=== PATIENT | female | born 1970 | race Caucasian/White ===

== ENCOUNTER 2023-08-28 08:37 | Outpatient (OUT) | payer BC, SELFPAY ==
[2023-08-28 09:11] LABS: Estimated Average Glucose 151 mg/dL; Glycohemoglobin A1C 6.9 % (4.5-6.2)
== END 2023-08-28 08:38 | disposition home or self-care (01) ==
LOC: LAB 08:41
PROVIDERS: PCP Family Medicine; Visit Provider Family Medicine
DX: E11.65 Type 2 diabetes mellitus with hyperglycemia (principal)
CPT/HCPCS: 36415; 83036

== ENCOUNTER 2023-11-01 21:01 | Outpatient (REF) | payer BC, SELFPAY ==
--- OUTSIDE RECORDS SUMMARY | 2023-11-01 21:04 | XMS_ITS | CCD ---
Author Name Unknown Address [address] [place] [address] Organization [facility] Care Team Providers Care Pediatric Audiologist Name Role Phone Rivka Romero Unavailable ROXANA, DR QUINTON Cortés Admitting Unavailable NADERER, DR QUINTON Cortés Attending Unavailable NADERER, DR QUINTON Cortés Primary Care Unavailable NADERER, DR QUINTON Cortés Consulting Unavailable NADERER, DR QUINTON Cortés Admitting Unavailable NADERER, DR QUINTON Cortés Attending Unavailable NADERER, DR QUINTON Cortés Primary Care Unavailable NADERER, DR QUINTON Cortés Consulting Unavailable NADERER, DR QUINTON Cortés Admitting Unavailable NADERER, DR QUINTON Cortés Attending Unavailable NADERER, DR QUINTON Cortés Primary Care Unavailable NADERER, DR QUINTON Cortés Consulting Unavailable NADERER, DR QUINTON Cortés Primary Care Unavailable PAY ., DR BOO Admitting Unavailable PAY ., DR BOO Attending Unavailable ZIEBER, DR AUDREY Rodriguez Consulting Unavailable PAY ., DR BOO Consulting Unavailable TAMLYN ., SUNG Admitting Unavailable TAMKELLY ., SUNG Attending Unavailable ROXANA, DR QUINTON Cortés Primary Care Unavailable TAMLYN ., SUNG Consulting Unavailable URIAH HERRING Consulting Unavailable LG LOYA Consulting Unavailable CHAO ., DR JONES Admitting Unavailable CHAO ., DR JONES Attending Unavailable ROXANA, DR QUINTON Cortés Primary Care Unavailable CHAO ., DR JONES Consulting Unavailable BE WINCHESTER Attending Unavailable BE WINCHESTER Referring Unavailable Medications Current Medications Medication Drug Class(es) Dates Sig (Normalized) Sig (Original) Ascorbic Acid (1 source) Vitamin C Vitamin C Active carvedilol 25 mg oral tablet (1 source) alpha-Adrenergic Porsha, beta-Adrenergic Porsha Carvedilol 25 MG Orally Active Citalopram (1 source) Serotonin Reuptake Inhibitor CeleXA Active lisinopril 10 mg oral tablet (1 source) Angiotensin Converting Enzyme Inhibitor take 1 tablet by mouth every twenty-four hours Lisinopril 10 MG 1 tablet Orally Once a day Active naproxen sodium 550 mg oral tablet (2 sources) Nonsteroidal Anti-inflammatory Drug Start: 02-18-2021 take 1 tablet by mouth every twelve hours at mealtime as needed Naproxen Sodium 550 MG 1 tablet with food or milk as needed Orally every 12 hrs for 7 days Jun, Active pioglitazone (1 source) Peroxisome Proliferator Receptor alpha Agonist, Peroxisome Proliferator Receptor gamma Agonist, Thiazolidinedione Actos Active SITagliptin (1 source) Dipeptidyl Peptidase 4 Inhibitor Januvia Active vitamin B12 (1 source) Vitamin B12 Vitamin B 12 Active Problems Active Problems Problem Classification Problem Date Documented Da te Episodic/Chronic Contraceptive and procreative management (1 source) Tubal ligation status; Translations: [TUBAL LIGATION STATUS] Onset: 12-16-2022 Episodic Diabetes mellitus with complications (4 sources) Type 2 diabetes mellitus with hyperglycemia; Translations: [TYPE 2 DM W/HYPERGLYCEMIA] Onset: 08-18-2022 Chronic Diabetes mellitus without complication (1 source) Type 2 diabetes mellitus without complications; Translations: [TYPE 2 DM WITHOUT COMPLICATIONS] Onset: 12-16-2022 Chronic Essential hypertension (1 source) Essential (primary) hypertension; Translations: [ESSENTIAL PRIMARY HYPERTENSION] Onset: 12-16-2022 Chronic Gastrointestinal hemorrhage (4 sources) Hemorrhage of anus and rectum; Translations: [HEMORRHAGE OF ANUS AND RECTUM] Onset: 12-11-2022 Episodic Joint disorders and dislocations; trauma-related (1 source) Unspecified internal derangement of right knee; Translations: [UNS INTERNAL DERANGEMENT RIGHT KNEE] Onset: 06-02-2022 Chronic Other aftercare (1 source) Other salvage determiner (current) drug therapy; Translations: [OTH WATER POLLUTION CONTROL TECHNICIAN CURRENT DRUG THERAPY] Onset: 12-16-2022 Episodic Residual codes; unclassified (1 source) Acquired absence of both cervix and uterus; Translations: [ACQUIRED ABSENCE BOTH CERVIX AND UTERUS] Onset: 12-16-2022 Episodic Substance-related disorders (1 source) Nicotine dependence, cigarettes, uncomplicated; Translations: [NICOTINE DEPEND CIGARETTES UNCOMP] Onset: 12-16-2022 Chronic Past or Other Problems Problem Classification Problem Date Documented Date Episodic/Chronic Immunizations and screening for infectious disease (1 source) Encounter for screening for human papillomavirus (HPV); Translations: [ENC SCREENING HUMAN PAPILLOMAVIRUS] Onset: 10-31-2022 Episodic Other injuries and conditions due to external causes (1 source) Unspecified injury of right wrist, hand and finger(s), initial encounter; Translations: [Injury of right hand, initial encounter S69.91XA] Onset: 07-07-2021 Resolved: 07-07-2021 Episodic Other non-traumatic joint disorders (4 sources) Pain in right knee; Translations: [PAIN IN RIGHT KNEE] Onset: 06-01-2022 Episodic Other screening for suspected conditions (not mental disorders or infectious disease) (4 sources) Encounter for screening for malignant neoplasm of cervix; Translations: [ENC SCREENING MALIG NEOPLASM CERV] Onset: 10-26-2022 Episodic Results Test Name Value Interpretation Reference Range Facility ECHOCARDIO M/2D COMPLETEon 0 02-19-2023 ECHOCARDIO M/2D COMPLETE Patient: GALE DARDEN Exam Date: 02/19/2023 : 1970 Gender:F Ordering : DR QUINTON SCHMIDT . Admission #: [id number] Family : Order #: [id number] CLICK HERE TO VIEW EXAM ECHOCARDIOGRAM REPORT PROCEDURE: CARDIO PULMONARY ECHOCARDIO M/2D COMP INDICATIONS: Shortness of breath with exertion COMPARISON: None. DESCRIPTION: COMPLETE ECHOCARDIOGRAM Real-time transthoracic echocardiography with 2D, M-mode, spectral and color flow Doppler performed. QUALITY: Technical quality was good. LEFT VENTRICLE: Mild to moderate dilatation. Normal left ventricular wall thickness. Global left ventricular systolic function is normal. LV EF: Estimated left ventricular ejection fraction is 55-60% DIASTOLIC: Grade II diastolic dysfunction. ATRIAL SEPTUM: LEFT ATRIUM: Moderate dilatation. RIGHT ATRIUM: Mild dilatation. RIGHT VENTRICLE: Normal chamber size. Normal right ventricular systolic function. TRICUSPID VALVE: Normal mobility and thickness. No stenosis with mild regurgitation. Moderate pulmonary hypertension. RVSP 49 mmHg MITRAL VALVE: Normal mobility and thickness. No evidence of mitral valve stenosis. There is no mitral annular calcification. Mild mitral regurgitation. AORTIC VALVE: Normal trileaflet appearance. No visible sclerosis. Normal leaflet mobility. No evidence of aortic valve stenosis. No aortic regurgitation. AORTIC ROOT: Normal diameter and appearance. PULMONIC VALVE: Normal thickness and mobility. No stenosis. Trivial regurgitation. PERICARDIUM: No evidence of pericardial effusion. IVC: Collapses with inspirations. Normal size. PLEURA: CONCLUSION: 1. Ventricle is mildly to moderately dilated with normal systolic function. LVEF is 55 to 60%. 2. Normal right ventricular size and systolic function. 3. Grade 2 diastolic dysfunction. 4. Mild to moderate biatrial dilatation. 5. Mild mitral and tricuspid regurgitation. 6. Moderately elevated right-sided pressures. RVSP 49 mmHg. Adult Echocardiography Procedure Report Left Ventricle LVEDD (3.7 - 5.6 cm): 6.14 cm LVESD (2.2 - 4.0 cm): 4.21 cm LVIVS thickness (0.6 - 1.2 cm): 1.07 cm LVPW thickness (0.5 - 1.0 cm): 1.08 cm LVOT Max Gradient: 7 mm[Hg] Peak Velocity (LVOT): 128.00 cm/s Mean Velocity (LVOT): 81.70 cm/s LVOT Diameter 2.10 cm Left Ventricular Ejection Fraction: 55-60 % Left Atrium LA Volume Index (2D A2C): 65026 mm3 Left Atrium Systolic Dimension: 4.50 cm Mitral Valve MV E to A Ratio: 1.20 Mitral Valve A-Wave Peak Velocity: 85.40 cm/s Mitral Valve E-Wave Peak Velocity: 103.00 cm/s Right Ventricle Aorta AO Root Diam: 2.80 cm Aortic Valve AoV Area (Peak Julián): 2.27 cm2 AoV Area (VTI): 2.26 cm2 Peak Velocity(Antegrade Flow): 195.00 cm/s Peak Gradient(Antegrade Flow): 15 mm[Hg] Mean Velocity(Antegrade Flow): 130.00 cm/s Mean Gradient(Antegrade Flow): 8 mm[Hg] Velocity Time Integral: 47.30 cm Tricuspid Valve Peak Velocity (Regurgitant Flow): 338.00 cm/s Peak Velocity: 96.70 cm/s Pulmonic Valve Peak Velocity: 141.00 cm/s, 139.00 cm/s Peak Gradient: 8 mm[Hg] Right Atrium Dictated by: Orlando Fatima M.D. on 02/19/2023 at 18:52 Approved by: Orlando Fatima M.D. on 02/19/2023 at 18:[address] [facility] CBC AUTO DIFFon 02-17-2023 BASO # 0.0 103/ul Normal 0.0-0.1 [place] Comment on above: Performed By: #### C BC ####[facility] [address] [place] [address]Dr. Joseph Obando Basophils/100 WBC (Bld) 0.4 % Normal 0.2-2.0 [facility] Comment on above: Performed By: #### C BC ####[facility] [address] [place], [place] [address]Dr. Joseph Obando EO # 0.3 103/ul Normal 0.0-0.7 [facility] Comment on above: Performed By: #### C BC ####[facility] [address] [place], [place] [address]Dr. Joseph Obando Eosinophils/100 WBC (Bld) 2.9 % Normal 0.9-7.0 [facility] Comment on above: Performed By: #### C BC ####[facility] [address] [place], [place] [address]Dr. Joseph Obando Erythrocyte distribution width (RBC) [Ratio] 15.4 % Critically high 11.0-15.0 [place] Comment on above: Performed By: #### C BC ####[facility] [address] [place], [place] [address]Dr. Joseph Obando Hematocrit (Bld) [Volume fraction] 41.8 % Normal 36.0-48.0 [facility] Comment on above: Performed By: #### C BC ####[facility] [address] [place], [place] [address]Dr. Joseph Obando Hemoglobin (Bld) [Mass/Vol] 12.9 g/dL Normal 12.0-16.0 [facility] Comment on above: Performed By: #### C BC ####[facility] [address] [place], [place] [address]Dr. Lindakyree Obando IG # 0.04 10e3/ul Critically high 0.00-0.[address] [facility] Comment on above: Performed By: #### C BC ####[facility] [address] [place], [place] [address]Dr. Joseph Obando IG % 0.4 % Normal 0.0-0.5 [place] Comment on above: Performed By: #### C BC ####[facility] [address] [address]DrFloresita Obando LYMPH # 1.5 103/ul Normal 1.2-3.8 [facility] Comment on above: Performed By: #### C BC ####[facility] [address] [place], [place] [address]DrFloresita Obando Lymphocytes/100 WBC (Bld) 15.9 % Critically low 20.5-60.0 [facility] Comment on above: Performed By: #### C BC ####[facility] [address] [place], [place] [address]DrFloresita Obando MANUAL DIFF REQ NO Normal [facility] Comment on above: Performed By: #### C BC ####[facility] [address] [place], [place] [address]Dr. Joseph Obando MCH (RBC) [Entitic mass] 29.3 pg Normal 26.7-34.0 [facility] Comment on above: Performed By: #### C BC ####[facility] [address] [place], [place] [address]DrFloresita Obando MCHC (RBC) [Mass/Vol] 30.9 g/dL Normal 29.9-35.2 [facility] Comment on above: Performed By: #### C BC ####[facility] [address] [place], [place] [address]DrFloresita Obando MCV (RBC) [Entitic vol] 94.8 fL Normal 81.0-99.0 [facility] Comment on above: Performed By: #### C BC ####[facility] [address] [place], [place] [address]DrFloresita Obando MONO # 0.6 103/ul Normal 0.3-0.8 [facility] Comment on above: Performed By: #### C BC ####[facility] [address] [place], [place] [address]DrFloresita Obando Monocytes/100 WBC (Bld) 6.5 % Normal 1.7-12.0 [facility] Comment on above: Performed By: #### C BC ####[facility] [address] [place] [id number]. Joseph Obando NEUT # 6.8 103/ul Critically high 1.4-6.5 [facility] Comment on above: Performed By: #### C BC ####[facility] [address] [place] [address]Dr. Joseph Obando Neutrophils/100 WBC (Bld) 73.9 % Normal 43.0-75.0 [facility] Comment on above: Performed By: #### C BC ####[facility] [address] [place] [address]Dr. Joseph Obando Platelet mean volume (Bld) [Entitic vol] 10.4 fL Normal 9.5-13.5 [place] Comment on above: Performed By: #### C BC ####[facility] [address] [place] [address]Dr. Joseph Obando PLT 168 103/ul Normal 150-450 [facility] Comment on above: Performed By: #### C BC ####[facility] [address] [place] [address]Dr. Joseph Obando RBC 4.41 106/ul Normal 4.20-5.40 [facility] Comment on above: Performed By: #### C BC ####[facility] [address] [place] [id number]. Joseph Obando WBC 9.3 103/ul Normal 4.0-11.0 [facility] Comment on above: Performed By: #### C BC ####[facility] [address] [place] [id number]. Joseph Obando GLYCOHEMOGLOBIN A1Con 2022 ADA RECOMMENDATION SEE BELOW Normal [facility] Comment on above: Result Comment: ADA RECOMMENDED LIMIT 4.0 - 6.0 ADA THERAPEUTIC TARGET < 7.0 ACTION SUGGESTED > 7.0 Performed By: #### A 1C #### [facility] [address] [address] [address] Joseph Obando Glucose [Mass/Vol] 146 mg/dL Normal [facility] Comment on above: Performed By: #### A 1C #### [facility] [address] [place] [address] Dr. Joseph Obando HbA1c (Bld) [Mass fraction] 6.7 % Critically high 4.5-6.2 [place] Comment on above: Performed By: #### A 1C #### [facility] [address] [place] [address] Dr. Joseph Obando LIPID PROFILEon 02-17-2023 CHOL-HDL RATIO NORM SEE BELOW Normal [facility] Comment on above: Result Comment: 3.3 - 4.4 LOW RISK 4.4 - 7.1 AVERAGE RISK 7.1 - 11.0 MODERATE RISK >11.0 HIGH RISK Performed By: #### T SH, LIVER, LIPID, BMP #### [facility] [address] [place] [address] Dr. Joseph Obando Cholesterol [Mass/Vol] 250 mg/dL Critically high <=200 [place] Comment on above: Performed By: #### T SH, LIVER, LIPID, BMP #### [facility] [address] [place] [address] Dr. Joseph Obando Cholesterol in HDL [Mass/Vol] 42 mg/dL Normal 40-60 [place] Comment on above: Performed By: #### T SH, LIVER, LIPID, BMP #### [facility] [address] [address] [address] Joseph Obando Cholesterol in LDL [Mass/Vol] 176.4 mg/dL Normal [place] Comment on above: Performed By: #### T SH, LIVER, LIPID, BMP #### [facility] [address] [place] [address] Dr. Joseph Obando Cholesterol.total/Ch olesterol in HDL [Mass ratio] 6.0 {ratio} Normal [place] Comment on above: Performed By: #### T SH, LIVER, LIPID, BMP #### [facility] [address] [place] [address] Dr. Joseph Obando HDL NORMAL > or = 60 mg/dl - LOW CARDIOVASCULAR RISK <40 mg/dl - HIGH CARDIOVASCULAR RISK Normal [place] Comment on above: Performed By: #### T SH, LIVER, LIPID, BMP #### [facility] [address] [address] [address] Joseph Obando LDL CALC NORMAL SEE BELOW Normal [facility] Comment on above: Result Comment: <100 mg/dl OPTIMAL 100 - 129 mg/dl NEAR OR ABOVE OPTIMAL 130 - 159 mg/dl BORDERLINE HIGH 160 - 189 mg/dl HIGH >190 mg/dl VERY HIGH Performed By: #### T SH, LIVER, LIPID, BMP #### [facility] [address] [address] [address] Joseph Obando Triglyceride [Mass/Vol] 158 mg/dL Critically high <=150 [place] Comment on above: Performed By: #### T SH, LIVER, LIPID, BMP #### [facility] [address] [address] [address] Joseph Obando VLDL CALC 31.6 mg/dL Normal [place] Comment on above: Performed By: #### T SH, LIVER, LIPID, BMP #### [facility] [address] [address] [address] Joseph Obando LIVER PROFILEon 02-17-2023 Albumin [Mass/Vol] 3.0 g/dL Critically low 3.4-5.0 [facility] Comment on above: Performed By: #### T SH, LIVER, LIPID, BMP #### [facility] [address] [address] [address] Joseph Obando Albumin/Globulin [Mass ratio] 0.7 {ratio} Normal [place] Comment on above: Performed By: #### T SH, LIVER, LIPID, BMP #### [facility] [address] [place] [address] Dr. Joseph Obando ALP [Catalytic activity/Vol] 83 U/L Normal 46-116 [place] Comment on above: Performed By: #### T SH, LIVER, LIPID, BMP #### [facility] [address] [place] [address] Dr. Joseph Obando ALT [Catalytic activity/Vol] 24 U/L Normal 14-59 [facility] Comment on above: Performed By: #### T SH, LIVER, LIPID, BMP #### [facility] [address] [address] [address] Joseph Obando AST [Catalytic activity/Vol] 14 U/L Critically low 15-37 [place] Comment on above: Performed By: #### T SH, LIVER, LIPID, BMP #### [facility] [address] [place] [address] Dr. Joseph Obando BILI, CONJUGATED 0.1 mg/dL Normal 0.0-0.2 [facility] Comment on above: Performed By: #### T SH, LIVER, LIPID, BMP #### [facility] [address] [place] [address] Dr. Joseph Obando Bilirubin [Mass/Vol] 0.2 mg/dL Normal 0.2-1.0 [place] Comment on above: Performed By: #### T SH, LIVER, LIPID, BMP #### [facility] [address] [place] [address] Dr. Jospeh Obando Globulin (S) [Mass/Vol] 4.2 g/dL Normal [place] Comment on above: Performed By: #### T SH, LIVER, LIPID, BMP #### [facility] [address] [place] [address] Dr. Joseph Obando Protein [Mass/Vol] 7.2 g/dL Normal 6.4-8.2 [facility] Comment on above: Performed By: #### T SH, LIVER, LIPID, BMP #### [facility] [address] [place] [address] Dr. Joseph Obando PROF CHEM 8 (BAS METB)on Anion gap [Moles/Vol] 10.3 mmol/L Normal [place] Comment on above: Performed By: #### T SH, LIVER, LIPID, BMP #### [facility] [address] [place] [address] Dr. Joseph Obando Calcium [Mass/Vol] 9.1 mg/dL Normal 8.5-10.1 [facility] Comment on above: Performed By: #### T SH, LIVER, LIPID, BMP #### [facility] [address] [address] [address] Joseph Obando Chloride [Moles/Vol] 104 mmol/L Normal 98-107 [place] Comment on above: Performed By: #### T SH, LIVER, LIPID, BMP #### [facility] [address] [place] [address] Dr. Joseph Obando CO2 [Moles/Vol] 30.2 mmol/L Normal 21.0-32.0 [facility] Comment on above: Performed By: #### T SH, LIVER, LIPID, BMP #### [facility] [address] [place] [address] Dr. Joseph Obando Creatinine [Mass/Vol] 0.69 mg/dL Normal 0.55-1.02 [place] Comment on above: Performed By: #### T SH, LIVER, LIPID, BMP #### [facility] [address] [place] [address] Dr. Joseph Obando EGFR-AF WALLISIAN >60 Normal >=60 [facility] Comment on above: Performed By: #### T SH, LIVER, LIPID, BMP #### [facility] [address] [place] [address] Dr. Joseph Obando EGFR-NON AF WALLISIAN >60 Normal >=60 [place] Comment on above: Performed By: #### T SH, LIVER, LIPID, BMP #### [facility] [address] [address] [address] Joseph Obando Glucose [Mass/Vol] 158 mg/dL Critically high 74-106 [place] Comment on above: Performed By: #### T SH, LIVER, LIPID, BMP #### [facility] [address] [place] [address] Dr. Joseph Obando Potassium [Moles/Vol] 4.5 mmol/L Normal 3.5-5.1 [place] Comment on above: Performed By: #### T SH, LIVER, LIPID, BMP #### [facility] [address] [place] [address] Dr. Joseph Obando Sodium [Moles/Vol] 140 mmol/L Normal 136-145 [facility] Comment on above: Performed By: #### T SH, LIVER, LIPID, BMP #### [facility] [address] [address] [address] Joseph Obando Urea nitrogen [Mass/Vol] 13.0 mg/dL Normal 7.0-18.0 [place] Comment on above: Performed By: #### T SH, LIVER, LIPID, BMP #### [facility] [address] [address] [address] Joseph Obando Urea nitrogen/Creatinine [Mass ratio] 18.8 mg/mg [facility] Comment on above: Performed By: #### T SH, LIVER, LIPID, BMP #### [facility] [address] [address] [address] Joseph Obando TSHon 02-17-2023 TSH 3.405 uIU/mL Normal 0.358-3.740 [facility] Comment on above: Performed By: #### T SH, LIVER, LIPID, BMP #### [facility] [address] [address] [address] Joseph Obando POINT OF CARE GLUCOSEon 03-0 Glucose [Mass/Vol] 148 mg/dL Critically high 74-106 [place] Comment on above: Performed By: #### P OCGLUC #### [facility] [address] [address] [address] Joseph Obando PAP ACOG PANEL 2: 30 to 65on 10-30-2022 . . [facility] Comment on above: Result Comment: Perf ormed at: WB Performed By: #### [id number] #### [facility] [address] [address] [address] Joseph Obando Age Gdln ACOG Testing -[address] [facility] Comment on above: Performed By: #### [id number] #### [facility] [address] [address] [address] Joseph Obando DIAGNOSIS: Comment [facility] Comment on above: Result Comment: NEGA TIVE FOR INTRAEPITHELIAL LESION OR MALIGNANCY. Performed at: WB Performed By: #### [id number] #### [facility] [address] [place] [address] Dr. Joseph Obando HPV Aptima Negative Normal Negative [place] Comment on above: Result Comment: This nucleic acid amplification test detects fourteen high-risk HPV types (16,18,31,33,35,39,45,51,52,56,58,59,66,68) without differentiation. Performed at: =G Performed By: #### [id number] #### [facility] [address] [address] [address] Joseph Obando HPV Genotype Reflex Comment Normal [facility] Comment on above: Result Comment: Crit eria not met, HPV Genotype not performed. Performed at: WB Performed By: #### [id number] #### [facility] [address] [place] [address] Dr. Joseph Obando Methodology: Comment Normal [place] Comment on above: Result Comment: This liquid based ThinPrep(R) pap test was screened with the use of an image guided system. Performed at: WB Performed By: #### [id number] #### [facility] [address] [place] [address] Dr. Joseph Obando Note: Comment Normal [place] Comment on above: Result Comment: The Pap smear is a screening test designed to aid in the detection of premalignant and malignant conditions of the uterine cervix. It is not a diagnostic procedure and should not be used as the sole means of detecting cervical cancer. Both false-positive and false-negative reports do occur. . Performed at: WB Performed By: #### [id number] #### [facility] [address] [place] [address] Dr. Joseph Obando Performed by: Comment Normal [facility] Comment on above: Result Comment: Makayla Lewis, Sales And Marketing Manager (ASCP) Performed at: WB Performed By: #### [id number] #### [facility] [address] [place] [address] Dr. Joseph Obando Specimen adequacy: Comment Normal [facility] Comment on above: Result Comment: Sati sfactory for evaluation. No endocervical component is identified. Performed at: WB Performed By: #### [id number] #### [facility] [address] [address] [address] Joseph Obando GLYCOHEMOGLOBIN A1Con 2021 ADA RECOMMENDATION SEE BELOW Normal [facility] Comment on above: Result Comment: ADA RECOMMENDED LIMIT 4.0 - 6.0 ADA THERAPEUTIC TARGET < 7.0 ACTION SUGGESTED > 7.0 Performed By: #### A 1C #### [facility] [address] [address] [address] Joseph Obando Glucose [Mass/Vol] 131 mg/dL Normal [facility] Comment on above: Performed By: #### A 1C #### [facility] [address] [place] [address] Dr. Joseph Obando HbA1c (Bld) [Mass fraction] 6.2 % Normal 4.5-6.2 [place] Comment on above: Performed By: #### A 1C #### [facility] [address] [place] [address] Dr. Joseph Obando MRI Knee w/o Righton 022 MRI Knee w/o Right HISTORY: Diffuse right-sided knee pain. TECHNIQUE: Routine non-contrast MRI of the right knee. Unable to use dedicated knee coil due to patient body habitus. Some associated limitations. COMPARISON: Radiographs 06/03/2022. RESULT: MENISCI: Medial Meniscus: Horizontal tearing involving the posterior horn and body, contacting the inferior articular surface. Lateral Meniscus: Intact LIGAMENTS: ACL, PCL, MCL, LCL Complex: Intact CARTILAGE: Small area of full-thickness fissuring involving the trochlea. Small area of high-grade partial-thickness to full-thickness chondral loss involving the superior patella near apex. Otherwise cartilage grossly preserved within limits of the study. TENDONS: Distal quadriceps intact. Patellar tendon intact. Popliteus tendon intact. BONES AND MARROW: No evidence of fracture or bone marrow replacing process. MUSCLES: Muscle bulk and signal intensity are normal. JOINT FLUID AND SYNOVIUM: Moderate joint effusion. No synovitis. Small Angeles's cyst. OTHER: Diffuse subcutaneous edema, especially anteriorly. IMPRESSION: Medial meniscal tear. Mild patellofemoral osteoarthritis. Report reported and signed by Uriah Kelly on 06/12/2022 1410 Normal [facility] Title Vehicle Service Attendant XR Orbits for MRIon 06-12-20 22 XR Orbits for MRI HISTORY: Pre-MRI clearance, history of metal exposure FINDINGS: No metallic foreign body is identified. Visualized osseous structures are unremarkable. IMPRESSION: No metallic foreign body Report reported and signed by Arben Gonzalez on 06/12/2022 0938 Normal [facility] Specialist XR hand RT min 3V*on 021 XR hand RT min 3V* [place] [id number] XRay Report Signed Patient: Gale Darden MR#: [id number] : 1970 Acct:[id number] Age/Sex: 50 / F ADM Date: 07/07/21 Loc: XDUCLY [facility] Dr: Rivka AMADOR Ordering Provider: RIVKA ROMERO Date of Service: 07/07/21 XR/XR hand RT min 3V*: Injury of right hand, initial encounter Copies to: RIVKA ROMERO 3 viewsRIGHT hand plain film COMPARISON:None HISTORY:RIGHT hand injury one month ago. Continued pain No fracture, dislocation or focal soft tissue abnormality seen. XR/XR hand RT min 3V* IMPRESSION:No acute findings Impression dictated by: Max Kasper M.D.07/07/2021 3:36 PM Dictation Location: [place] [address] Transcribed By: [facility] 07/07/21 1536 Dictated By: Max Kasper DO 07/07/21 1534 Signed By: 07/07/21 1536 [facility] XR hand RT min 3V* [facility] [employer] Other XR hand RT min 3V* [facility] [employer] Other XR hand RT min 3V* [address] [place] [address] [employer] Other XR hand RT min 3V* [place] [id number] [employer] Other XR hand RT min 3V* XRay Report [employer] Other XR hand RT min 3V* Signed [employer] Other XR hand RT min 3V* Patient: Gale Darden MR#: [id number] [employer] Other XR hand RT min 3V* 9838 [employer] Other XR hand RT min 3V* : 1970 Acct:[id number] [employer] Other XR hand RT min 3V* Age/Sex: 50 / F ADM Date: 07/07/21 [employer] Other XR hand RT min 3V* Loc: XDUCLY [facility] [employer] Other XR hand RT min 3V* Attending Dr: Rivka Romero [facility] [employer] Other XR hand RT min 3V* Ordering Provider: RIVKA ROMERO [facility] [employer] Other XR hand RT min 3V* Date of Service: 07/07/21 [employer] Other XR hand RT min 3V* XR/XR hand RT min 3V*: Injury of right hand, initial encounter [employer] Other XR hand RT min 3V* Copies to: RIVKA ROMERO [facility] [employer] Other XR hand RT min 3V* 3 viewsRIGHT hand plain film [employer] Other XR hand RT min 3V* COMPARISON:None [employer] Other XR hand RT min 3V* HISTORY:RIGHT hand injury one month ago. Continued pain [employer] Other XR hand RT min 3V* No fracture, dislocation or focal soft tissue abnormality seen. [employer] Other XR hand RT min 3V* XR/XR hand RT min 3V* [employer] Other XR hand RT min 3V* IMPRESSION:No acute findings [employer] Other XR hand RT min 3V* Impression dictated by: Max Kasper M.D.07/07/2021 3:36 PM [employer] Other XR hand RT min 3V* Dictation Location: [place] [address] [employer] Other XR hand RT min 3V* Transcribed By: [facility] 07/07/21 [facility]6 [employer] Other XR hand RT min 3V* Dictated By: Max Kasper DO 07/07/21 [facility] [employer] Other XR hand RT min 3V* Signed By: [employer] Other XR hand RT min 3V* 07/07/[address] [place] [address] [employer] Other XR shoulder RT min 2V*on XR shoulder RT min 2V* [facility] [employer] [place] [address] [place] [address] XRay Report Signed Patient: Gale Darden MR#: [id number] : 1970 Acct:[id number] Age/Sex: 50 / F ADM Date: 02/18/21 Loc: XDUCLY [facility] Attending Dr: Rivka AMADOR Ordering Provider: RIVKA ROMERO Date of Service: 02/18/21 XR/XR humerus RT*: Injury of right shoulder, initial encounter ([id number]) XR/XR shoulder RT min 2V*: Injury of right shoulder, initial encounter Copies to: HEATHER,RIVKA HEAD WAITER/WAITRESS-C 2 viewsRIGHT humerus plain film COMPARISON:None HISTORY:Fell injuring RIGHT shoulder No fracture, dislocation or focal soft tissue abnormality seen. XR/XR humerus RT* IMPRESSION:No acute findings 3 views RIGHT shoulder Nondisplaced fracture of the greater tuberosity identified. No dislocation. No soft tissue abnormality. IMPRESSION: Nondisplaced greater trochanter fracture. Impression dictated by: Max Kasper M.D.02/18/2021 4:38 PM Dictation Location: [place] [address] Transcribed By: [facility] 02/18/21 1638 Dictated By: Max Kasper DO 02/18/21 1634 Signed By: 02/18/21 1638 [facility] Workers' Comp Officeon 10-08 Workers' Comp Office [id number] #1.00CD:127 Normal [facility] Progress Note-Physicianon Progress Note-Physician Patient: GALE DARDEN Age: 50 years Sex: Female : 1970 Associated Diagnoses: None Author: Natalie Peguero Visit Information The patient was seen for evaluation of her mid back following a work related injury on 08/07/2020. [facility] claim status pending. Chief Complaint 09/24/2020 15:41 EST Patient is here today to F/U on left shoulder and back. Has been doing home exercises. Feels fine, much better. Does not feel she needs to continue PT. Has been working full duty since 09-16-20, no problems. No pain. No concerns. History of Present Illness Patient presents to occupational health for follow up evaluation. The patient has one more physical therapy appointment scheduled for 10/07/2020. She feels PT has be very helpful. At rest, she denies any pain. She reports full range of motion. She returned to full duty on 09/16/2020. She reports that she was sore for the first few days, but that it has improved. She continues to do her daily home stretches and exercises. Using otc ibuprofen as needed. Review of Systems ROS as per HPI, otherwise negative. Health Status Allergies: Allergic Reactions (Selected) No Known Medication Allergies, Allergies (1) Active Reaction No Known Medication Allergies None Documented Current medications: (Selected) Documented Medications Documented Actos 15 mg Tab: 15 mg = 1 tab(s), Oral, Daily, Refills(s) 0 CeleXA 10 mg Tab: 10 mg = 1 tab(s), Oral, Daily, # 30 tab(s), Refills(s) 0 CeleXA 20 mg Tab: 20 mg = 1 tab(s), Oral, Daily, # 30 tab(s), Refills(s) 0 Celebrate Multivitamin: Refill(s) 0 Januvia 100 mg Tab: 100 mg = 1 tab(s), Oral, Daily, # 30 tab(s), Refills(s) 0 carvedilol 25 mg Tab: See Instructions, 2 TABS IN AM AND 1 TAB IN PM, Refills(s) 0 cyclobenzaprine 10 mg Tab: 10 mg = 1 tab(s), Oral, TID, PRN for spasm, # 30 tab(s), Refills(s) 0 ibuprofen 200 mg Tab: Refills(s) 0 lisinopril 10 mg Tab: 10 mg = 1 tab(s), Oral, Daily, Refills(s) 0, Home Medications (9) Active Actos 15 mg Tab 15 mg = 1 tab(s), Oral, Daily carvedilol 25 mg Tab See Instructions Celebrate Multivitamin CeleXA 10 mg Tab 10 mg = 1 tab(s), Oral, Daily CeleXA 20 mg Tab 20 mg = 1 tab(s), Oral, Daily cyclobenzaprine 10 mg Tab 10 mg = 1 tab(s), PRN, Oral, TID ibuprofen 200 mg Tab Januvia 100 mg Tab 100 mg = 1 tab(s), Oral, Daily lisinopril 10 mg Tab 10 mg = 1 tab(s), Oral, Daily Physical Examination Vital Signs (last 24 hrs) Last Charted Heart Rate Peripheral 76 bpm (SEP 24 15:41) SBP 128 mmHg (SEP 24 15:41) DBP 88 mmHg (SEP 24:) Additional physical exam information: No tenderness over trapezius and rhomboid muscles on the left,. No tenderness over spinous processes. Full ROM is noted in the cervical spine and bilateral upper extremities. Normal sensory motor exam. . Impression and Plan Diagnosis Left shoulder strain ([id number] S46.912A, Working, Medical). Strain of thoracic back region (LIM79-NR S29.012A, Working, Medical). Course: Improving. Orders May return to full duty. Recommend continuation of the home stretches and exercises due to natures of her work. She may follow up as needed. Call for any questions or concerns. . Counseled: Patient, Regarding diagnosis, Regarding treatment. Patient Instructions: Patient verbalizes understanding of plan of care. All questions answered satisfactorily.. Normal [facility] Comment on above: Result Comment: Elec tronically Signed By: Natalie Peguero\.br\Date and Time Signed: 09/24/20 16:03 EST Workers' Comp Officeon 09-24 Workers' Comp Office [id number] #1.00CD:127 Normal [facility] Progress Note-Physicianon Progress Note-Physician Patient: GALE DARDEN Age: 49 years Sex: Female : 1970 Associated Diagnoses: None Author: Natalie Peguero Visit Information The patient was seen for evaluation of her mid back following a work related injury on 08/07/2020. [facility] claim status pending. Chief Complaint 09/06/2020 9:34 EST Patient is here today to F/U on her left shoulder/back/blade. Seen PT on Wednesday. Doing much better. No pain. Working with restrictions. No concerns at this time. History of Present Illness Patient presents to occupational health for follow up evaluation. Patient continues with physical therapy, her next appointment is schedule for Wednesday09/09/2020. She feels PT has be very helpful. She continues to do daily home exercises and stretches. At rest, she denies any pain. Patient remains on light duty restrictions and states she has not even tried to lift or move heavy objects. She is concerned that returning to full duty will aggravate the pain. She has been using otc ibuprofen as needed. Review of Systems ROS as per HPI, otherwise negative. Health Status Allergies: Allergic Reactions (Selected) No Known Medication Allergies Current medications: Home Medications (9) Active Actos 15 mg Tab 15 mg = 1 tab(s), Oral, Daily carvedilol 25 mg Tab See Instructions Celebrate Multivitamin CeleXA 10 mg Tab 10 mg = 1 tab(s), Oral, Daily CeleXA 20 mg Tab 20 mg = 1 tab(s), Oral, Daily cyclobenzaprine 10 mg Tab 10 mg = 1 tab(s), PRN, Oral, TID ibuprofen 200 mg Tab Januvia 100 mg Tab 100 mg = 1 tab(s), Oral, Daily lisinopril 10 mg Tab 10 mg = 1 tab(s), Oral, Daily Problem list: Active Problems (3) Depression Hypertension Type 2 diabetes, HbA1c goal < 7% Physical Examination Vital Signs (last 24 hrs) Last Charted Heart Rate Peripheral 72 bpm (SEP 06:) SBP 118 mmHg (SEP 06:) DBP 80 mmHg (SEP 06:) Additional physical exam information: Mild tenderness and tightness noted over trapezius and rhomboid muscles on the left, although improved from previous exam. No tenderness over spinous processes. Full ROM is noted in the cervical spine and left upper extremity. . Impression and Plan Diagnosis Strain of thoracic back region (TII55-BI S29.012A, Working, Medical). Left shoulder strain (JHB40-HC S46.912A, Working, Medical). Course: Improving. Orders 1) Recommend the patient continue with PT plan. She will continue with HEP. OTC Ibuprofen as needed. 2) Continue with light duty restrictions for one more week. Slowly begin to increase weight and use of upper extremities. She may return to full duty on 09/16/2020. 3) I would like to follow up with the patient for re-evaluation one week after return to full duty. She knows to call sooner for any questions or concerns. . Counseled: Patient, Regarding diagnosis, Regarding treatment. Patient Instructions: Patient verbalizes understanding of plan of care. All questions answered satisfactorily.. Normal [facility] Comment on above: Result Comment: Elec tronically Signed By: Natalie Peguero.juan\Date and Time Signed: 09/06/20 12:53 EST Workers' Comp Officeon 09-06 Workers' Comp Office [id number] #1.00CD:127 Normal [facility] Progress Note-Physicianon Progress Note-Physician Patient: GALE DARDEN Age: 49 years Sex: Female : 1970 Associated Diagnoses: None Author: Natalie Peguero Visit Information The patient was seen for evaluation of her mid back following a work related injury on 08/07/2020. [facility] claim status pending. Chief Complaint 08/27/2020 9:53 EST Pt here for injury f/u. Pt c/o tenderness in lt shoudler blade, states pain has improveved. Pt denied pain/tenderness in neck or rib area. Pt is not taking Flexril, but is taking OTC ibuprofen PRN. Pt rates pain 3/10. Pt on light duty. History of Present Illness Patient returns to occupational health for follow up evaluation. Patient has started physical therapy. Overall, the patient feels she is improving. She states the pain in the neck and rib region have resolved. The main area of pain is located around the left shoulder blade. She reports good range of motion, however she does feel some pulling at times. She has noticed popping and cracking in her shoulder joint, however it is not associated with pain. She has transitioned to over the counter ibuprofen 200mg ii tabs as needed. She is no longer taking Flexeril as it was not helpful. She feels the ibuprofen helps adequately. She continues with light duty at this time. Review of Systems ROS as per HPI, otherwise negative. Health Status Allergies: Allergic Reactions (Selected) No Known Medication Allergies Current medications: (Selected) Documented Medications Documented Actos 15 mg Tab: 15 mg = 1 tab(s), Oral, Daily, Refills(s) 0 CeleXA 10 mg Tab: 10 mg = 1 tab(s), Oral, Daily, # 30 tab(s), Refills(s) 0 CeleXA 20 mg Tab: 20 mg = 1 tab(s), Oral, Daily, # 30 tab(s), Refills(s) 0 Celebrate Multivitamin: Refill(s) 0 Januvia 100 mg Tab: 100 mg = 1 tab(s), Oral, Daily, # 30 tab(s), Refills(s) 0 carvedilol 25 mg Tab: See Instructions, 2 TABS IN AM AND 1 TAB IN PM, Refills(s) 0 cyclobenzaprine 10 mg Tab: 10 mg = 1 tab(s), Oral, TID, PRN for spasm, # 30 tab(s), Refills(s) 0 ibuprofen 200 mg Tab: Refills(s) 0 lisinopril 10 mg Tab: 10 mg = 1 tab(s), Oral, Daily, Refills(s) 0, Home Medications (9) Active Actos 15 mg Tab 15 mg = 1 tab(s), Oral, Daily carvedilol 25 mg Tab See Instructions Celebrate Multivitamin CeleXA 10 mg Tab 10 mg = 1 tab(s), Oral, Daily CeleXA 20 mg Tab 20 mg = 1 tab(s), Oral, Daily cyclobenzaprine 10 mg Tab 10 mg = 1 tab(s), PRN, Oral, TID ibuprofen 200 mg Tab Januvia 100 mg Tab 100 mg = 1 tab(s), Oral, Daily lisinopril 10 mg Tab 10 mg = 1 tab(s), Oral, Daily Problem list: Active Problems (3) Depression Hypertension Type 2 diabetes, HbA1c goal < 7% Physical Examination Vital Signs (last 24 hrs) Last Charted Heart Rate Peripheral 65 bpm (AUG 27 09:53) SBP 113 mmHg (AUG 27:53) DBP 68 mmHg (AUG 27:53) Additional physical exam information: Examination reveals no obvious swelling over the trapezius or parathoracic musculature. There remains some tightness noted throughout trapezius and rhomboid muscles on the left. No tenderness over spinous processes. Full ROM is noted in the cervical spine. Full ROM noted in left upper extremity. Normal sensory motor exam of upper and lower extremities. Impression and Plan Diagnosis Strain of thoracic back region ([id number]-TX S29.012A, Working, Medical). Left shoulder strain (ARW24-HQ S46.912A, Working, Medical). Course: Improving. Orders Patient will continue with course of physical therapy as recommended. We will make some small adjustments in her restrictions, however still keeping her on light duty. No lifting/pushing/pull ing over 10lbs. No outstretched reach, with only occasional overhead reach. She will continue to use otc Ibuprofen as needed. I've asked her to return for re-evaluation in 2 weeks or sooner if needed. I anticipate release to full duty at that time. She knows to call sooner for any changes or concerns. . Counseled: Patient, Regarding diagnosis, Regarding treatment, Regarding medications. Patient Instructions: Patient verbalizes understanding of plan of care. All questions answered satisfactorily.. [facility] Comment on above: Result Comment: Elec tronically Signed By: Natalie Peguero.br\Date and Time Signed: 08/27/20 11:17 EST Workers' Comp Officeon 08-27 Workers' Comp Office [id number] 9#1.00CD:127 [facility] Workers' Comp Officeon 08-26 Workers' Comp Office [id number] #1.00CD:127 [facility] Workers' Comp Officeon 08-21 Workers' Comp Office [id number] 9#1.00CD:127 [facility] Workers' Comp Officeon 08-16 Workers' Comp Office Patient has an appt on 08-22-20 @ 4:00 [facility] Workers' Comp Officeon 08-14 Workers' Comp Office [id number] 6#1.00CD:127 [facility] Workers' Comp Office [id number] 5#1.00CD:127 [facility] Workers' Comp Office [id number] 2#1.00CD:127 [facility] Workers' Comp Office [id number] 6#1.00CD:127 Normal [facility] Workers' Comp Office [id number] 6#1.00CD:127 Normal [facility] Workers' Comp Office [id number] 7#1.00CD:127 Normal [facility] Workers' Comp Office [id number] 9#1.00CD:127 Normal [facility] [place] 08-13-2020 Consent [id number] 3#1.00CD:127 Normal [facility] Progress Note-Physicianon Progress Note-Physician Patient: GALE DARDEN Age: 49 years Sex: Female : 1970 Associated Diagnoses: None Author: Natalie Peguero Visit Information The patient was seen for evaluation of her mid back following a work related injury on 08/07/2020. [facility] claim status pending. Chief Complaint 08/13/2020 13:44 EST Here for ER f/u after injury at work 08/07/2020. Left shoulder blade pain with radiating pain into her neck and pain radiating into her ribs. Rates the pain at this time a 7. Pain changes with movement. Has been working light duty since injury. History of Present Illness Patient presents to occupational health for follow up to work related injury which occurred on 08/07/2020. The patient was originally seen by [facility] on 08/09/2020, but was told by her employer to follow up with our office. 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 During this time, she felt a pop in her left shoulder blade. Over the next two days the pain intensified. She was using heat and ibuprofen without any significant improvement. Following her evaluation at [facility] she was prescribed Flexeril 10mg three times daily, and told to continue NSAID therapy ATC with food. She was instructed on some shoulder, neck and arm exercises and placed on light duty. Since then she has been following her instructions with heat, ibuprofen and light duty. She continues to report intense pain around the left shoulder blade that radiates up to the neck and down to the lower back. She does feel the heat is helpful, but states the improvement does not last. Review of Systems ROS as per HPI, otherwise negative. Health Status Allergies: Allergic Reactions (Selected) No Known Medication Allergies Current medications: (Selected) Documented Medications Documented Actos 15 mg Tab: 15 mg = 1 tab(s), Oral, Daily, Refills(s) 0 CeleXA 10 mg Tab: 10 mg = 1 tab(s), Oral, Daily, # 30 tab(s), Refills(s) 0 CeleXA 20 mg Tab: 20 mg = 1 tab(s), Oral, Daily, # 30 tab(s), Refills(s) 0 Celebrate Multivitamin: Refill(s) 0 Januvia 100 mg Tab: 100 mg = 1 tab(s), Oral, Daily, # 30 tab(s), Refills(s) 0 carvedilol 25 mg Tab: See Instructions, 2 TABS IN AM AND 1 TAB IN PM, Refills(s) 0 cyclobenzaprine 10 mg Tab: 10 mg = 1 tab(s), Oral, TID, PRN for spasm, # 30 tab(s), Refills(s) 0 ibuprofen 200 mg Tab: Refills(s) 0 lisinopril 10 mg Tab: 10 mg = 1 tab(s), Oral, Daily, Refills(s) 0, Home Medications (9) Active Actos 15 mg Tab 15 mg = 1 tab(s), Oral, Daily carvedilol 25 mg Tab See Instructions Celebrate Multivitamin CeleXA 10 mg Tab 10 mg = 1 tab(s), Oral, Daily CeleXA 20 mg Tab 20 mg = 1 tab(s), Oral, Daily cyclobenzaprine 10 mg Tab 10 mg = 1 tab(s), PRN, Oral, TID ibuprofen 200 mg Tab Januvia 100 mg Tab 100 mg = 1 tab(s), Oral, Daily lisinopril 10 mg Tab 10 mg = 1 tab(s), Oral, Daily Problem list: Active Problems (3) Depression Hypertension Type 2 diabetes, HbA1c goal < 7% Physical Examination Vital Signs (last 24 hrs) Last Charted Heart Rate Peripheral 74 bpm (AUG 13 13:44) SBP 132 mmHg (AUG 13 13:44) DBP 84 mmHg (AUG 13 13:44) Additional physical exam information: On examination, the patient appears to be uncomfortable with facial grimacing. Examination reveals some mild swelling in the left para-thoracic musclulature with intense pain with palpation. The area of tenderness travels up to para-cervical musculature. Tightness is noted throughout trapezius and rhomboid muscles on the left. No tenderness over spinous processes. Full ROM is noted in the cervical spine, as well with forward and lateral flexion however it obviously causes increased discomfort. Normal sensory motor exam of upper and lower extremities. . Impression and Plan Diagnosis Strain of thoracic back region ([id number]-AF S29.012A, Working, Medical). Orders 1) I recommend the patient start with a course of PT caitlin. Our office will submit a C-9. The sooner she can get started with modalities to reduce inflammation of the muscles, the sooner the pain with decrease and she can return to full function. 2) She will continue with previously recommended measures include otc anti-inflammatories, heat aplication, and otc topical applications such as salonpas. 3) Will continue light duty work restrictions with no lifting, pushing, pulling >5lbs. No outstretched reaching and no overhead reaching. Recommend sit down breaks at least every 2 hours. 4) I've asked the patient to return to the clinic in 2 weeks for re-evaluation or sooner if needed. She knows to call for any questions or concerns. . Counseled: Patient, Regarding diagnosis, Regarding treatment, Regarding medications. Patient Instructions: Patient verbalizes understanding of plan of care. All questions answered satisfactorily.. Normal [facility] Comment on above: Result Comment: Elec tronically Signed By: Natalie Peguero.juan\Date and Time Signed: 08/13/20 16:40 EST Workers' Comp Officeon 08-13 Workers' Comp Office Mailed a physician of record change form to patient. I informed her that it needs to be filled out CAITLIN and returned back to our department. Normal [facility] [employer] Signs Date Time Vital Sign Value Performing Clinician Facility 07-07-2021 15:40-0400 Body height 161.29 cm Rivka Romero Other [facility] Other 07-07-2021 15:40-0400 Body mass index (BMI) [Ratio] 44.11 kg/m2 Rivka Romero Other [facility] Other 07-07-2021 15:40-0400 Body temperature 98.2 [degF] Rivka Romero Other [facility] Other 07-07-2021 15:40-0400 Body weight 114.76 kg Rivka Romero Other [facility] Other 07-07-2021 15:40-0400 Diastolic blood pressure 57 mm[Hg] Rivka Romero Other [facility] Other 07-07-2021 15:40-0400 Respiratory rate 18 /min Rivka Romero Other [facility] Other 07-07-2021 15:40-0400 SaO2% (BldA) [Mass fraction] 96 % Rivka Romero Other [facility] Other 07-07-2021 15:40-0400 Systolic blood pressure 114 mm[Hg] Rivka Romero Other [facility] Other Encounters Encounter Date Encounter Type Care Provider Facility Start: 10-05-2023 End: 10-06-2023 ambulatory [facility] Not Available Start: 02-20-2023 Encounter for genera l adult medical examination without abnormal findings DR QUINTON SCHMIDT [facility] Start: 02-19-2023 End: 02-20-[address] QUINTON SCHMIDT Facility:[facility] Start: 02-17-2023 End: 02-18-[address] QUINTON SCHMIDT Facility:[facility] Start: 02-17-2023 End: 02-18-2023 Encounter for general adult medical examination without abnormal findings DR QUINTON SCHMIDT Facility:[facility] Start: 12-11-2022 End: 12-11-2022 ambulatory [facility] . Facility:[facility] Start: 10-26-2022 End: 10-26-[address] ROBERT GUIDRY . Facility:[facility] Start: 08-18-2022 End: 08-19-[address] QUINTON SCHMIDT Facility:[facility] Start: 06-01-2022 End: 06-01-[address] QUINTON SCHMIDT Facility:[facility] Start: 07-07-2021 Office outpatient vi sit 15 minutes Rivka Romero [facility] [place] Payers Date Payer Category Payer Unknown [id number] 2.16.84 [id number] 1970 Unknown [id number] 2.16.84 [id number] 1970 Unknown [id number] 2.16.84 [id number] 1970 Unknown [id number] 2.16.84 [id number] 1970 Unknown [id number] 2.16.84 [id number] 1970 Unknown [id number] 2.16.84 [id number] 1970 Unknown [id number] [id number] 1970 Unknown [id number] 1959 [facility] [id number] Social History Date Type Detail Facility Unknown if ever smoked [facility] Other Sex Assigned At Sex Assigned At Bir th [facility] Other Clinical Note 06-01-2022 Note Date & Type Note Facility 06-01-2022 Note PROCEDURE: XR KNEE R T 4V or > HISTORY: Pain ; right knee pain and weakness for 5 days; no known injury COMPARISON: XR knee right 01/25/2022 FINDINGS: BONES:No fracture, dislocation, bone lesion. Tiny degenerative osteophytes along margins of the patella. No significant joint space narrowing. SOFT TISSUES:No visible soft tissue swelling. EFFUSION:None visible. OTHER: Negative. IMPRESSION: 1. No appreciable acute abnormality. 2. Minimal degenerative changes. Electronically authenticated by: AUDREY GUTHRIE Date: 2022-06-01 09:07 [place] Evaluation note 07-07-2021 Note Date & Type Note Facility 07-07-2021 Evaluation note Encounter Date Diagnosis Assessment Notes Jun, Injury of right hand, initial encounter (ICD-10 - S69.91XA) Use RICE therapy as discussed: Rest, Ice Compression, Elevate. Apply ice to affected area 3-4 times daily (Do not place ice source directly on skin, must cover with towel-like material). Take medication as directed. Rest and elevate sore extremity as much as possible. Do not take OTC medication pain relievers if prescription of medication given in office today. Contact office if no improvement of symptoms and we will help you get into a specialist. [facility] Other History general Narrative - Reported Note Date & Type Note Facility History general Narrative - Reported Type Medical History Hypertension Medical History diabetes mallitus Medical History chronic depression Medical History anxiety Surgical History tubal ligation Surgical History C section Surgical History bladder surgery Surgical History HYSTERECTOMY Hospitalization History see above Hospitalization History cyst [facility] Other Summary Purpose Family History No Family History Records FoundNo Family History Records FoundNo Family History Records FoundNo Family History Records FoundNo Family History Records Found Advance Directives No Advanced Directives Records FoundNo Advanced Directives Records FoundNo Advanced Directives Records FoundNo Advanced Directives Records FoundNo Advanced Directives Records Found Additional Source Comments INFORMATION SOURCE (unrecogn ized section and content) DATE CREATED AUTHOR 10/09/2020 [facility] DATE CREATED AUTHOR AUTHOR'S ORGANIZ ATION 10/28/2021 [facility] DATE CREATED AUTHOR AUTHOR'S ORGANIZ ATION 06/13/2022 [facility] DATE CREATED AUTHOR AUTHOR'S ORGANIZ ATION 02/21/2023 [facility] DATE CREATED AUTHOR AUTHOR'S ORGANIZ ATION 10/10/2023 [facility] EPIC REASON FOR VISIT (unrecogniz ed section and content) RIGHT HAND INJURY, HURT TAKI NG DOG FOR WALK FOR RECORDS PERTAINING TO PATIENTS WHO ARE OR HAVE BEEN ENROLLED IN A CHEMICAL DEPENDENCY/SUBSTANCEABUSE PROGRAM, SOME INFORMATION MAY BE OMITTED. This clinical summary was aggregated from multiple sources. Caution should be exercised in using it in the provision of clinical care. This summary normalizes information from multiple sources, and as a consequence, information in this document may materially change the coding, format and clinical context of patient data. In addition, data may be omitted in some cases. CLINICAL DECISIONS SHOULD BE BASED ON THE PRIMARY CLINICAL RECORDS. [facility] [employer] provides no warranty or guarantee of the accuracy or completeness of information in this document.
[2023-11-04 13:10] LABS: Age Gdln ACOG Testing Note (.); HPV Aptima Negative (Negative); IGP, Aptima HPV, rfx 16/18,45 Note (.)
== END 2023-11-01 21:02 | disposition home or self-care (01) ==
LOC: LAB 21:01
PROVIDERS: PCP Family Medicine; Visit Provider Obstetrics & Gynecology
DX: Z01.419 Encounter for gynecological examination (general) (routine) without abnormal findings (principal)
CPT/HCPCS: 87624; G0145

== ENCOUNTER 2023-12-31 07:26 | Outpatient (OUT) | payer BC, SELFPAY ==
--- OUTSIDE RECORDS SUMMARY | 2023-12-31 07:28 | XMS_ITS | CCD ---
Author Organization [facility] Care Team Providers Care Residential Sales Rep Name Role Phone Rivka Romero Unavailable ROXANA, DR MYNOR Cortés Admitting Unavailable NADERER, DR MYNOR Cortés Attending Unavailable NADERER, DR MYNOR Cortés Primary Care Unavailable NADERER, DR MYNOR Cortés Consulting Unavailable NADERER, DR MYNOR Cortés Admitting Unavailable NADERER, DR MYNOR Cortés Attending Unavailable NADEREJennifer, DR MYNOR Cortés Primary Care Unavailable NADEREJennifer, DR MYNOR Cortés Consulting Unavailable NADEREJennifer, DR MYNOR Cortés Admitting Unavailable NADERER, DR MYNOR Cortés Attending Unavailable NADERER, DR MYNOR Cortés Primary Care Unavailable NADERER, DR MYNOR Cortés Consulting Unavailable NADERER, DR MYNOR Cortés Primary Care Unavailable PAY ., DR BOO Admitting Unavailable PAY ., DR BOO Attending Unavailable ZIEBER, DR AUDREY Rodriguez Consulting Unavailable PAY ., DR BOO Consulting Unavailable TAMLYN ., SUNG Admitting Unavailable TAMLYN ., SUNG Attending Unavailable ROXANA, DR MYNOR Cortés Primary Care Unavailable TAMLYN ., SUNG Consulting Unavailable URIAH HERRING Consulting Unavailable LG LOYA Consulting Unavailable CHAO ., DR JONES Admitting Unavailable CHAO ., DR JONES Attending Unavailable ROXANA, DR MYNOR Cortés Primary Care Unavailable CHAO ., DR JONES Consulting Unavailable ROBERT GUIDRY Attending Unavailable BE LAM Attending Unavailable BE LAM Referring Unavailable Mynor Schmidt MD Primary Care Provider YESENIA SMALL Attending Unavailable MYNOR SCHMIDT Referring Unavailable MYNOR SCHMIDT Primary Care Unavailable Medications Current Medications Medication Drug Class(es) Dates Sig (Normalized) Sig (Original) ascorbic acid 250 mg chewable tablet (2 sources) Vitamin C ascorbic acid, v itamin C, 250 mg tablet,chewable Chew 1 tablet and swallow daily. 0 Active Vitamin C Active atorvastatin 40 mg oral tablet (1 source) HMG-CoA Reductase Inhibitor Start: 09-17-2023 take 1 tablet by mouth in the morning atorvastatin (LIPITOR) 40 mg tablet Take 1 tablet (40 mg total) by mouth in the morning. 0 09/17/2023 Active carvedilol 25 mg oral tablet (3 sources) alpha-Adrenergic Porsha, beta-Adrenergic Porsha Start: 03-14-2021 take 2 tablets by mouth once daily before breakfast carvediloL (COREG) 25 mg tablet Take 2 tablets (50 mg total) by mouth every morning before breakfast. 0 03/14/2021 Active take 1 tablet by david th once daily at dinner carvediloL (COREG) 25 mg tablet Take 1 tablet (25 mg total) by mouth Daily before evening meal. 0 Active citalopram 10 mg oral tablet (2 sources) Serotonin Reuptake Inhibitor Start: 02-19-2021 take 3 tablets by mouth in the morning citalopram (CeleXA) 10 mg tablet Take 3 tablets (30 mg total) by mouth in the morning. 0 02/19/2021 Active CeleXA Active docusate sodium 100 mg oral capsule (1 source) take 1 capsule by mouth at bedtime docusate sodium (COLACE) 100 mg capsule Take 1 capsule (100 mg total) by mouth in the morning and at bedtime. 0 Active furosemide 40 mg oral tablet (1 source) Loop Diuretic Start: take 1 tablet by mouth once daily furosemide (LASIX) 40 mg tablet Take 1 tablet (40 mg total) by mouth daily. 0 09/17/2023 Active lisinopril 10 mg oral tablet (2 sources) Angiotensin Converting Enzyme Inhibitor Start: take 1 tablet by mouth in the morning lisinopriL (PRINIVIL,ZESTRIL) 10 mg tablet Take 1 tablet (10 mg total) by mouth in the morning. 0 03/13/2021 Active MULTIVITAMIN ORAL (1 source) take 1 tablet by mouth in the morning MULTIVITAMIN ORAL Take 1 tablet by mouth in the morning. 0 Active naproxen sodium 550 mg oral tablet (2 sources) Nonsteroidal Anti-inflammatory Drug Start: take 1 tablet by mouth every twelve hours at mealtime as needed Naproxen Sodium 550 MG 1 tablet with food or milk as needed Orally every 12 hrs for 7 days Jun, Active omega 1-nwd-mhf-fish oil 300-1,000 mg capsule (1 source) take 300-1000 mg by mouth once daily omega 5-tfe-mvg-fish oil 300-1,000 mg capsule Take 1 capsule by mouth daily. 0 Active pioglitazone 30 mg oral tablet (2 sources) Peroxisome Proliferator Receptor alpha Agonist, Peroxisome Proliferator Receptor gamma Agonist, Thiazolidinedione Start: pioglitazone (ACTOS) 30 mg tablet Take by mouth daily. 0 01/25/2021 Active Actos Active SITagliptin 25 mg oral tablet (2 sources) Dipeptidyl Peptidase 4 Inhibitor Start: 01-25-2021 take 1 tablet by mouth in the morning SITagliptin phosphate (JANUVIA) 25 mg tablet Take 1 tablet (25 mg total) by mouth in the morning. 0 01/25/2021 Active Januvia Active vitamin b12 1 mg oral tablet (2 sources) Vitamin B12 take 1 tablet by mouth in the morning cyanocobalamin 1000 MCG tablet Take 1 tablet (1,000 mcg total) by mouth in the morning. 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 Admission #: [id number] Family : Order #: [id number] CLICK HERE TO VIEW EXAM ECHOCARDIOGRAM REPORT [...] Left Atrium LA Volume Index (2D A2C): 67354 mm3 Left Atrium Systolic Dimension: 4.50 cm [...] Orlando Fatima M.D. on 02/19/2023 at 18:56 Normal [facility] CBC AUTO DIFFon 02-17-2023 BASO # 0.0 103/ul Normal 0.0-0.1 [facility] Comment on above: Performed By: #### C BC ####[facility] [address] [address]DrFloresita Obando Basophils/100 WBC (Bld) 0.4 % Normal 0.2-2.0 [facility] Comment on above: Performed By: #### C BC ####[facility] [address] [place], [place] [address]DrFloresita Obando EO # 0.3 103/ul Normal 0.0-0.7 [facility] Comment on above: Performed By: #### C BC ####[facility] [address] [place], [place] [address]DrFloresita Obando Eosinophils/100 WBC (Bld) 2.9 % Normal 0.9-7.0 [facility] Comment on above: Performed By: #### C BC ####[facility] Z[address] [place], [place] [address]DrFloresita Obando Erythrocyte distribution width (RBC) [Ratio] 15.4 % Critically high 11.0-15.0 [facility] Comment on above: Performed By: #### C BC ####[facility] [address] [place], [place] [address]DrFloresita Obando Hematocrit (Bld) [Volume fraction] 41.8 % Normal 36.0-48.0 [facility] Comment on above: Performed By: #### C BC ####[facility] [address] [place], [place] [address]DrFloresita Obando Hemoglobin (Bld) [Mass/Vol] 12.9 g/dL Normal 12.0-16.0 [facility] Comment on above: Performed By: #### C BC ####[facility] [address] [address]Dr. Joseph Obando IG # 0.04 10e3/ul Critically high 0.00-0.03 [facility] Comment on above: Performed By: #### C BC ####[facility] [address] [address]Dr. Joseph Obando IG % 0.4 % Normal 0.0-0.5 [facility] Comment on above: Performed By: #### C BC ####[facility] Z[address] [place], [place] [address]Dr. Joseph Obando LYMPH # 1.5 103/ul Normal 1.2-3.8 [facility] Comment on above: Performed By: #### C BC ####[facility] [address] [place], [place] [address]Dr. Joseph Obando Lymphocytes/100 WBC (Bld) 15.9 % Critically low 20.5-60.0 [facility] Comment on above: Performed By: #### C BC ####[facility] U[address] [place], [place] [address]Dr. Joseph Obando MANUAL DIFF REQ NO Normal [facility] Comment on above: Performed By: #### C BC ####[facility] B[address] [place], [place] [address]Dr. Joseph Obando MCH (RBC) [Entitic mass] 29.3 pg Normal 26.7-34.0 [facility] Comment on above: Performed By: #### C BC ####[facility] W[address] [place], [place] [address]Dr. Joseph Obando MCHC (RBC) [Mass/Vol] 30.9 g/dL Normal 29.9-35.2 [facility] Comment on above: Performed By: #### C BC ####[facility] [address] [place], [place] [address]Dr. Joseph Obando MCV (RBC) [Entitic vol] 94.8 fL Normal 81.0-99.0 [facility] Comment on above: Performed By: #### C BC ####[facility] [address] [address]DrFloresita Joseph Obando MONO # 0.6 103/ul Normal 0.3-0.8 [facility] Comment on above: Performed By: #### C BC ####[facility] [address] [place], [place] [address]DrFloresita Joseph Obando Monocytes/100 WBC (Bld) 6.5 % Normal 1.7-12.0 [facility] Comment on above: Performed By: #### C BC ####[facility] Bug[address] [place], [place] [address]Dr. Joseph Obando NEUT # 6.8 103/ul Critically high 1.4-6.5 [facility] Comment on above: Performed By: #### C BC ####[facility] [address] [place], [place] [address]Dr. Joseph Obando Neutrophils/100 WBC (Bld) 73.9 % Normal 43.0-75.0 [facility] Comment on above: Performed By: #### C BC ####[facility] [address] [place], [place] [address]DrFloresita Joseph Obando Platelet mean volume (Bld) [Entitic vol] 10.4 fL Normal 9.5-13.5 [facility] Comment on above: Performed By: #### C BC ####[facility] L[address] [place], [place] [address]Dr. Joseph Topher PLT 168 103/ul Normal 150-450 [facility] Comment on above: Performed By: #### C BC ####[facility] [address] [place], [place] [address]DrFloresita Joseph Topher RBC 4.41 106/ul Normal 4.20-5.40 [facility] Comment on above: Performed By: #### C BC ####[facility] [address] [place], [place] [address]DrFloresita Mckeonkyree Topher WBC 9.3 103/ul Normal 4.0-11.0 [facility] Comment on above: Performed By: #### C BC ####[facility] [address] [place], [place] [address]JjDr. Joseph Obando GLYCOHEMOGLOBIN A1Con 2022 ADA RECOMMENDATION SEE BELOW Normal [facility] Comment on above: Result Comment: ADA RECOMMENDED LIMIT 4.0 - 6.0 ADA THERAPEUTIC TARGET < 7.0 ACTION SUGGESTED > 7.0 Performed By: #### A 1C #### [facility] [address] [address] [address] Joseph Obando Glucose [Mass/Vol] 146 mg/dL Normal [facility] Comment on above: Performed By: #### A 1C #### [facility] [address] [address] [address] Joseph Obando HbA1c (Bld) [Mass fraction] 6.7 % Critically high 4.5-6.2 [facility] Comment on above: Performed By: #### A 1C #### [facility] [address] [address] [address] Joseph Obando LIPID PROFILEon 02-17-2023 CHOL-HDL RATIO NORM SEE BELOW Normal [facility] Comment on above: Result Comment: 3.3 - 4.4 LOW RISK 4.4 - 7.1 AVERAGE RISK 7.1 - 11.0 MODERATE RISK >11.0 HIGH RISK Performed By: #### T SH, LIVER, LIPID, BMP #### [facility] [address] [address] [address] Joseph Obando Cholesterol [Mass/Vol] 250 mg/dL Critically high <=200 [facility] Comment on above: Performed By: #### T SH, LIVER, LIPID, BMP #### [facility] [address] [address] [address] Joseph Obando Cholesterol in HDL [Mass/Vol] 42 mg/dL Normal 40-60 [facility] Comment on above: Performed By: #### T SH, LIVER, LIPID, BMP #### [facility] [address] [address] [address] Joseph Obando Cholesterol in LDL [Mass/Vol] 176.4 mg/dL Normal [facility] Comment on above: Performed By: #### T SH, LIVER, LIPID, BMP #### [facility] [address] [address] [address] Joseph Obando Cholesterol.total/Ch olesterol in HDL [Mass ratio] 6.0 {ratio} Normal [facility] Comment on above: Performed By: #### T SH, LIVER, LIPID, BMP #### [facility] [address] [address] [address] Joseph Obando HDL NORMAL > or = 60 mg/dl - LOW CARDIOVASCULAR RISK <40 mg/dl - HIGH CARDIOVASCULAR RISK Normal [facility] Comment on above: Performed By: #### T SH, LIVER, LIPID, BMP #### [facility] [address] [place] [address] Dr. Joseph Obando LDL CALC NORMAL SEE BELOW Normal [facility] Comment on above: Result Comment: <100 mg/dl OPTIMAL 100 - 129 mg/dl NEAR OR ABOVE OPTIMAL 130 - 159 mg/dl BORDERLINE HIGH 160 - 189 mg/dl HIGH >190 mg/dl VERY HIGH Performed By: #### T SH, LIVER, LIPID, BMP #### [facility] [address] [place] [address] Dr. Joseph Obando Triglyceride [Mass/Vol] 158 mg/dL Critically high <=150 [facility] Comment on above: Performed By: #### T SH, LIVER, LIPID, BMP #### [facility] [address] [place] [address] Dr. Joseph Obando VLDL CALC 31.6 mg/dL Normal [facility] Comment on above: Performed By: #### T SH, LIVER, LIPID, BMP #### [facility] [address] [place] [address] Dr. Joseph Obando LIVER PROFILEon 02-17-2023 Albumin [Mass/Vol] 3.0 g/dL Critically low 3.4-5.0 [facility] Comment on above: Performed By: #### T SH, LIVER, LIPID, BMP #### [facility] [address] [place] [address] Dr. Joseph Obando Albumin/Globulin [Mass ratio] 0.7 {ratio} Normal [facility] Comment on above: Performed By: #### T SH, LIVER, LIPID, BMP #### [facility] [address] [place] [address] Dr. Joseph Obando ALP [Catalytic activity/Vol] 83 U/L Normal 46-116 [facility] Comment on above: Performed By: #### T SH, LIVER, LIPID, BMP #### [facility] [address] [place] [address] Dr. Joseph Obando ALT [Catalytic activity/Vol] 24 U/L Normal 14-59 [facility] Comment on above: Performed By: #### T SH, LIVER, LIPID, BMP #### [facility] [address] [place] [address] Dr. Joseph Obando AST [Catalytic activity/Vol] 14 U/L Critically low 15-37 [facility] Comment on above: Performed By: #### T SH, LIVER, LIPID, BMP #### [facility] [address] [place] [address] Dr. Joseph Obando BILI, CONJUGATED 0.1 mg/dL Normal 0.0-0.2 [facility] Comment on above: Performed By: #### T SH, LIVER, LIPID, BMP #### [facility] [address] [place] [address] Dr. Joseph Obando Bilirubin [Mass/Vol] 0.2 mg/dL Normal 0.2-1.0 [facility] Comment on above: Performed By: #### T SH, LIVER, LIPID, BMP #### [facility] [address] [place] [address] Dr. Joseph Obando Globulin (S) [Mass/Vol] 4.2 g/dL Normal [facility] Comment on above: Performed By: #### T SH, LIVER, LIPID, BMP #### [facility] [address] [place] [address] Dr. Joseph Obando Protein [Mass/Vol] 7.2 g/dL Normal 6.4-8.2 [facility] Comment on above: Performed By: #### T SH, LIVER, LIPID, BMP #### [facility] [address] [place] [address] Dr. Joseph Obando PROF CHEM 8 (BAS METB)on Anion gap [Moles/Vol] 10.3 mmol/L Normal [facility] Comment on above: Performed By: #### T SH, LIVER, LIPID, BMP #### [facility] [address] [place] [address] Dr. Joseph Obando Calcium [Mass/Vol] 9.1 mg/dL Normal 8.5-10.1 [facility] Comment on above: Performed By: #### T SH, LIVER, LIPID, BMP #### [facility] [address] [place] [address] Dr. Joseph Obadno Chloride [Moles/Vol] 104 mmol/L Normal 98-107 [facility] Comment on above: Performed By: #### T SH, LIVER, LIPID, BMP #### [facility] [address] [place] [address] Dr. Joseph Obando CO2 [Moles/Vol] 30.2 mmol/L Normal 21.0-32.0 [facility] Comment on above: Performed By: #### T SH, LIVER, LIPID, BMP #### [facility] [address] [place] [address] Dr. Joseph Obando Creatinine [Mass/Vol] 0.69 mg/dL Normal 0.55-1.02 [facility] Comment on above: Performed By: #### T SH, LIVER, LIPID, BMP #### [facility] [address] [place] [address] Dr. Joseph Obando EGFR-AF BURMESE >60 Normal >=60 [facility] Comment on above: Performed By: #### T SH, LIVER, LIPID, BMP #### [facility] [address] [place] [address] Dr. Joseph Obando EGFR-NON AF BURMESE >60 Normal >=60 [facility] Comment on above: Performed By: #### T SH, LIVER, LIPID, BMP #### [facility] [address] [place] [address] Dr. Joseph Obando Glucose [Mass/Vol] 158 mg/dL Critically high 74-106 [facility] Comment on above: Performed By: #### T SH, LIVER, LIPID, BMP #### [facility] [address] [address] [address] Joseph Obando Potassium [Moles/Vol] 4.5 mmol/L Normal 3.5-5.1 [facility] Comment on above: Performed By: #### T SH, LIVER, LIPID, BMP #### [facility] [address] [address] [address] Joseph Obando Sodium [Moles/Vol] 140 mmol/L Normal 136-145 [facility] Comment on above: Performed By: #### T SH, LIVER, LIPID, BMP #### [facility] [address] [address] [address] Joseph Obando Urea nitrogen [Mass/Vol] 13.0 mg/dL Normal 7.0-18.0 [facility] Comment on above: Performed By: #### T SH, LIVER, LIPID, BMP #### [facility] [address] [place] [address] Dr. Joseph Obando Urea nitrogen/Creatinine [Mass ratio] 18.8 mg/mg Normal [facility] Comment on above: Performed By: #### T SH, LIVER, LIPID, BMP #### [facility] [address] [place] [address] Dr. Joseph Obando TSHon 02-17-2023 TSH 3.405 uIU/mL Normal 0.358-3.740 [facility] Comment on above: Performed By: #### T SH, LIVER, LIPID, BMP #### [facility] [address] [place] [address] Dr. Joseph Obando POINT OF CARE GLUCOSEon 03-0 Glucose [Mass/Vol] 148 mg/dL Critically high 74-106 [facility] Comment on above: Performed By: #### P OCGLUC #### [facility] [address] [place] [address] Dr. Joseph Obando PAP ACOG PANEL 2: 30 to 65on 10-30-2022 . . Normal [facility] Comment on above: Result Comment: Perf ormed at: WB Performed By: #### [id number] #### [facility] [address] [address] [address] Joseph Obando Age Gdln ACOG Testing 30-65 Normal [facility] Comment on above: Performed By: #### [id number] #### [facility] [address] [address] [address] Joseph Obando DIAGNOSIS: Comment Normal [facility] Comment on above: Result Comment: NEGA TIVE FOR INTRAEPITHELIAL LESION OR MALIGNANCY. Performed at: WB Performed By: #### [id number] #### [facility] [address] [address] [address] Joseph Obando HPV Aptima Negative Normal Negative [facility] Comment on above: Result Comment: This nucleic acid amplification test detects fourteen high-risk HPV types (16,18,31,33,35,39,45,51,52,56,58,59,66,68) without differentiation. Performed at: =G Performed By: #### [id number] #### [facility] [address] [address] [address] Joseph Obando HPV Genotype Reflex Comment Normal [facility] Comment on above: Result Comment: Crit eria not met, HPV Genotype not performed. Performed at: WB Performed By: #### [id number] #### [facility] [address] [place] [address] Dr. Joseph Obando Methodology: Comment Normal [facility] Comment on above: Result Comment: This liquid based ThinPrep(R) pap test was screened with the use of an image guided system. Performed at: WB Performed By: #### [id number] #### [facility] [address] [address] [address] Joseph Obando Note: Comment Normal [facility] Comment on above: Result Comment: The Pap smear is a screening test designed to aid in the detection of premalignant and malignant conditions of the uterine cervix. It is not a diagnostic procedure and should not be used as the sole means of detecting cervical cancer. Both false-positive and false-negative reports do occur. . Performed at: WB Performed By: #### [id number] #### [facility] [address] [place] [address] Dr. Joseph Obando Performed by: Comment Normal [facility] Comment on above: Result Comment: aMkayla Lewis, Qm Nurse (ASCP) Performed at: WB Performed By: #### [id number] #### [facility] [address] [place] [address] Dr. Joseph Obando Specimen adequacy: Comment Normal [facility] Comment on above: Result Comment: Sati sfactory for evaluation. No endocervical component is identified. Performed at: WB Performed By: #### [id number] #### [facility] [address] [place] [address] Dr. Joseph Obando GLYCOHEMOGLOBIN A1Con 2021 ADA RECOMMENDATION SEE BELOW Normal [facility] Comment on above: Result Comment: ADA RECOMMENDED LIMIT 4.0 - 6.0 ADA THERAPEUTIC TARGET < 7.0 ACTION SUGGESTED > 7.0 Performed By: #### A 1C #### [facility] [address] [place] [address] Dr. Joseph Obando Glucose [Mass/Vol] 131 mg/dL Normal [facility] Comment on above: Performed By: #### A 1C #### [facility] [address] [place] [address] Dr. Joseph Obando HbA1c (Bld) [Mass fraction] 6.2 % Normal 4.5-6.2 [facility] Comment on above: Performed By: #### A 1C #### [facility] [address] [place] [address] Dr. Joseph Obando MRI Knee w/o Righton [...] by Uriah Kelly on 06/12/2022 1410 Normal [facility] XR Orbits for MRIon 06-12-20 22 XR Orbits for MRI HISTORY: Pre-MRI clearance, history of metal exposure FINDINGS: No metallic foreign body is identified. Visualized osseous structures are unremarkable. IMPRESSION: No metallic foreign body Report reported and signed by Arben Gonzalez on 06/12/2022 0938 Normal [facility] XR hand RT min 3V*on 021 XR hand RT min 3V* [facility] Main [place] [address] [place] [address] XRay Report Signed Patient: Gale Darden MR#: [id number] : 1970 Acct:[id number] Age/Sex: 50 / F ADM Date: 07/07/21 Loc: XDUCLY Room: Type: [facility] Attending Dr: Rivka AMADOR Ordering Provider: [...] Max Kasper M.D.07/07/2021 3:36 PM Dictation Location: [place] [address] Transcribed By: [facility] 07/07/21 [id number] Dictated By: Max Kasper DO 07/07/21 1534 Signed By: 07/07/21 1536 Normal [facility] XR hand RT min 3V* [facility] [employer] Other XR hand RT min 3V* [facility] Main [place] [employer] Other XR hand RT min 3V* [address] [place] [address] [employer] Other XR hand RT min 3V* [place] [address] [employer] Other XR hand RT min 3V* XRay Report [employer] Other XR hand RT min 3V* Signed [employer] Other XR hand RT min 3V* Patient: Gale Darden MR#: [id number] [employer] Other XR hand RT min 3V* 9838 [employer] Other XR hand RT min 3V* : 1970 Acct:[id number] [employer] Other XR hand RT min 3V* Age/Sex: 50 / F ADM Date: 07/07/21 [employer] Other XR hand RT min 3V* [facility]: Type: [facility] [employer] Other XR hand RT min 3V* Attending Dr: Rivka Romero SEXOLOGIST-C [employer] Other XR hand RT min 3V* Ordering Provider: RIVKA ROMERO SEXOLOGISTKieran [employer] Other XR hand RT min 3V* Date of Service: 07/07/21 [employer] Other XR hand RT min 3V* XR/XR hand RT min 3V*: Injury of right hand, initial encounter [employer] Other XR hand RT min 3V* Copies to: RIVKA ROMERO SEXOLOGIST-C [employer] Other XR hand RT min 3V* 3 viewsRIGHT hand plain film [employer] Other XR hand RT min 3V* COMPARISON:None N [employer] Other XR hand RT min 3V* HISTORY:RIGHT hand injury one month ago. Continued pain [employer] Other XR hand RT min 3V* No fracture, dislocation or focal soft tissue abnormality seen. [employer] Other XR hand RT min 3V* XR/XR hand RT min 3V* [employer] Other XR hand RT min 3V* IMPRESSION:No acute findings [employer] Other XR hand RT min 3V* Impression dictated by: Max Kasper M.D.07/07/2021 3:36 PM [employer] Other XR hand RT min 3V* Dictation Location: [place] [address] [employer] Other XR hand RT min 3V* Transcribed By: [facility] 07/07/21 [facility] [employer] Other XR hand RT min 3V* Dictated By: Max Kasper DO 07/07/21 [facility] [employer] Other XR hand RT min 3V* Signed By: [employer] Other XR hand RT min 3V* 07/07/[address] [place] [address] [employer] Other XR shoulder RT min 2V*on XR shoulder RT min 2V* [facility] Main [place] [address] [place] [address] XRay Report Signed Patient: Gale Darden MR#: [id number] : 1970 Acct:[id number] Age/Sex: 50 / F ADM Date: 02/18/21 Loc: XDUCLY Room: Type: [facility] Attending Dr: Rivka AMADOR Ordering Provider: RIVKA ROMERO Date of Service: 02/18/21 XR/XR humerus RT*: Injury of right shoulder, initial encounter ([id number]) XR/XR shoulder RT min 2V*: Injury of right shoulder, initial encounter Copies to: RIVKA ROMERO 2 viewsRIGHT humerus plain film COMPARISON:None HISTORY:Fell injuring RIGHT shoulder No fracture, dislocation or focal soft tissue abnormality seen. XR/XR humerus RT* IMPRESSION:No acute findings 3 views RIGHT shoulder Nondisplaced fracture of the greater tuberosity identified. No dislocation. No soft tissue abnormality. IMPRESSION: Nondisplaced greater trochanter fracture. Impression dictated by: Max Kasper M.D.02/18/2021 4:38 PM Dictation Location: [place] [address] Transcribed By: [facility] 02/18/21 1638 Dictated By: Max Kasper DO 02/18/21 1634 Signed By: 02/18/21 1638 [facility] Workers' Comp Officeon 10-08 Workers' Comp Office [id number] #1.00CD:127 [facility] Progress Note-Physicianon Progress Note-Physician Patient: GALE DARDEN Age: 50 years Sex: Female : 1970 Associated Diagnoses: None Author: Natalie Peguero Visit Information The patient was seen for evaluation of her mid back following a work related injury on 08/07/2020. [facility] claim status pending. Chief Complaint 09/24/2020 15:41 [...] Charted Heart Rate Peripheral 76 bpm (SEP 24:) SBP 128 mmHg (SEP 24:) DBP 88 mmHg (SEP 24:) Additional physical exam information: No tenderness over trapezius and rhomboid muscles on the left,. No tenderness over spinous processes. Full ROM is noted in the cervical spine and bilateral upper extremities. Normal sensory motor exam. . 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 Strain of thoracic back region (QKB78-OX S29.012A, Working, Medical). Course: Improving. Orders May return to full duty. Recommend continuation of the home stretches and exercises due to natures of her work. She may follow up as needed. Call for any questions or concerns. . Counseled: Patient, Regarding diagnosis, Regarding treatment. Patient Instructions: Patient verbalizes understanding of plan of care. All questions answered satisfactorily.. Normal [facility] Comment on above: Result Comment: Elec tronically Signed By: Natalie Peguero\.br\Date and Time Signed: 09/24/20 16:03 EST Workers' Comp Officeon 09-24 Workers' Comp Office [id number] #1.00CD:127 Normal [facility] Progress Note-Physicianon Progress Note-Physician Patient: GALE DARDEN Age: 49 years Sex: Female : 1970 Associated Diagnoses: None Author: Natalie Peguero Visit Information The patient was seen for evaluation of her mid back following a work related injury on 08/07/2020. [facility] claim status pending. Chief Complaint 09/06/2020 9:34 [...] Charted Heart Rate Peripheral 72 bpm (SEP 06 09:34) SBP 118 mmHg (SEP 06:34) DBP 80 mmHg (SEP 06:34) Additional physical exam information: Mild tenderness and tightness noted over trapezius and rhomboid muscles on the left, although improved from previous exam. No tenderness over spinous processes. Full ROM is noted in the cervical spine and left upper extremity. . Impression and Plan Diagnosis Strain of thoracic back region (DKX49-YV S29.012A, Working, Medical). Left shoulder strain (YVF91-BC S46.912A, Working, Medical). Course: Improving. Orders 1) [...] of care. All questions answered satisfactorily.. Normal [facility] Comment on above: Result Comment: Elec tronically Signed By: Natalie Peguero\.br\Date and Time Signed: 09/06/20 12:53 EST Workers' Comp Officeon 09-06 Workers' Comp Office [id number] #1.00CD:127 Normal [facility] Progress Note-Physicianon Progress Note-Physician Patient: GALE DARDEN Age: 49 years Sex: Female : 1970 Associated Diagnoses: None Author: Natalie Peguero Visit Information The patient was seen for evaluation of her mid back following a work related injury on 08/07/2020. [facility] claim status pending. Chief Complaint 08/27/2020 9:53 [...] Charted Heart Rate Peripheral 65 bpm (AUG 27:53) SBP 113 mmHg (AUG 27:53) DBP 68 [...] Plan Diagnosis Strain of thoracic back region (GEK20-IV S29.012A, Working, Medical). Left shoulder strain (VEQ52-DJ S46.912A, Working, Medical). Course: Improving. Orders Patient [...] plan of care. All questions answered satisfactorily.. [facility] Comment on above: Result Comment: Elec tronically Signed By: Natalie Peguero.br\Date and Time Signed: 08/27/20 11:17 EST Workers' Comp Officeon 08-27 Workers' Comp Office [id number] 9#1.00CD:127 [facility] Workers' Comp Officeon 08-26 Workers' Comp Office [id number] #1.00CD:127 [facility] Workers' Comp Officeon 08-21 Workers' Comp Office [id number] 9#1.00CD:127 [facility] Workers' Comp Officeon 08-16 Workers' Comp Office Patient has an appt on 08-22-20 @ 4:00 [facility] Workers' Comp Officeon 08-14 Workers' Comp Office [id number] 6#1.00CD:127 Normal [facility] Workers' Comp Office [id number] 5#1.00CD:127 Normal [facility] Workers' Comp Office [id number] 2#1.00CD:127 Normal [facility] Workers' Comp Office [id number] 6#1.00CD:127 Normal [facility] Workers' Comp Office [id number] 6#1.00CD:127 Normal [facility] Workers' Comp Office [id number] 7#1.00CD:127 Normal [facility] Workers' Comp Office [id number] 9#1.00CD:127 Normal [facility] [place] 08-13-2020 Consent [id number] 3#1.00CD:127 [facility] Progress Note-Physicianon Progress Note-Physician Patient: GALE DARDEN Age: 49 years Sex: Female : 1970 Associated Diagnoses: None Author: Natalie Peguero Visit Information The patient was seen for evaluation of her mid back following a work related injury on 08/07/2020. [facility] claim status pending. Chief Complaint 08/13/2020 13:44 [...] 08/07/2020. The patient was originally seen by [facility] on 08/09/2020, but was told by her employer to follow up with our office. 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 During this time, she felt a pop in her left shoulder blade. Over the next two days the pain intensified. She was using heat and ibuprofen without any significant improvement. Following her evaluation at [facility] she was prescribed Flexeril 10mg three times [...] Charted Heart Rate Peripheral 74 bpm (AUG 13:44) SBP 132 mmHg (AUG 13:44) DBP 84 mmHg (AUG 13:44) Additional physical exam information: On examination, [...] Plan Diagnosis Strain of thoracic back region (TOH02-NG S29.012A, Working, Medical). Orders 1) I recommend [...] of care. All questions answered satisfactorily.. Normal [facility] Comment on above: Result Comment: Elec tronically Signed By: Natalie Peguero\Date and Time Signed: 08/13/20 16:40 EST Workers' Comp Officeon 08-13 Workers' Comp Office Mailed a physician of record change form to patient. I informed her that it needs to be filled out CAITLIN and returned back to our department. Normal [facility] Vital Signs Date Time Vital Sign Value Performing Clinician Facility 11-15-2023 14:56-0500 Body height 160 cm Yesenia Pradonatanael CAMACHO [facility] 11-15-2023 14:56-0500 Body mass index (BMI) [Ratio] 45.14 kg/m2 Yesenia Deondre CAMACHO [facility] 11-15-2023 14:56-0500 Body weight 115.58 kg Yesenia Deondre CAMACHO [facility] 11-15-2023 14:56-0500 Diastolic blood pressure 63 mm[Hg] Yesenia Pradonatanael MEEKJovanyTERESA [facility] 11-15-2023 14:56-0500 Heart rate 78 /min Yesenia Pradonatanael MEEKJovanyTERESA Work [facility] 11-15-2023 14:56-0500 Systolic blood pressure 123 mm[Hg] Yesenia Deondre CAMACHO Work Phone: [employer] 07-07-2021 15:40-0400 Body height 161.29 cm Rivka Romero Other [employer] Other 07-07-2021 15:40-0400 Body mass index (BMI) [Ratio] 44.11 kg/m2 Rivka Romero Other [employer] Other 07-07-2021 15:40-0400 Body temperature 98.2 [degF] Rivka Romero Other [employer] Other 07-07-2021 15:40-0400 Body weight 114.76 kg Rivka Romero Other [employer] Other 07-07-2021 15:40-0400 Diastolic blood pressure 57 mm[Hg] Rivka Romero Other [employer] Other 07-07-2021 15:40-0400 Respiratory rate 18 /min Rivka Romero Other [employer] Other 07-07-2021 15:40-0400 SaO2% (BldA) [Mass fraction] 96 % Rivka Romero Other [employer] Other 07-07-2021 15:40-0400 Systolic blood pressure 114 mm[Hg] Rivka Romero Other [employer] Other Encounters Encounter Date Encounter Type Care Provider Facility Start: 11-15-2023 End: 11-15-2023 ambulatory [facility] Milana SMALL [facility] Start: 11-15-2023 End: 11-15-2023 Office outpatient visit 15 minutes [facility] Milana Crescent [employer] Work Phone: [facility] Comment on above: Rectal pain (Primary Dx) Start: 11-01-2023 End: 11-01-2023 ambulatory ROBERT GUIDRY Not Available Start: 10-05-2023 End: 10-06-2023 ambulatory BE LAM Not Available Start: 02-20-2023 Encounter for genera l adult medical examination without abnormal findings DR MYNOR SCHMIDT [facility] Start: 02-19-2023 End: 02-20-[address] MYNOR SCHMIDT Facility:[facility] Start: 02-17-2023 End: 02-18-[address] MYNOR SCHMIDT Facility:[facility] Start: 02-17-2023 End: 02-18-2023 Encounter for general adult medical examination without abnormal findings DR MYNOR SCHMIDT Facility:[facility] Start: 12-11-2022 End: 12-11-2022 ambulatory SUNG CLARKAlen . Facility:[facility] Start: 10-26-2022 End: 10-26-[address] ROBERT GUIDRY . Facility:[facility] Start: 08-18-2022 End: 08-19-[address] MYNOR SCHMIDT Facility:[facility] Start: 06-01-2022 End: 06-01-[address] MYNOR SCHMIDT Facility:[facility] Start: 07-07-2021 Office outpatient vi sit 15 minutes Rivka Romero [facility] Procedures Date Procedure Procedure Detail Performing Clinician Start: 04-03-2021 Colonoscopy Yesenia parsons [employer] Work Phone: Plan of Treatment Date Care Activity Detail Author Start: 04-03-2031 Screening for malignant neoplasm of colon Colonoscopy [facility] Start: 11-15-2024 Adult BMI Screening Adult BMI Screening [facility] Start: 11-15-2024 Tobacco Screening Tobacco Screening [facility] Start: 12-31-2023 End: 12-31-2023 Patient encounter procedure 12/31/2023 9:00 AM EDT Office Visit [facility] [address] [place] [id number] Yesenia Small APRN-[employer]AR [employer] [address] [place] [address] [facility] Start: 06-11-2023 COVID-19 Vaccine ( season) COVID-19 Vaccine ( season) [facility] Start: 06-11-2023 Influenza vaccination Influenza Vaccine [facility] Start: 2020 Administration of varicella zoster vaccine Zoster (Shingles) Vaccine (1 of 2) [facility] Start: 1989 DTaP,Tdap and Td Vaccines (1 - Tdap) DTaP,Tdap and Td Vaccines (1 - Tdap) [facility] Start: 1988 Adult BMI Follow Up Plan Adult BMI Follow Up Plan [facility] Start: 1982 Depression Screening Depression Screening [facility] Start: 1970 Tobacco Counseling Tobacco Counseling [facility] Immunizations Immunization Date Immunization Notes Care Provider Fa byron 09-20-2015 influenza virus vaccine, unspecified formulation Yesenia Small [employer] Work Phone: [facility] Payers Date Payer Category Payer Unknown [place]/TRUST [id number] 2018-Present [phone] [address] [place] [address] [id number] 1970 Unknown [id number] .593 1970 Unknown [id number] [id number] .593 1970 Unknown [id number] 2.16.840.1.027607.3.579.2 .593 1970 Unknown [id number] [id number] .593 1970 Unknown [id number] 2.16.840.1.439563.3.579.2 .593 1970 Unknown [id number] 2.16.840.1.205931.3.579.2 .593 1970 Unknown [id number] [id number] .1259 1970 Unknown [id number] 2.16.840.1.860462.3.579.2 .1259 1970 Unknown [id number] 2.16.840.1.817406.3.579.2 .1259 1970 Unknown [id number] [id number] .1286 1959 [facility] [id number] Social History Date Type Detail Facility Unknown if ever smoked [facility] [employer] Other Start: 03-22-2019 End: 11-15-2023 Sex Assigned At [employer] [facility] [employer] Other Start: 11-15-2023 Tobacco smoking status ILIS Smokes tobacco daily [facility] History of tobacco use Cigarette Smoker P [facility] Start: 03-22-2019 End: 11-15-2023 Cigarettes smoked current (pack per day) - Reported 1 [facility] Start: 11-15-2023 Tobacco use and exposure Smokeless tobacco non-user [facility] Start: 11-15-2023 Alcohol intake Current drinker of alcohol (finding) [facility] Childcare Unknown [facility] Start: 03-26-2021 Alcohol Comment occasional [facility] Start: 1970 Sex Assigned At Female [facility] Start: 05-15-2023 Gender identity Identifies as female gender (finding) [facility] Start: 05-15-2023 Sexual orientation Heterosexual (finding) [facility] History of Present illness Narrative 11-15-2023 Yesenia Small, [employer] - 11/15/2023 3:00 PM EST Note Date & Type Note Facility 11-15-2023 History of Presen t illness Narrative Images from the original note were not included. Chief Complaint: Rectal pain History of Present Illness Gale Darden is a 53 y.o. female who presents to the office for rectal pain. Symptoms started months ago. She states she feels like she is being ripped open every time she has a bowel movement. Associated symptoms include bright red blood on the toilet paper most times when she wipes. She denies any constipation or diarrhea. She has been taking fiber gummies and a stool softener twice daily. She has also been using preparation H with no relief. She drinks 1 bottle of water daily. She has been trying to eat more fiber. Her last colonoscopy was in [address] Merlos. She had 1 hyperplastic polyp removed at the time. She was having these symptoms at that time as well. Review of Systems Constitutional: Negative for fever and unexpected weight change. HENT: Negative for trouble swallowing. Respiratory: Negative for shortness of breath. Cardiovascular: Negative for chest pain. Gastrointestinal: Positive for blood in stool and rectal pain. Negative for nausea, vomiting, abdominal pain, diarrhea, constipation and black tarry stool. Genitourinary: Negative for dysuria and difficulty urinating. Musculoskeletal: Negative for gait problem. Skin: Negative for rash and wound. Neurological: Negative for dizziness, weakness and light-headedness. Hematological: Does not bruise/bleed easily. Psychiatric/Behavioral: Negative for confusion. Past Medical History: Diagnosis Date Diabetes mellitus ([facility]) Hypertension Rectal bleeding 2018 when she also had hysterectomy Visual impairment Past Surgical History: Procedure Laterality Date ARTHROSCOPY PARTIAL MEDIAL MENISCECTOMY KNEE Right 07/22/2022 Performed by Be Lam DO at [facility] BLADDER SURGERY SECTION Xs 2 COLONOSCOPY 3-4 yrs ago, [facility] COLONOSCOPY N/A 04/03/2021 Performed by Atif Merlos DO at [facility] CYST REMOVAL Back of neck, Dr Montes De Oca HYSTERECTOMY TONSILLECTOMY No Known Allergies Current Outpatient Medications: ascorbic acid, vitamin C, 250 mg tablet,chewable, Chew 1 tablet and swallow daily., Disp: , Rfl: atorvastatin (LIPITOR) 40 mg tablet, Take 1 tablet (40 mg total) by mouth in the morning., Disp: , Rfl: carvediloL (COREG) 25 mg tablet, Take 2 tablets (50 mg total) by mouth every morning before breakfast., Disp: , Rfl: carvediloL (COREG) 25 mg tablet, Take 1 tablet (25 mg total) by mouth Daily before evening meal., Disp: , Rfl: citalopram (CeleXA) 10 mg tablet, Take 3 tablets (30 mg total) by mouth in the morning., Disp: , Rfl: cyanocobalamin 1000 MCG tablet, Take 1 tablet (1,000 mcg total) by mouth in the morning., Disp: , Rfl: docusate sodium (COLACE) 100 mg capsule, Take 1 capsule (100 mg total) by mouth in the morning and at bedtime., Disp: , Rfl: furosemide (LASIX) 40 mg tablet, Take 1 tablet (40 mg total) by mouth daily., Disp: , Rfl: lisinopriL (PRINIVIL,ZESTRIL) 10 mg tablet, Take 1 tablet (10 mg total) by mouth in the morning., Disp: , Rfl: MULTIVITAMIN ORAL, Take 1 tablet by mouth in the morning., Disp: , Rfl: omega 2-tym-xjb-fish oil 300-1,000 mg capsule, Take 1 capsule by mouth daily., Disp: , Rfl: pioglitazone (ACTOS) 30 mg tablet, Take by mouth daily. , Disp: , Rfl: SITagliptin phosphate (JANUVIA) 25 mg tablet, Take 1 tablet (25 mg total) by mouth in the morning., Disp: , Rfl: Social History Socioeconomic History Marital status: Spouse name: Not on file Number of children: Not on file Years of education: Not on file Highest education level: Not on file Occupational History Not on file Tobacco Use Smoking status: Every Day Packs/day: 1 Types: Cigarettes Smokeless tobacco: Never Vaping Use Vaping Use: Never used Substance and Sexual Activity Alcohol use: Yes Comment: occasional Drug use: Never Sexual activity: Yes Partners: Male control/protection: Surgical Other Topics Concern Not on file Social History Narrative Not on file Social Determinants of Health Financial Resource Strain: Not on file Food Insecurity: Unknown (11/15/2023) Hunger Screening Food Insecurity - Worry: Never True Food Insecurity - Inability: Not on file Transportation Needs: Not on file Physical Activity: Not on file Stress: Not on file Social Connections: Not on file Interpersonal Safety: Not on file Housing Instability: Not on file Family History Adopted: Yes Objective Physical Exam Constitutional: General: She is not in acute distress. Appearance: Normal appearance. She is obese. She is not ill-appearing. HENT: Head: Normocephalic and atraumatic. Mouth/Throat: Mouth: Mucous membranes are moist. Eyes: Pupils: Pupils are equal, round, and reactive to light. Cardiovascular: Rate and Rhythm: Normal rate. Pulmonary: Effort: Pulmonary effort is normal. No respiratory distress. Abdominal: General: There is no distension. Palpations: Abdomen is soft. Genitourinary: Rectum: Tenderness present. No mass. Normal anal tone. Comments: Likely anal fissure, though hard to tell due to obesity and the patient being very tense. Area is very tender. There is excoriation of the skin around the anus. No gross blood. Musculoskeletal: General: Normal range of motion. Skin: General: Skin is warm and dry. Neurological: Mental Status: She is alert and oriented to person, place, and time. Mental status is at baseline. Vital Signs: Blood pressure 123/63, pulse 78, height 160 cm (5' 3 ), weight 115.6 kg (254 lb 12.8 oz). Respiratory Source: No data recorded Admission Weight: Weight: 115.6 kg (254 lb 12.8 oz) Labs No results found for: WBC , HGB , HCT , MCV , PLT Lab Results Component Value Date GLU 99 07/07/2022 CALCIUM 9.6 07/07/2022 K 4.3 07/07/2022 CO2 31 07/07/2022 CL 103 07/07/2022 BUN 15 07/07/2022 CREATININE 0.61 07/07/2022 No results found for: AMYLASE No results found for: LIPASE No results found for: ALT , AST , GGT , ALKPHOS , LABBILI No results found for: INR , PROTIME Imaging Colonoscopy from 04/03/2021: Findings: The perianal and digital rectal examinations were normal. A 5 mm polyp was found in the mid rectum. The polyp was sessile. The polyp was removed with a hot snare. Resection and retrieval were complete. The exam was otherwise without abnormality on direct and retroflexion views. Estimated Blood Loss: Estimated blood loss: none. Impression: - One 5 mm polyp in the mid rectum, removed with a hot snare. Resected and retrieved. - The examination was otherwise normal on direct and retroflexion views. Final Pathologic Diagnosis Rectal polyp, biopsy: Hyperplastic polyp. No dysplasia identified. Assessment Gale Darden is a 53 y.o.female with rectal pain likely related to anal fissure. Plan Increase water intake to 64 oz daily, high-fiber diet, continue fiber supplement and stool softeners, avoid straining, Sitz baths 2-3 times daily. Keep the area clean and dry, I advised her to stop using preparation H as this may be what is irritating her skin. Dr. Schmidt prescribed her nitroglycerin ointment, she has not used much of this, she may apply this twice daily. Follow-up in 6-8 weeks. Evaluation included: Preparing to see the patient (e.g., review of tests) Obtaining and/or reviewing separately obtained history Performing a medically appropriate examination and/or evaluation Counseling and educating the patient/family/caregiver Referring and communicating with other health manager intensive care unit Rectal pain [K62.89] DOUG VIERA [facility] General Surgery [place] This note was created with the assistance of a speech recognition program. While intending to generate a timely document that accurately reflects the content of the visit, no guarantee can be provided that every grammatical or spelling mistake has been or will be identified or corrected. Thank you for your understanding. DOUG Viera 11/15/23 1532 documented in this encounter [facility] Clinical Note 06-01-2022 Note Date & Type [...] authenticated by: AUDREY GUTHRIE Date: 2022-06-01 09:07 [facility] Evaluation note 07-07-2021 Note Date & Type [...] will help you get into a specialist. [facility] Other Evaluation note Note Date & Type Note Facility Evaluation note Diagnosis Rectal pain- Primary Anal or rectal pain documented in this encounter [facility] History general Narrative - Reported Note Date & Type Note Facility History general Narrative - Reported Type Medical History Hypertension Medical History diabetes mallitus Medical History chronic depression Medical History anxiety Surgical History tubal ligation Surgical History C section Surgical History bladder surgery Surgical History HYSTERECTOMY Hospitalization History see above Hospitalization History cyst [facility] Other Instructions Attachments Note Date & Type Note Facility Instructions The following attachments cannot be sent through Care Everywhere.Anal fissure (Kinyarwanda)documented in this encounter [facility] Summary Purpose Family History No Family History [...] section and content) DATE CREATED AUTHOR 10/09/2020 [facility] DATE CREATED AUTHOR AUTHOR'S ORGANIZ ATION 10/28/2021 [facility] DATE CREATED AUTHOR AUTHOR'S ORGANIZ ATION 06/13/2022 [facility] dical Specialist DATE CREATED AUTHOR AUTHOR'S ORGANIZ ATION 02/21/2023 [facility] DATE CREATED AUTHOR AUTHOR'S ORGANIZ ATION 11/02/2023 [facility] dical Specialists [facility] DATE CREATED AUTHOR AUTHOR'S ORGANIZ ATION 11[facility] REASON FOR VISIT (unrecogniz ed section and content) Reason Comments Painful Bowel Movement Painful bowel mov ements, blood in stool, last colon 04/03/21 Care Teams (unrecognized sec tion and content) Residential Sales Rep Relationship Specialty Start Date End Date Mynor Schmidt MD [address] [place] [address] PCP - General Family Medicine 07/20/22 FOR RECORDS PERTAINING TO PATIENTS WHO ARE [...] BE BASED ON THE PRIMARY CLINICAL RECORDS. [facility] [email or web address] [facility]. provides no warranty or guarantee of the accuracy or completeness of information in this document.
--- NOTE | 2023-12-31 07:31 | MM_ITS ---
Patient Name: KARO DARDEN MR#: [id number] : 1970 Exam Date: 12/31/2023 Ordering Doctor: DR Damon Bettencourt . RADIOLOGY REPORT PROCEDURE: MM TOMOSYNTHESIS SCREENING BI COMPARISON: MG MAMM SCREEN 3D YANA CAD, 07/15/2021. MG MAMM SCREEN YANA W CAD, 06/07/2020. MG MAMM SCREEN YANA W CAD, 06/02/2019. MAMMO YANA SCREEN, 01/14/2009. INDICATIONS: Screening Calculator Name NCI Breast Cancer Risk Assessment Tool 5 Year Breast Cancer Risk 1.20% Lifetime Breast Cancer Risk 9.40% Personal Breast Cancer No Personal Ovarian Cancer No Treatments None Family Cancers None LOCATION: [facility] BREAST COMPOSITION: Scattered areas fibroglandular density. FINDINGS: DIAGNOSTIC CATEGORY 1--NEGATIVE. RIGHT BREAST: No significant suspicious finding. No significant change has occurred. LEFT BREAST: No significant suspicious finding. No significant change has occurred. RECOMMENDATIONS: ROUTINE MAMMOGRAM AND CLINICAL EVALUATION IN 12 MONTHS. PLEASE NOTE: A NORMAL MAMMOGRAM DOES NOT EXCLUDE THE POSSIBILITY OF BREAST CANCER. A CLINICALLY SUSPICIOUS PALPABLE LUMP SHOULD BE BIOPSIED. Dictated by: Titi Noble M.D. on 12/31/2023 at 14:19 Approved by: Titi Noble M.D. on 12/31/2023 at 14:21
--- NOTE | 2023-12-31 07:58 | XR_ITS ---
[address] [address] Patient Name: KARO DARDEN MRN: [facility]:[id number] date: 1970 Sex: F Assigned Patient Location: [facility] Current Patient Location: [facility] Accession/Order Number: [id number] Exam Date: 12/31/2023 07:45 Report Date: 12/31/2023 08:11 At the request of: ROBERT GUDIRY Procedure: XR DEXA axial skeleton EXAMINATION: XR DEXA axial skeleton HISTORY: Post Menopausal Z78.0 COMPARISON: No relevant comparison available. TECHNIQUE: Dual-energy X-ray absorptiometry (DXA) was performed. FINDINGS: SPINE ANALYSIS: Average bone mineral density is 1.054 g/cm2. T-score (standard deviation relative to young adult mean): -1.0 . HIP ANALYSIS: Lowest bone mineral density is within the right femoral trochanter, 0.698 g/cm2. T-score (standard deviation relative to young adult mean): -1.3 . XR/XR DEXA axial skeleton IMPRESSION: [employer] Classification: Osteopenia - Moderate Fracture Risk Electronically authenticated by: AUDREY GUTHRIE Date: 12/31/2023 08:11
== END 2023-12-31 07:27 | disposition home or self-care (01) ==
LOC: MAMMO 07:27
PROVIDERS: PCP Family Medicine; Visit Provider Obstetrics & Gynecology
DX: Z12.31 Encounter for screening mammogram for malignant neoplasm of breast (principal); Z78.0 Asymptomatic menopausal state; M85.80 Other specified disorders of bone density and structure, unspecified site
CPT/HCPCS: 77063; 77067; 77080

== ENCOUNTER 2024-03-14 09:04 | Outpatient (OUT) | payer BC, SELFPAY ==
[2024-03-14 09:30] LABS: Basophils Absolute Auto 0.1 10^3/uL (0.0-0.1); Basophils Percent Auto 0.4 % (0.2-2.0); Eosinophils Absolute Auto 0.3 10^3/uL (0.0-0.7); Eosinophils Percent Auto 2.7 % (0.9-7.0); Hematocrit 41.4 % (36.0-48.0); Hemoglobin 13.2 g/dL (12.0-16.0); Immature Granulocytes Abs Auto 0.03 10^3/uL (0.00-0.03); Immature Granulocytes Pct Auto 0.3 % (0.0-0.5); Lymphocytes Absolute Auto 2.3 10^3/uL (1.2-3.8); Lymphocytes Percent Auto 20.6 % (20.5-60.0); Mean Corpuscular HGB Conc 31.9 g/dL (29.9-35.2); Mean Corpuscular Hemoglobin 29.2 pg (26.7-34.0); Mean Corpuscular Volume 91.6 fL (81.0-99.0); Mean Platelet Volume 10.9 fL (9.5-13.5); Monocytes Absolute Auto 0.6 10^3/uL (0.3-0.8); Monocytes Percent Auto 5.2 % (1.7-12.0); Neutrophils Percent Auto 70.8 % (43.0-75.0); Platelet Count 148 10^3/uL (150-450); Red Blood Count 4.52 10^6/uL (4.20-5.40); Red Cell Distribution Width 14.9 % (11.0-15.0); White Blood Count 11.3 10^3/uL (4.0-11.0)
[2024-03-14 09:38] LABS: Microalbumin Urine Random <1.3 mg/dL (<=30.0)
[2024-03-14 09:57] LABS: Estimated Average Glucose 166 mg/dL; Glycohemoglobin A1C 7.4 % (4.5-6.2)
[2024-03-14 10:15] LABS: Alanine Aminotransferase 24 U/L (14-59); Albumin Globulin Ratio 0.9; Albumin Level 3.5 g/dL (3.4-5.0); Alkaline Phosphatase 89 U/L (46-116); Aspartate Amino Transferase 14 U/L (15-37); BUN Creatinine Ratio 18.9; Bilirubin Direct 0.1 mg/dL (0.0-0.2); Bilirubin Total 0.5 mg/dL (0.2-1.0); Calcium 9.6 mg/dL (8.5-10.1); Carbon Dioxide 28.9 mmol/L (21.0-32.0); Chloride 101 mmol/L (98-107); Chol HDL Ratio 3.7; Cholesterol 168 mg/dL (<=200); Estimated GFR (African America >60 (>=60); Estimated GFR (Non-African Ame >60 (>=60); Globulin 3.8 g/dL; Glucose 155 mg/dL (74-106); HDL Cholesterol 46 mg/dL (40-60); Potassium 3.9 mmol/L (3.5-5.1); Sodium 139 mmol/L (136-145); Thyroid Stimulating Hormone 2.893 uIU/mL (0.358-3.740); Total Protein 7.3 g/dL (6.4-8.2); Triglycerides 140 mg/dL (<=150)
== END 2024-03-14 09:05 | disposition home or self-care (01) ==
LOC: LAB 09:06
PROVIDERS: PCP Family Medicine; Visit Provider Family Medicine
DX: Z00.00 Encounter for general adult medical examination without abnormal findings (principal); E11.65 Type 2 diabetes mellitus with hyperglycemia
CPT/HCPCS: 36415; 80048; 80061; 80076; 82043; 83036; 84443; 85025

== ENCOUNTER 2024-09-01 10:31 | Outpatient (OUT) | payer BC, SELFPAY ==
--- OUTSIDE RECORDS SUMMARY | 2024-09-01 10:53 | XMS_ITS | CCD ---
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 Name Role Phone Rivka Romero Unavailable ROXANA, [...] Admitting Unavailable TAMLYN ., SUNG Attending Unavailable NADJORGE, DR MYNOR Cortés Primary Care Unavailable TAMLYN ., SUNG Consulting Unavailable URIAH HERRING Consulting Unavailable LG LOYA Consulting Unavailable CHAO ., DR JONES Admitting Unavailable CHAO ., DR JONES Attending Unavailable NADERER, DR MYNOR Cortés Primary Care Unavailable CHAO ., DR JONES Consulting Unavailable Mynor Schmidt MD Primary Care Provider DELANO MCKINNEY Admitting Unavailable DELANO MCKINNEY Attending Unavailable MYNOR SCHMIDT Primary Care Unavailable DELANO MCKINNEY Attending Unavailable DELANO MCKINNEY Referring Unavailable MYNOR SCHMIDT Primary Care Unavailable QUIN DONIS Attending Unavailable MYNOR SCHMIDT Primary Care Unavailable DELANO MCKINNEY Referring Unavailable MYNOR SCHMIDT Primary Care Unavailable TAMRA SAUL Attending Unavailable DELANO MCKINNEY Referring Unavailable MYNOR SCHMIDT Primary Care Unavailable DELANO MCKINNEY Referring Unavailable ROXANA, MYNOR Primary Care Unavailable DELNAO MCKINNEY Admitting Unavailable DELANO MCKINNEY Attending Unavailable NADERER, MYNOR Primary Care Unavailable TAMRA SAUL Attending Unavailable NADERER, MYNOR Primary Care Unavailable ROBERT GUIDRY Attending Unavailable MYNOR SCHMIDT Attending Unavailable ANNABELLA, BE Cortés Attending Unavailable BE LAM Referring Unavailable YESENIA SMALL Attending Unavailable MARY JOR, MYNOR Referring Unavailable NADERER, MYNOR Primary Care Unavailable DELANO MCKINNEY Attending Unavailable CHARLENEERER, MYNOR Referring Unavailable NADERER, MYNOR Primary Care Unavailable YESENIA SMALL Attending Unavailable ROXANA, MYNOR Referring Unavailable NADZACHR, MYNOR Primary Care Unavailable YESENIA SMALL Attending Unavailable MYNOR SCHMIDT Referring Unavailable NADERER, MYNOR Primary Care Unavailable YESENIA SMALL Attending Unavailable ROXANA, MYNOR Referring Unavailable NADERER, MYNOR Primary Care Unavailable Medications Current Medications Medication Drug Class(es) Dates Sig (Normalized) Sig (Original) ascorbic acid 250 mg chewable tablet (3 sources) Vitamin C ascorbic acid, v itamin C, 250 mg tablet,chewable Chew 1 tablet and swallow daily. 0 Active Vitamin C Active atorvastatin 40 mg oral tablet (2 sources) HMG-CoA Reductase Inhibitor Start: 09-17-2023 take 1 tablet by mouth in the morning atorvastatin (LIPITOR) 40 mg tablet Take 1 tablet (40 mg total) by mouth in the morning. 0 09/17/2023 Active carvedilol 25 mg oral tablet (5 sources) alpha-Adrenergic Porsha, beta-Adrenergic Porsha Start: 03-14-2021 [...] 0 Active citalopram 10 mg oral tablet (3 sources) Serotonin Reuptake Inhibitor Start: 02-19-2021 take 3 tablets by mouth in the morning citalopram (CeleXA) 10 mg tablet Take 3 tablets (30 mg total) by mouth in the morning. 0 02/19/2021 Active CeleXA Active docusate sodium 100 mg oral capsule (2 sources) take 1 capsule by mouth at bedtime docusate sodium (COLACE) 100 mg capsule Take 1 capsule (100 mg total) by mouth in the morning and at bedtime. 0 Active furosemide 40 mg oral tablet (2 sources) Loop Diuretic Start: 023 take 1 tablet by mouth once daily furosemide (LASIX) 40 mg tablet Take 1 tablet (40 mg total) by mouth daily. 0 09/17/2023 Active lisinopril 10 mg oral tablet (3 sources) Angiotensin Converting Enzyme Inhibitor Start: take 1 tablet by mouth in the morning lisinopriL (PRINIVIL,ZESTRIL) 10 mg tablet Take 1 tablet (10 mg total) by mouth in the morning. 0 03/13/2021 Active MULTIVITAMIN ORAL (2 sources) take 1 tablet by mouth in the [...] hrs for 7 days Jun, Active omega 3-dnw-nty-fish oil 300-1,000 mg capsule (2 sources) take 300-1000 mg by mouth once daily omega 6-cno-bjk-fish oil 300-1,000 mg capsule Take 1 capsule by mouth daily. 0 Active pioglitazone 30 mg oral tablet (3 sources) Peroxisome Proliferator Receptor alpha Agonist, Peroxisome Proliferator Receptor gamma Agonist, Thiazolidinedione Start: pioglitazone (ACTOS) 30 mg tablet Take by mouth daily. 0 01/25/2021 Active Actos Active SITagliptin 25 mg oral tablet (3 sources) Dipeptidyl Peptidase 4 Inhibitor Start: 01-25-2021 take 1 tablet by mouth in the morning SITagliptin phosphate (JANUVIA) 25 mg tablet Take 1 tablet (25 mg total) by mouth in the morning. 0 01/25/2021 Active Januvia Active sod sulf-pot chloride-mag sulf 1.479-0.188- 0.225 gram tablet (1 source) Start: 12-31-2023 sod sulf-pot chloride-mag sulf 1.479-0.188- 0.225 gram tablet Indications: Rectal pain , Rectal bleeding Please see instructional sheet given by physicians office. 24 tablet 0 12/31/2023 Active vitamin b12 1 mg oral tablet (3 sources) Vitamin B12 take 1 tablet by mouth in the morning cyanocobalamin 1000 MCG tablet Take 1 tablet (1,000 mcg total) by mouth in the morning. 0 Active Vitamin B 12 Act gabe white petrolatum (bulk)-dilTIAZem HCL (bulk) (1 source) Start: 12-31-2023 take 30 g rectal route twice daily white petrolatum (bulk)-dilTIAZem HCL (bulk) Indications: Rectal pain Diltiazem 2% Apply rectally 2 times daily 30 g 1 12/31/2023 Active Problems Active Problems Problem Classification Problem Date Documented Da te Episodic/Chronic Anal and rectal conditions (5 sources) Rectal pain; Translations: [Other specified diseases of anus and rectum] Onset: 4 11-15-2023 Episodic Contraceptive and procreative management (1 source) Tubal ligation status; Translations: [TUBAL LIGATION STATUS] Onset: 3 Episodic Diabetes mellitus with complications (4 sources) Type 2 diabetes mellitus with hyperglycemia; Translations: [TYPE 2 DM W/HYPERGLYCEMIA] Onset: 2 Chronic Diabetes mellitus without complication (2 sources) Type 2 diabetes mellitus without complications; Translations: [TYPE 2 DM WITHOUT COMPLICATIONS] Onset: 3 Chronic Essential hypertension (2 sources) Essential (primary) hypertension; Translations: [ESSENTIAL PRIMARY HYPERTENSION] Onset: 3 Chronic Gastrointestinal hemorrhage (6 sources) Hemorrhage of anus and rectum; Translations: [Rectal hemorrhage] Onset: 3 Episodic Gastrointestinal hemorrhage (1 source) Gastrointestinal hemorrhage Onset: 4 Joint disorders and dislocations; trauma-related (1 source) Unspecified internal derangement of right knee; Translations: [UNS INTERNAL DERANGEMENT RIGHT KNEE] Onset: 2 Chronic Other aftercare (1 source) 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; Translations: [OTH SKILLED NURSING CURRENT DRUG THERAPY] Onset: 3 Episodic Other and unspecified benign neoplasm (2 sources) Polyp of colon; Translations: [Polyp of colon] Onset: 4 Episodic Other nutritional; endocrine; and metabolic disorders (1 source) Body mass index 40+ - severely obese; Translations: [Morbid (severe) obesity due to excess calories] 12-31-2023 Chronic Residual codes; unclassified (1 source) Acquired absence of both cervix and uterus; Translations: [ACQUIRED ABSENCE BOTH CERVIX AND UTERUS] Onset: 3 Episodic Substance-related disorders (1 source) Nicotine dependence, cigarettes, uncomplicated; Translations: [NICOTINE DEPEND CIGARETTES UNCOMP] Onset: 3 Chronic Unclassified (1 source) POST-OP VISIT Onset: 4 Unclassified (1 source) Painful Bowel Movement Onset: 4 Past or Other Problems Problem Classification Problem [...] Test Name Value Interpretation Reference Range Facility COMPLETE BLOOD COUNTon 01-20 Erythrocyte distribution width (RBC) [Ratio] 14.9 % Normal 11.5-15.0 [facility] Comment on above: Performed By: #### C BC, CMP #### [facility] ([id number]) [address], [address] [place] [address] Hematocrit (Bld) [Volume fraction] 40.8 % Normal 35-47 [facility] Comment on above: Performed By: #### C BC, CMP #### [facility] ([id number]) [address], [address] [place] [address] Hemoglobin (Bld) [Mass/Vol] 13.8 g/dL Normal 11.7-15.5 [facility] Comment on above: Performed By: #### C BC, CMP #### [facility] ([id number]) [address], [address] [place] [address] MCH (RBC) [Entitic mass] 30.5 pg Normal 27-34 [facility] Comment on above: Performed By: #### C ZONIA, CMP #### [facility] ([id number]) [address], [address] [place] [address] MCHC (RBC) [Mass/Vol] 33.8 g/dL Normal 32-36 [facility] Comment on above: Performed By: #### Kieran BRAR, CMP #### [facility] ([id number]) [address], [address] [place] [address] MCV (RBC) [Entitic vol] 90 fL Normal 80-100 [facility] Comment on above: Performed By: #### Kieran BRAR, CMP #### [facility] ([id number]) [address], [address] [place] [address] Platelet mean volume (Bld) [Entitic vol] 9.4 fL Normal 7-12 [facility] Comment on above: Performed By: #### C ZONIA, CMP #### [facility] ([id number]) [address], [address] [place] [address] Platelets (Bld) [#/Vol] 158 10*3/uL Normal 150-450 [facility] Comment on above: Performed By: #### C ZONIA, CMP #### [facility] ([id number]) [address], [address] [place] [address] RBC COUNT 4.52 X10E12/L Normal 3.80-5.20 [facility] Comment on above: Performed By: #### C ZONIA, CMP #### [facility] ([id number]) [address], [address] [place] [address] WBC (Bld) [#/Vol] 8.1 10*3/uL Normal 4.0-11.0 [facility] Comment on above: Performed By: #### C ZONIA, CMP #### [facility] ([id number]) [address], [address] [place] [address] COMPREHENSIVE METABOLIC PANE Vinicius 01-21-2024 Albumin [Mass/Vol] 4.0 g/dL Normal 3.2-5.3 [facility] Comment on above: Performed By: #### C ZONIA, CMP #### [facility] ([id number]) [address], [address] [place] [address] ALP [Catalytic activity/Vol] 80 U/L Normal 39-130 [facility] Comment on above: Performed By: #### C ZONIA, CMP #### [facility] ([id number]) [address], [address] [place] [address] ALT [Catalytic activity/Vol] 15 U/L Normal 0-31 [facility] Comment on above: Performed By: #### Kieran BRAR, CMP #### [facility] ([id number]) [address], [address] [place] [address] Anion gap [Moles/Vol] 11 mmol/L Normal 5-15 [facility] Comment on above: Performed By: #### C ZONIA, CMP #### [facility] ([id number]) [address], [address] [place] [address] AST [Catalytic activity/Vol] 14 U/L Normal 0-41 [facility] Comment on above: Performed By: #### C BC, CMP #### [facility] ([id number]) [address], [address] [place] [address] Bilirubin [Mass/Vol] 0.5 mg/dL Normal 0.3-1.2 [facility] Comment on above: Performed By: #### Kieran BRAR, CMP #### [facility] ([id number]) [address], [address] [place] [address] Calcium [Mass/Vol] 9.5 mg/dL Normal 8.5-10.5 [facility] Comment on above: Performed By: #### Kieran BRAR, CMP #### [facility] ([id number]) [address], [address] [place] [address] Chloride [Moles/Vol] 99 mmol/L Normal 98-109 [facility] Comment on above: Performed By: #### Kieran BRAR, CMP #### [facility] ([id number]) [address], [address] [place] [address] CO2 [Moles/Vol] 29 mmol/L Normal 22-32 [facility] Comment on above: Performed By: #### Kieran BRAR, CMP #### [facility] ([id number]) [address], [address] [place] [address] Creatinine [Mass/Vol] 0.80 mg/dL Normal 0.40-1.00 [facility] Comment on above: Result Comment: METH OD TRACEABLE TO IDMS STANDARD Performed By: #### Kieran BRAR, CMP #### [facility] ([id number]) [address], [address] [place] [address] GFR/1.73 sq M.predicted among non-blacks MDRD (S/P/Bld) [Vol rate/Area] 88 mL/min/{1.73_m2} Normal >59 [facility] Comment on above: Result Comment: Reported eGFR is based on the CKD-EPI 2020 equation that does not use a race coefficient. Performed By: #### Kieran BRAR, CMP #### [facility] ([id number]) [address], [address] [place] [address] Glucose [Mass/Vol] 173 mg/dL High 65-99 [facility] Comment on above: Performed By: #### C BC, CMP #### [facility] ([id number]) [address], [address] [place] [address] Potassium [Moles/Vol] 3.7 mmol/L Normal 3.5-5.0 [facility] Comment on above: Performed By: #### C BC, CMP #### [facility] ([id number]) [address], [address] [place] [address] Protein [Mass/Vol] 7.0 g/dL Normal 6.0-8.0 [facility] Comment on above: Performed By: #### C BC, CMP #### [facility] ([id number]) [address], [address] [place] [address] Sodium [Moles/Vol] 139 mmol/L Normal 134-146 [facility] Comment on above: Performed By: #### C BC, CMP #### [facility] ([id number]) [address], [address] [place] [address] Urea nitrogen [Mass/Vol] 17 mg/dL Normal 5-23 [facility] Comment on above: Performed By: #### C BC, CMP #### [facility] ([id number]) [address], [address] [place] [address] ECHOCARDIO M/2D COMPLETEon 0 02-19-2023 ECHOCARDIO M/2D COMPLETE Patient: GALE DARDEN Exam Date: 02/19/2023 : 1970 Gender:F Ordering : DR MYNOR SCHMIDT . Admission #: [id number] Family : Order #: [id number] CLICK HERE TO VIEW EXAM ECHOCARDIOGRAM REPORT [...] Left Atrium LA Volume Index (2D A2C): 24149 mm3 Left Atrium Systolic Dimension: 4.50 cm [...] M.D. on 02/19/2023 at 18:56 Normal [facility] CBC AUTO DIFFon 02-17-2023 BASO # 0.0 103/ul Normal 0.0-0.1 [facility] Comment on above: Performed By: #### C BC ####[facility] [address] [place], [place] [address]DrFloresita Obando Basophils/100 WBC (Bld) 0.4 % Normal 0.2-2.0 [facility] Comment on above: Performed By: #### C BC ####[facility] [address] [place], [place] [address]DrFloresita Obando EO # 0.3 103/ul Normal 0.0-0.7 [facility] Comment on above: Performed By: #### C BC ####[facility] [address] [place], [place] [address]DrFloresita Obando Eosinophils/100 WBC (Bld) 2.9 % Normal 0.9-7.0 [facility] Comment on above: Performed By: #### C BC ####[facility] [address] [place], [place] [address]DrFloresita Obando Erythrocyte distribution width (RBC) [Ratio] 15.4 % Critically high 11.0-15.0 [facility] Comment on above: Performed By: #### C BC ####[facility] [address] [place], [place] [address]DrFloresita Obando Hematocrit (Bld) [Volume fraction] 41.8 % Normal 36.0-48.0 [facility] Comment on above: Performed By: #### C BC ####[facility] [address] [address]DrFloresita Joseph Obando Hemoglobin (Bld) [Mass/Vol] 12.9 g/dL Normal 12.0-16.0 [facility] Comment on above: Performed By: #### C BC ####[facility] [address] [address]DrFloresita Obando IG # 0.04 10e3/ul Critically high 0.00-0.03 [facility] Comment on above: Performed By: #### C BC ####[facility] [address] [place], [place] [address]DrFloresita Obando IG % 0.4 % Normal 0.0-0.5 [facility] Comment on above: Performed By: #### C BC ####[facility] [address] [place], [place] [address]DrFloresita Obando LYMPH # 1.5 103/ul Normal 1.2-3.8 [facility] Comment on above: Performed By: #### C BC ####[facility] [address] [place], [place] [address]DrFloresita Lindakyree Obando Lymphocytes/100 WBC (Bld) 15.9 % Critically low 20.5-60.0 [facility] Comment on above: Performed By: #### C BC ####[facility] [address] [place], [place] [address]DrFloresita Obando MANUAL DIFF REQ NO Normal [facility] Comment on above: Performed By: #### C BC ####[facility] [address] [place], [place] [address]DrFloresita Obando MCH (RBC) [Entitic mass] 29.3 pg Normal 26.7-34.0 [facility] Comment on above: Performed By: #### C BC ####[facility] [address] [place], [place] [address]DrFloresita Obando MCHC (RBC) [Mass/Vol] 30.9 g/dL Normal 29.9-35.2 [facility] Comment on above: Performed By: #### C BC ####[facility] [address] [place] [address]DrFloresita Obando MCV (RBC) [Entitic vol] 94.8 fL Normal 81.0-99.0 [facility] Comment on above: Performed By: #### C BC ####[facility] [address] [place], [place] [address]DrFloresita Obando MONO # 0.6 103/ul Normal 0.3-0.8 [facility] Comment on above: Performed By: #### C BC ####[facility] [address] [place], [place] [address]DrFloresita Obando Monocytes/100 WBC (Bld) 6.5 % Normal 1.7-12.0 [facility] Comment on above: Performed By: #### C BC ####[facility] [address] [place], [place] [address]DrFloresita Obando NEUT # 6.8 103/ul Critically high 1.4-6.5 [facility] Comment on above: Performed By: #### C BC ####[facility] [address] [place], [place] [address]DrFloresita Obando Neutrophils/100 WBC (Bld) 73.9 % Normal 43.0-75.0 [facility] Comment on above: Performed By: #### C BC ####[facility] [address] [place], [place] [address]DrFloresita Obando Platelet mean volume (Bld) [Entitic vol] 10.4 fL Normal 9.5-13.5 [facility] Comment on above: Performed By: #### C BC ####[facility] [address] [place], [place] [address]DrFloresita Obando PLT 168 103/ul Normal 150-450 [facility] Comment on above: Performed By: #### C BC ####[facility] [address] [place], [place] [address]DrFloresita Obando RBC 4.41 106/ul Normal 4.20-5.40 [facility] Comment on above: Performed By: #### C BC ####[facility] [address] [id number]. Joseph Obando WBC 9.3 103/ul Normal 4.0-11.0 [facility] Comment on above: Performed By: #### C BC ####[facility] [address] [id number]. Joseph Obnado GLYCOHEMOGLOBIN A1Con 2022 ADA RECOMMENDATION SEE BELOW Normal [facility] Comment on above: Result Comment: ADA RECOMMENDED LIMIT 4.0 - 6.0 ADA THERAPEUTIC TARGET < 7.0 ACTION SUGGESTED > 7.0 Performed By: #### A 1C #### [facility] [address] [address] [address] Joseph Obando Glucose [Mass/Vol] 146 mg/dL Normal [facility] Comment on above: Performed By: #### A 1C #### [facility] [address] [address] [address] Joseph Obando HbA1c (Bld) [Mass fraction] 6.7 % Critically high 4.5-6.2 [facility] Comment on above: Performed By: #### A 1C #### [facility] [address] [address] [address] Joseph Obando LIPID PROFILEon 02-17-2023 CHOL-HDL RATIO NORM SEE BELOW Normal [facility] Comment on above: Result Comment: 3.3 - 4.4 LOW RISK 4.4 - 7.1 AVERAGE RISK 7.1 - 11.0 MODERATE RISK >11.0 HIGH RISK Performed By: #### T SH, LIVER, LIPID, BMP #### [facility] [address] [address] [address] Joseph Obando Cholesterol [Mass/Vol] 250 mg/dL Critically high <=200 [facility] Comment on above: Performed By: #### T SH, LIVER, LIPID, BMP #### [facility] [address] [address] [address] Joseph Obando Cholesterol in HDL [Mass/Vol] 42 mg/dL Normal 40-60 [facility] Comment on above: Performed By: #### T SH, LIVER, LIPID, BMP #### [facility] [address] [address] [address] Joseph Obando Cholesterol in LDL [Mass/Vol] 176.4 mg/dL Normal [facility] Comment on above: Performed By: #### T SH, LIVER, LIPID, BMP #### [facility] [address] [address] [address] Joseph Obando Cholesterol.total/Ch olesterol in HDL [Mass ratio] 6.0 {ratio} Normal [facility] Comment on above: Performed By: #### T SH, LIVER, LIPID, BMP #### [facility] [address] [address] [address] Joseph Obando HDL NORMAL > or = 60 mg/dl - LOW CARDIOVASCULAR RISK <40 mg/dl - HIGH CARDIOVASCULAR RISK Normal [facility] Comment on above: Performed By: #### T SH, LIVER, LIPID, BMP #### [facility] [address] [place] [address] Dr. Joseph Obando LDL CALC NORMAL SEE BELOW Normal [facility] Comment on above: Result Comment: <100 mg/dl OPTIMAL 100 - 129 mg/dl NEAR OR ABOVE OPTIMAL 130 - 159 mg/dl BORDERLINE HIGH 160 - 189 mg/dl HIGH >190 mg/dl VERY HIGH Performed By: #### T SH, LIVER, LIPID, BMP #### [facility] [address] [address] [address] Joseph Obando Triglyceride [Mass/Vol] 158 mg/dL Critically high <=150 [facility] Comment on above: Performed By: #### T SH, LIVER, LIPID, BMP #### [facility] [address] [address] [address] Joseph Obando VLDL CALC 31.6 mg/dL Normal [facility] Comment on above: Performed By: #### T SH, LIVER, LIPID, BMP #### [facility] [address] [address] [address] Joseph Obando LIVER PROFILEon 02-17-2023 Albumin [Mass/Vol] 3.0 g/dL Critically low 3.4-5.0 [facility] e [facility] Comment on above: Performed By: #### T SH, LIVER, LIPID, BMP #### [facility] [address] [place] [address] Dr. Joseph Obando Albumin/Globulin [Mass ratio] 0.7 {ratio} Normal [facility] Comment on above: Performed By: #### T SH, LIVER, LIPID, BMP #### [facility] [address] [place] [address] Dr. Joseph Obando ALP [Catalytic activity/Vol] 83 U/L Normal 46-116 [facility] Comment on above: Performed By: #### T SH, LIVER, LIPID, BMP #### [facility] [address] [place] [address] Dr. Joseph Obando ALT [Catalytic activity/Vol] 24 U/L Normal 14-59 [facility] Comment on above: Performed By: #### T SH, LIVER, LIPID, BMP #### [facility] [address] [place] [address] Dr. Joseph Obando AST [Catalytic activity/Vol] 14 U/L Critically low 15-37 [facility] Comment on above: Performed By: #### T SH, LIVER, LIPID, BMP #### [facility] Laboratory [address] [place] [address] Dr. Joseph Obando BILI, CONJUGATED 0.1 mg/dL Normal 0.0-0.2 [facility] Comment on above: Performed By: #### T SH, LIVER, LIPID, BMP #### [facility] Laboratory [address] [place] [address] Dr. Joseph Obando Bilirubin [Mass/Vol] 0.2 mg/dL Normal 0.2-1.0 [facility] Comment on above: Performed By: #### T SH, LIVER, LIPID, BMP #### [facility] Laboratory [address] [place] [address] Dr. Joseph Obando Globulin (S) [Mass/Vol] 4.2 g/dL Normal [facility] Comment on above: Performed By: #### T SH, LIVER, LIPID, BMP #### [facility] Laboratory [address] [place] [address] Dr. Joseph Obando Protein [Mass/Vol] 7.2 g/dL Normal 6.4-8.2 [facility] Comment on above: Performed By: #### T SH, LIVER, LIPID, BMP #### [facility] Laboratory [address] [address] [address] Joseph Obando PROF CHEM 8 (BAS METB)on Anion gap [Moles/Vol] 10.3 mmol/L Normal [facility] Comment on above: Performed By: #### T SH, LIVER, LIPID, BMP #### [facility] Laboratory [address] [address] [address] Joseph Obando Calcium [Mass/Vol] 9.1 mg/dL Normal 8.5-10.1 [facility] Comment on above: Performed By: #### T SH, LIVER, LIPID, BMP #### [facility] Laboratory [address] [place] [address] Dr. Joseph Obando Chloride [Moles/Vol] 104 mmol/L Normal 98-107 [facility] Comment on above: Performed By: #### T SH, LIVER, LIPID, BMP #### [facility] Laboratory [address] [place] [address] Dr. Joseph Obando CO2 [Moles/Vol] 30.2 mmol/L Normal 21.0-32.0 The [facility] Comment on above: Performed By: #### T SH, LIVER, LIPID, BMP #### [facility] Laboratory [address] [place] [address] Dr. Joseph Obando Creatinine [Mass/Vol] 0.69 mg/dL Normal 0.55-1.02 [facility] Comment on above: Performed By: #### T SH, LIVER, LIPID, BMP #### [facility] Laboratory [address] [place] [address] Dr. Joseph Obando EGFR-AF DJIBOUTIAN >60 Normal >=60 [facility] Comment on above: Performed By: #### T SH, LIVER, LIPID, BMP #### [facility] Laboratory [address] [place] [address] Dr. Joseph Obando EGFR-NON AF DJIBOUTIAN >60 Normal >=60 [facility] Comment on above: Performed By: #### T MISSAEL, LIVER, LIPID, BMP #### [facility] Laboratory [address] [address] [address] Joseph Obando Glucose [Mass/Vol] 158 mg/dL Critically high 74-106 [facility] Comment on above: Performed By: #### T MISSAEL, LIVER, LIPID, BMP #### [facility] Laboratory [address] [address] [address] Joseph Obando Potassium [Moles/Vol] 4.5 mmol/L Normal 3.5-5.1 [facility] Comment on above: Performed By: #### T MISSAEL, LIVER, LIPID, BMP #### [facility] Laboratory [address] [place] [address] Dr. Joseph Obando Sodium [Moles/Vol] 140 mmol/L Normal 136-145 [facility] Comment on above: Performed By: #### T MISSAEL, LIVER, LIPID, BMP #### [facility] Laboratory [address] [place] [address] Dr. Joseph Obando Urea nitrogen [Mass/Vol] 13.0 mg/dL Normal 7.0-18.0 [facility] Comment on above: Performed By: #### T MISSAEL, LIVER, LIPID, BMP #### [facility] Laboratory [address] [place] [address] Dr. Joseph Obando Urea nitrogen/Creatinine [Mass ratio] 18.8 mg/mg Normal [facility] Comment on above: Performed By: #### T MISSAEL, LIVER, LIPID, BMP #### [facility] Laboratory [address] [place] [address] Dr. Joseph Obando TSHon 02-17-2023 TSH 3.405 uIU/mL Normal 0.358-3.740 [facility] Comment on above: Performed By: #### T SH, LIVER, LIPID, BMP #### [facility] Laboratory [address] [place] [address] Dr. Joseph Obando POINT OF CARE GLUCOSEon 03-0 Glucose [Mass/Vol] 148 mg/dL Critically high 74-106 [facility] Comment on above: Performed By: #### P OCGLUC #### [facility] Laboratory [address] [address] [address] Joseph Obando PAP ACOG PANEL 2: 30 to 65on 10-30-2022 . . Normal [facility] Comment on above: Result Comment: Perf ormed at: WB Performed By: #### [id number] #### [facility] Laboratory [address] [address] [address] Joseph Obando Age Gdln ACOG Testing 30-65 Normal [facility] Comment on above: Performed By: #### [id number] #### [facility] Laboratory [address] [address] [address] Joseph Obando DIAGNOSIS: Comment [facility] Comment on above: Result Comment: NEGA TIVE FOR INTRAEPITHELIAL LESION OR MALIGNANCY. Performed at: WB Performed By: #### [id number] #### [facility] Laboratory [address] [place] [address] Dr. Joseph Obando HPV Aptima Negative Normal [facility] Comment on above: Result Comment: This nucleic acid amplification test detects fourteen high-risk HPV types (16,18,31,33,35,39,45,51,52,56,58,59,66,68) without differentiation. Performed at: =G Performed By: #### [id number] #### [facility] Laboratory [address] [place] [address] Dr. Joseph Obando HPV Genotype Reflex Comment Normal [facility] Comment on above: Result Comment: Crit eria not met, HPV Genotype not performed. Performed at: WB Performed By: #### [id number] #### [facility] Laboratory [address] [place] [address] Dr. Joseph Obando Methodology: Comment [facility] Comment on above: Result Comment: This liquid based ThinPrep(R) pap test was screened with the use of an image guided system. Performed at: WB Performed By: #### [id number] #### [facility] Laboratory [address] [place] [address] Dr. Joseph Obando Note: Comment Normal [facility] Comment on above: Result Comment: The Pap smear is a screening test designed to aid in the detection of premalignant and malignant conditions of the uterine cervix. It is not a diagnostic procedure and should not be used as the sole means of detecting cervical cancer. Both false-positive and false-negative reports do occur. . Performed at: WB Performed By: #### [id number] #### [facility] Laboratory [address] [place] [address] Dr. Joseph Obando Performed by: Comment Normal [facility] Comment on above: Result Comment: Makayla Lewis, Bureau Director (ASCP) Performed at: WB Performed By: #### [id number] #### [facility] Laboratory [address] [place] [address] Dr. Joseph Obando Specimen adequacy: Comment Normal [facility] Comment on above: Result Comment: Sati sfactory for evaluation. No endocervical component is identified. Performed at: WB Performed By: #### [id number] #### [facility] Laboratory [address] [place] [address] Dr. Joseph Obando GLYCOHEMOGLOBIN A1Con 2021 ADA RECOMMENDATION SEE BELOW Normal [facility] Comment on above: Result Comment: ADA RECOMMENDED LIMIT 4.0 - 6.0 ADA THERAPEUTIC TARGET < 7.0 ACTION SUGGESTED > 7.0 Performed By: #### A 1C #### [facility] Laboratory [address] [place] [address] Dr. Joseph Obando Glucose [Mass/Vol] 131 mg/dL Normal [facility] Comment on above: Performed By: #### A 1C #### [facility] Laboratory [address] [place] [address] Dr. Joseph Obando HbA1c (Bld) [Mass fraction] 6.2 % Normal 4.5-6.2 [facility] Comment on above: Performed By: #### A 1C #### [facility] Laboratory [address] [place] [address] Dr. Joseph Obando MRI Knee w/o Righton [...] by Uriah Kelly on 06/12/2022 1410 Normal [facility] XR Orbits for MRIon 06-12-20 22 XR Orbits for MRI HISTORY: Pre-MRI clearance, history of metal exposure FINDINGS: No metallic foreign body is identified. Visualized osseous structures are unremarkable. IMPRESSION: No metallic foreign body Report reported and signed by Arben Gonzalez on 06/12/2022 0938 Normal [facility] XR hand RT min 3V*on 021 XR hand RT min 3V* [facility] Main [place] [address] [place] [address] XRay Report Signed Patient: Gale Darden MR#: [id number] : 1970 Acct:[id number] Age/Sex: 50 / F ADM Date: 07/07/21 Loc: XDUCLY Room: Type: [facility] Attending Dr: Rivka AMADOR Ordering Provider: RIVKA [...] Max Kasper M.D.07/07/2021 3:36 PM Dictation Location: [address] [address] Transcribed By: [facility] 07/07/21 1536 Dictated By: Max Kasper DO 07/07/21 1534 Signed By: 07/07/21 153 Normal [facility] XR hand RT min 3V* [facility] [employer] Other XR hand RT min 3V* [facility] [employer] Other XR hand RT min 3V* [address] [place] [address] [employer] Other XR hand RT min 3V* [place] [address] [employer] Other XR hand RT min 3V* XRay Report [employer] Other XR hand RT min 3V* Signed [employer] Other XR hand RT min 3V* Patient: Gale Darden MR#: [id number] [employer] Other XR hand RT min 3V* 9838 [employer] Other XR hand RT min 3V* : 1970 Acct:[id number] [employer] Other XR hand RT min 3V* Age/Sex: 50 / F ADM Date: 07/07/21 [employer] Other XR hand RT min 3V* Loc: XDUCLY Room: Type: [facility] [employer] Other XR hand RT min 3V* Attending Dr: Rivka Romero [facility] [employer] Other XR hand RT min 3V* Ordering Provider: [facility]ERO [facility] [employer] Other XR hand RT min 3V* Date of Service: 07/07/21 [employer] Other XR hand RT min 3V* XR/XR hand RT min 3V*: Injury of right hand, initial encounter [employer] Other XR hand RT min 3V* Copies to: RIVKA ROMERO CONTINUOUS 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 Continued pain [employer] Other XR hand RT min 3V* No fracture, dislocation or focal soft tissue abnormality seen. [employer] Other XR hand RT min 3V* XR/XR hand RT min 3V* [employer] Other XR hand RT min 3V* IMPRESSION:No acute findings [employer] Other XR hand RT min 3V* Impression dictated by: Max Kaspre M.D.07/07/2021 3:36 PM [employer] Other XR hand RT min 3V* Dictation Location: [place] [address] [employer] Other XR hand RT min 3V* Transcribed By: JEREMY 07/07/21 [facility] [employer] Other XR hand RT min 3V* Dictated By: Max Kasper DO 07/07/21 [facility] [employer] Other XR hand RT min 3V* Signed By: [employer] Other XR hand RT min 3V* 07/07/[address] [place] [address] [employer] Other XR shoulder RT min 2V*on XR shoulder RT min 2V* [facility] Main [place] [address] [place] [address] XRay Report Signed Patient: Gale Darden MR#: [id number] : 1970 Acct:[id number] Age/Sex: 50 / F ADM Date: 02/18/21 Loc: XDUCLY Room: Type: [facility] Attending Dr: Rivka AMADOR Ordering Provider: RIVKA ROMERO Date of Service: 02/18/21 XR/XR humerus RT*: Injury of right shoulder, initial encounter ([id number]) XR/XR shoulder RT min 2V*: Injury of [...] Max Kasper M.D.02/18/2021 4:38 PM Dictation Location: [place] [address] Transcribed By: [facility] 02/18/21 1638 Dictated By: Max Kasper DO 02/18/21 1634 Signed By: 02/18/21 1638 Normal [facility] Workers' Comp Officeon 10-08 Workers' Comp Office [id number] #1.00CD:127 Normal [facility] Progress Note-Physicianon Progress Note-Physician Patient: GALE DARDEN Age: 50 years Sex: Female : 1970 Associated Diagnoses: None Author: Natalie Peguero Visit Information The patient was seen for evaluation of her mid back following a work related injury on 08/07/2020. [facility] claim status pending. Chief Complaint [...] mmHg (SEP 24:) DBP 88 mmHg (SEP 24) Additional physical exam information: No tenderness over trapezius and rhomboid muscles on the left,. No tenderness over spinous processes. Full ROM is noted in the cervical spine and bilateral upper extremities. Normal sensory motor exam. . 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 Strain of thoracic back region (BVD72-LH S29.012A, Working, Medical). Course: Improving. Orders May return to full duty. Recommend continuation of the home stretches and exercises due to natures of her work. She may follow up as needed. Call for any questions or concerns. . Counseled: Patient, Regarding diagnosis, Regarding treatment. Patient Instructions: Patient verbalizes understanding of plan of care. All questions answered satisfactorily.. Normal [facility] Comment on above: Result Comment: Elec tronically Signed By: Natalie Peguero\.br\Date and Time Signed: 09/24/20 16:03 EST Workers' Comp Officeon 09-24 Workers' Comp Office [id number] #1.00CD:127 Normal [facility] Progress Note-Physicianon Progress Note-Physician Patient: GALE DARDEN Age: 49 years Sex: Female : 1970 Associated Diagnoses: None Author: Natalie Peguero Visit Information The patient was seen for evaluation of her mid back following a work related injury on 08/07/2020. [facility] claim status pending. Chief Complaint [...] (SEP 06 09:34) SBP 118 mmHg (SEP 06:) DBP 80 mmHg (SEP 06:) Additional physical exam information: Mild tenderness and tightness noted over trapezius and rhomboid muscles on the left, although improved from previous exam. No tenderness over spinous processes. Full ROM is noted in the cervical spine and left upper extremity. . Impression and Plan Diagnosis Strain of thoracic back region (KKU39-GQ S29.012A, Working, Medical). Left shoulder strain (OEV51-PY S46.912A, Working, Medical). Course: Improving. Orders 1) [...] of care. All questions answered satisfactorily.. Normal [facility] Comment on above: Result Comment: Elec tronically Signed By: Natalie Peguero\.br\Date and Time Signed: 09/06/20 12:53 EST Workers' Comp Officeon 09-06 Workers' Comp Office [id number] #1.00CD:127 Normal [facility] Progress Note-Physicianon Progress Note-Physician Patient: GALE DARDEN Age: 49 years Sex: Female : 1970 Associated Diagnoses: None Author: Natalie Pegueor Visit Information The patient was seen for evaluation of her mid back following a work related injury on 08/07/2020. [facility] claim status pending. Chief Complaint [...] (AUG 27 09:53) SBP 113 mmHg (AUG 27 09:53) DBP 68 mmHg (AUG 27 09:53) Additional physical exam information: Examination reveals no [...] Plan Diagnosis Strain of thoracic back region (ZFK49-NW S29.012A, Working, Medical). Left shoulder strain (QIJ12-MP S46.912A, Working, Medical). Course: Improving. Orders Patient [...] of care. All questions answered satisfactorily.. Normal [facility] Comment on above: Result Comment: Elec tronically Signed By: Natalie Peguero.juan\Date and Time Signed: 08/27/20 11:17 EST Workers' Comp Officeon 08-27 Workers' Comp Office [id number] 9#1.00CD:127 Normal [facility] Workers' Comp Officeon 08-26 Workers' Comp Office [id number] #1.00CD:127 Normal [facility] Workers' Comp Officeon 08-21 Workers' Comp Office [id number] 9#1.00CD:127 Normal [facility] Workers' Comp Officeon 08-16 Workers' Comp Office Patient has an appt on 08-22-20 @ 4:00 Normal [facility] Workers' Comp Officeon 08-14 Workers' Comp Office [id number] 6#1.00CD:127 Normal [facility] Workers' Comp Office [id number] 5#1.00CD:127 Normal [facility] Workers' Comp Office [id number] 2#1.00CD:127 Normal [facility] Workers' Comp Office [id number] 6#1.00CD:127 Normal [facility] Workers' Comp Office [id number] 6#1.00CD:127 Normal [facility] Workers' Comp Office [id number] 7#1.00CD:127 Normal [facility] Workers' Comp Office [id number] 9#1.00CD:127 [facility] 08-13-2020 Consent [id number] 3#1.00CD:127 [facility] Progress Note-Physicianon Progress Note-Physician Patient: GALE DARDEN Age: 49 years Sex: Female : 1970 Associated Diagnoses: None Author: Natalie Peguero Visit Information The patient was seen for evaluation of her mid back following a work related injury on 08/07/2020. [facility] claim status pending. Chief Complaint [...] 08/07/2020. The patient was originally seen by [facility] on 08/09/2020, but was told by her employer to follow up with our office. 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 During this time, she felt a pop in her left shoulder blade. Over the next two days the pain intensified. She was using heat and ibuprofen without any significant improvement. Following her evaluation at [place] she was prescribed Flexeril 10mg three times [...] (AUG 13 13:44) DBP 84 mmHg (AUG 13:44) Additional [...] Plan Diagnosis Strain of thoracic back region (DQT89-RW S29.012A, Working, Medical). Orders 1) I recommend [...] of care. All questions answered satisfactorily.. Normal [facility] Comment on above: Result Comment: Elec tronically Signed By: Natalie Peguero.juan\Date and Time Signed: 08/13/20 16:40 EST Workers' Comp Officeon 08-13 Workers' Comp Office Mailed a physician of record change form to patient. I informed her that it needs to be filled out CAITLIN and returned back to our department. Normal [facility] Vital Signs Date Time Vital Sign Value Performing Clinician Facility 12-31-2023 09:03-0400 Body height 160 cm Yesenia CAMACHO Work Phone: [facility] [employer] [facility] 12-31-2023 09:03-0400 Body mass index (BMI) [Ratio] 44.75 kg/m2 Yesenia CAMACHO [facility] 12-31-2023 09:03-0400 Body weight 114.58 kg Yesenia CAMACHO [facility] 12-31-2023 09:03-0400 Diastolic blood pressure 65 mm[Hg] Yesenia CAMACHO Work Phone: [facility] [employer] [facility] 12-31-2023 09:03-0400 Heart rate 71 /min Yesenia CAMACHO [facility] 12-31-2023 09:03-0400 Systolic blood pressure 106 mm[Hg] Yesenia CAMACHO [facility] 11-15-2023 14:56-0500 Body height 160 cm Yesenia CAMACHO [facility] 11-15-2023 14:56-0500 Body mass index (BMI) [Ratio] 45.14 kg/m2 Yesenia Small DOOR CLOSER MECHANIC-PATTERN TECHNICIAN Work Phone: [employer] 11-15-2023 14:56-0500 Body weight 115.58 kg Yesenia Small DOOR CLOSER MECHANIC-PATTERN TECHNICIAN Work Phone: [employer] 11-15-2023 14:56-0500 Diastolic blood pressure 63 mm[Hg] Yesenia Small DOOR CLOSER MECHANIC-PATTERN TECHNICIAN Work Phone: [employer] 11-15-2023 14:56-0500 Heart rate 78 /min Yesenia Small DOOR CLOSER MECHANIC-PATTERN TECHNICIAN Work Phone: [employer] 11-15-2023 14:56-0500 Systolic blood pressure 123 mm[Hg] Yesenia Small DOOR CLOSER MECHANIC-PATTERN TECHNICIAN Work Phone: [employer] 07-07-2021 15:40-0400 Body height 161.29 cm Rivka Romero Other [employer] Other 07-07-2021 15:40-0400 Body mass index (BMI) [Ratio] 44.11 kg/m2 Rivka Romero Other [employer] Other 07-07-2021 15:40-0400 Body temperature 98.2 [degF] Rivka Romero Other [employer] Other 07-07-2021 15:40-0400 Body weight 114.76 kg Rivka Romero Other [employer] Other 07-07-2021 15:40-0400 Diastolic blood pressure 57 mm[Hg] Rivka Romero Other [employer] Other 07-07-2021 15:40-0400 Respiratory rate 18 /min Rivka Romero Other [employer] Other 07-07-2021 15:40-0400 SaO2% (BldA) [Mass fraction] 96 % Rivka Romero Other [employer] Other 07-07-2021 15:40-0400 Systolic blood pressure 114 mm[Hg] Rivka Romero Other [employer] Other Encounters Encounter Date Encounter Type Care Provider Facility Start: 03-13-2024 End: 03-13-2024 ambulatory [facility] Start: 03-03-2024 End: 03-03-2024 ambulatory MYNOR SCHMIDT Not Available Start: 02-14-2024 End: 02-14-2024 ambulatory [facility] Start: 02-01-2024 End: 02-01-2024 Evaluation and management of inpatient [place] DOR[facility] Start: 02-01-2024 End: 02-01-2024 Evaluation and management of inpatient [facility] Start: 01-21-2024 End: 01-22-2024 ambulatory [facility] Start: 01-21-2024 Encounter for other preprocedural examination [facility] Start: 01-19-2024 End: 01-19-2024 ambulatory [facility] Start: 01-18-2024 End: 01-18-2024 Evaluation and management of inpatient QUIN DONIS [facility] Start: 01-17-2024 End: 01-18-2024 Evaluation and management of inpatient [facility] Start: 12-31-2023 End: 12-31-2023 Office outpatient visit 15 minutes Yesenia Milana Small DOOR CLOSER MECHANIC-PATTERN TECHNICIAN Work Phone: [facility] Comment on above: Rectal pain (Primary Dx); Rectal bleeding; Morbid obesity with BMI of 40.0-44.9, adult ([facility] Start: 12-31-2023 End: 12-31-2023 ambulatory [facility] Start: 11-15-2023 End: 11-15-2023 Office outpatient visit 15 minutes Yesenia Milana Deondre DOOR CLOSER MECHANIC-PATTERN TECHNICIAN Work Phone: [facility] Comment on above: Rectal pain (Primary Dx) Start: 11-15-2023 End: 11-15-2023 ambulatory [facility] Start: 11-01-2023 End: 11-01-2023 ambulatory ROBERT GUIDRY Not Available Start: 10-05-2023 End: 10-06-2023 ambulatory BE LAM Not Available Start: 02-20-2023 Encounter for genera l adult medical examination without abnormal findings DR MYNOR SCHMIDT [facility] Start: 02-19-2023 End: 02-20-[address] MYNOR SCHMIDT Facility:H1 Start: 02-17-2023 End: 02-18-[address] MYNOR SCHMIDT Facility:H1 Start: 02-17-2023 End: 02-18-2023 Encounter for general adult medical examination without abnormal findings DR MYNOR SCHMIDT Facility:H1 Start: 12-11-2022 End: 12-11-2022 ambulatory SUNG FLETCHER . Facility:H1 Start: 10-26-2022 End: 10-26-[address] ROBERT GUIDRY . Facility:H1 Start: 08-18-2022 End: 08-19-[address] MYNOR SCHMIDT Facility:[facility]1 Start: 06-01-2022 End: 06-01-[address] MYNOR SCHMIDT Facility:[facility]1 Start: 07-07-2021 Office outpatient vi sit 15 minutes [facility] Procedures Date Procedure Procedure Detail Performing Clinician Start: 12-31-2023 Follow-up visit Follow-up YESENIA SMALL Start: 04-03-2021 Colonoscopy Yesenia parsons DOOR CLOSER MECHANIC-PATTERN TECHNICIAN Work Phone: Plan of Treatment Date Care Activity Detail Author Start: 04-03-2031 Screening for malign ant neoplasm of colon Colonoscopy [facility] Start: 12-30-2024 Adult BMI Screening Adult BMI Screen ing [facility] Start: 12-30-2024 Tobacco Screening Tobacco Screening [facility] Start: 11-15-2024 Adult BMI Screening Adult BMI Screen ing [facility] Start: 11-15-2024 Tobacco Screening Tobacco Screening [facility] Start: 01-17-2024 End: 01-17-2024 Admission to same day surgery center 01/17/2024 11:15 AM EDT - 01/17/2024 11:45 AM EDT Surgery [facility] [address] [place] [id number] Delano Mckinney, DO [address] [place] [address] [phone] COLONOSCOPY DIAGNOSTIC / SCREENING [13065 (CPT )] [facility] Comment on above: COLONOSCOPY DIAGNOST IC / SCREENING [40784 (CPT )] Start: 01-17-2024 End: 01-17-2024 Colonoscopy flx dx w/collj spec when pfrmd COLONOSCOPY DIAGNOSTIC / SCREENING rectal pain, rectal bleeding 01/17/2024 11:15 AM EDT [facility] Start: 01-17-2024 Subsequent hospital visit by physician 01/17/2024 11:15 AM EDT Hospital Encounter [facility] [address] [place] [id number] Delano Mckinney, DO [address] [place] [address] [phone] [facility] Start: 01-11-2024 End: 01-11-2024 ambulatory 01/11/2024 2:50 PM EDT Support Visit [facility] Admit [address] [place] [address] [facility] Pre Admit Start: 12-31-2023 End: 12-31-2023 Patient encounter procedure 12/31/2023 9:00 AM EDT Office Visit [facility] [address] [place] [id number] Yesenia Small APRN-PATTERN TECHNICIAN [address], [place] [id number] [facility] Start: 06-11-2023 COVID-19 Vaccine ( season) COVID-19 Vaccine ( season) [facility] Start: 06-11-2023 Influenza vaccination Influenza Vacc ine [facility] Start: 2020 Administration of varicella zoster vaccine Zoster (Shingles) Vaccine (1 of 2) [facility] Start: 1989 DTaP,Tdap and Td Vac cines (1 - Tdap) DTaP,Tdap and Td Vaccines (1 - Tdap) [facility] Start: 1988 Adult BMI Follow Up Plan Adult BMI Follow Up Plan [facility] Start: 1982 [facility]: 1970 Tobacco Counseling Tobacco Counselin g [facility] End: 12-30-2024 Colonoscopy Colonoscopy GI Routine Rectal pain Rectal bleeding 1 Occurrences starting 12/31/2023 until 12/30/2024 [facility] Work Phone: Comment on above: 1 Occurrences starti ng 12/31/2023 until 12/30/2024 Immunizations Immunization Date Immunization Notes Care Provider Rosa Maria matthews 09-20-2015 influenza virus vaccine, unspecified formulation Yesenia Small DOOR CLOSER MECHANIC-PATTERN TECHNICIAN Work Phone: [facility] Payers Date Payer Category Payer Unknown [employer] [facility] HMO/PPO/TRUST [id number] 2018-Present [phone] [address] [place] [address] [id number] 1970 Unknown [id number] 2.16.840.1.288172.3.579.2 .593 1970 Unknown [id number] 2.16.840.1.279388.3.579.2 .593 1970 Unknown [id number] 2.16.840.1.896837.3.579.2 .593 1970 Unknown [id number] 2.16.840.1.995590.3.579.2 .593 1970 Unknown [id number] 2.16.840.1.030737.3.579.2 .593 1970 Unknown [id number] 2.16.840.1.874594.3.579.2 .593 1970 Unknown [id number] 2.16.840.1.640766.3.579.2 .1286 1970 Unknown [id number] 2.16.840.1.196598.3.579.2 .1286 1970 Unknown [id number] 2.16.840.1.558235.3.579.2 .1286 1970 Unknown [id number] 2.16.840.1.600386.3.579.2 .1286 1970 Unknown [id number] 2.16.840.1.519121.3.579.2 .1286 1970 Unknown [id number] 2.16.840.1.659932.3.579.2 .1286 1970 Unknown [id number] 2.16.840.1.914930.3.579.2 .1286 1970 Unknown [id number] 2.16.840.1.386036.3.579.2 .1286 1970 Unknown [id number] 2.16.840.1.424308.3.579.2 .1286 1970 Unknown [id number] 2.16.840.1.379868.3.579.2 .1286 1970 Unknown [id number] 2.16.840.1.154968.3.579.2 .1259 1970 Unknown [id number] 2.16.840.1.474514.3.579.2 .1259 1970 Unknown [id number] 2.16.840.1.762592.3.579.2 .1259 1970 Unknown [id number] 2.16.840.1.968753.3.579.2 .1259 1970 Unknown [id number] 2.16.840.1.974325.3.579.2 .1286 1970 Unknown [id number] 2.16.840.1.966207.3.579.2 .1286 1970 Unknown [id number] 2.16.840.1.317353.3.579.2 .1286 1970 Unknown [id number] 2.16.840.1.250943.3.579.2 .1286 1970 Unknown [id number] 2.16.840.1.585528.3.579.2 .1286 1959 [facility] [id number] 2.16.840.1.586956.19 Social History Date Type Detail Facility Unknown if ever smoked [employer] Other Start: 11-15-2023 End: 12-31-2023 Sex Assigned At [employer] Other Start: 11-15-2023 Tobacco smoking status KYIS Smokes tobacco daily [facility] History of tobacco use Cigarette Smoker P [facility] Start: 11-15-2023 End: 12-31-2023 Cigarettes smoked current (pack per day) - Reported [address] [facility] Start: 11-15-2023 Tobacco use and exposure Smokeless tobacco non-user [facility] Start: 11-15-2023 End: 12-31-2023 Alcohol intake Current drinker of alcohol (finding) [facility] Childcare Unknown [facility] Start: 03-26-[address] [facility] Start: 1970 Sex Assigned At Female [facility] Start: 05-15-2023 Gender identity Identifies as female gender (finding) [facility] Start: 05-15-2023 Sexual orientation Heterosexual (finding) [facility] Start: 12-31-2023 Alcohol Comment rarely [facility] History of Present illness Narrative 12-31-2023 Yesenia Small, DOOR CLOSER MECHANIC-PATTERN TECHNICIAN - 12/31/2023 9:00 AM EDT Note Date & Type Note Facility 12-31-2023 History of Presen t illness Narrative Images from the original note were not included. Chief Complaint: Rectal pain History of Present Illness Gale Darden is a 53 y.o. female who presents to the office for rectal pain follow-up. She states she has been taking Sitz baths once daily and applying nitroglycerin ointment but she is still having pain with every bowel movement. She is still having some bright red blood per rectum, but it has improved the past few days. She denies any diarrhea or constipation, but reports bowel urgency. She is taking 3 fiber gummies daily. Her last colonoscopy was in [address] Mckinney. She had 1 hyperplastic polyp removed at the time. Review of Systems Constitutional: Negative for fever [...] Past Medical History: Diagnosis Date Diabetes mellitus ([facility]) Hypertension Rectal bleeding 2018 when she also had hysterectomy Visual impairment Past Surgical History: Procedure Laterality Date ARTHROSCOPY PARTIAL MEDIAL MENISCECTOMY KNEE Right 07/22/2022 Performed by Be Lam DO at [facility] BLADDER SURGERY SECTION Xs 2 COLONOSCOPY 3-4 yrs ago, [facility] COLONOSCOPY N/A 04/03/2021 Performed by Delano Mckinney DO at [facility] CYST REMOVAL Back of neck, Dr Montes [...] in the morning., Disp: , Rfl: omega 2-phg-vgj-fish oil 300-1,000 mg capsule, Take 1 capsule by mouth daily., Disp: , Rfl: pioglitazone (ACTOS) 30 mg tablet, Take by mouth daily. , Disp: , Rfl: SITagliptin phosphate (JANUVIA) 25 mg tablet, Take 1 tablet (25 mg total) by mouth in the morning., Disp: , Rfl: sod sulf-pot chloride-mag sulf 1.479-0.188- 0.225 gram tablet, Please see instructional sheet given by physicians office., Disp: 24 tablet, Rfl: 0 white petrolatum (bulk)-dilTIAZem HCL (bulk), Diltiazem 2% Apply rectally 2 times daily, Disp: 30 g, Rfl: 1 Social History Socioeconomic History Marital status: Spouse name: Not on file Number of children: Not on file Years of education: Not on file Highest education level: Not on file Occupational History Not on file Tobacco Use Smoking status: Every Day Packs/day: 1 Types: Cigarettes Smokeless tobacco: Never Vaping Use Vaping Use: Never used Substance and Sexual Activity Alcohol use: Yes Comment: rarely Drug use: Never Sexual activity: Yes Partners: Male control/protection: Surgical Other Topics Concern Not on file Social History Narrative Not on file Social Determinants of Health Financial Resource Strain: Not on file Food Insecurity: Unknown (12/31/2023) Hunger Screening Food Insecurity - Worry: Never True Food Insecurity - Inability: Not on file Transportation Needs: Not on file Physical Activity: Not on file Stress: Not on file Social Connections: Not on file Interpersonal Safety: Not on file Housing Instability: Not on file Family History Adopted: Yes Objective Physical Exam Exam conducted with a parts technician present. Constitutional: General: She is not in acute [...] Abdomen is soft. Genitourinary: Rectum: Tenderness present. Comments: Patient very tense and screaming upon touching the area. I was not able to introduce gloved finger. There is excoriation of the skin around the anus. No gross blood. Musculoskeletal: General: Normal range of motion. Skin: General: Skin is warm and dry. Neurological: Mental Status: She is alert and oriented to person, place, and time. Mental status is at baseline. Vital Signs: Blood pressure 106/65, pulse 71, height 160 cm (5' 3 ), weight 114.6 kg (252 lb 9.6 oz). Respiratory Source: No data recorded Admission Weight: Weight: 114.6 kg (252 lb 9.6 oz) Labs No results found for: WBC [...] Darden is a 53 y.o.female with rectal bleeding and rectal pain. Plan Schedule colonoscopy since I am unable to perform appropriate exam in the office due to severe pain. ? Anal fissure, recommend she continue fiber supplement, 64 oz of water daily, not sitting on the toilet for long periods of times, Sitz baths and will send in diltiazem cream. Evaluation included: Preparing to see the patient (e.g., review of tests) Obtaining and/or reviewing separately obtained history Performing a medically appropriate examination and/or evaluation Counseling and educating the patient/family/caregiver Referring and communicating with other health healthcare educator Rectal pain [K62.89] DOUG VIERA [facility] Physicians General Surgery [place] This note was created with the assistance of a speech recognition program. While intending to generate a timely document that accurately reflects the content of the visit, no guarantee can be provided that every grammatical or spelling mistake has been or will be identified or corrected. Thank you for your understanding. DOUG Viera 12/31/23 1239 documented in this encounter [facility] Instructions 12-31-2023 Patient Instructions Note Date & Type Note Facility 12-31-2023 Instructions Kelleypollo Griffith, ALIDA - 12/31/2023 9:00 AM EDT Are You Ready To Kick The Habit? Free Tobacco Cessation Resources [facility] Services [facility] Centers provide all employees with free tobacco cessation services that include: Counseling to understand nicotine addiction Education about medications that can help you successfully quit Assistance with developing a plan to quit Call to set up an individual appointment or find out when group classes will be held: [facility]: [phone] [facility]: [phone] [facility]: [phone] [facility]: [phone] Quit Smoking Action Plan and Resources [facility] offers an eight-week, online smoking cessation plan to all [facility] employees, regardless of whether [place] is your medical insurance provider. Go to www.Shodoggca.org/employeewellness and click the Health Risk Assessment and Resources link to get started. In the [employer] menu, click Action Plans instead of Health Risk Assessment to access the Quit Smoking Action Plan. Additional smoking cessation resources are also available to all [facility] employees on the Xii[employer]Pkv[employer] web page at www.Swapsee/quitkareyi ng. [place] Tobacco Cessation Program If [place] is your medical insurance provider, there are more free resources available to you, including: No copays or deductibles on local tobacco cessation counseling services to help you quit Prescription assistance for tobacco cessation medications to help you quit For details about the tobacco cessation program available to [place] members, go to www.OTOY.Forkforce (Search: Tobacco Cessation Program). [place] Tobacco Quit Line 8-665-KWYE-NOW ( ) is a toll-free, telephonic service that helps [place] residents quit smoking and using tobacco. It is staffed by experts who tailor a quit plan for you and provide you with advice. [place] Tobacco Quit Line 0-577-IGDV-NOW ( ) is a toll-free, telephonic service that helps [place] residents quit smoking and using tobacco. It is staffed by experts who tailor a quit plan for you and provide you with advice. Two weeks of nicotine replacement therapy may be provided at no charge, if needed. Additional Resources These national organizations also offer free information and resources to help you quit tobacco: [place] [employer]--www.cancer.org/healthy/staya wayfromtobacco [place] Heart [employer]--www.heart.org (Search: Quit Smoking) Centers for Disease Control and Prevention--www.cdc.gov/tobacco [place] Lung Association--www.lungusa.org documented in this encounter [facility] History of Present illness Narrative 11-15-2023 Yesenia Small APRN-PATTERN TECHNICIAN - 11/15/2023 3:00 PM EST Note Date [...] last colonoscopy was in [address] Mckinney. She had 1 hyperplastic polyp removed at [...] Past Medical History: Diagnosis Date Diabetes mellitus ([facility]) Hypertension Rectal bleeding 2018 Sine August when she also had hysterectomy Visual impairment Past Surgical History: Procedure Laterality Date ARTHROSCOPY PARTIAL MEDIAL MENISCECTOMY KNEE Right 07/22/2022 Performed by Be Lam DO at [facility] BLADDER SURGERY SECTION Xs 2 COLONOSCOPY 3-4 yrs ago, [facility] COLONOSCOPY N/A 04/03/2021 Performed by Delano Mckinney DO at [facility] CYST REMOVAL Back of neck, Dr Montes [...] in the morning., Disp: , Rfl: omega 2-oys-mkv-fish oil 300-1,000 mg capsule, Take 1 capsule [...] patient/family/caregiver Referring and communicating with other health healthcare educator Rectal pain [K62.89] YESENIA SMALL, DOOR CLOSER MECHANIC-PATTERN TECHNICIAN [facility] [place] This note was created with the assistance of a speech recognition program. While intending to generate a timely document that accurately reflects the content of the visit, no guarantee can be provided that every grammatical or spelling mistake has been or will be identified or corrected. Thank you for your understanding. DOUG Viera 11/15/23 1532 documented in this encounter [facility] Clinical Note 06-01-2022 Note Date & Type [...] authenticated by: AUDREY GUTHRIE Date: 2022-06-01 09:07 [facility] Evaluation note 07-07-2021 Note Date & Type [...] will help you get into a specialist. [employer] Other Evaluation note Note Date & Type Note Facility Evaluation note Diagnosis Rectal pain- Primary Anal or rectal pain documented in this encounter [facility] Evaluation note Note Date & Type Note Facility Evaluation note Diagnosis Rectal pain- Primary Anal or rectal pain Rectal bleeding Hemorrhage of rectum and anus Morbid obesity with BMI of 40.0-44.9, adult ([facility]) documented in this encounter [facility] History general Narrative - Reported Note Date & Type Note Facility History general Narrative - Reported Type Medical History Hypertension Medical History diabetes mallitus Medical History chronic depression Medical History anxiety Surgical History tubal ligation Surgical History C section Surgical History bladder surgery Surgical History HYSTERECTOMY Hospitalization History see above Hospitalization History cyst [employer] Other Instructions Attachments Note Date & Type Note Facility Instructions The following attachments cannot be sent through Care Everywhere.Anal fissure (Nauruan)documented in this encounter [facility] Summary Purpose Family History No Family [...] Directives Records FoundNo Advanced Directives Records Found Reason for Referral Specialty Diagnoses / Procedures Referred By Beryl browning Referred To Contact Diagnoses Rectal pain Rectal bleeding Yesenia Small, DOOR CLOSER MECHANIC-PATTERN TECHNICIAN [address] [place] [address] Referral ID Status Reason Start Date Expiration Date Visits Re quested Visits Authorized [id number] Closed 1 1 Additional Source Comments INFORMATION SOURCE (unrecogn ized section and content) DATE CREATED AUTHOR 10/09/2020 [facility] DATE CREATED AUTHOR AUTHOR'S ORGANIZ ATION 10/28/2021 [facility] DATE CREATED AUTHOR AUTHOR'S ORGANIZ ATION 06/13/[address] [facility] dical Specialist DATE CREATED AUTHOR AUTHOR'S ORGANIZ ATION 02/21/2023 [facility] DATE CREATED AUTHOR AUTHOR'S ORGANIZ ATION 02/02/2024 [facility] DATE CREATED AUTHOR AUTHOR'S ORGANIZ ATION 03/05/[address] 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 [facility]. provides no warranty or guarantee of the accuracy or completeness of information in this document.
[2024-09-01 11:21] LABS: Estimated Average Glucose 151 mg/dL; Glycohemoglobin A1C 6.9 % (4.5-6.2)
== END 2024-09-01 10:32 | disposition home or self-care (01) ==
LOC: LAB 10:32
PROVIDERS: PCP Family Medicine; Visit Provider Family Medicine
DX: E11.65 Type 2 diabetes mellitus with hyperglycemia (principal)
CPT/HCPCS: 36415; 83036

== ENCOUNTER 2024-11-06 06:09 | Inpatient (IN) | payer BC, SELFPAY ==
[2024-11-06] VITALS (28 sets, daily range): BP systolic 110–151; BP diastolic 52–70; PULSE 49–69; TEMP 36.6–36.8; O2SAT 71–99; BMI 44.3; BMI 45.3
--- OUTSIDE RECORDS SUMMARY | 2024-11-06 06:19 | XMS_ITS | CCD ---
Author Organization [facility] Care Team Providers Care Receptionist Secretary Name Role Phone Rivka Romero Unavailable ROXANA, [...] DR MYNOR Cortés Admitting Unavailable NADERER, DR MYONR Cortés Attending Unavailable NADERER, DR MYNOR Cortés [...] Primary Care Provider DELANO MCKINNEY Admitting Unavailable DLEANO MCKINNEY Attending Unavailable CHARLENEERER, MYNOR Primary Care Unavailable DELANO MCKINNEY Attending Unavailable DELANO MCKINNEY Referring Unavailable MYNOR SCHMIDT Primary Care Unavailable QUIN DONIS Attending Unavailable MYNOR SCHMIDT Primary Care Unavailable DELANO MCKINNEY Referring Unavailable CHARLENEEREMYNOR Rodriguez Primary Care Unavailable TAMRA SAUL Attending Unavailable DELANO MCKINNEY Referring Unavailable ROXANA, MYNOR Primary Care Unavailable DELANO MCKINNEY Referring Unavailable ROXANA, MYNOR Primary Care Unavailable DELANO MCKINNEY Admitting Unavailable DELANO MCKINNEY Attending Unavailable ROXANA, MYNOR Primary Care Unavailable TAMRA SAUL Attending Unavailable CHARLENEEREJennifer, MYNOR Primary Care Unavailable TONIE SMALL Attending Unavailable MYNOR SCHMIDT Referring Unavailable ROXANA, MYNOR Primary Care Unavailable DELANO MCKINNEY Attending Unavailable ROXANA, MYNOR Referring Unavailable NADEREJennifer, MYNOR Primary Care Unavailable TONIE SMALL Attending Unavailable NADJORGE, MYNOR Referring Unavailable NADERER, MYNOR Primary Care Unavailable TONIE SMALL Attending Unavailable ROXANA, MYNOR Referring Unavailable NADJORGE, MYNOR Primary Care Unavailable TONIE SMALL Attending Unavailable ROXANA, MYNOR Referring Unavailable NADEREJennifer, MYNOR Primary Care Unavailable Mynor Schmidt MD Primary Care Provider Mynor Schmidt MD Unavailable DAMON BETTENCOURT Attending Unavailable ROXANA, MYNOR Attending Unavailable BE LAM Attending Unavailable BE LAM Referring Unavailable ROXANA, MYNOR Attending Unavailable Medications Current Medications Medication Drug Class(es) Dates Sig (Normalized) Sig (Original) ascorbic acid 250 mg chewable tablet (9 sources) Vitamin C ascorbic acid (V itamin C) 250 MG chewable tablet Chew 1 tablet in the morning. Active Vitamin C Active atorvastatin 40 mg oral tablet (8 sources) HMG-CoA Reductase Inhibitor Start: 02-18-2024 End: 02-17-2025 take 1 tablet by mouth once daily atorvastatin (Lipitor) 40 MG tablet Indications: High cholesterol (CMS/HCC) Take 1 tablet (40 mg) by mouth Daily 90 tablet 3 02/18/2024 02/17/2025 Active Start: 09-17-2023 take 1 tablet by david th in the morning atorvastatin (LIPITOR) 40 mg tablet Take 1 tablet (40 mg total) by mouth in the morning. 09/17/2023 Active carvedilol 25 mg oral tablet (13 sources) alpha-Adrenergic Porsha, beta-Adrenergic Porsha Start: 08-18-2024 carvedilol (Core g) 25 MG tablet Indications: Essential hypertension (CMS/HCC) TAKE DIRECTED 2 TABLETS IN THE MORNING AND 1 TABLET IN THE AFTERNOON. 270 tablet 3 08/18/2024 Active Start: 03-14-2021 take 2 tablets by mo uth once daily before breakfast carvediloL (COREG) 25 mg tablet Take 2 tablets (50 mg total) by mouth every morning before breakfast. 03/14/2021 Active take 1 tablet by david once daily at dinner carvediloL (COREG) 25 mg tablet Take 1 tablet (25 mg total) by mouth Daily before evening meal. Active cefdinir 300 mg oral capsule (3 sources) Cephalosporin Antibacterial Start: 09-01-2024 End: 2024 take 1 capsule by mouth in the morning cefdinir (Omnicef) 300 MG capsule Indications: Acute nonsuppurative otitis media of left ear Take 1 capsule (300 mg) by mouth in the morning and 1 capsule (300 mg) before bedtime. Do all this for 10 days. 20 capsule 09/01/2024 2024 Active citalopram 10 mg oral tablet (13 sources) Serotonin Reuptake Inhibitor Start: 07-31-2024 citalopram (CeleXA) 20 MG tablet Indications: MDD (major depressive disorder), recurrent episode, mild (HCC) (CMS/HCC) TAKE 1 TABLET AT BEDTIME 90 tablet 3 07/31/2024 Active Start: 07-31-2024 citalopram (Ce Hubert) 10 MG tablet Indications: MDD (major depressive disorder), recurrent episode, mild (HCC) (CMS/HCC) TAKE 1 TABLET DAILY 90 tablet 3 07/31/2024 Active Start: 02-19-2021 take 3 tablets by mo uth in the morning citalopram (CeleXA) 10 mg tablet Take 3 tablets (30 mg total) by mouth in the morning. 02/19/2021 Active CeleXA Active docosahexaenoic acid 120 mg / eicosapentaenoic acid 180 mg oral capsule (4 sources) take 1 capsule by mouth in the morning omega-3 1000 MG capsule capsule Take 1 capsule by mouth in the morning. Active docusate sodium 100 mg oral capsule (8 sources) take 1 capsule by mouth in the morning Docusate Sodium (DSS) 100 MG capsule Take 100 mg by mouth in the morning and 100 mg in the evening. Active empagliflozin 25 mg oral tablet (5 sources) Sodium-Glucose Cotransporter 2 Inhibitor Start: End: 025 take 1 tablet by mouth once daily empagliflozin (Jardiance) 25 MG Indications: Chronic heart failure with preserved ejection fraction (HFpEF) ([facility]) Take 1 tablet (25 mg) by mouth Daily 90 tablet 3 06/30/2024 06/30/2025 Active take 1 tablet by mouth in the mo rning empagliflozin (JARDIANCE) 25 mg tablet tablet Take 1 tablet (25 mg total) by mouth in the morning. Active fluconazole 150 mg oral tablet (3 sources) Azole Antifungal Start: 09-01-2024 fluconazole ( Diflucan) 150 MG tablet Indications: Vaginal usama Take 1 time dose, may repeat in 72 hours PRN 2 tablet 09/01/2024 Active Start: 09-01-2024 fluconazole (D iflucan) 150 MG tablet Indications: Vaginal usama Take 1 time dose, may repeat in 72 hours PRN 2 tablet 09/01/2024 Active Start: 09-01-2024 fluconazole (D iflucan) 150 MG tablet Indications: Vaginal usaam Take 1 time dose, may repeat in 72 hours PRN 2 tablet 09/01/2024 Active furosemide 40 mg oral tablet (8 sources) Loop Diuretic Start: 08-16-2024 take 1 tablet by mouth once daily as needed furosemide (Lasix) 40 MG tablet Indications: Localized edema Take 1 tablet (40 mg) by mouth Daily as needed (take 1 tablet by [facility] dailyt as needed) 30 tablet 5 08/16/2024 Active Start: 09-17-2023 take 1 tablet by david th once daily furosemide (LASIX) 40 mg tablet Take 1 tablet (40 mg total) by mouth daily. 09/17/2023 Active isopropyl alcohol 0.7 ml/ml medicated pad (4 sources) Start: 06-30-2024 Alcohol Swabs (Alcohol Prep) 70 % pads Indications: Type 2 diabetes mellitus with hyperglycemia, without long-term current use of insulin ([facility]) APPLY 1 PAD DAILY 100 each 3 06/30/2024 Active lisinopril 10 mg oral tablet (9 sources) Angiotensin Converting Enzyme Inhibitor Start: 03-03-2024 lisinopril 10 MG tab let Indications: Essential hypertension ([facility]) TAKE 1 TABLET DAILY 90 tablet 3 03/03/2024 Active Start: 03-13-2021 take 1 tablet by david th in the morning lisinopriL (PRINIVIL,ZESTRIL) 10 mg tablet Take 1 tablet (10 mg total) by mouth in the morning. 03/13/2021 Active Multiple Vitamins-Minerals (MULTIVITAMIN ADULT, MINERALS, PO) (4 sources) Multiple Vitamin s-Minerals (MULTIVITAMIN ADULT, MINERALS, PO) Multivitamin Active MULTIVITAMIN ORAL (4 sources) take 1 tablet by mouth in the morning MULTIVITAMIN ORAL Take 1 tablet by mouth in the morning. Active take 1 tablet by mouth in the mo rning MULTIVITAMIN ORAL Take 1 tablet by mouth in the morning. 0 Active naproxen sodium 550 mg oral tablet (2 sources) Nonsteroidal Anti-inflammatory Drug Start: 02-18-2021 take 1 tablet by mouth every twelve hours at mealtime as needed Naproxen Sodium 550 MG 1 tablet with food or milk as needed Orally every 12 hrs for 7 days Jun, Active nitroglycerin 0.004 mg/mg rectal ointment (3 sources) Nitrate Vasodilator Start: 10-13-2023 End: 09-01-2024 nitroglycerin (Rectiv) 0.4 % (w/w) rectal ointment Indications: Rectal fissure Insert 1 inch (1 application ) into the rectum every 12 (twelve) hours 30 g 10/13/2023 09/01/2024 Discontinued omega 6-blu-xgs-fish oil 300-1,000 mg capsule (4 sources) take 300-1000 mg by mouth once daily omega 5-guj-lzt-fish oil 300-1,000 mg capsule Take 1 capsule by mouth daily. Active take 300-1000 mg by mouth once d aily omega 1-gfr-eph-fish oil 300-1,000 mg capsule Take 1 capsule by mouth daily. 0 Active pioglitazone 30 mg oral tablet (9 sources) Peroxisome Proliferator Receptor alpha Agonist, Peroxisome Proliferator Receptor gamma Agonist, Thiazolidinedione Start: 05-01-2024 pioglitazone (Actos) 30 MG tablet Indications: Type 2 diabetes mellitus with hyperglycemia, without long-term current use of insulin (CMS/HCC) TAKE 1 TABLET DAILY 90 tablet 3 05/01/2024 Active Start: 01-25-2021 take 1 tablet by david th in the morning pioglitazone (ACTOS) 30 mg tablet Take 1 tablet (30 mg total) by mouth in the morning. 01/25/2021 Active Actos Active sod sulf-pot chloride-mag sulf 1.479-0.188- 0.225 gram tablet (1 source) Start: 12-31-2023 sod sulf-pot chloride-mag sulf 1.479-0.188- 0.225 gram tablet Indications: Rectal pain , Rectal bleeding Please see instructional sheet given by physicians office. 24 tablet 0 12/31/2023 Active vitamin b12 1 mg oral tablet (9 sources) Vitamin B12 take 1 tablet by mouth in the morning cyanocobalamin (Vitamin B-12) 1000 MCG tablet Take 1,000 mcg by mouth in the morning. Active Vitamin B 12 Act gabe white petrolatum (bulk)-dilTIAZem HCL (bulk) (3 sources) Start: 12-31-2023 take 30 g rectal route twice daily white petrolatum (bulk)-dilTIAZem HCL (bulk) Indications: Rectal pain Diltiazem 2% Apply rectally 2 times daily 30 g 1 12/31/2023 Active Completed/Discontinued Medications Medication Drug Class(es) Dates Sig (Normalized) Sig (Original) SITagliptin 25 mg oral tablet (5 sources) Dipeptidyl Peptidase 4 Inhibitor Start: 01-25-2021 End: 01-21-2024 take 1 tablet by mouth in the morning SITagliptin phosphate (JANUVIA) 25 mg tablet Take 1 tablet (25 mg total) by mouth in the morning. 01/25/2021 01/21/2024 Discontinued Januvia Active Problems Active Problems Problem Classification Problem Date Documented Da te Episodic/Chronic Congestive heart failure; nonhypertensive (6 sources) Chronic heart failure co-occurrent with normal ejection fraction; Translations: [Chronic diastolic (congestive) heart failure] Onset: 4 03-03-2024 Chronic Contraceptive and procreative management (1 source) Tubal ligation status; Translations: [TUBAL LIGATION STATUS] Onset: 3 Episodic Diabetes mellitus with complications (10 sources) Type 2 diabetes mellitus with hyperglycemia; Translations: [Hyperglycemia due to type 2 diabetes mellitus] Onset: 2 Chronic Diabetes mellitus without complication (3 sources) Type 2 diabetes mellitus without complications; Translations: [Type 2 diabetes mellitus without complication] Onset: 3 01-19-2024 Chronic Disorders of lipid metabolism (8 sources) Dyslipidemia; Translations: [Hyperlipidemia, unspecified] Onset: 3 Resolved: 4 03-03-2024 Chronic Essential hypertension (9 sources) Essential (primary) hypertension; Translations: [Essential hypertension] Onset: 3 10-05-2023 Chronic Gastrointestinal hemorrhage (6 sources) Hemorrhage of anus and rectum; Translations: [Rectal hemorrhage] Onset: 3 Episodic Gastrointestinal hemorrhage (1 source) Gastrointestinal hemorrhage Onset: 4 Joint disorders and dislocations; trauma-related (5 sources) Unspecified internal derangement of right knee; Translations: [Derangement of right knee] Onset: 2 10-05-2023 Chronic Mood disorders (6 sources) Recurrent major depressive episodes, mild ; Translations: [Major depressive disorder, recurrent, mild] Onset: 4 03-03-2024 Chronic Mycoses (5 sources) Candidiasis of vagina; Translations: [Vaginal usama] Onset: 4 09-01-2024 Episodic Osteoarthritis (8 sources) Osteoarthritis of right knee joint; Translations: [Unilateral primary osteoarthritis, right knee] Onset: 3 Resolved: 4 03-03-2024 Chronic Other aftercare (1 source) Other medical terminologist (current) drug therapy; Translations: [OTH [facility] CURRENT DRUG THERAPY] Onset: 3 Episodic Other and unspecified benign neoplasm (2 sources) Polyp of colon; Translations: [Polyp of colon] Onset: 4 Episodic Other nutritional; endocrine; and metabolic disorders (1 source) Body mass index 40+ - severely obese; Translations: [Morbid (severe) obesity due to excess calories] 12-31-2023 Chronic Other nutritional; endocrine; and metabolic disorders (1 source) Morbid obesity; Translations: [Morbid (severe) obesity due to excess calories] Onset: 3 10-05-2023 Chronic Other nutritional; endocrine; and metabolic disorders (5 sources) Severe obesity; Translations: [Class 3 severe obesity due to excess calories with serious comorbidity and body mass index (BMI) of 45.0 to 49.9 in adult ([facility])] Onset: 3 09-01-2024 Chronic Otitis media and related conditions (5 sources) Acute non-suppurative otitis media of left ear; Translations: [Other acute nonsuppurative otitis media, left ear] Onset: 4 09-01-2024 Episodic Residual codes; unclassified (1 source) Acquired [...] Problem Classification Problem Date Documented Date Episodic/Chronic Anal and rectal conditions (10 sources) Rectal pain; Translations: [Other specified diseases of anus and rectum] Onset: 10-05-2023 Resolved: 03-03-2024 11-15-2023 Episodic Immunizations and screening for infectious disease (1 source) Encounter for screening for human papillomavirus (HPV); Translations: [ENC SCREENING HUMAN PAPILLOMAVIRUS] Onset: 10-31-2022 Episodic Menstrual disorders (4 sources) Intermenstrual bleeding - irregular; Translations: [Excessive and frequent menstruation with irregular cycle] Onset: 10-05-2023 Resolved: 03-03-2024 03-03-2024 Chronic Other and unspecified benign neoplasm (1 source) Polyp of colon; Translations: [Polyp of colon] 01-19-2024 Episodic Other injuries and conditions due to [...] Test Name Value Interpretation Reference Range Facility [facility] HEMOGLOBIN A1Con 11-22-2 024 Glucose [Mass/Vol] 151 mg/dL [facility] HbA1c (Bld) [Mass fraction] 6.9 % High 4.5 - 6.2 % [facility] Comment on above: ADA RECOMMENDED LIMI T 4.0 - 6.0 ADA THERAPEUTIC TARGET < 7.0 ACTION SUGGESTED > 7.0 Interpretation and review of laboratory results Abnormal [facility] without diffon Erythrocyte distribution width (RBC) [Ratio] 14.9 % 11.5 - 15.0 % [facility] Hematocrit (Bld) [Volume fraction] 40.8 % 35 - 47 % [facility] Hemoglobin (Bld) [Mass/Vol] 13.8 g/dL 11.7 - 15.5 g/dL [facility] MCH (RBC) [Entitic mass] 30.5 pg 27 - 34 pg [facility] MCHC (RBC) [Mass/Vol] 33.8 g/dL 32 - 36 g/dL [facility] MCV (RBC) [Entitic vol] 90 fL 80 - 100 fL [facility] Platelet mean volume (Bld) [Entitic vol] 9.4 fL 7 - 12 fL [facility] Platelets (Bld) [#/Vol] 158 10*3/uL [facility] RBC (Bld) [#/Vol] 4.52 10*6/uL [facility] WBC corrected for nucl RBC Auto (Bld) [#/Vol] 8.1 [facility] COMPLETE BLOOD COUNTon 01-20 Erythrocyte distribution width (RBC) [Ratio] 14.9 % Normal 11.5-15.0 [facility] Comment on above: Performed By: #### C BC, CMP #### [facility] ([id number]) [address] [place] [address] Hematocrit (Bld) [Volume fraction] 40.8 % Normal 35-47 [facility] Comment on above: Performed By: #### C BC, CMP #### [facility] ([id number]) [address], [address] [place] [address] Hemoglobin (Bld) [Mass/Vol] 13.8 g/dL Normal 11.7-15.5 [facility] Comment on above: Performed By: #### C BC, CMP #### [facility] ([id number]) [address] [facility] [address] [place] [address] MCH (RBC) [Entitic mass] 30.5 pg Normal 27-34 [facility] Comment on above: Performed By: #### C BC, CMP #### [facility] ([id number]) [address], [facility] [address] [place] [address] MCHC (RBC) [Mass/Vol] 33.8 g/dL Normal 32-36 [facility] Comment on above: Performed By: #### C BC, CMP #### [facility] ([id number]) [address], [facility] [address] [place] [address] MCV (RBC) [Entitic vol] 90 fL Normal 80-100 [facility] Comment on above: Performed By: #### C BC, CMP #### [facility] ([id number]) [address] [address] [place] [address] Platelet mean volume (Bld) [Entitic vol] 9.4 fL Normal 7-12 [facility] Comment on above: Performed By: #### C BC, CMP #### [facility] ([id number]) [address] [address] [place] [address] Platelets (Bld) [#/Vol] 158 10*3/uL Normal 150-450 [facility] Comment on above: Performed By: #### C BC, CMP #### [facility] ([id number]) [address] [address] [address] [place] [address] RBC COUNT 4.52 X10E12/L Normal 3.80-5.20 [facility] Comment on above: Performed By: #### C BC, CMP #### [facility] ([id number]) [address], [address] [place] [address] WBC (Bld) [#/Vol] 8.1 10*3/uL Normal 4.0-11.0 [facility] Comment on above: Performed By: #### C ZONIA, CMP #### [facility] ([id number]) [address], [address] [place] [address] COMPREHENSIVE METABOLIC PANE Vinicius 01-21-2024 Albumin [Mass/Vol] 4.0 g/dL Normal 3.2-5.3 [facility] Comment on above: Performed By: #### C ZONIA, CMP #### [facility] ([id number]) [address], [address] [place] [address] ALP [Catalytic activity/Vol] 80 U/L Normal 39-130 [facility] Comment on above: Performed By: #### C ZONIA, CMP #### [facility] ([id number]) [address], [address] [place] [address] ALT [Catalytic activity/Vol] 15 U/L Normal 0-31 [facility] Comment on above: Performed By: #### C ZONIA, CMP #### [facility] ([id number]) [address], [address] [place] [address] Anion gap [Moles/Vol] 11 mmol/L Normal 5-15 [facility] Comment on above: Performed By: #### C ZONIA, CMP #### [facility] ([id number]) [address], [address] [place] [address] AST [Catalytic activity/Vol] 14 U/L Normal 0-41 [facility] Comment on above: Performed By: #### C BC, CMP #### [facility] ([id number]) [address], [address] [place] [address] Bilirubin [Mass/Vol] 0.5 mg/dL Normal 0.3-1.2 [facility] Comment on above: Performed By: #### C ZONIA, CMP #### [facility] ([id number]) [address], [address] [place] [address] Calcium [Mass/Vol] 9.5 mg/dL Normal 8.5-10.5 [facility] Comment on above: Performed By: #### C BC, CMP #### [facility] ([id number]) [address], [address] [place] [address] Chloride [Moles/Vol] 99 mmol/L Normal 98-109 [facility] Comment on above: Performed By: #### C ZONIA, CMP #### [facility] ([id number]) [address], [address] [place] [address] CO2 [Moles/Vol] 29 mmol/L Normal 22-32 [facility] Comment on above: Performed By: #### C ZONIA, CMP #### [facility] ([id number]) [address] [address] [place] [address] Creatinine [Mass/Vol] 0.80 mg/dL Normal 0.40-1.00 [facility] Comment on above: Result Comment: METH OD TRACEABLE TO IDMS STANDARD Performed By: #### C ZONIA, CMP #### [facility] ([id number]) [address], [address] [place] [address] GFR/1.73 sq M.predicted among non-blacks MDRD (S/P/Bld) [Vol rate/Area] 88 mL/min/{1.73_m2} Normal >59 [facility] Comment on above: Result Comment: Reported eGFR is based on the CKD-EPI 2020 equation that does not use a race coefficient. Performed By: #### C BC, CMP #### [facility] ([id number]) [address], [address] [place] [address] Glucose [Mass/Vol] 173 mg/dL High 65-99 [facility] Comment on above: Performed By: #### C ZONIA, CMP #### [facility] ([id number]) [address], [address] [place] [address] Potassium [Moles/Vol] 3.7 mmol/L Normal 3.5-5.0 [facility] Comment on above: Performed By: #### Kieran BRAR, CMP #### [facility] ([id number]) [address], [address] [place] [address] Protein [Mass/Vol] 7.0 g/dL Normal 6.0-8.0 [facility] Comment on above: Performed By: #### Kieran BRAR, CMP #### [facility] ([id number]) [address], [address] [place] [address] Sodium [Moles/Vol] 139 mmol/L Normal 134-146 [facility] Comment on above: Performed By: #### Kieran BRAR, CMP #### [facility] ([id number]) [address], [address] [place] [address] Urea nitrogen [Mass/Vol] 17 mg/dL Normal 5-23 [facility] Comment on above: Performed By: #### Kieran BRAR, CMP #### [facility] ([id number]) [address], [address] [place] [address] Comprehensive metabolic pane vinicius 01-21-2024 Albumin [Mass/Vol] 4.0 g/dL 3.2 - 5.3 g/dL [facility] ALP [Catalytic activity/Vol] 80 U/L 39 - 130 U/L [facility] ALT No additional P-5'-P [Catalytic activity/Vol] 15 U/L 0 - 31 U/L [facility] Anion gap [Moles/Vol] 11 mmol/L 5 - 15 mmol/L [facility] AST [Catalytic activity/Vol] 14 U/L 0 - 41 U/L [facility] Bilirubin [Mass/Vol] 0.5 mg/dL 0.3 - 1.2 mg/dL [facility] Calcium [Mass/Vol] 9.5 mg/dL 8.5 - 10. 5 mg/dL [facility] Chloride [Moles/Vol] 99 mmol/L 98 - 109 mmol/L [facility] CO2 [Moles/Vol] 29 mmol/L 22 - 32 mmol/L [facility] Creatinine [Mass/Vol] 0.80 mg/dL 0.40 - 1.00 mg/dL [facility] Comment on above: METHOD TRACEABLE TO [facility] STANDARD eGFR (CKD-EPI)non-race dependent 88 - PINF [facility] Comment on above: Reported eGFR is based on the CKD-EPI 2020 equation that does not use a race coefficient. Glucose [Mass/Vol] 173 mg/dL High 65 - 99 mg/dL [facility] Interpretation and review of laboratory results Abnormal [facility] Potassium [Moles/Vol] 3.7 mmol/L 3.5 - 5.0 mmol/L [facility] Protein [Mass/Vol] 7.0 g/dL 6.0 - 8.0 g/dL [facility] Sodium [Moles/Vol] 139 mmol/L 134 - 146 mmol/L [facility] Urea nitrogen [Mass/Vol] 17 mg/dL 5 - 23 mg/dL [facility] ECG 12 leadon 01-21-2024 TRACEMASTERVUE [facility] ECHOCARDIO M/2D COMPLETEon 0 02-19-2023 ECHOCARDIO M/2D COMPLETE Patient: KARO DARDEN Exam Date: 02/19/2023 : 1970 Gender:F Ordering : DR MYNOR SCHMIDT . Admission #: [id number] Family : Order #: [id number] CLICK HERE TO VIEW EXAM ECHOCARDIOGRAM REPORT [...] Left Atrium LA Volume Index (2D A2C): 11611 mm3 Left Atrium Systolic Dimension: 4.50 cm [...] M.D. on 02/19/2023 at 18:56 Normal [facility] CBC AUTO DIFFon 02-17-2023 BASO # 0.0 103/ul Normal 0.0-0.1 [facility] Comment on above: Performed By: #### C BC ####[facility] [id number] [place], [place] [address]Dr. Joseph Obando Basophils/100 WBC (Bld) 0.4 % Normal 0.2-2.0 [facility] Comment on above: Performed By: #### C BC ####[facility] [id number] [place] [address]Dr. Joseph Obando EO # 0.3 103/ul Normal 0.0-0.7 [facility] Comment on above: Performed By: #### C BC ####[facility] [id number] [place] [address]Dr. Joseph Obando Eosinophils/100 WBC (Bld) 2.9 % Normal 0.9-7.0 [facility] Comment on above: Performed By: #### C BC ####[facility] [id number] [place], [place] [address]Dr. Joseph Obando Erythrocyte distribution width (RBC) [Ratio] 15.4 % Critically high 11.0-15.0 [facility] Comment on above: Performed By: #### C BC ####[facility] [id number] [place], [place] [address]Dr. Joseph Obando Hematocrit (Bld) [Volume fraction] 41.8 % Normal 36.0-48.0 The [facility] Comment on above: Performed By: #### C BC ####[facility] [address] [place] [id number]. Joseph Obando Hemoglobin (Bld) [Mass/Vol] 12.9 g/dL Normal 12.0-16.0 The [facility] Comment on above: Performed By: #### C BC ####[facility] [address] [place] [address]Dr. Joseph Obando IG # 0.04 10e3/ul Critically high 0.00-0.03 [facility] Comment on above: Performed By: #### C BC ####[facility] [address] [place] [address]Dr. Joseph Obando IG % 0.4 % Normal 0.0-0.5 [facility] Comment on above: Performed By: #### C BC ####[facility] [address] [place], [place] [address]Dr. Joseph Obando LYMPH # 1.5 103/ul Normal 1.2-3.8 The [facility] Comment on above: Performed By: #### C BC ####[facility] [address] [place] [address]Dr. Joseph Obando Lymphocytes/100 WBC (Bld) 15.9 % Critically low 20.5-60.0 [facility] Comment on above: Performed By: #### C BC ####[facility] [address] [place] [address]Dr. Joseph Obando MANUAL DIFF REQ NO Normal [facility] Comment on above: Performed By: #### C BC ####[facility] [address] [place], [place] [address]Dr. Joseph Obando MCH (RBC) [Entitic mass] 29.3 pg Normal 26.7-34.0 The [facility] Comment on above: Performed By: #### C BC ####[facility] [address] [place], [place] [address]Dr. Joseph Obando MCHC (RBC) [Mass/Vol] 30.9 g/dL Normal 29.9-35.2 The [facility] Comment on above: Performed By: #### C BC ####[facility] Q[address] [place] [id number]. Joseph Obando MCV (RBC) [Entitic vol] 94.8 fL Normal 81.0-99.0 The [facility] Comment on above: Performed By: #### C BC ####[facility] [address] [place] [address]Dr. Joseph Obando MONO # 0.6 103/ul Normal 0.3-0.8 The [facility] Comment on above: Performed By: #### C BC ####[facility] [address] [place], [place] [address]Dr. Joseph Obando Monocytes/100 WBC (Bld) 6.5 % Normal 1.7-12.0 The [facility] Comment on above: Performed By: #### C BC ####[facility] [address] [place], [place] [address]Dr. Joseph Obando NEUT # 6.8 103/ul Critically high 1.4-6.[address] [facility] Comment on above: Performed By: #### C BC ####[facility] [address] [place], [place] [address]Dr. Joseph Obando Neutrophils/100 WBC (Bld) 73.9 % Normal 43.0-75.0 The [facility] Comment on above: Performed By: #### C BC ####[facility] [address] [place], [place] [address]Dr. Joseph Obando Platelet mean volume (Bld) [Entitic vol] 10.4 fL Normal 9.5-13.5 The [facility] Comment on above: Performed By: #### C BC ####[facility] [address] [place], [place] [address]Dr. Joseph Obando PLT 168 103/ul Normal 150-450 The [facility] Comment on above: Performed By: #### C BC ####[facility] [address] [place], [place] [address]Dr. Lindakyree Topher RBC 4.41 106/ul Normal 4.20-5.40 The [facility] Comment on above: Performed By: #### C BC ####[facility] [address] [place], [place] [address]Dr. Joseph Obando WBC 9.3 103/ul Normal 4.0-11.0 [facility] Comment on above: Performed By: #### C BC ####[facility] [address] [place], [place] [address]Dr. Joseph Obando GLYCOHEMOGLOBIN A1Con 2022 ADA RECOMMENDATION SEE BELOW Normal [facility] Comment on above: Result Comment: ADA RECOMMENDED LIMIT 4.0 - 6.0 ADA THERAPEUTIC TARGET < 7.0 ACTION SUGGESTED > 7.0 Performed By: #### A 1C #### [facility] [address] [place] [address] [address] Joseph Obando Glucose [Mass/Vol] 146 mg/dL Normal [facility] Comment on above: Performed By: #### A 1C #### [facility] [address] [place] [address] [address] Joseph Obando HbA1c (Bld) [Mass fraction] 6.7 % Critically high 4.5-6.2 [facility] Comment on above: Performed By: #### A 1C #### [facility] [address] [place] [address] [address] Joseph Obando LIPID PROFILEon 02-17-2023 CHOL-HDL RATIO NORM SEE BELOW Normal [facility] Comment on above: Result Comment: 3.3 - 4.4 LOW RISK 4.4 - 7.1 AVERAGE RISK 7.1 - 11.0 MODERATE RISK >11.0 HIGH RISK Performed By: #### T SH, LIVER, LIPID, BMP #### [facility] [address] [place] [address] [address] Joseph Obando Cholesterol [Mass/Vol] 250 mg/dL Critically high <=200 [facility] Comment on above: Performed By: #### T SH, LIVER, LIPID, BMP #### [facility] [address] [place] [address] [address] Joseph Obando Cholesterol in HDL [Mass/Vol] 42 mg/dL Normal 40-60 [facility] Comment on above: Performed By: #### T SH, LIVER, LIPID, BMP #### [facility] [address] [place] [address] [address] Joseph Obando Cholesterol in LDL [Mass/Vol] 176.4 mg/dL Normal [facility] Comment on above: Performed By: #### T SH, LIVER, LIPID, BMP #### [facility] [address] [place] [address] [address] Joseph Obando Cholesterol.total/C holesterol in HDL [Mass ratio] 6.0 {ratio} Normal [facility] Comment on above: Performed By: #### T SH, LIVER, LIPID, BMP #### [facility] [address] [place] [address] [address] Joseph Obando HDL NORMAL > or = 60 mg/dl - LOW CARDIOVASCULAR RISK <40 mg/dl - HIGH CARDIOVASCULAR RISK Normal [facility] Comment on above: Performed By: #### T SH, LIVER, LIPID, BMP #### [facility] [address] [place] [address] Dr. Joseph Obando LDL CALC NORMAL SEE BELOW Normal [facility] Comment on above: Result Comment: <100 mg/dl OPTIMAL 100 - 129 mg/dl NEAR OR ABOVE OPTIMAL 130 - 159 mg/dl BORDERLINE HIGH 160 - 189 mg/dl HIGH >190 mg/dl VERY HIGH Performed By: #### T SH, LIVER, LIPID, BMP #### [facility] [address] [place] [address] Dr. Joseph Obando Triglyceride [Mass/Vol] 158 mg/dL Critically high <=150 [facility] Comment on above: Performed By: #### T SH, LIVER, LIPID, BMP #### [facility] [address] [place] [address] Dr. Joseph Obando VLDL CALC 31.6 mg/dL Normal [facility] Comment on above: Performed By: #### T SH, LIVER, LIPID, BMP #### [facility] [address] [place] [address] Dr. Joseph Obando LIVER PROFILEon 02-17-2023 Albumin [Mass/Vol] 3.0 g/dL Critically low 3.4-5.0 [facility] Comment on above: Performed By: #### T SH, LIVER, LIPID, BMP #### [facility] [address] [place] [address] [address] Joseph Obando Albumin/Globulin [Mass ratio] 0.7 {ratio} Normal [facility] Comment on above: Performed By: #### T SH, LIVER, LIPID, BMP #### [facility] [address] [place] [address] [address] Joseph Obando ALP [Catalytic activity/Vol] 83 U/L Normal 46-116 The [facility] Comment on above: Performed By: #### T SH, LIVER, LIPID, BMP #### [facility] [address] [place] [address] [address] Joseph Obando ALT [Catalytic activity/Vol] 24 U/L Normal 14-59 [facility] Comment on above: Performed By: #### T SH, LIVER, LIPID, BMP #### [facility] [address] [place] [address] Dr. Joseph Obando AST [Catalytic activity/Vol] 14 U/L Critically low 15-37 [facility] Comment on above: Performed By: #### T SH, LIVER, LIPID, BMP #### [facility] [address] [place] [address] Dr. Joseph Obando BILI, CONJUGATED 0.1 mg/dL Normal 0.0-0.2 [facility] Comment on above: Performed By: #### T SH, LIVER, LIPID, BMP #### [facility] [address] [place] [address] Dr. Joseph Obando Bilirubin [Mass/Vol] 0.2 mg/dL Normal 0.2-1.0 [facility] Comment on above: Performed By: #### T SH, LIVER, LIPID, BMP #### [facility] [address] [place] [address] Dr. Joseph Obando Globulin (S) [Mass/Vol] 4.2 g/dL Normal The [facility] Comment on above: Performed By: #### T SH, LIVER, LIPID, BMP #### [facility] [address] [place] [address] Dr. Joseph Obando Protein [Mass/Vol] 7.2 g/dL Normal 6.4-8.2 [facility] Comment on above: Performed By: #### T SH, LIVER, LIPID, BMP #### [facility] [address] [place] [address] Dr. Joseph Obando PROF CHEM 8 (BAS METB)on Anion gap [Moles/Vol] 10.3 mmol/L Normal [facility] Comment on above: Performed By: #### T SH, LIVER, LIPID, BMP #### [facility] [address] [place] [address] Dr. Joseph Obando Calcium [Mass/Vol] 9.1 mg/dL Normal 8.5-10.1 [facility] Comment on above: Performed By: #### T SH, LIVER, LIPID, BMP #### [facility] [address] [place] [address] Dr. Joseph Obando Chloride [Moles/Vol] 104 mmol/L Normal 98-107 The [facility] Comment on above: Performed By: #### T SH, LIVER, LIPID, BMP #### [facility] [address] [place] [address] Dr. Joseph Obando CO2 [Moles/Vol] 30.2 mmol/L Normal 21.0-32.0 [facility] Comment on above: Performed By: #### T SH, LIVER, LIPID, BMP #### [facility] [address] [place] [address] Dr. Joseph Obando Creatinine [Mass/Vol] 0.69 mg/dL Normal 0.55-1.02 The [facility] Comment on above: Performed By: #### T SH, LIVER, LIPID, BMP #### [facility] [address] [place] [address] Dr. Joseph Obando EGFR-AF ISRAELI >60 Normal >=60 [facility] Comment on above: Performed By: #### T SH, LIVER, LIPID, BMP #### [facility] [address] [place] [address] Dr. Joseph Obando EGFR-NON AF ISRAELI >60 Normal >=60 The [facility] Comment on above: Performed By: #### T SH, LIVER, LIPID, BMP #### [facility] [address] [place] [address] [address] Joseph Obando Glucose [Mass/Vol] 158 mg/dL Critically high 74-106 [facility] Comment on above: Performed By: #### T SH, LIVER, LIPID, BMP #### [facility] [address] [place] [address] [address] Joseph Obando Potassium [Moles/Vol] 4.5 mmol/L Normal 3.5-5.1 [facility] Comment on above: Performed By: #### T SH, LIVER, LIPID, BMP #### [facility] [address] [place] [address] Dr. Joseph Obando Sodium [Moles/Vol] 140 mmol/L Normal 136-145 [facility] Comment on above: Performed By: #### T SH, LIVER, LIPID, BMP #### [facility] [address] [place] [address] Dr. Joseph Obando Urea nitrogen [Mass/Vol] 13.0 mg/dL Normal 7.0-18.0 [facility] Comment on above: Performed By: #### T SH, LIVER, LIPID, BMP #### [facility] [address] [place] [address] [address] Joseph Obando Urea nitrogen/Creatinine [Mass ratio] 18.8 mg/mg Normal [facility] Comment on above: Performed By: #### T SH, LIVER, LIPID, BMP #### [facility] [address] [place] [address] Dr. Joseph Obando TSHon 02-17-2023 TSH 3.405 uIU/mL Normal 0.358-3.740 [facility] Comment on above: Performed By: #### T SH, LIVER, LIPID, BMP #### [facility] [address] [place] [address] Dr. Joseph Obando POINT OF CARE GLUCOSEon - Glucose [Mass/Vol] 148 mg/dL Critically high 74-106 [facility] Comment on above: Performed By: #### P OCGLUC #### [facility] [address] [place] [address] Dr. Joseph Obando PAP ACOG PANEL 2: 30 to 65on 10-30-2022 . . Normal [facility] Comment on above: Result Comment: Perf ormed at: WB Performed By: #### [id number] #### [facility] [address] [place] [address] Dr. Joseph Obando Age Gdln ACOG Testing 30-65 Normal [facility] Comment on above: Performed By: #### 4 [id number] #### [facility] [address] [place] [address] [address] Joseph Obando DIAGNOSIS: Comment Normal [facility] Comment on above: Result Comment: NEGA TIVE FOR INTRAEPITHELIAL LESION OR MALIGNANCY. Performed at: WB Performed By: #### [id number] #### [facility] [address] [place] [address] Dr. Joseph Obando HPV Aptima Negative Normal Negative [facility] Comment on above: Result Comment: This nucleic acid amplification test detects fourteen high-risk HPV types (16,18,31,33,35,39,45,51,52,56,58,59,66,68) without differentiation. Performed at: =G Performed By: #### 4 [id number] #### [facility] [address] [place] [address] Dr. Joseph Obando HPV Genotype Reflex Comment Normal [facility] Comment on above: Result Comment: Crit eria not met, HPV Genotype not performed. Performed at: WB Performed By: #### [id number] #### [facility] [address] [place] [address] Dr. Joseph Obando Methodology: Comment Normal [facility] Comment on above: Result Comment: This liquid based ThinPrep(R) pap test was screened with the use of an image guided system. Performed at: WB Performed By: #### 4 [id number] #### [facility] [address] [place] [address] Dr. Joseph Obando Note: Comment Normal [facility] Comment on above: Result Comment: The Pap smear is a screening test designed to aid in the detection of premalignant and malignant conditions of the uterine cervix. It is not a diagnostic procedure and should not be used as the sole means of detecting cervical cancer. Both false-positive and false-negative reports do occur. . Performed at: WB Performed By: #### 4 [id number] #### [facility] [address] [place] [address] Dr. Joseph Obando Performed by: Comment Normal [facility] Comment on above: Result Comment: Makayla Lewis, [employer] ([employer]) Performed at: WB Performed By: #### 4 [id number] #### [facility] [address] [place] [address] Dr. Joseph Obando Specimen adequacy: Comment Normal [facility] Comment on above: Result Comment: Sati sfactory for evaluation. No endocervical component is identified. Performed at: WB Performed By: #### 4 [id number] #### [facility] [address] [place] [address] Dr. Joseph Obando GLYCOHEMOGLOBIN A1Con 2021 ADA RECOMMENDATION SEE BELOW Normal [facility] Comment on above: Result Comment: ADA RECOMMENDED LIMIT 4.0 - 6.0 ADA THERAPEUTIC TARGET < 7.0 ACTION SUGGESTED > 7.0 Performed By: #### A 1C #### [facility] [address] [place] [address] Dr. Joseph Obando Glucose [Mass/Vol] 131 mg/dL Normal [facility] Comment on above: Performed By: #### A 1C #### [facility] [address] [place] [address] Dr. Joseph Obando HbA1c (Bld) [Mass fraction] 6.2 % Normal 4.5-6.2 [facility] Comment on above: Performed By: #### A 1C #### [facility] [address] [place] [address] Dr. Joseph Obando MRI Knee w/o Righton [...] by Uriah Kelly on 06/12/2022 1410 Normal [facility] XR Orbits for MRIon 06-12-20 22 XR Orbits for MRI HISTORY: Pre-MRI clearance, history of metal exposure FINDINGS: No metallic foreign body is identified. Visualized osseous structures are unremarkable. IMPRESSION: No metallic foreign body Report reported and signed by Arben Gonzalez on 06/12/2022 0938 Normal [facility] XR hand RT min 3V*on 021 XR hand RT min 3V* [facility] [place] [address] [place] [address] XRay Report Signed Patient: Karo Darden MR#: [id number] : 1970 Acct:[id number] Age/Sex: 50 / F ADM Date: 07/07/21 Loc: XDUCLY Room: Type: [facility] Attending Dr: Rivka AMADOR Ordering [...] Max Kasper M.D.07/07/2021 3:36 PM Dictation Location: [place] [address] Transcribed By: [facility] 07/07/21 1536 Dictated By: Max Kasper DO 07/07/21 1534 Signed By: 07/07/21 1536 Normal [facility] XR hand RT min 3V* [facility] [employer] Other XR hand RT min 3V* [facility] [employer] Other XR hand RT min 3V* [address] [place] [address] [employer] Other XR hand RT min 3V* [place] [address] [employer] Other XR hand RT min 3V* XRay Report [employer] Other XR hand RT min 3V* Signed [employer] Other XR hand RT min 3V* Patient: Karo Darden MR#: [id number] [employer] Other XR hand RT min 3V* 9838 [employer] Other XR hand RT min 3V* : 1970 Acct:[id number] [employer] Other XR hand RT min 3V* Age/Sex: 50 / F ADM Date: 07/07/21 [employer] Other XR hand RT min 3V* Loc: XDUCLY Room: Type: REG CLI [employer] Other XR hand RT min 3V* Attending Dr: Rivka Romero 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 Continued pain [employer] Other XR hand RT min 3V* No fracture, dislocation or focal soft tissue abnormality seen. [employer] Other XR hand RT min 3V* XR/XR hand RT min 3V* [employer] Other XR hand RT min 3V* IMPRESSION:No acute findings [employer] Other XR hand RT min 3V* Impression dictated by: Max Kasper M.D.07/07/2021 3:36 PM [employer] Other XR hand RT min 3V* Dictation Location: [place] [address] [employer] Other XR hand RT min 3V* Transcribed By: [facility] 07/07/21 [facility]1 [employer] Other XR hand RT min 3V* Dictated By: Max Kasper DO 07/07/21 [facility]7 [employer] Other XR hand RT min 3V* Signed By: [employer] Other XR hand RT min 3V* 07/07/[address] [place] [address] [employer] Other XR shoulder RT min 2V*on XR shoulder RT min 2V* [facility] [place] [address] [place] [address] XRay Report Signed Patient: Karo Darden MR#: [id number] : 1970 Acct:[id number] Age/Sex: 50 / F ADM Date: 02/18/21 Loc: XDUCLY Room: Type: [facility] Attending Dr: Rivka AMADOR Ordering Provider: RIVKA ROMERO Date of Service: 02/18/21 XR/XR humerus RT*: Injury of right shoulder, initial encounter ([id number]) XR/XR shoulder RT min 2V*: Injury of [...] Max Kasper M.D.02/18/2021 4:38 PM Dictation Location: [place] [address] Transcribed By: [facility] 02/18/21 1638 Dictated By: Max Kasper DO 02/18/21 1634 Signed By: 02/18/21 1638 [facility] Workers' Comp Officeon 10-08 Workers' Comp Office [id number] #1.00CD:127 [facility] Progress Note-Physicianon Progress Note-Physician Patient: KARO DARDEN Age: 50 years Sex: Female : 1970 Associated Diagnoses: None Author: Natalie Peguero Visit Information The patient was seen for evaluation of her mid back following a work related injury on 08/07/2020. [facility] claim status pending. Chief Complaint 09/24/2020 [...] Impression and Plan Diagnosis Left shoulder strain ([id number] S46.912A, Working, Medical). Strain of thoracic back region (PZN59-MJ S29.012A, Working, Medical). Course: Improving. Orders May return to full duty. Recommend continuation of the home stretches and exercises due to natures of her work. She may follow up as needed. Call for any questions or concerns. . Counseled: Patient, Regarding diagnosis, Regarding treatment. Patient Instructions: Patient verbalizes understanding of plan of care. All questions answered satisfactorily.. [facility] Comment on above: Result Comment: Elec tronically Signed By: Natalie Peguero\.br\Date and Time Signed: 09/24/20 16:03 EST Workers' Comp Officeon 09-24 Workers' Comp Office [id number] #1.00CD:127 Normal [facility] Progress Note-Physicianon Progress Note-Physician Patient: KARO DARDEN Age: 49 years Sex: Female : 1970 Associated Diagnoses: None Author: Natalie Peguero Visit Information The patient was seen for evaluation of her mid back following a work related injury on 08/07/2020. [facility] claim status pending. Chief Complaint 09/06/2020 [...] Charted Heart Rate Peripheral 72 bpm (SEP 06:34) SBP 118 mmHg (SEP 06:34) DBP 80 mmHg (SEP 06:) Additional physical exam information: Mild tenderness and tightness noted over trapezius and rhomboid muscles on the left, although improved from previous exam. No tenderness over spinous processes. Full ROM is noted in the cervical spine and left upper extremity. . Impression and Plan Diagnosis Strain of thoracic back region ([id number]-SI S29.012A, Working, Medical). Left shoulder strain (WRY90-NF S46.912A, Working, Medical). Course: Improving. Orders 1) [...] of care. All questions answered satisfactorily.. Normal [facility] Comment on above: Result Comment: Elec tronically Signed By: Natalie Peguero\.br\Date and Time Signed: 09/06/20 12:53 EST Workers' Comp Officeon 09-06 Workers' Comp Office [id number] #1.00CD:127 [facility] Progress Note-Physicianon Progress Note-Physician Patient: KARO DARDEN Age: 49 years Sex: Female : 1970 Associated Diagnoses: None Author: Natalie Peguero Visit Information The patient was seen for evaluation of her mid back following a work related injury on 08/07/2020. [facility] claim status pending. Chief Complaint 08/27/2020 [...] Plan Diagnosis Strain of thoracic back region ([id number]-UJ S29.012A, Working, Medical). Left shoulder strain (DAW31-PI S46.912A, Working, Medical). Course: Improving. Orders Patient [...] of care. All questions answered satisfactorily.. Normal [facility] Comment on above: Result Comment: Elec tronically Signed By: Natalie Peguero.br\Date and Time Signed: 08/27/20 11:17 EST Workers' Comp Officeon 08-27 Workers' Comp Office [id number] 9#1.00CD:127 Normal [facility] Workers' Comp Officeon 08-26 Workers' Comp Office [id number] #1.00CD:127 [facility] Workers' Comp Officeon 08-21 Workers' Comp Office [id number] 9#1.00CD:127 [facility] Workers' Comp Officeon 08-16 Workers' Comp Office Patient has an appt on 08-22-20 @ 4:00 [facility] Workers' Comp Officeon 08-14 Workers' Comp Office [id number] 6#1.00CD:127 Normal [facility] Workers' Comp Office [id number] 5#1.00CD:127 Normal [facility] Workers' Comp Office [id number] 2#1.00CD:127 Normal [facility] Workers' Comp Office [id number] 6#1.00CD:127 Normal [facility] Workers' Comp Office [id number] 6#1.00CD:127 [facility] Workers' Comp Office [id number] 7#1.00CD:127 [facility] Workers' Comp Office [id number] 9#1.00CD:127 [facility] Consenton 08-13-2020 Consent [id number] 3#1.00CD:127 [facility] Progress Note-Physicianon Progress Note-Physician Patient: KARO DARDEN Age: 49 years Sex: Female : 1970 Associated Diagnoses: None Author: Natalie Peguero Visit Information The patient was seen for evaluation of her mid back following a work related injury on 08/07/2020. [facility] claim status pending. Chief Complaint 08/13/2020 [...] 08/07/2020. The patient was originally seen by [facility] on 08/09/2020, but was told by her employer to follow up with our office. 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 During this time, she felt a pop in her left shoulder blade. Over the next two days the pain intensified. She was using heat and ibuprofen without any significant improvement. Following her evaluation at [place] she was prescribed Flexeril 10mg three times [...] Plan Diagnosis Strain of thoracic back region ([id number] S29.012A, Working, Medical). Orders 1) I recommend [...] of care. All questions answered satisfactorily.. Normal [facility] Comment on above: Result Comment: Elec tronically Signed By: Natalie Peguero\Date and Time Signed: 08/13/20 16:40 EST Workers' Comp Officeon 08-13 Workers' Comp Office Mailed a physician of record change form to patient. I informed her that it needs to be filled out [place] and returned back to our department. Normal [facility] Vital Signs Date Time Vital Sign Value Performing Clinician Facility 09-01-2024 09:26-0500 Body height 160 cm Mynor Schmidt MD Work Phone: [facility] 09-01-2024 09:26-0500 Body mass index (BMI) [Ratio] 45.53 kg/m2 Mynor Schmidt MD Work Phone: [facility] 09-01-2024 09:26-0500 Body temperature 97.11 [degF] Mynor Schmidt MD Work Phone: [facility] 09-01-2024 09:26-0500 Body weight 116.57 kg Mynor Schmidt MD Work Phone: [facility] 09-01-2024 09:26-0500 Diastolic blood pressure 62 mm[Hg] Mynor Schmidt MD Work Phone: [facility] 09-01-2024 09:26-0500 Heart rate 67 /min Mynor Schmidt MD Work Phone: [facility] 09-01-2024 09:26-0500 Respiratory rate 22 /min Mynor Schmidt MD Work Phone: [facility] 09-01-2024 09:26-0500 SaO2% (BldA) [Mass fraction] 91 % Mynor Schmidt MD Work Phone: [facility] 09-01-2024 09:26-0500 Systolic blood pressure 104 mm[Hg] Mynor Schmidt MD Work Phone: [facility] 01-19-2024 12:55-0400 Body height 160 cm Delano Mckinney DO Work Phone: [facility] 01-19-2024 12:55-0400 Body mass index (BMI) [Ratio] 44.29 kg/m2 Delano Mckinney DO Work Phone: [facility] 01-19-2024 12:55-0400 Body weight 113.4 kg Delano Mckinney DO Work Phone: [facility] 01-19-2024 12:55-0400 Diastolic blood pressure 77 mm[Hg] Delano Mckinney DO Work Phone: [facility] 01-19-2024 12:55-0400 Systolic blood pressure 139 mm[Hg] Delano Mckinney DO Work Phone: [facility] 12-31-2023 09:03-0400 Body height 160 cm Tonie Small WOUND CARE NURSE-LOG WASHER Work Phone: [facility] 12-31-2023 09:03-0400 Body mass index (BMI) [Ratio] 44.75 kg/m2 Tonie Small WOUND CARE NURSE-LOG WASHER Work Phone: [facility] 12-31-2023 09:03-0400 Body weight 114.58 kg Tonie Small WOUND CARE NURSE-LOG WASHER Work Phone: [facility] 12-31-2023 09:03-0400 Diastolic blood pressure 65 mm[Hg] Tonie Small WOUND CARE NURSE-LOG WASHER Work Phone: [facility] 12-31-2023 09:03-0400 Heart rate 71 /min Tonie Small WOUND CARE NURSE-LOG WASHER Work Phone: [facility] 12-31-2023 09:03-0400 Systolic blood pressure 106 mm[Hg] Tonie Small WOUND CARE NURSE-LOG WASHER Work Phone: [facility] 11-15-2023 14:56-0500 Body height 160 cm Tonie Small WOUND CARE NURSE-LOG WASHER Work Phone: [place] 11-15-2023 14:56-0500 Body mass index (BMI) [Ratio] 45.14 kg/m2 Tonie Small APRN-LOG WASHER Work Phone: [place] 11-15-2023 14:56-0500 Body weight 115.58 kg Toine Small WOUND CARE NURSE-LOG WASHER Work Phone: [place] 11-15-2023 14:56-0500 Diastolic blood pressure 63 mm[Hg] Tonie Small WOUND CARE NURSE-LOG WASHER Work Phone: [place] 11-15-2023 14:56-0500 Heart rate 78 /min Tonie Small APRN-LOG WASHER Work Phone: [place] 11-15-2023 14:56-0500 Systolic blood pressure 123 mm[Hg] Tonie Small WOUND CARE NURSE-LOG WASHER Work Phone: [place] 07-07-2021 15:40-0400 Body height 161.29 cm Rivka Deepak Other [facility] Other 07-07-2021 15:40-0400 Body mass index (BMI) [Ratio] 44.11 kg/m2 Rivka Deepak Other [facility] Other 07-07-2021 15:40-0400 Body temperature 98.2 [degF] Rivka Deepak Other [facility] Other 07-07-2021 15:40-0400 Body weight 114.76 kg Rivka Deepak Other [facility] Other 07-07-2021 15:40-0400 Diastolic blood pressure 57 mm[Hg] Rivka Romero Other [facility] Other 07-07-2021 15:40-0400 Respiratory rate 18 /min Rivka Romero Other [facility] Other 07-07-2021 15:40-0400 SaO2% (BldA) [Mass fraction] 96 % Rivka Romero Other [facility] Other 07-07-2021 15:40-0400 Systolic blood pressure 114 mm[Hg] Rivka Romero Other [facility] Other Encounters Encounter Date Encounter Type Care Provider Facility Start: 09-01-2024 End: 09-01-2024 Dylan Schmidt MD Work Phone: [facility] Start: 09-01-2024 End: 09-01-2024 [facility] MD Work Phone: [facility] Start: 09-01-2024 End: 09-01-2024 Clinisync Result Encounter Mynor Schmidt MD Work Phone: [facility] External Department Unsolicited Start: 09-01-2024 End: 09-01-2024 Office outpatient visit 25 minutes Mynor Schmidt MD Work Phone: [facility] Comment on above: Type 2 diabetes cruz itus with hyperglycemia, without long-term current use of insulin ([facility]) (Primary Dx); Essential hypertension ([facility]); Chronic heart failure with preserved ejection fraction (HFpEF) ([facility]); MDD (major depressive disorder), recurrent episode, mild (HCC) ([facility]); Class 3 severe obesity due to excess calories with serious comorbidity and body mass index (BMI) of 45.0 to 49.9 in adult ([facility]); Acute nonsuppurative otitis media of left ear; Vaginal usama Start: 09-01-2024 End: 09-01-2024 ambulatory MYNOR SCHMIDT Not Available Start: 03-13-2024 End: 03-13-2024 ambulatory [facility] Start: 03-03-2024 Patient encounter procedure Mynor Schmidt MD Work Phone: [facility] Start: 03-03-2024 End: 03-03-2024 ambulatory MYNOR SCHMIDT Not Available Start: 02-14-2024 End: 02-14-2024 ambulatory [facility] Start: 02-01-2024 End: 02-01-2024 Evaluation and management of inpatient TAMRA Sevilla DORYS [facility] Start: 02-01-2024 End: 02-01-2024 Evaluation and management of inpatient [facility] Start: 01-21-2024 End: 01-22-2024 ambulatory [facility] Start: 01-21-2024 Encounter for other preprocedural examination [facility] Start: 01-21-2024 End: 01-21-2024 Patient encounter procedure [facility] Pre-Admission Testing 1 [facility] - Pre Admit Comment on above: Preop examination (P rimary Dx); Hypertension, unspecified type; Type 2 diabetes mellitus without complication, without long-term current use of insulin ([facility]) Start: 01-21-2024 End: 01-21-2024 Preprocedural examination done [address] Start: 01-19-2024 End: 01-19-2024 Office outpatient visit 25 minutes Delano Marysol Garzasohail DO Work Phone: [facility] Comment on above: Chronic anal fissure (Primary Dx); Polyp of colon, unspecified part of colon, unspecified type Start: 01-19-2024 End: 01-19-2024 ambulatory [facility] Start: 01-18-2024 End: 01-18-2024 Evaluation and management of inpatient QUIN Sharath GAGANDEEP [facility] Start: 01-17-2024 End: 01-18-2024 Evaluation and management of inpatient [facility] Start: 12-31-2023 End: 12-31-2023 Office outpatient visit 15 minutes Tonie Milana [place] WOUND CARE NURSE-LOG WASHER Work Phone: [facility] Comment on above: Rectal pain (Primary Dx); Rectal bleeding; Morbid obesity with BMI of 40.0-44.9, adult ([facility]) Start: 12-31-2023 End: 12-31-2023 ambulatory [facility] Start: 11-15-2023 End: 11-15-2023 Office outpatient visit 15 minutes Tonie Milana PradoSmall WOUND CARE NURSE-LOG WASHER Work Phone: [facility] Comment on above: Rectal pain (Primary Dx) Start: 11-15-2023 End: 11-15-2023 ambulatory [facility] Start: 11-01-2023 End: 11-01-2023 ambulatory DAMON BETTENCOURT Not Available Start: 10-05-2023 End: 10-05-2023 ambulatory BE LAM Not Available Start: 02-20-2023 Encounter for genera l adult medical examination without abnormal findings DR MYNOR SCHMIDT [facility] Start: 02-19-2023 End: 02-20-[address] MYNOR SCHMIDT Facility:[facility] Start: 02-17-2023 End: 02-18-[address] MYNOR SCHMIDT Facility:[facility] Start: 02-17-2023 End: 02-18-2023 Encounter for general adult medical examination without abnormal findings DR MYNOR SCHMIDT Facility:[facility] Start: 12-11-2022 End: 12-11-2022 ambulatory SUNG FLETCHER . Facility:[facility] Start: 10-26-2022 End: 10-26-[address] DAMON BETTENCOURT . Facility:[facility] Start: 08-18-2022 End: 08-19-[address] MYNOR SCHMIDT Facility:[facility] Start: 06-01-2022 End: 06-01-[address] MYNOR SCHMIDT Facility:[facility] Start: 07-07-2021 Office outpatient vi sit 15 minutes Rivka Romero [facility] Procedures Date Procedure Procedure Detail Performing Clinician Start: 09-01-2024 MLR HEMOGLOBIN A1C Mynor Schmidt MD Work Phone: Start: 01-17-2024 Colonoscopy Delano sauceda DO Work Phone: Start: 12-31-2023 Follow-up visit Follow-up TONIE Milana SMALL Start: 12-31-2023 Mammography Mynor galvez MD Work Phone: Start: 04-03-2021 Colonoscopy Tonie Jama jaqueline WOUND CARE NURSE-LOG WASHER Work Phone: Plan of Treatment Date Care Activity Detail Author Start: 01-16-2034 Screening for malign ant neoplasm of colon [facility] Start: 04-03-2031 Screening for malign ant neoplasm of colon Colonoscopy [facility] Start: 10-13-2025 Glaucoma screening Diabetes: R etinopathy Screening [facility] Start: 03-14-2025 Urine screening for protein Diabetes: Urine Protein Screening [facility] Start: 02-16-2025 End: 02-16-2025 Patient encounter procedure 02/16/2025 9:15 AM EDT Office Visit [facility] [address] [place] [address] Mynor Schmidt MD [address] [place] [address] [facility] Start: 01-20-2025 Tobacco Screening Tobacco Screening [facility] Start: 01-18-2025 Adult BMI Screening Adult BMI Screen ing [facility] Start: 12-30-2024 Adult BMI Screening Adult BMI Screen ing [facility] Start: 12-30-2024 Screening for malign ant neoplasm of breast Mammogram [facility] Start: 12-30-2024 Tobacco Screening Tobacco Screening [facility] Start: 11-15-2024 Adult BMI Screening Adult BMI Screen ing [facility] Start: 11-15-2024 Tobacco Screening Tobacco Screening [facility] Start: 11-06-2024 End: 11-06-2024 Patient encounter procedure 11/06/2024 4:00 PM EST Office Visit [facility] [address] [place], [place] [address] [place] [id number] Damon Bettencourt DO [address] [place] [address] [place] [address] [facility] Start: 09-13-2024 Hemoglobin A1c measurement Diabetes: Hemoglobin A1C [facility] Start: 09-01-2024 End: 09-01-2025 Hemoglobin A1c/Hemoglobin.total in Blood Hemoglobin A1c Lab Routine Type 2 diabetes mellitus with hyperglycemia, without long-term current use of insulin ([facility]) Expected: 09/01/2024 (Approximate), Expires: 09/01/2025 [facility] Work Phone: Comment on above: Expected: 09/01/2024 (Approximate), Expires: 09/01/2025 Start: 09-01-2024 End: 09-01-2024 Patient encounter procedure 09/01/2024 9:15 AM EST [facility] [address] [place] [address] Mynor Schmidt MD [address] [place] [address] [facility] Comment on above: Arrived Start: 06-11-2024 Influenza vaccination N [facility] Start: 02-14-2024 End: 02-14-2024 Patient encounter procedure 02/14/2024 2:45 PM EDT Office Visit [facility] General Surgery [address] [place] [phone] Tonie Small, WOUND CARE NURSE-LOG WASHER [address] [place] [address] [facility] Start: 02-01-2024 End: 02-01-2024 Admission to same day surgery center 02/01/2024 7:30 AM EDT - 02/01/2024 8:30 AM EDT Surgery [facility] - Surgery [address] [place] [id number] Delano Mckinney, DO [address] [place], [place] [phone] INTERNAL LATERAL SPHINCTEROTOMY [60174 (CPT )] [facility] Comment on above: INTERNAL LATERAL SPH INCTEROTOMY [09062 (CPT )] Start: 02-01-2024 End: 02-01-2024 Fissurectomy incl sphincterotomy when performed INTERNAL LATERAL SPHINCTEROTOMY chronic anal fissure 02/01/2024 7:30 AM EDT [facility] Start: 02-01-2024 Subsequent hospital visit by physician 02/01/2024 7:30 AM EDT Hospital Encounter [facility] [address] [place] [phone] Delano Mckinney, DO [address] [place] [phone] [facility] Start: 01-17-2024 End: 01-17-2024 Admission to same day surgery center 01/17/2024 11:15 AM EDT - 01/17/2024 11:45 AM EDT Surgery [address] [place] [phone] Delano Mckinney, DO [facility] [place], [place] [id number] COLONOSCOPY DIAGNOSTIC / SCREENING [18075 (CPT )] [facility] Comment on above: COLONOSCOPY DIAGNOST IC / SCREENING [11170 (CPT )] Start: 01-17-2024 End: 01-17-2024 Colonoscopy flx dx w/collj spec when pfrmd COLONOSCOPY DIAGNOSTIC / SCREENING rectal pain, rectal bleeding 01/17/2024 11:15 AM EDT [facility] Start: 01-17-2024 Subsequent hospital visit by physician 01/17/2024 11:15 AM EDT Hospital Encounter [facility] [address] [place] [address] Delano Mckinney, DO [address] [place], [place] [phone] [facility] - Surgery Start: 01-11-2024 End: 01-11-2024 ambulatory 01/11/2024 2:50 PM EDT Support Visit [facility] - Pre Admit [address] [place] [address] [facility] - Pre Admit Start: 12-31-2023 End: 12-31-2023 Patient encounter procedure 12/31/2023 9:00 AM EDT Office Visit [facility] General Surgery [address] [place] [address] Tonie Small, WOUND CARE NURSE-LOG WASHER [address] [place], [place] [phone] [facility] Start: 06-11-2023 COVID-19 Vaccine ( season) COVID-19 Vaccine ( season) [facility] Start: 06-11-2023 Influenza vaccination Influenza Vacc ine [facility] Start: 2020 Administration of varicella zoster vaccine Zoster (Shingles) Vaccine (1 of 2) [facility] Start: 1989 DTaP,Tdap and Td Vaccines (1 - Tdap) DTaP,Tdap and Td Vaccines (1 - Tdap) [facility] Start: 1989 Urine screening for protein Diabetes: Urine Protein Screening [facility] Start: 1988 Adult BMI Follow Up Plan Adult BMI F ollow Up Plan [facility] Start: 1988 Diabetic foot examination Diabetic Foot Exam [facility] Start: 1982 Depression Screening Depression Scre ening [facility] Start: 1970 Glaucoma screening Diabetic Op hthalmology Exam [facility] Start: 1970 Hemoglobin A1c measurement Diabetes: Hemoglobin A1C [facility] Start: 1970 Screening for malign ant neoplasm of colon [facility] Start: 1970 Tobacco Counseling Tobacco Counselin g [facility] End: 12-30-2024 Colonoscopy Colonoscopy GI Routine Rectal pain Rectal bleeding 1 Occurrences starting 12/31/2023 until 12/30/2024 [facility] Work Phone: Comment on above: 1 Occurrences starti ng 12/31/2023 until 12/30/2024 End: 01-18-2030 Colonoscopy Colonoscopy GI Routine Polyp of colon, unspecified part of colon, unspecified type 1 Occurrences starting 01/19/2024 until 01/18/2030 [facility] Comment on above: 1 Occurrences starti ng 01/19/2024 until 01/18/2030 End: 01-18-2025 Unlisted Procedure / Surgery Unlisted Procedure / Surgery Procedures Routine Chronic anal fissure 1 Occurrences starting 01/19/2024 until 01/18/2025 [facility] Work Phone: Comment on above: 1 Occurrences starti ng 01/19/2024 until 01/18/2025 Immunizations Immunization Date Immunization Notes Care Provider [facility] 09-20-2015 influenza, seasonal, injectable, preservative free Mynor Schmidt MD Work Phone: [facility] 09-20-2015 influenza virus vaccine, unspecified formulation Tonie CAMACHO Work Phone: [facility] 08-22-2009 novel [id number], preservative-free, injectable Mynor Schmidt MD Work Phone: [facility] Payers Date Payer Category Payer [facility] [id number] 2018 Unknown [employer] [place]UST [id number] 2018-Present [phone] [place] [address] [id number] 1970 Unknown [id number] 2.16.840.1.522901.3.57 9.2.593 1970 Unknown [id number] 2.16.840.1.913559.3.57 9.2.593 1970 Unknown [id number] 2.16.840.1.405174.3.57 9.2.593 1970 Unknown [id number] 2.16.840.1.539477.3.57 9.2.593 1970 Unknown [id number] 2.16.840.1.199254.3.57 9.2.593 1970 Unknown [id number] 2.16.840.1.809799.3.57 9.2.593 1970 Unknown [id number] 2.16.840.1.276184.3.57 9.2.1286 1970 Unknown [id number] 2.16.840.1.161279.3.57 9.2.1286 1970 Unknown [id number] 2.16.840.1.925758.3.57 9.2.1286 1970 Unknown [id number] 2.16.840.1.837823.3.57 9.2.1286 1970 Unknown [id number] 2.16.840.1.561213.3.57 9.2.1286 1970 Unknown [id number] 2.16.840.1.843868.3.57 9.2.1286 1970 Unknown [id number] 2.16.840.1.671968.3.57 9.2.1286 1970 Unknown [id number] 2.16.840.1.303495.3.57 9.2.1286 1970 Unknown [id number] 2.16.840.1.710738.3.57 9.2.1286 1970 Unknown [id number] 2.16.840.1.411543.3.57 9.2.1286 1970 Unknown [id number] 2.16.840.1.411878.3.57 9.2.1286 1970 Unknown [id number] 2.16.840.1.696158.3.57 9.2.1286 1970 Unknown [id number] 2.16.840.1.582401.3.57 9.2.1286 1970 Unknown [id number] 2.16.840.1.501297.3.57 9.2.1286 1970 Unknown [id number] 2.16.840.1.431013.3.57 9.2.1286 1970 Unknown [id number] 2.16.840.1.449233.3.57 9.2.1259 1970 Unknown [id number] 2.16.840.1.381891.3.57 9.2.1259 1970 Unknown [id number] 2.16.840.1.124365.3.57 9.2.1259 1970 Unknown [id number] 2.16.840.1.703622.3.57 9.2.1259 1970 Unknown [id number] 2.16.840.1.138041.3.57 9.2.1259 1959 [facility] [id number] 2.16.840.1.036080.19 Social History Date Type Detail Facility Unknown if ever smoked [facility] Other Start: 11-15-2023 End: 12-31-2023 Sex Assigned At [facility] Other Start: 11-15-2023 End: 01-19-2024 Tobacco smoking status NHIS Smokes tobacco daily [facility] History of tobacco use Cigarette Smoker P [facility] Start: 11-15-2023 End: 12-31-2023 Cigarettes smoked current (pack per day) - Reported 1 [facility] Start: 11-15-2023 End: 01-19-2024 Tobacco use and exposure Smokeless tobacco non-user [facility] Start: 11-15-2023 End: 09-01-2024 Alcohol intake Current drinker of alcohol (finding) [facility] Childcare Unknown [facility] Start: 03-26-2021 Alcohol Comment occasional [facility] Start: 1970 Sex Assigned At Female [facility] Start: 05-15-2023 Gender identity Identifies as female gender (finding) [facility] Start: 05-15-2023 Sexual orientation Heterosexual (finding) [facility] Start: 10-05-2023 End: 12-31-2023 Alcohol Comment rarely [facility] CURRENT Sys tem Are you now , , , , never or living with a partner? [facility] How often to you hav e a drink containing alcohol? Monthly or less [facility] How many standard drinks containing alcohol do you have on a typical day? 1 or 2 [facility] How often do you hav e 6 or more drinks on 1 occasion? Never [facility] How hard is it for y ou to pay for the very basics like food, housing, medical care, and heating Somewhat hard [facility] Do you feel stress - tense, restless, nervous, or anxious, or unable to sleep at night because your mind is troubled all the time - these days [OSQ] To some extent [facility] (I/We) worried wheth er (my/our) food would run out before (I/we) got money to buy more. Never true [facility] In the past 12 month s, was there a time when you were not able to pay the mortgage or rent on time? No [facility] Start: 01-19-2024 End: 04-12-2024 Alcoholic beverage intake Ex-drinker (finding) [facility] Clinical Notes 07-07-2021 to 09-01-2024 Mynor Schmidt MD - 09/01/2024 10:05 AM Minor Schmidt MD - 09/01/2024 10:04 AM Minor Schmidt MD - 09/01/2024 10:04 AM Minor Schmidt MD - 09/01/2024 10:04 AM ESTPatient Instructions Note Date & Type Note Facility 09-01-2024 History of Presen t illness Narrative Associated Problem(s): Type 2 diabetes mellitus with hyperglycemia, without long-term current use of insulin ([facility]) BS controlled and due for A1C. Stick to ADA diet and limit carbs. Associated Problem(s): MDD (major depressive disorder), recurrent episode, mild (HCC) ([facility]) Symptoms stable with celexa and continue. Associated Problem(s): Essential hypertension ([facility]) BP controlled and monitor PRN. Associated Problem(s): Class 3 severe obesity due to excess calories with serious comorbidity and body mass index (BMI) of 45.0 to 49.9 in adult ([facility]) Discussed proper diet and regular aerobic exercise. Recommend Weight Watchers and need to limit calories and smaller portions. Need to increase activity and regular aerobic exercise several days a week for 30 minutes at a time. Associated Problem(s): Chronic heart failure with preserved ejection fraction (HFpEF) ([facility]) Edema stable and elevate legs PRN. Associated Problem(s): Acute nonsuppurative otitis media of left ear Take antibiotics BID for 10 days. Use flonase for inflammation. Use sudafed or other decongestants as needed. Use Robitussin or Robitussin-DM for cough. Can use afrin for congestion but no longer than 3 days. Can use Mucinex to bring up phlegm. Use Motrin or Tylenol as needed for fever, aches, or pains. Increase fluid intake and rest. Should improve over next 5-7 days and if no better or worse call for re-evaluation. Images from the original note were not included. Subjective Patient ID: Karo Darden is a 53 y.o. female who presents for Follow-up (6M) and Earache (LEFT EAR). Follow up DM, HTN, edema, and depression. Reports BS controlled with range of 112-182 and 30 day average of 140. Tries to eat well and stick to ADA diet. Denies signs of elevated BS such as polyuria, polyphagia or polydipsia. Checking BP PRN and typically controlled. BP normal today. Taking medication daily and tolerating without side effects. Edema controlled with medication. Mild swelling at end of day and if on feet a lot. Edema improved in am and with elevation. Depression controlled with celexa. Still stress but feels like handling well. Not down or sad and not crying. Able to interact well with others and feels like mood tolerable. C/o left ear plugged for several days. Mild pain. Hearing decreased and muffled. Mild congestion but no rhinorrhea. No postnasal drip. Balance off. Mild sinus pressure. Not tried OTC. No drainage from ears. Earache Pertinent negatives include no abdominal pain, coughing, diarrhea or vomiting. Review of Systems HENT: Positive for ear pain. Respiratory: Negative for cough, shortness of breath and wheezing. Cardiovascular: Negative for chest pain and palpitations. Gastrointestinal: Negative for abdominal pain, diarrhea, nausea and vomiting. Genitourinary: Negative for dysuria. Objective Physical Exam Constitutional: General: She is not in acute distress. Appearance: Normal appearance. HENT: Head: Normocephalic. Ears: Comments: Left TM moderate erythema and bulging with fluid, right TM clear but bulging with fluid Eyes: Extraocular Movements: Extraocular movements intact. Pupils: Pupils are equal, round, and reactive to light. Cardiovascular: Rate and Rhythm: Normal rate and regular rhythm. Heart sounds: No murmur heard. No friction rub. No gallop. Pulmonary: Effort: Pulmonary effort is normal. Breath sounds: Normal breath sounds. No wheezing, rhonchi or rales. Abdominal: General: Bowel sounds are normal. There is no distension. Palpations: Abdomen is soft. Tenderness: There is no abdominal tenderness. There is no guarding or rebound. Musculoskeletal: Cervical back: Neck supple. Right lower leg: No edema. Left lower leg: No edema. Neurological: Mental Status: She is alert. Assessment/Plan Problem List Items Addressed This Visit Essential hypertension ([facility]/HCC) BP controlled and monitor PRN. Class 3 severe obesity due to excess calories with serious comorbidity and body mass index (BMI) of 45.0 to 49.9 in adult (CMS/HCC) Discussed proper diet and regular aerobic exercise. Recommend Weight Watchers and need to limit calories and smaller portions. Need to increase activity and regular aerobic exercise several days a week for 30 minutes at a time. Type 2 diabetes mellitus with hyperglycemia, without long-term current use of insulin ([facility]) - Primary BS controlled and due for A1C. Stick to ADA diet and limit carbs. Relevant Orders Hemoglobin A1c Chronic heart failure with preserved ejection fraction (HFpEF) (CMS/HCC) Edema stable and elevate legs PRN. MDD (major depressive disorder), recurrent episode, mild (HCC) (CMS/HCC) Symptoms stable with celexa and continue. Acute nonsuppurative otitis media of left ear Take antibiotics BID for 10 days. Use flonase for inflammation. Use sudafed or other decongestants as needed. Use Robitussin or Robitussin-DM for cough. Can use afrin for congestion but no longer than 3 days. Can use Mucinex to bring up phlegm. Use Motrin or Tylenol as needed for fever, aches, or pains. Increase fluid intake and rest. Should improve over next 5-7 days and if no better or worse call for re-evaluation. Relevant Medications cefdinir (Omnicef) 300 MG capsule Vaginal usama Relevant Medications fluconazole (Diflucan) 150 MG tablet documented in this encounter [facility] 01-21-2024 Instructions Caroline Perez RN - 01/21/2024 12:45 PM EDT Preoperative Education Checklist- General Surgery date: 02/01/24 Surgery time: 730a Arrival time: 610a 1. Bring a photo ID and your insurance card with you the day of surgery. You will check in at the main lobby of the [facility]- registration desk is straight ahead as soon as you walk in. Tell them you are here for surgery. 2. If you have a Living Will/Durable Power of Clinical Research Director for Health Care that is not on file here, please bring a copy the day of surgery. 3. Please shower/bathe the night before surgery with the provided soap or wipes. Do not shower the morning of surgery- you will do use wipes when you arrive here at the hospital before getting into your surgical gown. Do not shave the area of your procedure for 2 days prior to your surgery. 4. NO powder, lotion, perfume/cologne, aftershave, make-up, deodorant, or hair products after you have bathed. 5. NO nail [place] citizen/acrylic on at least one finger. If you are having a hand, wrist or foot surgery then all nail [place] citizen and artificial/acrylic nails must be removed from that hand or foot. 6. Avoid ALL Aspirin and non-steroidal anti-inflammatory drugs and certain vitamins (Ibuprofen, Advil, Aleve, Excedrin, Meloxicam, Celebrex, fish/krill oil, etc.) for 7 days prior to surgery as instructed by your surgeon and/or your prescribing doctor. Tylenol IS ALLOWED. If you are on Ticlid, Xarelto, Eliquis, Pradaxa, Plavix or Coumadin, please check with your prescribing doctor for instructions for when to stop them. 7. If you use an inhaler, continue to use it routinely. 8. Nothing to eat or drink (not even water, gum, mints, or hard candy!) AFTER midnight prior to your surgery. 9. Take only medications that you are instructed to on the morning of surgery with a TINY SIP OF WATER. 10. Choose a responsible adult that will be able to drive you home when you are discharged from your hospital stay for your surgery and can stay with you in your home for 24 hours after your procedure. You must NOT drive any vehicle or operate any machinery for 24 hours after surgery. 11. When you dress for your appointment, please wear loose fitting clothing that is appropriate to accommodate your surgical area procedure. BRING WITH YOU ANY DEVICES YOU MAY NEED: JOSÉ hose, ice machine, sling/swath, brace or special shoe, oversized zip-up or button up shirt, CPAP machine if staying overnight. 12. Do NOT wear jewelry, watches, or any piercings or metal for surgery- leave these valuables and money at home. 13. Do NOT wear contact lenses for surgery- glasses are okay if needed. 14. The anesthesiologist will talk with you the day of surgery and will ask you to sign a Consent Form. 15. Refrain from smoking or any type of tobacco use for at least 8 hours and marijuana for 24 hours prior to arrival for your surgery. 16. If a GREEN BLOOD band is given to you, please bring it with you for the day of surgery. 17. Notify your surgeon if you develop any illness before your surgery. 18. If you are staying overnight, please DO NOT BRING your home medications with you. 19. If you have any questions prior to surgery, please call the Preadmission Testing office at [phone], Mon.-Fri. 7 a.m.-3 p.m. Leave a voicemail if needed. Pre-Surgery Instructions: Medication Instructions ascorbic acid, vitamin C, 250 mg tablet,chewable Stop taking 0 days prior to procedure atorvastatin (LIPITOR) 40 mg tablet Stop taking 0 days prior to procedure carvediloL (COREG) 25 mg tablet Take morning of procedure carvediloL (COREG) 25 mg tablet Stop taking 0 days prior to procedure citalopram (CeleXA) 10 mg tablet Stop taking 0 days prior to procedure cyanocobalamin 1000 MCG tablet Stop taking 0 days prior to procedure docusate sodium (COLACE) 100 mg capsule Stop taking 0 days prior to procedure furosemide (LASIX) 40 mg tablet Stop taking 0 days prior to procedure lisinopriL (PRINIVIL,ZESTRIL) 10 mg tablet Pt takes in the evening MULTIVITAMIN ORAL Stop taking 0 days prior to procedure omega 9-gft-mkr-fish oil 300-1,000 mg capsule Stop taking 1 week prior to procedure empagliflozin (JARDIANCE) 25 mg tablet tablet Stop taking 0 days prior to procedure pioglitazone (ACTOS) 30 mg tablet Stop taking 0 days prior to procedure white petrolatum (bulk)-dilTIAZem HCL (bulk) Stop taking 0 days prior to procedure How to Avoid an Infection after Your Surgery Your doctor will give you specific instructions, but remember: -ALWAYS wash hands before caring for your incision. -No picking, scratching, or rubbing your incision. -No creams, lotion, powder, rubbing alcohol or hydrogen peroxide on the incision (can harm the tissue and slow healing). -Your doctor will give you specific instructions for what type of dressing you will need and how often it will need changed for infection purposes. -No tight clothing on incision. -Do not allow anyone to touch your incision unless they are cleaning, checking, or redressing it (be sure they wash their hands first). -No contact of your incision with pets; avoid sleeping with pets. -Take full course of antibiotic if prescribed for you after surgery- do not stop unless directed to by your physician. You may also be given an antibiotic prior to your surgery to help prevent surgical site infections. -Eat a healthy and varied diet including proteins, fruits, and vegetables to help promote wound healing and keep blood sugars under control if you are diabetic. -Smoking slows the healing process by decreasing the amount of oxygen in your blood that is needed for tissue healing. Try to avoid or stop smoking if possible. LOOK at your incision each morning and each night to check the progress of healing. Some soreness, numbness, itching and/or mild bruising around the incision is normal. Call your doctor if you notice any of the following: -Increased redness or hardening around the incision area. -Increased pain at the incision site. -Incision feels hot to the touch. -Swelling or pulling apart of the incision edges. -Yellow or green drainage or foul odor coming from the incision. -Bleeding from the incision (apply pressure as needed). -Fever higher than 101 degrees Fahrenheit for more than 4 hours. SHOWERING: Your doctor will give you specific instructions, but remember: -Be careful getting into and out of the shower. -Showers should be quick (5 minutes or less). -Use a clean washcloth to gently wash your incision with soap and water and pat the area dry with a clean towel. -No re-using wash cloths or towels; get a fresh one to clean your incision. -Do not soak in the bathtub, go swimming or use a hot tub (Jacuzzi), or perform activities where your incision is submerged in water or exposed to any fluids or substances until instructed by your doctor. -If your have the sticky strips (steri-strips) over the incision, it is OK to shower with them. Do not remove them. Let them fall off on their own. If you have a question, call your doctor s office. Go to the follow-up appointment with your doctor. documented in this encounter [facility] CURRENT [facility] 01-19-2024 History of Presen t illness Narrative Images from the original note were not included. [facility] [id number] [id number] progress NOTE Karo Darden 53 y.o. CHIEF COMPLAINT Chief Complaint Patient presents with POST-OP VISIT POST OP COLONOSCOPY DONE 01/17/[address] FAEY Maynardodalis is a 53-year-old female who presents post colonoscopy from this past Wednesday who was found have a posterior anal fissure which is causing her much pain and discomfort for several months to a year.She was asked to follow up in the office to set up a lateral internal sphincterotomy to take care of her chronic problem. She has tried stool softeners and bulk laxatives and continues to have difficulty with knife-like bowel movements and chronic pain in the area. Colonoscopy only showed a small 5 mm polyp in the splenic flexure which was fulgurated and I recommend repeat colonoscopy in 5 years for surveillance. MEDICATION Current Outpatient Medications: ascorbic acid, vitamin C, [...] in the morning., Disp: , Rfl: omega 5-yog-nyt-fish oil 300-1,000 mg capsule, Take 1 capsule by mouth daily., Disp: , Rfl: pioglitazone (ACTOS) 30 mg tablet, Take by mouth daily. , Disp: , Rfl: SITagliptin phosphate (JANUVIA) 25 mg tablet, Take 1 tablet (25 mg total) by mouth in the morning., Disp: , Rfl: white petrolatum (bulk)-dilTIAZem HCL (bulk), Diltiazem 2% Apply rectally 2 times daily, Disp: 30 g, Rfl: 1 ALLERGY No Known Allergies MEDICAL HISTORY Past Medical History: Diagnosis Date Arthritis Diabetes mellitus ([facility]-HCC) Hypertension Obesity Rectal bleeding 2018 when she also had hysterectomy Visual impairment SURGICAL HISTORY Past Surgical History: Procedure Laterality Date ARTHROSCOPY PARTIAL MEDIAL MENISCECTOMY KNEE Right 07/22/2022 Performed by Be Lam DO at [facility] BLADDER SURGERY SECTION Xs 2 COLONOSCOPY 3-4 yrs ago, [facility] COLONOSCOPY N/A 04/03/2021 Performed by Delano Mckinney DO at [facility] COLONOSCOPY DIAGNOSTIC / SCREENING N/A 01/17/2024 Performed by Delano Mckinney DO at [facility] REM[facility] Back of neck, Dr Montes De Oca HYSTERECTOMY TONSILLECTOMY SOCIAL HISTORY Social History Socioeconomic History Marital status: Spouse name: Not on file Number of children: Not on file Years of education: Not on file Highest education level: Not on file Occupational History Not on file Tobacco Use Smoking status: Every Day Current packs/day: 1.00 Average packs/day: 1 pack/day for 35.0 years (35.0 ttl pk-yrs) Types: Cigarettes Smokeless tobacco: Never Vaping Use Vaping status: Never Used Substance and Sexual Activity Alcohol use: Not Currently Comment: rarely Drug use: Never Sexual activity: [...] on file Housing Instability: Not on file FAMILY HISTORY Family History Adopted: Yes Problem Relation Age of Onset Diabetes Mother Hypertension Mother Mental illness Mother REVIEW OF SYSTEMS: Constitutional: Denies fevers, denies recent illnesses. Rest review of 10 systems negative except as above. PHYSICAL EXAM Constitutional: She is oriented to person, place, and time. Vital signs are normal. She appears well-developed and well-nourished. HEENT: Head: Normocephalic and atraumatic. Eyes: Conjunctivae, EOM and lids are normal. Neck: Trachea normal. Neck supple. No thyroid mass present. Cardiovascular: Normal rate and regular rhythm. Pulmonary/Chest: Effort normal and breath sounds normal. Abdominal: Soft. Obese no hernia Rectal exam posterior anal fissure Neurological: She is alert and oriented to person, place, and time. Skin: Skin is warm, dry and intact. Psychiatric: She has a normal mood and affect. Her speech is normal and behavior is normal. Cognition and memory are normal. IMPRESSION 1. Chronic anal fissure posterior midline ASSESSMENT & PLAN Lateral internal sphincterotomy under general anesthesia in lithotomy position. Risks benefits alternatives to surgery may include infection, bleeding, recurrence, pain, temporary incontinence or risks of anesthesia. She understood all the above. She understands she will also need to take stool softener 3 times daily in addition to a bulk laxative daily for the next 6-8 weeks and increase the amount of fiber in her diet in the form of fruits and vegetables and Sitz baths with Epsom salts daily and p.r.n.. Evaluation included: Preparing to see the patient (e.g., review of tests) Obtaining and/or reviewing separately obtained history Performing a medically appropriate examination and/or evaluation Counseling and educating the patient/family/caregiver Referring and communicating with other health date night caregiver 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 While intending to generate a timely document that accurately reflects the content of the visit, no guarantee can be provided that every grammatical or spelling mistake has been or will be identified or corrected. Thank you for your understanding. documented in this encounter [facility] 12-31-2023 History of Presen t illness Narrative Images from the original note were not included. Chief Complaint: Rectal pain History of Present Illness Karo Darden is a 53 y.o. female who [...] Past Medical History: Diagnosis Date Diabetes mellitus ([facility]-HCC) Hypertension Rectal bleeding 2018 Sine August when she also had hysterectomy Visual impairment Past Surgical History: Procedure Laterality Date ARTHROSCOPY PARTIAL MEDIAL MENISCECTOMY KNEE Right 07/22/2022 Performed by Be Lam DO at [facility] BLADDER SURGERY SECTION Xs 2 COLONOSCOPY 3-4 yrs ago, [facility] COLONOSCOPY N/A 04/03/2021 Performed by Delano Mckinney DO at [facility] CYST REMOVAL Back of neck, Dr Montes [...] in the morning., Disp: , Rfl: omega 7-mer-auy-fish oil 300-1,000 mg capsule, Take 1 capsule [...] Objective Physical Exam Exam conducted with a customer engineer present. Constitutional: General: She is not in [...] biopsy: Hyperplastic polyp. No dysplasia identified. Assessment Karo Darden is a 53 y.o.female with rectal [...] patient/family/caregiver Referring and communicating with other health date night caregiver Rectal pain [K62.89] TONIE SMALL, WOUND CARE NURSE-LOG WASHER [facility] [place] This note was created with the assistance of a speech recognition program. While intending to generate a timely document that accurately reflects the content of the visit, no guarantee can be provided that every grammatical or spelling mistake has been or will be identified or corrected. Thank you for your understanding. Tonie Small, DOUG 12/31/23 1239 documented in this encounter [facility] 12-31-2023 Instructions Kelley Griffith, [facility] - 12/31/2023 9:00 AM EDT Are You Ready To Kick The Habit? Free Tobacco Cessation Resources [facility] Services [facility] Centers provide all employees with free tobacco cessation services that include: Counseling to understand nicotine addiction Education about medications that can help you successfully quit Assistance with developing a plan to quit Call to set up an individual appointment or find out when group classes will be held: [facility]: [phone] [facility]: [phone] [facility]: [phone] [facility]: [phone] Quit Smoking Action Plan and Resources [facility] offers an eight-week, online smoking cessation plan to all [facility] employees, regardless of whether [employer] is your medical insurance provider. Go to www.[employer].org/employeewell ness and click the Health Risk Assessment and Resources link to get started. In the Fjvdw9Brkklr menu, click Action Plans instead of Health Risk Assessment to access the Quit Smoking Action Plan. Additional smoking cessation resources are also available to all [facility] employees on the [employer] web page at www.[employer]/quit smoking. [employer] Tobacco Cessation Program If [employer] is your medical insurance provider, there are more free resources available to you, including: No copays or deductibles on local tobacco cessation counseling services to help you quit Prescription assistance for tobacco cessation medications to help you quit For details about the tobacco cessation program available to [employer] members, go to www.redIT (Search: Tobacco Cessation Program). [place] Tobacco Quit Line 3-456-UOSO-NOW ( ) is a toll-free, telephonic service that helps [place] residents quit smoking and using tobacco. It is staffed by experts who tailor a quit plan for you and provide you with advice. [place] Tobacco Quit Line 0-757-ZJGL-NOW ( ) is a toll-free, telephonic service that helps [place] residents quit smoking and using tobacco. It is staffed by experts who tailor a quit plan for you and provide you with advice. Two weeks of nicotine replacement therapy may be provided at no charge, if needed. Additional Resources These national organizations also offer free information and resources to help you quit tobacco: [place] [employer]--www.cancer.org/healthy/ stayawayfromtobacco [place] [employer]--www.heart.org (Search: Quit Smoking) Centers for Disease Control and Prevention--www.cdc.gov/tobacco [place] [employer]--www.lungusa.org documented in this encounter [place] 11-15-2023 History of Presen t illness Narrative Images from the original note were not included. Chief Complaint: Rectal pain History of Present Illness Karo Darden is a 53 y.o. female who [...] Past Medical History: Diagnosis Date Diabetes mellitus ([facility]) Hypertension Rectal bleeding 2018 when she also had hysterectomy Visual impairment Past Surgical History: Procedure Laterality Date ARTHROSCOPY PARTIAL MEDIAL MENISCECTOMY KNEE Right 07/22/2022 Performed by Be Lam DO at [facility] SURGERY SECTION Xs 2 COLONOSCOPY 3-4 yrs ago, [facility] COLONOSCOPY N/A 04/03/2021 Performed by Delano Mckinney DO at [facility] Back of neck, Dr Montes [...] in the morning., Disp: , Rfl: omega 3-bxz-noq-fish oil 300-1,000 mg capsule, Take 1 capsule [...] biopsy: Hyperplastic polyp. No dysplasia identified. Assessment Karo Darden is a 53 y.o.female with rectal [...] patient/family/caregiver Referring and communicating with other health date night caregiver Rectal pain [K62.89] TONIEDOUG DALEY [facility] [place] This note was created with the assistance of a speech recognition program. While intending to generate a timely document that accurately reflects the content of the visit, no guarantee can be provided that every grammatical or spelling mistake has been or will be identified or corrected. Thank you for your understanding. DOUG Shah 11/15/23 1532 documented in this encounter [facility] 06-01-2022 Note PROCEDURE: XR KNEE R T [...] authenticated by: AUDREY GUTHRIE Date: 2022-06-01 09:07 [facility] 07-07-2021 Evaluation note Encounter Date Diagnosis Assessment [...] will help you get into a specialist. [facility] Other Evaluation note* Diagnosis Rectal pain- Primary Anal or rectal pain [facility] Rectal pain- Primary Anal or rectal pain Rectal bleeding Hemorrhage of rectum and anus Morbid obesity with BMI of 40.0-44.9, adult ([facility]) [facility] Annual physical exam- Primary Routine general medical examination at a health care facility Type 2 diabetes mellitus with hyperglycemia, without long-term current use of insulin ([facility]) MDD (major depressive disorder), recurrent episode, mild (HCC) ([facility]) Morbid obesity ([facility]) Morbid obesity Chronic heart failure with preserved ejection fraction (HFpEF) ([facility]) Type 2 diabetes mellitus with hyperglycemia, without long-term current use of insulin ([facility])- Primary Essential hypertension ([facility]) Unspecified essential hypertension Chronic heart failure with preserved ejection fraction (HFpEF) ([facility]) MDD (major depressive disorder), recurrent episode, mild (HCC) ([facility]) Class 3 severe obesity due to excess calories with serious comorbidity and body mass index (BMI) of 45.0 to 49.9 in adult ([facility]) Acute nonsuppurative otitis media of left ear Vaginal usama Candidiasis of vulva and vagina documented in this encounter [facility]* Diagnosis Chronic anal fissure- Primary Anal fissure Polyp of colon, unspecified part of colon, unspecified type [facility] Preop examination- Primary Unspecified pre-operative examination Hypertension, unspecified type Type 2 diabetes mellitus without complication, without long-term current use of insulin ([facility]) Preop examination Unspecified pre-operative examination Hypertension, unspecified type Type 2 diabetes mellitus without complication, without long-term current use of insulin ([facility]) [facility] N[facility]ative - Reported* Type Description Date Medical History Hypertension Medical History diabetes mallitus Medical History chronic depression Medical History anxiety Surgical History tubal ligation Surgical History C section Surgical History bladder surgery Surgical History HYSTERECTOMY Hospitalization History see above Hospitalization History cyst [facility] Other Instructions* Attachments The following attachments cannot be sent through Care Everywhere. * Anal fissure (Beninese) [facility] encounter[facility] SystemInstructionsNot on file [facility] Purpose Family History No Family History [...] Referral Specialty Diagnoses / Procedures Referred By Contac t Referred To Contact Diagnoses Preop examination Hypertension, unspecified type Type 2 diabetes mellitus without complication, without long-term current use of insulin ([facility]) Procedures ECG 12 lead Tamra Saul MD [address] [place] [address] Referral ID Status Reason Start Date Expiration Date V isits Requested Visits Authorized [id number] Pending Review 01/19/2024 01/18/2025 1 1 Specialty Diagnoses / Procedures Referred By Contac t Referred To Contact Diagnoses Polyp of colon, unspecified part of colon, unspecified type Procedures Colonoscopy Delano Mckinney, DO [address] [place] [address] Referral ID Status Reason Start Date Expiration Date V isits Requested Visits Authorized [id number] Pending Review 01/19/2024 01/18/2025 1 1 Specialty Diagnoses / Procedures Referred By Contac t Referred To Contact Diagnoses Chronic anal fissure Procedures Unlisted Procedure / Surgery Delano Mckinney, DO [address] [place] [address] Referral ID Status Reason Start Date Expiration Date V isits Requested Visits Authorized [id number] Pending Review 01/19/2024 01/18/2025 1 1 Specialty Diagnoses / Procedures Referred By Contac t Referred To Contact Diagnoses Rectal pain Rectal bleeding Tonie Small, WOUND CARE NURSE-LOG WASHER [address] [place] [address] Referral ID Status Reason Start Date Expiration Date Visits Re quested Visits Authorized [id number] Closed 1 1 Additional Source Comments INFORMATION SOURCE (unrecogn ized section and content) DATE CREATED AUTHOR 10/09/2020 [facility] DATE CREATED AUTHOR AUTHOR'S ORGANIZ ATION 10/28/2021 [facility] DATE CREATED AUTHOR AUTHOR'S ORGANIZ ATION 06/13/2022 [facility] dical Specialist DATE CREATED AUTHOR AUTHOR'S ORGANIZ ATION 02/21/2023 [facility] DATE CREATED AUTHOR AUTHOR'S ORGANIZ ATION 02/02/2024 [facility] DATE CREATED AUTHOR AUTHOR'S ORGANIZ ATION 03/14/2024 [facility] DATE CREATED AUTHOR AUTHOR'S ORGANIZ ATION 09/04/2024 [facility] dical Specialists EPIC REASON FOR VISIT (unrecogniz ed section and content) Reason Comments Painful Bowel Movement Painful bowel mov ements, blood in stool, last colon 04/03/21 Reason Comments Follow-up 6 week follow up fro m 11/15/23, painful bowel movement, blood in stool, last colon 04/03/21 Reason Comments Follow-up 6M Earache LEFT EAR Reason Comments POST-OP VISIT POST OP COLONOSCOPY DONE 01/17/[address] MCKINNEY Care Teams (unrecognized sec tion and content) Receptionist Secretary Relationship Specialty Start Date End Date Mynor Schmidt MD [address] [place], [place] [id number] PCP - General Family Medicine 07/20/22 Receptionist Secretary Relationship Specialty Start Date End Date Mynor Schmidt MD [address] [place], [place] [phone] PCP - General Family Medicine 07/20/22 Receptionist Secretary Relationship Specialty Start Date End Date Mynor Schmidt MD [address] [place] [phone] PCP - General Family Medicine 03/03/24 Mynor Schmidt MD [address] [place] [phone] [facility] 04/10/24 Receptionist Secretary Relationship Specialty Start Date End Date Mynor Schmidt MD [address] [phone] PCP - [facility] 03/03/24 Mynor Schmidt MD [address] [place] [phone] [facility]ly [facility] 04/10/24 Receptionist Secretary Relationship Specialty Start Date End Date Mynor Schmidt MD [address] [place] [phone] [facility] 03/03/24 Mynor Schmidt MD [address] [place] [phone] Formerly [facility] 04/10/24 Receptionist Secretary Relationship Specialty Start Date End Date Mynor Schmidt MD [address] [facility] [facility] [facility] [place] [address] PCP [facility] 07/20/22 FOR RECORDS PERTAINING TO PATIENTS WHO [...] BE BASED ON THE PRIMARY CLINICAL RECORDS. [facility]. provides no warranty or guarantee of the accuracy or completeness of information in this document.
--- NOTE | 2024-11-06 06:31 | PC.NURSE ---
Patient spo2 89-90% on room air and she is feeling SOB. She is started on 2L O2 per NC
--- NOTE | 2024-11-06 06:45 | ECG_ITS ---
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
--- NOTE | 2024-11-06 06:45 | ED.GENADUL1 ---
HPI HPI - General Adult General Chief complaint: Shortness of Breath/Dyspnea Stated complaint: FLU LIKE SYMPTOMS Time Seen by Provider: 11/06/24 06:37 History of Present Illness HPI narrative: Patient presents with a weeklong history of cough and now shortness of breath. She denies fever or bodyaches. She is a cigarette smoker and does not use bronchodilators at home. She is type II diabetic. Related Data Home Medications ?Medication ?Instructions ?Recorded ?Confirmed atorvastatin 40 mg tablet 40 mg PO DAILY 11/06/24 11/06/24 carvedilol 25 mg tablet 50 mg PO .morning 11/06/24 11/06/24 citalopram 10 mg tablet 30 mg PO DAILY 11/06/24 11/06/24 empagliflozin 25 mg tablet 25 mg PO DAILY 11/06/24 11/06/24 (Jardiance) furosemide 40 mg tablet 40 mg PO DAILY PRN edema 11/06/24 11/07/24 lisinopril 10 mg tablet 10 mg PO DAILY 11/06/24 11/06/24 pioglitazone 30 mg tablet 30 mg PO DAILY 11/06/24 11/06/24 Allergies Allergy/AdvReac Type Severity Reaction Status Date / Time No Known Drug Allergies Allergy Verified 11/06/24 06:20 Opioid HPI Opioid Management Most Recent Opioid Data: Last Pain Assessment 11/07/24 22:00 Last ORT Total Score 1 11/06/24 10:03 11/06/24 Last ORT Risk Category Low Risk 11/06/24 10:03 11/06/24 Review of Systems ROS Narrative All other systems are reviewed and are negative other than what is mentioned in the HPI. PFS PFS Medical History (Updated 11/06/24 @ 11:53 by Tim Mcconnell MD) Congestive heart failure ?I50.9 - Heart failure, unspecified (ICD-10) Diabetes ?E11.9 - Type 2 diabetes mellitus without complications (ICD-10) Hypertension ?I10 - Essential (primary) hypertension (ICD-10) Surgical History (Updated 11/06/24 @ 10:57 by Shannon Amos RN) History of hysterectomy ?Z90.710 - Acquired absence of both cervix and uterus (ICD-10) History of section ?Z98.891 - History of uterine scar from previous surgery (ICD-10) Family History (Updated 11/06/24 @ 09:58 by Shannon Amos RN) Other Family history not known due to adoption Social History (Updated 11/06/24 @ 09:58 by Shannon Amos RN) Within the past year, how often did you have a drink containing alcohol: monthly or less Smoking status: Current every day smoker Highest level of school completed/degree received: some college, no degree Little interest or pleasure in doing things: not at all Feeling down, depressed, or hopeless: not at all Exam Narrative Exam Narrative: Patient is dyspneic upon arrival and oxygen saturation is in the high 80s on room air. When she was placed on 2 L of oxygen via nasal cannula her oxygen saturation went up to 99%. HEENT exam is normal to inspection. Neck is supple. Lung sounds are diminished with scattered rhonchi. Heart has a slow rate in the 50s with regular rhythm. Abdomen is protuberant, soft nontender. Lower extremities are warm and dry. She does not have unilateral leg swelling. Speech and mentation are clear and intact. There is no facial asymmetry and she moves all extremities actively. Constitutional Vital Signs, click to edit/add: Last Vital Signs Temp 97.8 F 11/07/24 23:23 Pulse 59 L 11/07/24 23:23 Resp 18 11/07/24 23:23 BP 133/68 11/07/24 23:23 Pulse Ox 92 L 11/07/24 23:23 O2 Del Method Nasal Cannula 11/07/24 23:23 O2 Flow Rate 2 11/07/24 23:23 Course Vital Signs Vital signs: Vital Signs Blood Pressure 112/56 11/06/24 06:17 Temperature 97.8 F 11/07/24 23:23 Pulse Rate 59 L 11/07/24 23:23 Respiratory Rate 18 11/07/24 23:23 Blood Pressure 133/68 11/07/24 23:23 Pulse Oximetry 92 L 11/07/24 23:23 Oxygen Delivery Method Nasal Cannula 11/07/24 23:23 Oxygen Delivery Flow Rate 2 11/07/24 23:23 Medical Decision Making [facility] Narrative Medical decision making narrative: Patient presents with a 1 week history of cough and is noted to be wheezing with hypoxemia. The plan is to give her a breathing treatment and do a cardiopulmonary workup to rule out infectious etiology as well as cardiac etiology. Studies ordered and care is transferred to oncoming physician at change of shift for further evaluation and eventual disposition. Lab Data Labs: Lab Results 11/06/24 11/06/24 Range/Units 06:23 06:54 WBC 8.9 (4.0-11.0) 10^3/uL RBC 4.06 L (4.20-5.40) 10^6/uL Hgb 12.0 (12.0-16.0) g/dL Hct 37.6 (36.0-48.0) % MCV 92.6 (81.0-99.0) fL MCH 29.6 (26.7-34.0) pg MCHC 31.9 (29.9-35.2) g/dL RDW 14.6 (11.0-15.0) % Plt Count 81 L (150-450) 10^3/uL MPV 12.0 (9.5-13.5) fL Seg Neuts % (Manual) 59.0 (43.0-75.0) Band Neutrophils % 2.0 (0-5) % Lymphocytes % (Manual) 30.0 (20.5-60.0) % Atypical Lymphs % (Man) 3.0 % Monocytes % (Manual) 6.0 (1.7-12.0) % Eosinophils % (Manual) 0.0 L (0.9-7.0) % Basophils % (Manual) 0.0 L (0.2-2.0) % Neutrophils # (Manual) 5.25 (1.4-6.5) 10^3/uL Band Neutrophils # 0.2 (0.0-0.3) 10^3/uL Lymphocytes # (Manual) 2.67 (1.20-3.80) 10^3/uL Abs Atypical Lymphs Man 0.26 Monocytes # (Manual) 0.53 (0.30-0.80) 10^3/uL Eosinophils # (Manual) 0.00 (0.00-0.70) 10^3/uL Basophils # (Manual) 0.00 (0.00-0.10) 10^3/uL D-Dimer 0.71 H* (<=0.59) mg/L FEU Sodium 136 (136-145) mmol/L Potassium 4.5 (3.5-5.1) mmol/L Chloride 102 (98-107) mmol/L Carbon Dioxide 30.3 (21.0-32.0) mmol/L Anion Gap 8.2 BUN 17.0 (7.0-18.0) mg/dL Creatinine 0.86 (0.55-1.02) mg/dL Est GFR ( Amer) >60 (>=60 mL/min/1.73m^2) Est GFR (Non-Af Amer) >60 (>=60 mL/min/1.73m^2) BUN/Creatinine Ratio 19.8 Glucose 161 H (74-106) mg/dL Calcium 8.7 (8.5-10.1) mg/dL Total Bilirubin 0.3 (0.2-1.0) mg/dL AST 13 L (15-37) U/L ALT 23 (14-59) U/L Alkaline Phosphatase 76 (46-116) U/L Troponin I High Sens 19.9 (4.0-51.3) pg/mL NT-Pro-B Natriuret Pep 293.0 (<=900.0) pg/mL Total Protein 6.8 (6.4-8.2) g/dL Albumin 2.8 L (3.4-5.0) g/dL Globulin 4.0 g/dL Albumin/Globulin Ratio 0.7 Influenza Type A Ag Negative Influenza Type B Ag Negative RSV Antigen Not detected (NOT DETECTE) SARS-CoV-2 Ag (CV2AG) Negative (NEGATIVE) Discharge Plan Discharge Chief Complaint: Shortness of Breath/Dyspnea Clinical Impression: Pulmonary edema, Hypoxemia Patient Disposition: Admitted As Inpatient Time of Disposition Decision: 08:32 Condition: Fair Discharge Date/Time: 11/06/24 09:50
[2024-11-06] MEDS: IPRATROPIUM/ALBUTEROL SULFATE 3 ML AMPUL.NEB IH ×3 (06:49→22:00)
[2024-11-06 07:04] LABS: Influenza Virus A Antigen Negative; Influenza Virus B Antigen Negative; Internal Control Within Normal Limits
[2024-11-06 07:05] LABS: Internal Control Within Normal Limits; SARS-CoV-2 Ag NEGATIVE (NEGATIVE)
[2024-11-06 07:09] LABS: Hematocrit 37.6 % (36.0-48.0); Mean Corpuscular HGB Conc 31.9 g/dL (29.9-35.2); Mean Corpuscular Hemoglobin 29.6 pg (26.7-34.0); Mean Corpuscular Volume 92.6 fL (81.0-99.0); Platelet Count 81 10^3/uL (150-450); Red Blood Count 4.06 10^6/uL (4.20-5.40); Red Cell Distribution Width 14.6 % (11.0-15.0); White Blood Count 8.9 10^3/uL (4.0-11.0)
--- NOTE | 2024-11-06 07:12 | XR_ITS ---
[address] [address] Patient Name: KARO DARDEN MRN: [facility]:[id number] date: 1970 Sex: F Assigned Patient Location: ER Current Patient Location: ER Accession/Order Number: [id number] Exam Date: 11/06/2024 07:06 Report Date: 11/06/2024 07:42 At the request of: GRETA GONZALEZ Procedure: XR chest 2V Exam: Radiographs: XR chest 2V Reason for exam: Shortness of breath Comparison: None XR/XR chest 2V IMPRESSION: Small amount of atelectasis in the left lower lung. Mild bilateral interstitial prominence may represent edema, correlate clinically. Pulmonary venous hypertension. Cardiomegaly. Remainder unremarkable. Electronically authenticated by: RUTHIE PITT Date: 11/06/2024 07:42
[2024-11-06 07:19] LABS: Alanine Aminotransferase 23 U/L (14-59); Albumin Globulin Ratio 0.7; Albumin Level 2.8 g/dL (3.4-5.0); Alkaline Phosphatase 76 U/L (46-116); Anion Gap 8.2; Aspartate Amino Transferase 13 U/L (15-37); BUN Creatinine Ratio 19.8; Bilirubin Total 0.3 mg/dL (0.2-1.0); Calcium 8.7 mg/dL (8.5-10.1); Carbon Dioxide 30.3 mmol/L (21.0-32.0); Chloride 102 mmol/L (98-107); Estimated GFR (African America >60 (>=60 mL/min/1.73m^2); Estimated GFR (Non-African Ame >60 (>=60 mL/min/1.73m^2); Glucose 161 mg/dL (74-106); Potassium 4.5 mmol/L (3.5-5.1); Sodium 136 mmol/L (136-145); Total Protein 6.8 g/dL (6.4-8.2)
[2024-11-06 07:25] LABS: Troponin I High Sensitivity 19.9 pg/mL (4.0-51.3)
--- NOTE | 2024-11-06 07:28 | CT_ITS ---
[address] [address] Patient Name: KARO DARDEN MRN: [id number] date: 1970 Sex: F Assigned Patient Location: ER Current Patient Location: ER Accession/Order Number: [id number] Exam Date: 11/06/2024 07:40 Report Date: 11/06/2024 08:07 At the request of: VINCENT VARGAS Procedure: CT angio chest EXAM: CT pulmonary angiogram of the chest using 100 mL of IV iodinated contrast. 3-D imaging was performed. Dose reduction technique used: Automated exposure control and/or adjustment of the mA and/or kV according to patient size and/or use of iterative reconstruction technique. REASON FOR EXAM: Dyspnea, elevated dimer COMPARISON: None FINDINGS: No pulmonary emboli. No aortic dissection. No pneumothorax. No acute fractures. No concerning pulmonary nodules. Tiny bilateral pleural effusions. Mild bilateral interlobular septal thickening. Hazy patchy groundglass opacities in both lungs. Cardiomegaly. Coronary atherosclerotic calcifications are present. Mild mediastinal lymphadenopathy. For example, a subcarinal lymph node measures 3.6 x 1.[address]/CT angio chest IMPRESSION: 1. No pulmonary embolism. 2. Probable pulmonary edema and tiny bilateral pleural effusions. 3. Cardiomegaly and coronary atherosclerosis. 4. Mediastinal lymphadenopathy is indeterminate. Consider follow-up chest CT in 3-6 months to document stability. Electronically authenticated by: RUTHIE PITT Date: 11/06/2024 08:07
[2024-11-06 07:31] LABS: D Dimer 0.71 mg/L FEU (<=0.59)
[2024-11-06 07:35] LABS: Band Neutrophils Absolute 0.2 10^3/uL (0.0-0.3); Lymphocytes Absolute Manual 2.67 10^3/uL (1.20-3.80); Segmented Neut Absolute Manual 5.25 10^3/uL (1.4-6.5)
[2024-11-06 07:36] LABS: Monocytes Absolute Manual 0.53 10^3/uL (0.30-0.80)
[2024-11-06 07:37] LABS: Atypical Lymphocytes Abs Man 0.26
--- NOTE | 2024-11-06 08:36 | ED.GENADUL1 ---
HPI HPI - General Adult General Chief complaint: Shortness of Breath/Dyspnea Stated complaint: FLU LIKE SYMPTOMS Time Seen by Provider: 11/06/24 06:37 History of Present Illness HPI narrative: 54-year-old female presented to the emergency department and was initially seen by Dr. Merlos and signed out to me after discussing the case with him thoroughly. Please see his full history and physical exam. Related Data Home Medications ?Medication ?Instructions ?Recorded ?Confirmed atorvastatin 40 mg tablet 40 mg PO DAILY 11/06/24 11/06/24 carvedilol 25 mg tablet 50 mg 11/06/24 citalopram 10 mg tablet 30 mg PO DAILY 11/06/24 11/06/24 empagliflozin 25 mg tablet 25 mg PO DAILY 11/06/24 11/06/24 (Jardiance) furosemide 40 mg tablet 40 mg PO DAILY 11/06/24 11/06/24 lisinopril 10 mg tablet 10 mg PO DAILY 11/06/24 11/06/24 pioglitazone 30 mg tablet 30 mg PO DAILY 11/06/24 11/06/24 Allergies Allergy/AdvReac Type Severity Reaction Status Date / Time No Known Drug Allergies Allergy Verified 11/06/24 06:20 Opioid HPI Opioid Management Most Recent Opioid Data: No Data to Display PFSH PFSH Social History Little interest or pleasure in doing things: not at all Feeling down, depressed, or hopeless: not at all Exam Constitutional Vital Signs, click to edit/add: Last Vital Signs Temp 97.8 F 11/06/24 06:18 Pulse 50 L 11/06/24 07:40 Resp 11/06/24 07:40 BP 112/56 11/06/24 06:18 Pulse Ox 87 L 11/06/24 08:28 O2 Del Method Room Air 11/06/24 08:28 O2 Flow Rate 2 11/06/24 08:28 Course Vital Signs Vital signs: Vital Signs Blood Pressure 112/56 11/06/24 06:17 Temperature 97.8 F 11/06/24 06:18 Pulse Rate 50 L 11/06/24 07:40 Respiratory Rate 19 11/06/24 07:40 Blood Pressure 112/56 11/06/24 06:18 Pulse Oximetry 87 L 11/06/24 08:28 Oxygen Delivery Method Room Air 11/06/24 08:28 Oxygen Delivery Flow Rate 2 11/06/24 08:28 Medical Decision Making MDM Narrative Medical decision making narrative: COVID and influenza swabs are negative. D-dimer was mildly elevated so a CAT scan was performed. There is no evidence of pulmonary embolism but radiologist is reading pulmonary edema. Troponin is normal and her BNP is not elevated. She was given IV Lasix and is being admitted. Treatment diagnosis and disposition were discussed with the patient. Differential Diagnosis Differential Diagnosis: COVID, influenza, pneumonia, CHF, PE Lab Data Lab results reviewed: Yes I reviewed the patient's lab results Labs: Lab Results 11/06/24 11/06/24 Range/Units 06:23 06:54 WBC 8.9 (4.0-11.0) 10^3/uL RBC 4.06 L (4.20-5.40) 10^6/uL Hgb 12.0 (12.0-16.0) g/dL Hct 37.6 (36.0-48.0) % MCV 92.6 (81.0-99.0) fL MCH 29.6 (26.7-34.0) pg MCHC 31.9 (29.9-35.2) g/dL RDW 14.6 (11.0-15.0) % Plt Count 81 L (150-450) 10^3/uL MPV 12.0 (9.5-13.5) fL Seg Neuts % (Manual) 59.0 (43.0-75.0) Band Neutrophils % 2.0 (0-5) % Lymphocytes % (Manual) 30.0 (20.5-60.0) % Atypical Lymphs % (Man) 3.0 % Monocytes % (Manual) 6.0 (1.7-12.0) % Eosinophils % (Manual) 0.0 L (0.9-7.0) % Basophils % (Manual) 0.0 L (0.2-2.0) % Neutrophils # (Manual) 5.25 (1.4-6.5) 10^3/uL Band Neutrophils # 0.2 (0.0-0.3) 10^3/uL Lymphocytes # (Manual) 2.67 (1.20-3.80) 10^3/uL Abs Atypical Lymphs Man 0.26 Monocytes # (Manual) 0.53 (0.30-0.80) 10^3/uL Eosinophils # (Manual) 0.00 (0.00-0.70) 10^3/uL Basophils # (Manual) 0.00 (0.00-0.10) 10^3/uL D-Dimer 0.71 H* (<=0.59) mg/L FEU Sodium 136 (136-145) mmol/L Potassium 4.5 (3.5-5.1) mmol/L Chloride 102 (98-107) mmol/L Carbon Dioxide 30.3 (21.0-32.0) mmol/L Anion Gap 8.2 BUN 17.0 (7.0-18.0) mg/dL Creatinine 0.86 (0.55-1.02) mg/dL Est GFR ( Amer) >60 (>=60 mL/min/1.73m^2) Est GFR (Non-Af Amer) >60 (>=60 mL/min/1.73m^2) BUN/Creatinine Ratio 19.8 Glucose 161 H (74-106) mg/dL Calcium 8.7 (8.5-10.1) mg/dL Total Bilirubin 0.3 (0.2-1.0) mg/dL AST 13 L (15-37) U/L ALT 23 (14-59) U/L Alkaline Phosphatase 76 (46-116) U/L Troponin I High Sens 19.9 (4.0-51.3) pg/mL NT-Pro-B Natriuret Pep 293.0 (<=900.0) pg/mL Total Protein 6.8 (6.4-8.2) g/dL Albumin 2.8 L (3.4-5.0) g/dL Globulin 4.0 g/dL Albumin/Globulin Ratio 0.7 Influenza Type A Ag Negative Influenza Type B Ag Negative SARS-CoV-2 Ag (CV2AG) Negative (NEGATIVE) Imaging Data Chest x-ray: Radiologist's impression: ITS Impressions Chest X-Ray 11/06/24 07:12 IMPRESSION: Small amount of atelectasis in the left lower lung. Mild bilateral interstitial prominence may represent edema, correlate clinically. Pulmonary venous hypertension. Cardiomegaly. Remainder unremarkable. Electronically authenticated by: RUTHIE PITT Date: 11/06/2024 07:42 Chest CTA 11/06/24 07:28 IMPRESSION: 1. No pulmonary embolism. 2. Probable pulmonary edema and tiny bilateral pleural effusions. 3. Cardiomegaly and coronary atherosclerosis. 4. Mediastinal lymphadenopathy is indeterminate. Consider follow-up chest CT in 3-6 months to document stability. Electronically authenticated by: RUTHIE PITT Date: 11/06/2024 08:07 ECG Data Attestation: I personally reviewed and interpreted this ECG as follows: (EKG on my interpretation shows sinus rhythm with a rate of 49 and first-degree AV block.) Critical Care Time Critical Care Time Critical Care Time: Yes Total Critical Care Time: 35 Attestation: Due to the high probability of sudden and clinically significant deterioration in the patient's condition he/she required the highest level of my preparedness to intervene urgently I provided critical care time including documentation time, medication orders and management, reevaluation, vital sign assessment, ordering and reviewing of lab tests, ordering and reviewing of x-ray studies, and admission orders. Aggregate critical care time is 35 minutes including only time during which I was engaged in work directly related to his/her care and did not include time spent treating other patients simultaneously. Discharge Plan Discharge Chief Complaint: Shortness of Breath/Dyspnea Clinical Impression: Pulmonary edema, Hypoxemia Patient Disposition: Admitted As Inpatient Time of Disposition Decision: 08:32 Condition: Fair
[2024-11-06] MEDS: FUROSEMIDE 40 MG/4 ML VIAL IVP (09:08)
--- NOTE | 2024-11-06 10:46 | CA_ITS ---
Patient Name: KARO DARDEN MR#: [id number] : 1970 Exam Date: 11/06/2024 Ordering Doctor: DR RAISA PLASCENCIA . ECHOCARDIOGRAM REPORT PROCEDURE: CA ECHO DOPPLER COMPLETE INDICATIONS: Dyspnea COMPARISON: None. DESCRIPTION: COMPLETE ECHOCARDIOGRAM Real-time transthoracic echocardiography with 2D, M-mode, spectral and color flow Doppler performed. QUALITY: Technical quality was good. LEFT VENTRICLE: Moderate dilatation. Normal left ventricular wall thickness. Global left ventricular systolic function is normal. LV EF: Visual estimation of left ventricular ejection fraction is 60-65% DIASTOLIC: Normal diastolic function. ATRIAL SEPTUM: LEFT ATRIUM: Mild dilatation. RIGHT ATRIUM: Mild dilatation. RIGHT VENTRICLE: Normal chamber size. Normal right ventricular systolic function. TRICUSPID VALVE: Normal mobility and thickness. No stenosis with trivial regurgitation. No evidence of pulmonary hypertension. RVSP 24 mmHg MITRAL VALVE: Normal mobility and thickness. No evidence of mitral valve stenosis. There is no mitral annular calcification. AORTIC VALVE: Normal trileaflet appearance. Mildly calcified aortic valve. Normal leaflet mobility. No evidence of aortic valve stenosis. No aortic regurgitation. AORTIC ROOT: Normal diameter and appearance. PULMONIC VALVE: Normal thickness and mobility. No stenosis. Trivial regurgitation. PERICARDIUM: No evidence of pericardial effusion. IVC: Collapses with inspirations. Normal size. PLEURA: CONCLUSION: 1. Moderately dilated left ventricle with eccentric hypertrophy and normal systolic function. Estimated LVEF is 60 to 65%. 2. Normal right ventricular size and systolic function. 3. Mild biatrial dilatation. 4. Normal diastolic function. 5. No significant valvular dysfunction. 6. Normal right sided pressures. Adult Echocardiography Procedure Report Left Ventricle LVEDD (3.7 - 5.6 cm): 6.26 cm LVESD (2.2 - 4.0 cm): 3.82 cm LVIVS thickness (0.6 - 1.2 cm): 1.03 cm LVPW thickness (0.5 - 1.0 cm): 0.90 cm e': 0.10 m/s E - e': 8.86 LVOT Max Gradient: 5.58 mm[Hg] LVOT Area (cm2): 1.18 m/s Peak Velocity (LVOT): 1.18 m/s Mean Velocity (LVOT): 0.74 m/s LVOT Diameter 2.07 cm Left Ventricular Ejection Fraction: 60-65 % Left Atrium LA Volume Index (2D A2C): 30.73 ml/m2 Left Atrium Systolic Dimension: 4.22 cm Mitral Valve MV E to A Ratio: 1.14 Mitral Valve A-Wave Peak Velocity: 0.79 m/s Mitral Valve E-Wave Peak Velocity: 0.91 m/s Right Ventricle RV Internal Diastolic Dimension: 3.16 cm Aorta AO Root Diam: 3.08 cm Ascending Ao Diam: 3.13 cm Aortic Valve AoV Area (Peak Julián): 1.92 cm2, 1.92 cm2 AoV Area (VTI): 1.85 cm2, 1.85 cm2 Peak Velocity(Antegrade Flow): 2.07 m/s Peak Gradient(Antegrade Flow): 17.10 mm[Hg] Mean Velocity(Antegrade Flow): 1.38 m/s Mean Gradient(Antegrade Flow): 8.74 mm[Hg] Velocity Time Integral: 49.23 cm Tricuspid Valve Peak Velocity (Regurgitant Flow): 2.27 m/s, 2.23 m/s Pulmonic Valve Peak Velocity: 1.34 m/s Peak Gradient: 5.99 mm[Hg], 8.52 mm[Hg] Right Atrium Right Atrium Systolic Pressure: 43.98 ml, 43.98 ml Dictated by: Orlando Fatima M.D. on 11/06/2024 at 17:41 Approved by: Orlando Fatima M.D. on 11/06/2024 at 17:44
--- NOTE | 2024-11-06 10:50 | P.HP_ITS ---
HPI H&P: HPI History of Present Illness Chief complaint: FLU LIKE SYMPTOMS, pulmonary edema hypoxemia Narrative: Patient presented to emergency room and just felt like she was having air hunger, in ER found that and did she was with an O2 sat of 87%, CTA of the chest shows small bilateral pleural effusion, possible left lower lobe pneumonia as well as mild congestive heart failure. When I saw patient in the emergency room, she was resting fairly comfortably in bed had some mild conversational dyspnea, feels better with the supplemental oxygen on, she does not use supplemental oxygen at home. Opioid HPI Opioid Management Most Recent Pain and Opioid Data: Last Pain Assessment 11/06/24 11:18 Last ORT Total Score 1 11/06/24 10:03 11/06/24 Last ORT Risk Category Low Risk 11/06/24 10:03 11/06/24 Review of Systems ROS Status of ROS 10 or more systems reviewed and unremark able except as noted in history and below PFSH PFS Medical History (Updated 11/06/24 @ 11:53 by Tim Mcconnell MD) Congestive heart failure ?I50.9 - Heart failure, unspecified (ICD-10) Diabetes ?E11.9 - Type 2 diabetes mellitus without complications (ICD-10) Hypertension ?I10 - Essential (primary) hypertension (ICD-10) Surgical History (Updated 11/06/24 @ 10:57 by Shannon Amos RN) History of hysterectomy ?Z90.710 - Acquired absence of both cervix and uterus (ICD-10) History of section ?Z98.891 - History of uterine scar from previous surgery (ICD-10) Family History (Updated 11/06/24 @ 09:58 by Shannon Amos RN) Other Family history not known due to adoption Social History (Updated 11/06/24 @ 09:58 by Shannon Amos, RN) Within the past year, how often did you have a drink containing alcohol: monthly or less Smoking status: Current every day smoker Highest level of school completed/degree received: some college, no degree Little interest or pleasure in doing things: not at all Feeling down, depressed, or hopeless: not at all Meds Home Medications and Allergies Home Medications ?Medication ?Instructions ?Recorded ?Confirmed ?Type atorvastatin 40 mg tablet 40 mg PO DAILY 11/06/24 11/06/24 History carvedilol 25 mg tablet 50 mg PO .morning 11/06/24 11/06/24 History citalopram 10 mg tablet 30 mg PO DAILY 11/06/24 11/06/24 History empagliflozin 25 mg tablet 25 mg PO DAILY 11/06/24 11/06/24 History (Jardiance) furosemide 40 mg tablet 40 mg PO DAILY 11/06/24 11/06/24 History lisinopril 10 mg tablet 10 mg PO DAILY 11/06/24 11/06/24 History pioglitazone 30 mg tablet 30 mg PO DAILY 11/06/24 11/06/24 History Allergies Allergy/AdvReac Type Severity Reaction Status Date / Time No Known Drug Allergies Allergy Verified 11/06/24 06:20 Exam Constitutional Vital Signs, click to edit/add: Last Vital Signs Temp 97.8 F 11/06/24 10:03 Pulse 51 L 11/06/24 10:03 Resp 20 11/06/24 10:03 BP 142/68 H 11/06/24 10:03 Pulse Ox 71 L 11/06/24 10:03 O2 Del Method Room Air 11/06/24 10:03 O2 Flow Rate 2 11/06/24 08:28 Documenting provider has reviewed patient's vital signs: yes Common normals: apparent distress (Mild conversational dyspnea) Respiratory Common normals: abnormal respiratory effort (Mild conversational dyspnea) Auscultation: rales and rhonchi; no wheezes Cardio Common normals: irregular rate Rate: bradycardic GI Common normals: Normal to inspection, nondistended, normoactive bowel sounds present Extremity Common normals: abnormal to inspection (Trace edema) Results Labs Labs: Short CBC 11/06/24 Range/Units 06:54 WBC 8.9 (4.0-11.0) 10^3/uL Hgb 12.0 (12.0-16.0) g/dL Hct 37.6 (36.0-48.0) % Plt Count 81 L (150-450) 10^3/uL BMP 11/06/24 06:54 Sodium 136 Potassium 4.5 Chloride 102 Carbon Dioxide 30.3 BUN 17.0 Creatinine 0.86 Glucose 161 H Calcium 8.7 Liver Function 11/06/24 Range/Units 06:54 Total Bilirubin 0.3 (0.2-1.0) mg/dL AST 13 L (15-37) U/L ALT 23 (14-59) U/L Alkaline Phosphatase 76 (46-116) U/L Albumin 2.8 L (3.4-5.0) g/dL Assessment and Plan Assessment and Plan (1) Hypoxemia: (2) Pulmonary edema: (3) Hypertension: (4) Left lower lobe pneumonia: (5) Mediastinal lymphadenopathy: Plan Admission findings: Acute hypoxia with bradycardia, heart rate less than 50, left lower lobe infiltrate on chest x-ray, mediastinal lymphadenopathy, pleural effusion bilaterally with CTA findings of congestive heart failure Acute hypoxia-I believe her acute hypoxia more likely related to infectious etiology despite the normal white blood cell count, she does have sputum production of brown sputum, viral studies are negative, mediastinal lymphadenopathy and the left lower lobe infiltrate on chest x-ray with suggest infectious etiology, will start patient on levofloxacin, may need to broaden spectrum based on results Acute systolic heart failure with pleural effusion and CTA findings consistent with pulmonary edema, minimal peripheral edema-check echocardiogram, 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 Bradycardia-may be consistent with possible inferior wall ischemia-check echocardiogram and trend troponins Thrombocytopenia-deteriorated today, continue to follow, likely related to infectious etiology as outlined above, outpatient workup may be necessary as well Diabetes mellitus-insulin sliding scale, likely to deteriorate based on treatment for the pneumonia as outlined above Depression-continue with home medications Hyper tension-continue with current medications Admission findings: Patient with significant bradycardia that could represent inferior wall ischemia, pleural effusion, acute hypoxia with pulmonary infiltrate and mediastinal lymphadenopathy consistent with pneumonia, medically necessary treatment will span 2 midnights. Inpatient status
[2024-11-06 11:06] LABS: Hematocrit 41.4 % (36.0-48.0); Hemoglobin 13.3 g/dL (12.0-16.0); Mean Corpuscular HGB Conc 32.1 g/dL (29.9-35.2); Mean Corpuscular Hemoglobin 29.6 pg (26.7-34.0); Mean Platelet Volume 11.9 fL (9.5-13.5); Platelet Count 83 10^3/uL (150-450); Red Cell Distribution Width 14.6 % (11.0-15.0); White Blood Count 8.6 10^3/uL (4.0-11.0)
[2024-11-06 11:18] LABS: Internal Control Within Normal Limits; Respiratory Syncytial Virus Not Detected (NOT DETECTE)
[2024-11-06] MEDS: LEVOFLOXACIN IN DEXTROSE 5 % 750 MG/150 ML PREMIX 100 MG IV (11:20)
[2024-11-06] MEDS: DEXAMETHASONE SOD PHOS 4 MG/ML VIAL 10 MG IV (11:20)
[2024-11-06] MEDS: 0.9 % SODIUM CHLORIDE 250 ML 10 ML IV (11:21)
[2024-11-06 11:22] LABS: Atypical Lymphocytes Abs Man 0.34; Basophils Abs Manual 0.08 10^3/uL (0.00-0.10); Eosinophils Absolute Manual 0.08 10^3/uL (0.00-0.70); Lymphocytes Absolute Manual 2.92 10^3/uL (1.20-3.80); Monocytes Absolute Manual 0.34 10^3/uL (0.30-0.80)
[2024-11-06 11:23] LABS: Segmented Neut Absolute Manual 4.81 10^3/uL (1.4-6.5)
[2024-11-06 11:29] LABS: Magnesium 2.1 mg/dL (1.8-2.4); Troponin I High Sensitivity 17.9 pg/mL (4.0-51.3)
[2024-11-06 14:26] LABS: Troponin I High Sensitivity 18.5 pg/mL (4.0-51.3)
[2024-11-06 16:14] LABS: Glucometer 273 mg/dL (74-106)
[2024-11-06] MEDS: INSULIN ASPART 300 UNIT/3 ML PEN SUBQ ×2 (16:23→21:11)
[2024-11-06 17:04] LABS: Bilirubin Urine NEGATIVE (NEGATIVE); Blood Urine NEGATIVE (NEGATIVE); Clarity Urine CLEAR (CLEAR); Color Urine LT. YELLOW (YELLOW); Glucose Urine UA >=1000 mg/dL (NEGATIVE); Ketones Urine NEGATIVE (NEGATIVE); Leukocyte Esterase Urine NEGATIVE (NEGATIVE); Nitrite Urine NEGATIVE (NEGATIVE); Protein Urine NEGATIVE (NEG/TRACE); Urobilinogen Urine 0.2 EU/dL (0.2-1.0); pH Urine 5.5 (5.0-9.0)
[2024-11-06 17:14] LABS: RBC Urine NONE SEEN #/HPF (0-2); WBC Urine NONE SEEN #/HPF (NONE SEEN)
[2024-11-06 17:15] LABS: Bacteria Urine TRACE #/HPF (NONE SEEN); Cast Seen? NONE SEEN #/LPF (NONE SEEN); Crystals Seen? None Seen #/HPF (None Seen); Mucus Urine NONE SEEN (NONE SEEN); Squamous Epithelial Cell Urine FEW #/LPF (NONE/RARE); Urine Culture Indicated NO
[2024-11-06 20:43] LABS: Glucometer 260 mg/dL (74-106)
[2024-11-06] MEDS: ATORVASTATIN CALCIUM 40 MG TABLET PO (21:09)
[2024-11-06] MEDS: CARVEDILOL 12.5 MG TABLET PO (21:10)
[2024-11-06] MEDS: METHYLPREDNISOLONE SOD SUCC PF 125 MG/2 ML VIAL 60 MG IVP (23:56)
[2024-11-07] VITALS (24 sets, daily range): BP systolic 132–153; BP diastolic 68–78; PULSE 56–80; TEMP 36.6–36.8; O2SAT 82–95
[2024-11-07] MEDS: METHYLPREDNISOLONE SOD SUCC PF 125 MG/2 ML VIAL 60 MG IVP ×4 (05:20→23:44)
[2024-11-07] MEDS: NICOTINE 21 MG PATCH.TD24 TD (05:27)
[2024-11-07] MEDS: IPRATROPIUM/ALBUTEROL SULFATE 3 ML AMPUL.NEB IH ×4 (05:27→22:25)
[2024-11-07 05:31] LABS: Anion Gap 9.1; BUN Creatinine Ratio 19.8; Calcium 9.5 mg/dL (8.5-10.1); Carbon Dioxide 31.2 mmol/L (21.0-32.0); Chloride 101 mmol/L (98-107); Estimated GFR (African America >60 (>=60 mL/min/1.73m^2); Estimated GFR (Non-African Ame >60 (>=60 mL/min/1.73m^2); Glucose 197 mg/dL (74-106); Potassium 4.3 mmol/L (3.5-5.1); Sodium 137 mmol/L (136-145)
[2024-11-07 07:32] LABS: Glucometer 240 mg/dL (74-106)
[2024-11-07] MEDS: INSULIN ASPART 300 UNIT/3 ML PEN SUBQ ×3 (07:51→21:49)
[2024-11-07] MEDS: CITALOPRAM HYDROBROMIDE 20 MG TABLET 30 MG PO (08:58)
[2024-11-07] MEDS: FUROSEMIDE 40 MG TABLET PO (08:58)
[2024-11-07] MEDS: GUAIFENESIN 200 MG/DEXTROMETHORPHAN 20 MG 10 ML UNIT DOSE CUP PO ×3 (08:58→21:49)
[2024-11-07] MEDS: LISINOPRIL 10 MG TABLET PO (08:58)
[2024-11-07] MEDS: CANAGLIFLOZIN 100 MG TABLET 300 MG PO (08:59)
[2024-11-07] MEDS: CARVEDILOL 12.5 MG TABLET PO ×2 (08:59→21:49)
[2024-11-07] MEDS: PIOGLITAZONE 15 MG TABLET 30 MG PO (08:59)
[2024-11-07] MEDS: FLU VAC QS 2024(6MS UP)CEL/PF 60 MCG/0.5 ML SYRINGE IM (08:59)
--- NOTE | 2024-11-07 09:48 | CM.NOTE ---
Rounds made with Dr. Mcconnell, pt continues to require oxygen and c/o shortness of breath. No discharge today.
--- NOTE | 2024-11-07 09:53 | XR_ITS ---
The [address] [address] Patient Name: KARO DARDEN MRN: [id number] date: 1970 Sex: F Assigned Patient Location: [place] Current Patient Location: [place] Accession/Order Number: [id number] Exam Date: 11/07/2024 11:02 Report Date: 11/07/2024 11:35 At the request of: RAISA PLASCENCIA Procedure: XR chest 2V EXAMINATION: XR chest 2V, 11/07/2024 11:02 AM EST HISTORY: follow up pna COMPARISON: 11/06/2024 TECHNIQUE: PA and lateral views of the chest were obtained. FINDINGS: Medical devices: None. Cardiomediastinal silhouette is unchanged. Patchy bilateral opacities most pronounced in the bases, left greater than right, grossly unchanged. No pleural effusion or pneumothorax. No acute bony or soft tissue abnormalities. XR/XR chest 2V IMPRESSION: Patchy bilateral opacities most pronounced in the bases, left greater than right, grossly unchanged. Electronically authenticated by: DUNG CLARK Date: 11/07/2024 11:35
--- NOTE | 2024-11-07 09:55 | P.PN_ITS ---
Progress Note: Subjective Subjective Interval history: Still with sig cough and GUERRA with any activity Exam Constitutional Vital Signs, click to edit/add: Last Vital Signs Temp 97.9 F 11/07/24 07:54 Pulse 75 11/07/24 09:53 Resp 18 11/07/24 07:54 BP 143/70 H 11/07/24 07:54 Pulse Ox 95 11/07/24 08:04 O2 Del Method Nasal Cannula 11/07/24 08:04 O2 Flow Rate 3 11/07/24 08:04 Documenting provider has reviewed patient's vital signs: yes Common normals: apparent distress (Somewhat better breathing pattern today) HENMT Common normals: normocephalic Respiratory Common normals: abnormal respiratory effort (Somewhat her breathing pattern today) Auscultation: rales and rhonchi; no wheezes Cardio Common normals: irregular rate Rate: bradycardic GI Common normals: Normal to inspection, nondistended, normoactive bowel sounds present Extremity Common normals: abnormal to inspection (Trace edema) Progress Note: Objective Labs Labs: Short CBC 11/06/24 Range/Units 11:00 WBC 8.6 (4.0-11.0) 10^3/uL Hgb 13.3 (12.0-16.0) g/dL Hct 41.4 (36.0-48.0) % Plt Count 83 L (150-450) 10^3/uL BMP 11/07/24 05:06 Sodium 137 Potassium 4.3 Chloride 101 Carbon Dioxide 31.2 BUN 18.0 Creatinine 0.91 Glucose 197 H Calcium 9.5 Urine 11/06/24 Range/Units 16:30 Urine Color Lt. yellow (YELLOW) Urine Clarity Clear (CLEAR) Urine pH 5.5 (5.0-9.0) Ur Specific [place] 1.010 (1.005-1.025) Urine Protein Negative (NEG/TRACE) mg/dL Urine Glucose (UA) >=1000 A (NEGATIVE) mg/dL Progress Note: A&P Assessment and Plan (1) Hypoxemia: (2) Pulmonary edema: (3) Hypertension: (4) Left lower lobe pneumonia: (5) Mediastinal lymphadenopathy: Plan Admission findings: Acute hypoxia with bradycardia, heart rate less than 50, left lower lobe infiltrate on chest x-ray, mediastinal lymphadenopathy, pleural effusion bilaterally with CTA findings of congestive heart failure Acute hypoxia-I believe her acute hypoxia more likely related to infectious etiology despite the normal white blood cell count, she does have sputum production of brown sputum, viral studies are negative, mediastinal lymphadenopathy and the left lower lobe infiltrate on chest x-ray with suggest infectious etiology, will start patient on levofloxacin, may need to broaden spectrum based on results, repeat chest x-ray today Acute systolic heart failure with pleural effusion and CTA findings consistent with pulmonary edema, minimal peripheral edema-check echocardiogram, 1 dose of IV Lasix later today, oral diuretic not likely helpful as anticipated Bradycardia-may be consistent with possible inferior wall ischemia- echocardiogram with excellent ejection fraction and heart rate improved Thrombocytopenia-stable Diabetes mellitus-maintain current sliding scale Depression-continue with home medications Hyper tension-continue with current medications Admission findings: Patient with significant bradycardia that could represent inferior wall ischemia, pleural effusion, acute hypoxia with pulmonary infiltrate and mediastinal lymphadenopathy consistent with pneumonia, medically necessary treatment will span 2 midnights. Inpatient status ?
[2024-11-07 11:26] LABS: Glucometer 304 mg/dL (74-106)
[2024-11-07] MEDS: LEVOFLOXACIN IN DEXTROSE 5 % 750 MG/150 ML PREMIX 100 MG IV (11:34)
[2024-11-07] MEDS: FUROSEMIDE 40 MG/4 ML VIAL IVP (13:04)
[2024-11-07 16:51] LABS: Glucometer 165 mg/dL (74-106)
[2024-11-07 20:08] LABS: Glucometer 290 mg/dL (74-106)
[2024-11-07] MEDS: ATORVASTATIN CALCIUM 40 MG TABLET PO (21:49)
[2024-11-08] VITALS (20 sets, daily range): BP systolic 106–143; BP diastolic 0–83; PULSE 53–73; TEMP 36.4–36.8; O2SAT 80–96
[2024-11-08] MEDS: IPRATROPIUM/ALBUTEROL SULFATE 3 ML AMPUL.NEB IH ×4 (04:50→23:12)
[2024-11-08] MEDS: METHYLPREDNISOLONE SOD SUCC PF 125 MG/2 ML VIAL 60 MG IVP ×4 (05:13→23:01)
[2024-11-08 05:57] LABS: Basophils Percent Auto 0.1 % (0.2-2.0); Hematocrit 41.7 % (36.0-48.0); Hemoglobin 13.6 g/dL (12.0-16.0); Immature Granulocytes Pct Auto 1.2 % (0.0-0.5); Lymphocytes Absolute Auto 1.4 10^3/uL (1.2-3.8); Lymphocytes Percent Auto 8.2 % (20.5-60.0); Mean Corpuscular HGB Conc 32.6 g/dL (29.9-35.2); Mean Corpuscular Hemoglobin 29.5 pg (26.7-34.0); Mean Corpuscular Volume 90.5 fL (81.0-99.0); Mean Platelet Volume 11.5 fL (9.5-13.5); Monocytes Absolute Auto 0.7 10^3/uL (0.3-0.8); Monocytes Percent Auto 4.2 % (1.7-12.0); Neutrophils Absolute Auto 14.2 10^3/uL (1.4-6.5); Neutrophils Percent Auto 86.3 % (43.0-75.0); Platelet Count 166 10^3/uL (150-450); Red Blood Count 4.61 10^6/uL (4.20-5.40); Red Cell Distribution Width 14.4 % (11.0-15.0); White Blood Count 16.5 10^3/uL (4.0-11.0)
[2024-11-08 06:11] LABS: Anion Gap 12.4; BUN Creatinine Ratio 30.5; Calcium 9.7 mg/dL (8.5-10.1); Carbon Dioxide 31.9 mmol/L (21.0-32.0); Chloride 99 mmol/L (98-107); Estimated GFR (African America >60 (>=60 mL/min/1.73m^2); Estimated GFR (Non-African Ame >60 (>=60 mL/min/1.73m^2); Glucose 221 mg/dL (74-106); Potassium 4.3 mmol/L (3.5-5.1); Sodium 139 mmol/L (136-145)
[2024-11-08 08:03] LABS: Glucometer 222 mg/dL (74-106)
--- NOTE | 2024-11-08 08:53 | CM.NOTE ---
Rounds made with Dr. Mcconnell. Dr. Mcconnell reviews plan of care and need to wean oxygen. If continues to improve potential discharge tomorrow.
[2024-11-08] MEDS: CITALOPRAM HYDROBROMIDE 20 MG TABLET 30 MG PO (09:00)
[2024-11-08] MEDS: LISINOPRIL 10 MG TABLET PO (09:01)
[2024-11-08] MEDS: PIOGLITAZONE 15 MG TABLET 30 MG PO (09:01)
[2024-11-08] MEDS: CANAGLIFLOZIN 100 MG TABLET 300 MG PO (09:01)
[2024-11-08] MEDS: CARVEDILOL 12.5 MG TABLET PO ×2 (09:01→22:17)
[2024-11-08] MEDS: INSULIN ASPART 300 UNIT/3 ML PEN SUBQ ×4 (09:02→22:17)
[2024-11-08] MEDS: GUAIFENESIN 200 MG/DEXTROMETHORPHAN 20 MG 10 ML UNIT DOSE CUP PO ×3 (09:02→22:17)
--- NOTE | 2024-11-08 09:29 | XR_ITS ---
The [address] [address] Patient Name: KARO DARDEN MRN: [id number] date: 1970 Sex: F Assigned Patient Location: [place] Current Patient Location: [place] Accession/Order Number: [id number] Exam Date: 11/08/2024 09:53 Report Date: 11/08/2024 10:12 At the request of: RAISA PLASCENCIA Procedure: XR chest 2V EXAMINATION: XR chest 2V HISTORY: follow up on previous ; follow-up bilateral lung opacities COMPARISON: XR chest 11/07/2024 FINDINGS: LUNGS: Mild right basilar opacities. Moderate left basilar opacities and stranding. VASCULATURE: No increased pulmonary vasculature. PLEURA: No pneumothorax, effusion, or pleural thickening. CARDIAC: No cardiomegaly or cardiac silhouette abnormality. MEDIASTINUM: No visible mass or adenopathy. BONES: No fracture or visible bone lesion. OTHER: Negative. XR/XR chest 2V IMPRESSION: 1. Persistent, but interval decrease in bibasilar infiltrates versus atelectasis. Electronically authenticated by: AUDREY GUTHRIE Date: 11/08/2024 10:12
--- NOTE | 2024-11-08 09:31 | P.PN_ITS ---
Progress Note: Subjective Subjective Interval history: Looks better than yesterday but still with significant O2 deficit Exam Constitutional Vital Signs, click to edit/add: Last Vital Signs Temp 97.8 F 11/08/24 08:17 Pulse 65 11/08/24 08:17 Resp 20 11/08/24 08:18 BP 135/83 11/08/24 08:17 Pulse Ox 96 11/08/24 08:17 O2 Del Method Nasal Cannula 11/08/24 08:17 O2 Flow Rate 2 11/08/24 08:17 Documenting provider has reviewed patient's vital signs: yes Common normals: apparent distress (Somewhat better breathing pattern today) HENMT Common normals: normocephalic Respiratory Common normals: abnormal respiratory effort (Somewhat her breathing pattern today) Auscultation: rales and rhonchi; no wheezes Cardio Common normals: irregular rate Rate: bradycardic GI Common normals: Normal to inspection, nondistended, normoactive bowel sounds present Extremity Common normals: abnormal to inspection (Trace edema) Progress Note: Objective Labs Labs: Short CBC 11/08/24 Range/Units 05:43 WBC 16.5 H (4.0-11.0) 10^3/uL Hgb 13.6 (12.0-16.0) g/dL Hct 41.7 (36.0-48.0) % Plt Count 166 (150-450) 10^3/uL BMP 11/08/24 05:43 Sodium 139 Potassium 4.3 Chloride 99 Carbon Dioxide 31.9 BUN 29.0 H Creatinine 0.95 Glucose 221 H Calcium 9.7 Progress Note: A&P Assessment and Plan (1) Hypoxemia: (2) Pulmonary edema: (3) Hypertension: (4) Left lower lobe pneumonia: (5) Mediastinal lymphadenopathy: Plan Admission findings: Acute hypoxia with bradycardia, heart rate less than 50, left lower lobe infiltrate on chest x-ray, mediastinal lymphadenopathy, pleural effusion bilaterally with CTA findings of congestive heart failure Acute hypoxia-I believe her acute hypoxia more likely related to infectious etiology despite the normal white blood cell count, she does have sputum production of brown sputum, viral studies are negative, mediastinal lymphadenopathy and the left lower lobe infiltrate on chest x-ray with suggest infectious etiology, may be somewhat better than previous days we will maintain current treatment plan, follow-up on repeat chest x-ray Acute systolic heart failure with pleural effusion and CTA findings consistent with pulmonary edema, minimal peripheral edema-check echocardiogram,-see above Bradycardia-may be consistent with possible inferior wall ischemia- echocardiogram with excellent ejection fraction and heart rate improved Thrombocytopenia-stable Diabetes mellitus-maintain current sliding scale Depression-continue with home medications Hyper tension-continue with current medications Admission findings: Patient with significant bradycardia that could represent inferior wall ischemia, pleural effusion, acute hypoxia with pulmonary infiltrate and mediastinal lymphadenopathy consistent with pneumonia, medically necessary treatment will span 2 midnights. Inpatient status ?
[2024-11-08] MEDS: POLYETHYLENE GLYCOL 3350 17 GM POWDER PACKET PO (10:05)
[2024-11-08 11:06] LABS: Glucometer 261 mg/dL (74-106)
[2024-11-08] MEDS: 0.9 % SODIUM CHLORIDE 250 ML 10 ML IV (11:17)
[2024-11-08] MEDS: LEVOFLOXACIN IN DEXTROSE 5 % 750 MG/150 ML PREMIX 100 MG IV (11:17)
[2024-11-08] MEDS: PIPERACILLIN SODIUM/TAZOBACTAM 3.375 GM in 0.9 % SODIUM CHLORIDE 50 ML IV ×2 (13:36→22:18)
[2024-11-08] MEDS: NICOTINE 21 MG PATCH.TD24 TD (14:40)
[2024-11-08 16:44] LABS: Glucometer 225 mg/dL (74-106)
[2024-11-08 21:26] LABS: Glucometer 281 mg/dL (74-106)
[2024-11-08] MEDS: ATORVASTATIN CALCIUM 40 MG TABLET PO (22:17)
[2024-11-09 04:00] VITALS: BP 138/76; PULSE 60; TEMP 36.4; O2SAT 93
[2024-11-09 04:30] VITALS: PULSE 78; O2SAT 94
[2024-11-09] MEDS: IPRATROPIUM/ALBUTEROL SULFATE 3 ML AMPUL.NEB IH (04:30)
[2024-11-09] MEDS: PIPERACILLIN SODIUM/TAZOBACTAM 3.375 GM in 0.9 % SODIUM CHLORIDE 50 ML IV (06:18)
[2024-11-09] MEDS: METHYLPREDNISOLONE SOD SUCC PF 125 MG/2 ML VIAL 60 MG IVP (06:19)
[2024-11-09 06:55] LABS: Basophils Percent Auto 0.1 % (0.2-2.0); Hematocrit 41.6 % (36.0-48.0); Hemoglobin 13.2 g/dL (12.0-16.0); Immature Granulocytes Abs Auto 0.17 10^3/uL (0.00-0.03); Immature Granulocytes Pct Auto 1.2 % (0.0-0.5); Lymphocytes Percent Auto 7.1 % (20.5-60.0); Mean Corpuscular HGB Conc 31.7 g/dL (29.9-35.2); Mean Corpuscular Hemoglobin 28.9 pg (26.7-34.0); Mean Platelet Volume 11.1 fL (9.5-13.5); Monocytes Absolute Auto 0.7 10^3/uL (0.3-0.8); Neutrophils Absolute Auto 12.3 10^3/uL (1.4-6.5); Neutrophils Percent Auto 86.6 % (43.0-75.0); Platelet Count 184 10^3/uL (150-450); Red Blood Count 4.57 10^6/uL (4.20-5.40); Red Cell Distribution Width 14.5 % (11.0-15.0); White Blood Count 14.1 10^3/uL (4.0-11.0)
[2024-11-09 07:13] LABS: BUN Creatinine Ratio 32.6; Calcium 9.2 mg/dL (8.5-10.1); Carbon Dioxide 31.2 mmol/L (21.0-32.0); Chloride 101 mmol/L (98-107); Estimated GFR (African America >60 (>=60 mL/min/1.73m^2); Estimated GFR (Non-African Ame >60 (>=60 mL/min/1.73m^2); Glucose 211 mg/dL (74-106); Potassium 4.2 mmol/L (3.5-5.1); Sodium 139 mmol/L (136-145)
[2024-11-09 07:21] LABS: Glucometer 185 mg/dL (74-106)
[2024-11-09 07:29] VITALS: BP 152/88; PULSE 73; TEMP 36.4; O2SAT 92
[2024-11-09] MEDS: INSULIN ASPART 300 UNIT/3 ML PEN SUBQ (07:35)
[2024-11-09 08:47] LABS: Glucometer 297 mg/dL (74-106)
--- NOTE | 2024-11-09 09:12 | P.DS_ITS ---
DS: Providers Provider Date of admission: 11/06/24 09:50 Primary care physician: Mynor Avina MD DS: Diagnosis Discharge Diagnosis (1) Hypoxemia: (2) Pulmonary edema: (3) Hypertension: (4) Left lower lobe pneumonia: (5) Mediastinal lymphadenopathy: Plan Admission findings: Acute hypoxia with bradycardia, heart rate less than 50, left lower lobe infiltrate on chest x-ray, mediastinal lymphadenopathy, pleural effusion bilaterally with CTA findings of congestive heart failure Acute hypoxia-I believe her acute hypoxia more likely related to infectious etiology despite the normal white blood cell count, she does have sputum production of brown sputum, viral studies are negative, mediastinal lymphadenopathy and the left lower lobe infiltrate on chest x-ray with suggest infectious etiology, may be somewhat better than previous days we will maintain current treatment plan, follow-up on repeat chest x-ray Acute systolic heart failure with pleural effusion and CTA findings consistent with pulmonary edema, minimal peripheral edema-check echocardiogram,-see above Bradycardia-may be consistent with possible inferior wall ischemia- echocardiogram with excellent ejection fraction and heart rate improved Thrombocytopenia-stable Diabetes mellitus-maintain current sliding scale Depression-continue with home medications Hyper tension-continue with current medications Admission findings: Patient with significant bradycardia that could represent inferior wall ischemia, pleural effusion, acute hypoxia with pulmonary infiltrate and mediastinal lymphadenopathy consistent with pneumonia, medically necessary treatment will span 2 midnights. Inpatient status ? DS: Summary Hospital Course Hospital Course: Patient mated with Acute hypoxia with bradycardia, heart rate less than 50, left lower lobe infiltrate on chest x-ray, mediastinal lymphadenopathy, pleural effusion bilaterally with CTA findings of congestive heart failure. Patient was diuresed on several days with good urine output, ended up diuresing a net of 7.1 L, hypoxia improved finally yesterday, chest x-ray also improved yesterday white blood cell count elevated on admission is improved to baseline today. At this point with being able to be weaned off of supplemental oxygen, her echocardiogram shows no acute findings, she will be discharged to home in improving condition. Medications see list. Follow-up with PCP within the next week. Time Spent with Patient Time attestation: Total time spent providing and/or coordinating discharge services: Exam Constitutional Vital Signs, click to edit/add: Last Vital Signs Temp 97.5 F L 11/09/24 07:29 Pulse 73 11/09/24 07:29 Resp 18 11/09/24 07:29 BP 152/88 H 11/09/24 07:29 Pulse Ox 92 L 11/09/24 07:29 O2 Del Method Room Air 11/09/24 07:29 O2 Flow Rate 1 11/08/24 21:30 Documenting provider has reviewed patient's vital signs: yes Common normals: apparent distress (Somewhat better breathing pattern today) HENMT Common normals: normocephalic Respiratory Common normals: abnormal respiratory effort (Breathing much improved today) Auscultation: rhonchi; no rales and no wheezes Cardio Common normals: irregular rate Rate: bradycardic GI Common normals: Normal to inspection, nondistended, normoactive bowel sounds present Extremity Common normals: abnormal to inspection (Trace edema) DS: Data Data Completed and Pending Labs on day of discharge: Labs from last 24 hours 11/09/24 11/09/24 11/09/24 08:44 07:19 06:31 WBC 14.1 H RBC 4.57 Hgb 13.2 Hct 41.6 MCV 91.0 MCH 28.9 MCHC 31.7 RDW 14.5 Plt Count 184 MPV 11.1 Neut % (Auto) 86.6 H Lymph % (Auto) 7.1 L Starr % (Auto) 5.0 Eos % (Auto) 0.0 L Baso % (Auto) 0.1 L Neut # (Auto) 12.3 H Lymph # (Auto) 1.0 L Starr # (Auto) 0.7 Eos # (Auto) 0.0 Baso # (Auto) 0.0 Abs Immat Gran (auto) 0.17 H Imm/Tot Granulo (auto) 1.2 H Sodium 139 Potassium 4.2 Chloride 101 Carbon Dioxide 31.2 Anion Gap 11.0 BUN 31.0 H Creatinine 0.95 Est GFR ( Amer) >60 Est GFR (Non-Af Amer) >60 BUN/Creatinine Ratio 32.6 Glucose 211 H Calcium 9.2 POC Glucose 297 H 185 H 11/08/24 11/08/24 11/08/24 21:25 16:43 11:05 WBC RBC Hgb Hct MCV MCH MCHC RDW Plt Count MPV Neut % (Auto) Lymph % (Auto) Starr % (Auto) Eos % (Auto) Baso % (Auto) Neut # (Auto) Lymph # (Auto) Starr # (Auto) Eos # (Auto) Baso # (Auto) Abs Immat Gran (auto) Imm/Tot Granulo (auto) Sodium Potassium Chloride Carbon Dioxide Anion Gap BUN Creatinine Est GFR ( Amer) Est GFR (Non-Af Amer) BUN/Creatinine Ratio Glucose Calcium POC Glucose 281 H 225 H 261 H Preliminary micro results at discharge 11/07/24 07:50 Lower Respiratory Culture - Preliminary Sputum - Expectorated Sputum Discharge Plan Discharge Disposition: Home, Self-Care Condition: Fair Discharge Medications: New carvedilol 12.5 mg Tablet 12.5 mg PO BID Qty: 60 11RF prednisone 10 mg tablet 30 mg PO DAILY Qty: 20 0RF Rx Instructions: 3/day for 3 days, 2/day for 3 days, 1/day for 3 days, 1/2 /day for 4 days levofloxacin 750 mg tablet 750 mg PO DAILY 7 Days Qty: 7 0RF Continued atorvastatin 40 mg tablet 40 mg PO DAILY citalopram 10 mg tablet 30 mg PO DAILY Jardiance 25 mg tablet 25 mg PO DAILY furosemide 40 mg tablet 40 mg PO DAILY PRN (Reason: edema) pioglitazone 30 mg tablet 30 mg PO DAILY lisinopril 10 mg tablet 10 mg PO DAILY Discontinued carvedilol 25 mg tablet 50 mg PO .morning Patient Comments: 50 mg in morning 25 mg in the evening Activity: resume usual activities as tolerated Diet: advance to your usual diet and diabetic diet Print Language: Mosoth[place] Patient Instructions: Prednisone (By mouth), Levofloxacin (By mouth), Pulmonary Edema (DC), Hypoxemia (DC) Forms: Portal Instructions Follow Up Appointments: Nov.16 @ 3:30pm with Dr. Avina [phone] Discharge Date/Time: 11/09/24 11:18
[2024-11-09] MEDS: PIOGLITAZONE 15 MG TABLET 30 MG PO (09:32)
[2024-11-09] MEDS: CANAGLIFLOZIN 100 MG TABLET 300 MG PO (09:32)
[2024-11-09] MEDS: CITALOPRAM HYDROBROMIDE 20 MG TABLET 30 MG PO (09:33)
[2024-11-09] MEDS: LISINOPRIL 10 MG TABLET PO (09:33)
[2024-11-09] MEDS: CARVEDILOL 12.5 MG TABLET PO (09:33)
[2024-11-09] MEDS: POLYETHYLENE GLYCOL 3350 17 GM POWDER PACKET PO (09:34)
[2024-11-09] MEDS: GUAIFENESIN 200 MG/DEXTROMETHORPHAN 20 MG 10 ML UNIT DOSE CUP PO (09:35)
--- NOTE | 2024-11-09 09:44 | CM.NOTE ---
Rounds made with Dr. Mcconnell, pt will discharge to home today and f/u with Dr. Avina. No discharge needs identified.
== END 2024-11-09 11:18 | disposition home or self-care (01) | DRG 193 ==
LOC: ER 08:33 → MS 10:00
PROVIDERS: Emergency Medicine; Admitting Provider Family Medicine; Emergency Provider Emergency Medicine; PCP Family Medicine; Visit Provider Family Medicine
DX: J18.9 Pneumonia, unspecified organism (principal); I50.21 Acute systolic (congestive) heart failure; I11.0 Hypertensive heart disease with heart failure; R09.02 Hypoxemia; R00.1 Bradycardia, unspecified; R59.0 Localized enlarged lymph nodes; D69.6 Thrombocytopenia, unspecified; F17.210 Nicotine dependence, cigarettes, uncomplicated; E11.9 Type 2 diabetes mellitus without complications; Z79.84 Long term (current) use of oral hypoglycemic drugs; Z90.710 Acquired absence of both cervix and uterus; R79.89 Other specified abnormal findings of blood chemistry; F32.A Depression, unspecified
CPT/HCPCS: 36415; 71046; 71275; 80048; 80053; 81001; 82948; 83735; 83880; 84436; 84443; 84484; 85007; 85025; 85027; 85378; 87070; 87205; 87420; 87804; 87811; 90674; 93005; 93306; 94640; 94667; 94668; 94761; 96374; 99285; 99406; J1100; J1940; J2543; J2919; Q9967

== ENCOUNTER 2025-02-14 06:52 | Outpatient (OUT) | payer BC, SELFPAY ==
--- NOTE | 2025-02-14 06:56 | MM_ITS ---
Patient Name: KARO DARDEN MR#: [id number] : 1970 Exam Date: 02/14/2025 Ordering Doctor: DR ROBERT GUIDRY . RADIOLOGY REPORT PROCEDURE: MM TOMOSYNTHESIS SCREENING BI COMPARISON: MM TOMOSYNTHESIS SCREENING BI, 12/31/2023. MG MAMM SCREEN 3D YANA CAD, 07/15/2021. MG MAMM SCREEN YANA W CAD, 06/07/2020. MAMMO YANA SCREEN, 01/14/2009. INDICATIONS: Screening for malignant neoplasm Calculator Name [facility] Breast Cancer Risk Assessment Tool 5 Year Breast Cancer Risk 1.30% Lifetime Breast Cancer Risk 9.30% Personal Breast Cancer No Personal Ovarian Cancer No Treatments None Family Cancers None LOCATION: [facility] BREAST COMPOSITION: There are scattered areas of fibroglandular density. FINDINGS: DIAGNOSTIC CATEGORY 0--INCOMPLETE: NEED ADDITIONAL IMAGING EVALUATION. RIGHT BREAST: No significant suspicious finding. LEFT BREAST: Focal asymmetry upper outer quadrant left breast middle depth. RECOMMENDATIONS: ADDITIONAL MAMMOGRAPHIC VIEWS REQUIRED: LEFT BREAST - spot-compression/true lateral view , possible ultrasound recommended. PLEASE NOTE: A NORMAL MAMMOGRAM DOES NOT EXCLUDE THE POSSIBILITY OF BREAST CANCER. A CLINICALLY SUSPICIOUS PALPABLE LUMP SHOULD BE BIOPSIED. Dictated by: Arben Pedroza DO on 02/14/2025 at 15:59 Approved by: Arben Pedroza DO on 02/14/2025 at 16:02
== END 2025-02-14 06:53 | disposition home or self-care (01) ==
LOC: MAMMO 06:52
PROVIDERS: PCP Family Medicine; Visit Provider Obstetrics & Gynecology
DX: Z12.31 Encounter for screening mammogram for malignant neoplasm of breast (principal)
CPT/HCPCS: 77063; 77067

== ENCOUNTER 2025-02-16 10:20 | Outpatient (OUT) | payer BC, SELFPAY ==
[2025-02-16 11:17] LABS: Basophils Percent Auto 0.3 % (0.2-2.0); Eosinophils Absolute Auto 0.3 10^3/uL (0.0-0.7); Eosinophils Percent Auto 3.4 % (0.9-7.0); Hematocrit 42.9 % (36.0-48.0); Hemoglobin 13.7 g/dL (12.0-16.0); Immature Granulocytes Abs Auto 0.02 10^3/uL (0.00-0.03); Immature Granulocytes Pct Auto 0.2 % (0.0-0.5); Lymphocytes Absolute Auto 2.1 10^3/uL (1.2-3.8); Lymphocytes Percent Auto 24.2 % (20.5-60.0); Mean Corpuscular HGB Conc 31.9 g/dL (29.9-35.2); Mean Corpuscular Hemoglobin 29.8 pg (26.7-34.0); Mean Corpuscular Volume 93.5 fL (81.0-99.0); Mean Platelet Volume 11.1 fL (9.5-13.5); Monocytes Absolute Auto 0.6 10^3/uL (0.3-0.8); Monocytes Percent Auto 6.8 % (1.7-12.0); Neutrophils Absolute Auto 5.7 10^3/uL (1.4-6.5); Neutrophils Percent Auto 65.1 % (43.0-75.0); Platelet Count 179 10^3/uL (150-450); Red Blood Count 4.59 10^6/uL (4.20-5.40); Red Cell Distribution Width 14.6 % (11.0-15.0); White Blood Count 8.8 10^3/uL (4.0-11.0)
[2025-02-16 11:28] LABS: Alanine Aminotransferase 25 U/L (14-59); Albumin Level 3.5 g/dL (3.4-5.0); Alkaline Phosphatase 97 U/L (46-116); Anion Gap 9.6; Aspartate Amino Transferase 14 U/L (15-37); BUN Creatinine Ratio 25.4; Bilirubin Direct 0.1 mg/dL (0.0-0.2); Bilirubin Total 0.4 mg/dL (0.2-1.0); Calcium 9.4 mg/dL (8.5-10.1); Carbon Dioxide 30.7 mmol/L (21.0-32.0); Chloride 100 mmol/L (98-107); Chol HDL Ratio 3.4; Cholesterol 178 mg/dL (<=200); Estimated GFR (African America >60 (>=60 mL/min/1.73m^2); Estimated GFR (Non-African Ame >60 (>=60 mL/min/1.73m^2); Globulin 3.5 g/dL; Glucose 125 mg/dL (74-106); HDL Cholesterol 53 mg/dL (40-60); Potassium 4.3 mmol/L (3.5-5.1); Sodium 136 mmol/L (136-145); Thyroid Stimulating Hormone 2.288 uIU/mL (0.358-3.740); Triglycerides 188 mg/dL (<=150); VLDL CHOLESTEROL 37.6 mg/dL
[2025-02-16 11:44] LABS: Estimated Average Glucose 169 mg/dL; Glycohemoglobin A1C 7.5 % (4.5-6.2)
== END 2025-02-16 10:21 | disposition home or self-care (01) ==
LOC: LAB 10:21
PROVIDERS: PCP Family Medicine; Visit Provider Family Medicine
DX: Z00.00 Encounter for general adult medical examination without abnormal findings (principal)
CPT/HCPCS: 36415; 80048; 80061; 80076; 83036; 84443; 85025

== ENCOUNTER 2025-03-14 20:12 | Outpatient (REF) | payer BC, SELFPAY ==
--- OUTSIDE RECORDS SUMMARY | 2025-03-14 20:18 | XMS_ITS | CCD ---
Author Organization [facility] Care Team Providers Care Documentation Writer Name Role Phone Rivka Romero Unavailable ROXANA, [...] Admitting Unavailable TAMLYN ., SUNG Attending Unavailable NADERER, DR MYNOR Cortés Primary Care Unavailable TAMLYN ., SUNG Consulting Unavailable URIAH HERRING Consulting Unavailable LG LOYA Consulting Unavailable SG ., DR JONES Admitting Unavailable SG ., DR JONES Attending Unavailable NADERER, DR MYNOR Cortés Primary Care Unavailable SG ., DR JONES Consulting Unavailable GRILLIS, DELANO E Admitting Unavailable GRILLIS, DELANO E Attending Unavailable NADERER, MYNOR Primary Care Unavailable GRILLIS, DELANO E Attending Unavailable GRILLIS, DELANO E Referring Unavailable NADERER, MYNOR Primary Care Unavailable QUIN DONIS Attending Unavailable NADERER, MYNOR Primary Care Unavailable GRILLIS, DELANO E Referring Unavailable NADERER, MYNOR Primary Care Unavailable TAMRA SAUL Attending Unavailable GRILLIS, DELANO E Referring Unavailable NADERER, MYNOR Primary Care Unavailable GRILLIS, DELANO E Referring Unavailable NADERER, MYNOR Primary Care Unavailable GRILLIS, DELANO E Admitting Unavailable DELANO MCKINNEY Attending Unavailable ROXANA, MYNOR Primary Care Unavailable TAMRA SAUL Attending Unavailable ROXANA, MYNOR Primary Care Unavailable TONIE SMALL Attending Unavailable MYNOR SCHMIDT Referring Unavailable MYNOR SCHMIDT Primary Care Unavailable DELANO MCKINNEY Attending Unavailable ROXANA, MYNOR Referring Unavailable MYNOR SCHMIDT Primary Care Unavailable TONIE SMALL Attending Unavailable ROXANA, MYNOR Referring Unavailable ROXANA, MYNOR Primary Care Unavailable TONIE SMALL Attending Unavailable ROXANA, MYNOR Referring Unavailable MYNOR SCHMIDT Primary Care Unavailable TONIE SMALL Attending Unavailable ROXANA, MYNOR Referring Unavailable ROXANA, MYNOR Primary Care Unavailable Mynor Schmidt MD Primary Care Provider Mynor Schmidt MD Unavailable Mynor Schmidt MD Primary Care Provider MYNOR SCHMIDT Attending Unavailable MYNOR SCHMIDT Attending Unavailable ROXANA, MYNOR Attending Unavailable ROXANA, MYNOR Attending Unavailable Medications Current Medications Medication Drug Class(es) Dates Sig (Normalized) Sig (Original) [id number] 200 actuat albuterol 0.09 mg/actuat metered dose inhaler (7 sources) beta2-Adrenergic Agonist Start: 11-16-2024 take 2 puff(s) by inhalation every four hours for wheezing albuterol HFA 90 mcg/act inhaler Indications: Pneumonia due to infectious organism, unspecified laterality, unspecified part of lung Inhale 2 puffs every 4 (four) hours if needed for shortness of breath or wheezing 18 g 2 11/16/2024 Active ascorbic acid 250 mg chewable tablet (20 sources) Vitamin C ascorbic acid (Vitamin C) 250 MG chewable tablet Chew 1 tablet in the morning. Active Vitamin C Active atorvastatin 40 mg oral tablet (19 sources) HMG-CoA Reductase Inhibitor Start: 09-17-2023 End: 02-17-2025 atorvastatin (Lipitor) 40 MG tablet Indications: High cholesterol (CMS/HCC) TAKE 1 TABLET DAILY 90 tablet 3 01/25/2025 Active carvedilol 12.5 mg oral tablet (20 sources) alpha-Adrenergic Porsha, beta-Adrenergic Porsha Start: 11-09-2024 take 1 tablet by mouth in the morning carvedilol (Coreg) 12.5 MG tablet Take 12.5 mg by mouth in the morning and 12.5 mg in the evening. Take with meals. 11/09/2024 Active Start: 08-18-2024 carvedilol (Co reg) 25 MG tablet Indications: Essential hypertension (CMS/HCC) [...] 2024 Active citalopram 10 mg oral tablet (20 sources) Serotonin Reuptake Inhibitor Start: 07-31-2024 citalopram [...] / eicosapentaenoic acid 180 mg oral capsule (13 sources) take 1 capsule by mouth in the morning omega-3 1000 MG capsule capsule Take 1 capsule by mouth in the morning. Active docusate sodium 100 mg oral capsule (18 sources) End: take 1 capsule by mouth in the morning Docusate Sodium (DSS) 100 MG capsule Take 100 mg by mouth in the morning and 100 mg in the evening. 02/16/2025 Discontinued empagliflozin 25 mg oral tablet (15 sources) Sodium-Glucose Cotransporter 2 Inhibitor Start: End: take 1 tablet by mouth once daily empagliflozin (Jardiance) 25 MG Indications: Chronic heart failure with preserved ejection fraction (HFpEF) ([facility]) Take 1 tablet (25 mg) by mouth Daily 90 tablet 3 06/30/2024 02/16/2025 Discontinued take 1 tablet by mouth in the mo rning empagliflozin (JARDIANCE) 25 mg tablet tablet Take 1 tablet (25 mg total) by mouth in the morning. Active fluconazole 150 mg oral tablet (12 sources) Azole Antifungal Start: 12-12-2024 fluconazole ( Diflucan) 150 MG tablet Indications: Vaginal usama TAKE 1 TIME DOSE, MAY REPEAT IN 72 HOURS NEEDED 2 tablet 59 12/12/2024 Active Start: 09-01-2024 fluconazole (D iflucan) 150 MG tablet Indications: Vaginal usama Take 1 time dose, may repeat in 72 hours PRN 2 tablet 09/01/2024 Active furosemide 40 mg oral tablet (20 sources) Loop Diuretic Start: 02-16-2025 take 1 tablet by mouth once daily as needed furosemide (Lasix) 40 MG tablet Indications: Localized edema Take 1 tablet (40 mg) by mouth Daily as needed (take [facility] tablet by [facility]) 90 tablet 3 02/16/2025 Active Start: 02-16-2025 take 1 tablet by david th once daily as needed furosemide (Lasix) 40 MG tablet Indications: Localized edema Take 1 tablet (40 mg) by mouth Daily as needed (take 1 tablet by [facility] needed) 90 tablet 3 02/16/2025 Active Start: 02-16-2025 take 1 tablet by david th once daily as needed furosemide (Lasix) 40 MG tablet Indications: Localized edema Take 1 tablet (40 mg) by mouth Daily as needed (take 1 tablet by [facility] as needed) 90 tablet 3 02/16/2025 Active Start: 08-16-2024 End: 02-16-2025 take 1 tablet by mouth once daily as needed furosemide (Lasix) 40 MG tablet Indications: Localized edema Take 1 tablet (40 mg) by mouth Daily as needed (take 1 tablet by [facility] needed) 30 tablet 5 08/16/2024 02/16/2025 Discontinued (Reorder) Start: 09-17-2023 take 1 tablet by david th once daily furosemide (LASIX) 40 mg tablet Take 1 tablet (40 mg total) by mouth daily. 09/17/2023 Active isopropyl alcohol 0.7 ml/ml medicated pad (13 sources) Start: 06-30-2024 Alcohol Swabs (Alcohol Prep) 70 % pads Indications: Type 2 diabetes mellitus with hyperglycemia, without long-term current use of insulin (CMS/HCC) APPLY 1 PAD DAILY 100 each 3 06/30/2024 Active lisinopril 10 mg oral tablet (20 sources) Angiotensin Converting Enzyme Inhibitor Start: 03-13-2021 lisinopril 10 MG tablet Indications: Essential hypertension (CMS/HCC) TAKE 1 TABLET DAILY 90 tablet 3 03/03/2024 Active Multiple Vitamins-Minerals (MULTIVITAMIN ADULT, MINERALS, PO) (13 sources) Multiple Vitamins-Minerals (MULTIVITAMIN ADULT, MINERALS, PO) Multivitamin Active MULTIVITAMIN ORAL (6 sources) take 1 tablet by mouth in [...] hours 30 g 10/13/2023 09/01/2024 Discontinued omega 6-vdd-nis-fish oil 300-1,000 mg capsule (6 sources) take 300-1000 mg by mouth once daily omega 6-hrv-clf-fish oil 300-1,000 mg capsule Take 1 capsule by mouth daily. Active take 300-1000 mg by mouth once d aily omega 5-otd-oot-fish oil 300-1,000 mg capsule Take 1 capsule by mouth daily. 0 Active pioglitazone 30 mg oral tablet (20 sources) Peroxisome Proliferator Receptor alpha Agonist, Peroxisome [...] in the morning. 01/25/2021 Active Actos Active predniSONE 10 mg oral tablet (3 sources) Start: 11-09-2024 End: 11-21-2024 predniSONE (Deltasone) 10 MG tablet Take 10 mg by mouth See administration instructions 11/09/2024 11/21/2024 Active 0.25 mg, 0.5 mg dose 1.5 ml semaglutide 1.34 mg/ml pen injector (5 sources) Start: 02-16-2025 semaglutide (O zempic, 0.25 or 0.5 MG/DOSE,) 2 MG/1.5ML solution pen-injector Indications: Type 2 diabetes mellitus with hyperglycemia, without long-term current use of insulin (CMS/HCC) 0.25 mg SC weekly x 4 weeks, then 0.5 mg weekly 3 each 02/16/2025 Active Start: 02-16-2025 End: 02-16-2025 semaglutide (Ozempic, 0.25 o r 0.5 MG/DOSE,) 2 MG/1.5ML solution pen-injector Indications: Type 2 diabetes mellitus with hyperglycemia, without long-term current use of insulin (CMS/HCC) 0.25 mg SC weekly x 4 weeks, then 0.5 mg weekly 1 each 1 02/16/2025 02/16/2025 Discontinued (Reorder) sod sulf-pot chloride-mag sulf 1.479-0.188- 0.225 gram tablet (1 source) Start: 12-31-2023 sod sulf-pot chloride-mag sulf 1.479-0.188- 0.225 gram tablet Indications: Rectal pain , Rectal bleeding Please see instructional sheet given by physicians office. 24 tablet 0 12/31/2023 Active vitamin b12 1 mg oral tablet (20 sources) Vitamin B12 take 1 tablet by mouth in the morning cyanocobalamin (Vitamin B-12) 1000 MCG tablet Take 1,000 mcg by mouth in the morning. Active Vitamin B 12 Act gabe white petrolatum (bulk)-dilTIAZem HCL (bulk) (5 sources) Start: 12-31-2023 take 30 g rectal route twice daily white petrolatum (bulk)-dilTIAZem HCL (bulk) Indications: Rectal pain Diltiazem 2% Apply rectally 2 times daily 30 g 1 12/31/2023 Active Completed/Discontinued Medications Medication Drug Class(es) Dates Sig (Normalized) Sig (Original) acetaminophen 325 mg / oxyCODONE hydrochloride 5 mg oral tablet (1 source) Opioid Agonist Start: 02-01-2024 End: 02-14-2024 oxyCODONE-acetamin ophen (PERCOCET) 5-325 mg per tablet Indications: Chronic anal fissure Take 1 tablet by mouth every 6 (six) hours as needed for pain for up to 8 doses. Max Daily Amount: 4 tablets 6 tablet 02/01/2024 02/14/2024 Discontinued (Therapy completed) levoFLOXacin 750 mg oral tablet (3 sources) Quinolone Antimicrobial Start: 11-09-2024 End: 11-16-2024 take 1 tablet by mouth once daily levoFLOXacin (Levaquin) 750 MG tablet Take 1 tablet by mouth Daily 11/09/2024 11/16/2024 Discontinued SITagliptin 25 mg oral tablet (5 sources) Dipeptidyl Peptidase 4 Inhibitor Start: 01-25-2021 End: 01-21-2024 take 1 tablet by mouth in the morning SITagliptin phosphate (JANUVIA) 25 mg tablet Take 1 tablet (25 mg total) by mouth in the morning. 01/25/2021 01/21/2024 Discontinued Januvia Active Problems Active Problems Problem Classification Problem Date Documented Da te Episodic/Chronic Congestive heart failure; nonhypertensive (19 sources) Chronic heart failure co-occurrent with normal ejection fraction; Translations: [Chronic diastolic (congestive) heart failure] Onset: 4 03-03-2024 Chronic Contraceptive and procreative management (1 source) Tubal ligation status; Translations: [TUBAL LIGATION STATUS] Onset: 3 Episodic Diabetes mellitus with complications (20 sources) Type 2 diabetes mellitus with hyperglycemia; Translations: [Hyperglycemia due to type 2 diabetes mellitus] Onset: 2 Chronic Diabetes mellitus without complication (3 sources) Type 2 diabetes mellitus without complications; Translations: [Type 2 diabetes mellitus without complication] Onset: 3 01-19-2024 Chronic Disorders of lipid metabolism (20 sources) Dyslipidemia; Translations: [Hyperlipidemia, unspecified] Onset: 3 Resolved: 4 03-03-2024 Chronic Essential hypertension (20 sources) Essential (primary) hypertension; Translations: [Essential hypertension] Onset: 3 10-05-2023 Chronic Gastrointestinal hemorrhage (6 sources) Hemorrhage of anus and rectum; Translations: [Rectal hemorrhage] Onset: 3 Episodic Gastrointestinal hemorrhage (1 source) Gastrointestinal hemorrhage Onset: 4 Joint disorders and dislocations; trauma-related (14 sources) Unspecified internal derangement of right knee; Translations: [Derangement of right knee] Onset: 2 10-05-2023 Chronic Mood disorders (15 sources) Recurrent major depressive episodes, mild ; Translations: [Major depressive disorder, recurrent, mild] Onset: 4 03-03-2024 Chronic Osteoarthritis (20 sources) Osteoarthritis of right knee joint; Translations: [Unilateral primary osteoarthritis, right knee] Onset: 3 Resolved: 4 03-03-2024 Chronic Other aftercare (1 source) Other intermodal customer service (current) drug therapy; Translations: [[employer] CURRENT DRUG THERAPY] Onset: 3 Episodic Other and unspecified benign neoplasm (2 sources) Polyp of colon; Translations: [Polyp of colon] Onset: 4 Episodic Other nutritional; endocrine; and metabolic disorders (1 source) Morbid obesity; Translations: [Morbid (severe) obesity due to excess calories] Onset: 3 10-05-2023 Chronic Other nutritional; endocrine; and metabolic disorders (18 sources) Severe obesity; Translations: [Class 3 severe obesity due to excess calories with serious comorbidity and body mass index (BMI) of 45.0 to 49.9 in adult ([facility])] Onset: 3 09-01-2024 Chronic Other nutritional; endocrine; and metabolic disorders (1 source) Body mass index 40+ - severely obese; Translations: [Morbid (severe) obesity due to excess calories] 12-31-2023 Chronic Residual codes; unclassified (1 source) Acquired absence of both cervix and uterus; Translations: [ACQUIRED ABSENCE BOTH CERVIX AND UTERUS] Onset: 3 Episodic Residual codes; unclassified (2 sources) Localized edema; Translations: [Localized edema] 02-16-2025 Episodic Substance-related disorders (1 source) Nicotine dependence, cigarettes, uncomplicated; Translations: [NICOTINE DEPEND CIGARETTES UNCOMP] Onset: 3 Chronic Unclassified (1 source) POST-OP VISIT Onset: 4 Unclassified (1 source) Painful Bowel Movement Onset: 4 Past or Other Problems Problem Classification Problem Date Documented Date Episodic/Chronic Anal and rectal conditions (20 sources) Chronic anal fissure; Translations: [Other specified diseases of anus and rectum] Onset: 10-05-2023 Resolved: 03-03-2024 03-03-2024 Episodic Coagulation and hemorrhagic disorders (3 sources) Acquired thrombocytopenia; Translations: [Thrombocytopenia, unspecified] Onset: 02-16-2025 Resolved: 02-16-2025 02-16-2025 Chronic Immunizations and screening for infectious disease (1 source) Encounter for screening for human papillomavirus (HPV); Translations: [ENC SCREENING HUMAN PAPILLOMAVIRUS] Onset: 10-31-2022 Episodic Menstrual disorders (13 sources) Intermenstrual bleeding - irregular; Translations: [Excessive and frequent menstruation with irregular cycle] Onset: 10-05-2023 Resolved: 03-03-2024 03-03-2024 Chronic Mycoses (14 sources) Candidiasis of vagina; Translations: [Vaginal usama] Onset: 09-01-2024 09-01-2024 Episodic Other and unspecified benign neoplasm (1 source) [...] SCREENING MALIG NEOPLASM CERV] Onset: 10-26-2022 Episodic Otitis media and related conditions (14 sources) Acute non-suppurative otitis media of left ear; Translations: [Other acute nonsuppurative otitis media, left ear] Onset: 09-01-2024 Resolved: 11-16-2024 09-01-2024 Episodic Pneumonia (except that caused by tuberculosis or sexually transmitted disease) (9 sources) Pneumonia; Translations: [Pneumonia, unspecified organism] Onset: 11-16-2024 Resolved: 02-16-2025 11-16-2024 Episodic Results Test Name Value Interpretation Reference Range Facility ALL BASIC METABOLIC PANELon 02-16-2025 Anion gap [Moles/Vol] 9.6 mmol/L [facility] Calcium [Mass/Vol] 9.4 mg/dL 8.5 - 10. 1 mg/dL [facility] Chloride [Moles/Vol] 100 mmol/L 98 - 107 mmol/L [facility] CO2 [Moles/Vol] 30.7 mmol/L 21.0 - 32.0 mmol/L [facility] Creatinine [Mass/Vol] 0.71 mg/dL 0.55 - 1.02 mg/dL [facility] GFR/1.73 sq M.predicted CKD-EPI (S/P/Bld) [Vol rate/Area] >60 >=60 mL/min/1.73m 2 [facility] Glucose [Mass/Vol] 125 mg/dL High 74 - 106 mg/dL [facility] Potassium [Moles/Vol] 4.3 mmol/L 3.5 - 5.1 mmol/L [facility] Sodium [Moles/Vol] 136 mmol/L 136 - 145 mmol/L [facility] TBH EGFR-NON AF THAI >60 >=60 mL/min/1.73m 2 [facility] Urea nitrogen [Mass/Vol] 18 mg/dL 7.0 - 18.0 mg/dL [facility] Urea nitrogen/Creatinine [Mass ratio] 25.4 mg/mg [facility] ALL LIPID PROFILE (FASTING)o n 02-16-2025 CHOL HDL RATIO 3.4 [facility] hcare Comment on above: 3.3 - 4.4 LOW RISK 4.4 - 7.1 AVERAGE RISK 7.1 - 11.0 MODERATE RISK >11.0 HIGH RISK Cholesterol [Mass/Vol] 178 mg/dL NINF - 200 mg/dL [facility] Cholesterol in HDL [Mass/Vol] 53 mg/dL 40 - 60 mg/dL [facility] Comment on above: > or =60 mg/dl - LOW CARDIOVASCULAR RISK <40 mg/dl - HIGH CARDIOVASCULAR RISK Magnesium [Mass/Vol] 88 mg/dL [facility] Comment on above: <100 mg/dl OPTIMAL 100-129 mg/dl NEAR OR ABOVE OPTIMAL 130-159 mg/dl BORDERLINE HIGH 160-189 mg/dl HIGH >190 mg/dl VERY HIGH Magnesium [Mass/Vol] 37.6 mg/dL [facility] Triglyceride [Mass/Vol] 188 mg/dL High NINF - 150 mg/dL [facility] THYROID STIM HORMONEon 0 02-16-2025 TSH Qn 2.288 m[IU]/L [facility] LIVER PANELon Albumin [Mass/Vol] 3.5 g/dL 3.4 - 5.0 g/dL [facility] ALBUMIN GLOBULIN RATIO 1 [facility] ALP [Catalytic activity/Vol] 97 U/L 46 - 116 U/L [facility] ALT [Catalytic activity/Vol] 25 U/L 14 - 59 U/L [facility] AST [Catalytic activity/Vol] 14 U/L Low 15 - 37 U/L [facility] Bilirubin [Mass/Vol] 0.4 mg/dL 0.2 - 1.0 mg/dL [facility] Bilirubin.indirect [Mass/Vol] 0.1 mg/dL 0.0 - 0.2 mg/dL [facility] Globulin (S) [Mass/Vol] 3.5 g/dL [facility] Protein [Mass/Vol] 7 g/dL 6.4 - 8.2 g/dL [facility] No Panel Informationon 02-16 Interpretation and review of laboratory results Abnormal [facility] MM TOMOSYNTHESIS SCREENING B Ion 02-14-2025 [place] [address] Mammography Report Signed Patient: KARO DARDEN MR#: [id number] : 1970 Acct:[id number] Age/Sex: 54 / F ADM Date: 02/14/25 Loc: MAMMO Attending Dr: Damon Bettencourt D.O. Ordering Physician: Damon Bettencourt D.O. Results: Date of Service: 02/14/25 Follow Up: Procedure(s): MM tomosynthesis screening BI Accession Number(s): [id number] cc: Damon Bettencourt D.O.; Mynor Schmidt M.D. Patient Name: KARO DARDEN MR#: [id number] : 1970 Exam Date: 02/14/2025 Ordering Doctor: DR DAMON BETTENCOURT . RADIOLOGY REPORT PROCEDURE: MM TOMOSYNTHESIS SCREENING BI COMPARISON: MM TOMOSYNTHESIS SCREENING BI, 12/31/2023. MG MAMM SCREEN 3D YANA CAD, 07/15/2021. MG MAMM SCREEN YANA W CAD, 06/07/2020. MAMMO YANA SCREEN, 01/14/2009. INDICATIONS: Screening for malignant neoplasm Calculator Name NCI Breast Cancer Risk Assessment Tool 5 Year Breast Cancer Risk 1.30% Lifetime Breast Cancer Risk 9.30% Personal Breast Cancer No Personal Ovarian Cancer No Treatments None Family Cancers None LOCATION: [facility] BREAST COMPOSITION: There are scattered areas of fibroglandular density. FINDINGS: DIAGNOSTIC CATEGORY 0--INCOMPLETE: NEED ADDITIONAL IMAGING EVALUATION. RIGHT BREAST: No significant suspicious finding. LEFT BREAST: Focal asymmetry upper outer quadrant left breast middle depth. RECOMMENDATIONS: ADDITIONAL MAMMOGRAPHIC VIEWS REQUIRED: LEFT BREAST - spot-compression/monserrat e lateral view , possible ultrasound recommended. PLEASE NOTE: A NORMAL MAMMOGRAM DOES NOT EXCLUDE THE POSSIBILITY OF BREAST CANCER. A CLINICALLY SUSPICIOUS PALPABLE LUMP SHOULD BE BIOPSIED. Dictated by: Arben Pedroza DO on 02/14/2025 at 15:59 Approved by: Arben Pedroza DO on 02/14/2025 at 16:02 Dictated By: Arben Pedroza M.D. Signed By: 02/14/25 1603 DD/ 1602 TD/TT: Nursing Director: [facility] Radiology, Radiologist, MD - 02/14/2025 [place] [address] Mammography Report Signed Patient: KARO DARDEN MR#: [id number] : 1970 Acct:[id number] Age/Sex: 54 / F ADM Date: 02/14/25 Loc: MAMMO Attending Dr: Damon Bettencourt D.O. Ordering Physician: Damon Bettencourt D.O. Results: Date of Service: 02/14/25 Follow Up: Procedure(s): MM tomosynthesis screening BI Accession Number(s): [id number] cc: Damon Bettencourt D.O.; Mynor Schmidt M.D. Patient Name: KARO DARDEN MR#: [id number] : 1970 Exam Date: 02/14/2025 Ordering Doctor: DR DAMON BETTENCOURT . RADIOLOGY REPORT PROCEDURE: MM TOMOSYNTHESIS SCREENING BI COMPARISON: MM TOMOSYNTHESIS SCREENING BI, 12/31/2023. MG MAMM SCREEN 3D YANA CAD, 07/15/2021. MG MAMM SCREEN YANA W CAD, 06/07/2020. MAMMO YANA SCREEN, 01/14/2009. INDICATIONS: Screening for malignant neoplasm Calculator Name NCI Breast Cancer Risk Assessment Tool 5 Year Breast Cancer Risk 1.30% Lifetime Breast Cancer Risk 9.30% Personal Breast Cancer No Personal Ovarian Cancer No Treatments None Family Cancers None LOCATION: [facility] BREAST COMPOSITION: There are scattered areas of fibroglandular density. FINDINGS: DIAGNOSTIC CATEGORY 0--INCOMPLETE: NEED ADDITIONAL IMAGING EVALUATION. RIGHT BREAST: No significant suspicious finding. LEFT BREAST: Focal asymmetry upper outer quadrant left breast middle depth. RECOMMENDATIONS: ADDITIONAL MAMMOGRAPHIC VIEWS REQUIRED: LEFT BREAST - spot-compression/monserrat e lateral view , possible ultrasound recommended. PLEASE NOTE: A NORMAL MAMMOGRAM DOES NOT EXCLUDE THE POSSIBILITY OF BREAST CANCER. A CLINICALLY SUSPICIOUS PALPABLE LUMP SHOULD BE BIOPSIED. Dictated by: Arben Pedroza DO on 02/14/2025 at 15:59 Approved by: Arben Pedroza DO on 02/14/2025 at 16:02 Dictated By: Arben Pedroza M.D. Signed By: 02/14/25 1603 DD/ 160 TD/TT: Nursing Director: [facility] Scaled Inference Radiology Study observation (narrative) [facility] Scaled Inference MM TOMOSYNTHESIS SCREENING B IOrdered By: Radiologist Radiology on 02-14-2025 [facility] Work Phone: GRAM STAIN EVALUATIONon 10-12 [facility] ABSMaterials e MLR HEMOGLOBIN A1Con 024 Glucose [Mass/Vol] 151 mg/dL [facility] HbA1c (Bld) [Mass fraction] 6.9 % High 4.5 - 6.2 % [facility] Comment on above: ADA RECOMMENDED LIMI T 4.0 - 6.0 ADA THERAPEUTIC TARGET < 7.0 ACTION SUGGESTED > 7.0 Interpretation and review of laboratory results Abnormal [facility] [employer] re [facility] ABSMaterials e CBC without diffon Erythrocyte distribution width (RBC) [Ratio] 14.9 % 11.5 - 15.0 % [facility] Hematocrit (Bld) [Volume fraction] 40.8 % 35 - 47 % [facility] Hemoglobin (Bld) [Mass/Vol] 13.8 g/dL 11.7 - 15.5 g/dL [facility] MCH (RBC) [Entitic mass] 30.5 pg 27 - 34 pg [facility] MCHC (RBC) [Mass/Vol] 33.8 g/dL 32 - 36 g/dL [facility] MCV (RBC) [Entitic vol] 90 fL 80 - 100 fL [facility] Platelet mean volume (Bld) [Entitic vol] 9.4 fL 7 - 12 fL [facility] Platelets (Bld) [#/Vol] 158 10*3/uL [facility] RBC (Bld) [#/Vol] 4.52 10*6/uL [facility] WBC corrected for nucl RBC Auto (Bld) [#/Vol] 8.1 [facility] COMPLETE BLOOD COUNTon 01-20 Erythrocyte distribution width (RBC) [Ratio] 14.9 % Normal 11.5-15.0 [facility] Comment on above: Performed By: #### C BC, CMP #### [facility] ([id number]) [address], [address] [place] [address] Hematocrit (Bld) [Volume fraction] 40.8 % Normal 35-47 [facility] Comment on above: Performed By: #### Kieran BRAR, CMP #### [facility] ([id number]) [address], [address] [place] [address] Hemoglobin (Bld) [Mass/Vol] 13.8 g/dL Normal 11.7-15.5 [facility] Comment on above: Performed By: #### Kieran BC, CMP #### [facility] ([id number]) [address], [address] [place] [address] MCH (RBC) [Entitic mass] 30.5 pg Normal 27-34 [facility] Comment on above: Performed By: #### C BC, CMP #### [facility] ([id number]) [address], [address] [place] [address] MCHC (RBC) [Mass/Vol] 33.8 g/dL Normal 32-36 [facility] Comment on above: Performed By: #### C BC, CMP #### [facility] ([id number]) [address], [address] [place] [address] MCV (RBC) [Entitic vol] 90 fL Normal 80-100 [facility] Comment on above: Performed By: #### C BC, CMP #### [facility] ([id number]) [address], [address] [place] [address] Platelet mean volume (Bld) [Entitic vol] 9.4 fL Normal 7-12 [facility] Comment on above: Performed By: #### C ZONIA, CMP #### [facility] ([id number]) [address], [address] [place] [address] Platelets (Bld) [#/Vol] 158 10*3/uL Normal 150-450 [facility] Comment on above: Performed By: #### C ZONIA, CMP #### [facility] ([id number]) [address] [place] [address] RBC COUNT 4.52 X10E12/L Normal 3.80-5.20 [facility] Comment on above: Performed By: #### C ZONIA, CMP #### [facility] ([id number]) [address] [place] [address] WBC (Bld) [#/Vol] 8.1 10*3/uL Normal 4.0-11.0 [facility] Comment on above: Performed By: #### Kieran BRAR, CMP #### [facility] ([id number]) [address] [place] [address] COMPREHENSIVE METABOLIC PANE Vinicius 01-21-2024 Albumin [Mass/Vol] 4.0 g/dL Normal 3.2-5.3 [facility] Comment on above: Performed By: #### C ZONIA, CMP #### [facility] ([id number]) [address], [address] [place] [address] ALP [Catalytic activity/Vol] 80 U/L Normal 39-130 [facility] Comment on above: Performed By: #### C BC, CMP #### [facility] ([id number]) [address], [address] [place] [address] ALT [Catalytic activity/Vol] 15 U/L Normal 0-31 [facility] Comment on above: Performed By: #### C BC, CMP #### [facility] ([id number]) [address] [place] [address] Anion gap [Moles/Vol] 11 mmol/L Normal 5-15 [facility] Comment on above: Performed By: #### C BC, CMP #### [facility] ([id number]) [address] [place] [address] AST [Catalytic activity/Vol] 14 U/L Normal 0-41 [facility] Comment on above: Performed By: #### C BC, CMP #### [facility] ([id number]) [address] [place] [address] Bilirubin [Mass/Vol] 0.5 mg/dL Normal 0.3-1.2 [facility] Comment on above: Performed By: #### C ZONIA, CMP #### [facility] ([id number]) [address] [place] [address] Calcium [Mass/Vol] 9.5 mg/dL Normal 8.5-10.5 [facility] Comment on above: Performed By: #### C ZONIA, CMP #### [facility] ([id number]) [address] [place] [address] Chloride [Moles/Vol] 99 mmol/L Normal 98-109 [facility] Comment on above: Performed By: #### C ZONIA, CMP #### [facility] ([id number]) [address] [place] [address] CO2 [Moles/Vol] 29 mmol/L Normal 22-32 [facility] Comment on above: Performed By: #### C BC, CMP #### [facility] ([id number]) [address] [place] [address] Creatinine [Mass/Vol] 0.80 mg/dL Normal 0.40-1.00 [facility] Comment on above: Result Comment: METH OD TRACEABLE TO IDMS STANDARD Performed By: #### C BC, CMP #### [facility] ([id number]) [address] [place] [address] GFR/1.73 sq M.predicted among non-blacks MDRD (S/P/Bld) [Vol rate/Area] 88 mL/min/{1.73_m2} Normal >[address] [facility] Comment on above: Result Comment: Reported eGFR is based on the CKD-EPI 2020 equation that does not use a race coefficient. Performed By: #### C BC, CMP #### [facility] ([id number]) [address] [place] [address] Glucose [Mass/Vol] 173 mg/dL High 65-99 [facility] Comment on above: Performed By: #### C ZONIA, CMP #### [facility] ([id number]) [address] [place] [address] Potassium [Moles/Vol] 3.7 mmol/L Normal 3.5-5.0 [facility] Comment on above: Performed By: #### C BC, CMP #### [facility] ([id number]) [address] [place] [address] Protein [Mass/Vol] 7.0 g/dL Normal 6.0-8.0 [facility] Comment on above: Performed By: #### C BC, CMP #### [facility] ([id number]) [address] [place] [address] Sodium [Moles/Vol] 139 mmol/L Normal 134-146 [facility] Comment on above: Performed By: #### C BC, CMP #### [facility] ([id number]) [address] [place] [address] Urea nitrogen [Mass/Vol] 17 mg/dL Normal 5-23 [facility] Comment on above: Performed By: #### C BC, CMP #### [facility] ([id number]) [address] [facility] [place] [address] Comprehensive metabolic pane vinicius 01-21-2024 Albumin [Mass/Vol] 4.0 g/dL 3.2 - 5.3 g/dL [facility] ALP [Catalytic activity/Vol] 80 U/L 39 - 130 U/L [facility] ALT No additional P-5'-P [Catalytic activity/Vol] 15 U/L 0 - 31 U/L [facility] Anion gap [Moles/Vol] 11 mmol/L 5 - 15 mmol/L [facility] AST [Catalytic activity/Vol] 14 U/L 0 - 41 U/L [facility] Bilirubin [Mass/Vol] 0.5 mg/dL 0.3 - 1.2 mg/dL [facility] Calcium [Mass/Vol] 9.5 mg/dL 8.5 - 10. 5 mg/dL [facility] Chloride [Moles/Vol] 99 mmol/L 98 - 109 mmol/L [facility] CO2 [Moles/Vol] 29 mmol/L 22 - 32 mmol/L [facility] Creatinine [Mass/Vol] 0.80 mg/dL 0.40 - 1.00 mg/dL [facility] Comment on above: METHOD TRACEABLE TO IDPA STANDARD eGFR (CKD-EPI)non-race dependent 88 - PINF [facility] Comment on above: Reported eGFR is based on the CKD-EPI 2020 equation that does not use a race coefficient. Glucose [Mass/Vol] 173 mg/dL High 65 - 99 mg/dL [facility] Interpretation and review of laboratory results Abnormal [facility] Potassium [Moles/Vol] 3.7 mmol/L 3.5 - 5.0 mmol/L [facility] Protein [Mass/Vol] 7.0 g/dL 6.0 - 8.0 g/dL [facility] Sodium [Moles/Vol] 139 mmol/L 134 - 146 mmol/L [facility] Urea nitrogen [Mass/Vol] 17 mg/dL 5 - 23 mg/dL [facility] ECG 12 leadon 01-21-2024 TRACEMASTERVUE [facility] ECHOCARDIO M/2D COMPLETEon 0 02-19-2023 ECHOCARDIO M/2D COMPLETE Patient: KARO DARDEN Exam Date: 02/19/2023 : 1970 Gender:F Ordering : DR MYNOR SCHMIDT . Admission #: [id number] Family : Order #: [id number] CLICK HERE TO VIEW EXAM ECHOCARDIOGRAM REPORT [...] Left Atrium LA Volume Index (2D A2C): 67627 mm3 Left Atrium Systolic Dimension: 4.50 cm [...] M.D. on 02/19/2023 at 18:56 Normal [facility] CBC AUTO DIFFon 02-17-2023 BASO # 0.0 103/ul Normal 0.0-0.1 [facility] Comment on above: Performed By: #### C BC ####[facility] [address] [place] [address]Dr. Joseph Obando Basophils/100 WBC (Bld) 0.4 % Normal 0.2-2.0 [facility] Comment on above: Performed By: #### C BC ####[facility] [address] [place] [id number]. Joseph Obando EO # 0.3 103/ul Normal 0.0-0.7 [facility] Comment on above: Performed By: #### C BC ####[facility] [address] [place] [address]Dr. Joseph Obando Eosinophils/100 WBC (Bld) 2.9 % Normal 0.9-7.0 [facility] Comment on above: Performed By: #### C BC ####[facility] [address] [place] [address]Dr. Joseph Obando Erythrocyte distribution width (RBC) [Ratio] 15.4 % Critically high 11.0-15.0 [facility] Comment on above: Performed By: #### C BC ####[facility] [address] [place], [place] [address]Dr. Joseph Obando Hematocrit (Bld) [Volume fraction] 41.8 % Normal 36.0-48.0 [facility] Comment on above: Performed By: #### C BC ####[facility] [address] [place], [place] [address]Dr. Joseph Obando Hemoglobin (Bld) [Mass/Vol] 12.9 g/dL Normal 12.0-16.0 [facility] Comment on above: Performed By: #### C BC ####[facility] [address] [place], [place] [address]Dr. Joseph Obando IG # 0.04 10e3/ul Critically high 0.00-0.03 [facility] Comment on above: Performed By: #### C BC ####[facility] [address] [place], [place] [address]Dr. Joseph Obando IG % 0.4 % Normal 0.0-0.5 [facility] Comment on above: Performed By: #### C BC ####[facility] [address] [place], [place] [address]Dr. Joseph Obando LYMPH # 1.5 103/ul Normal 1.2-3.8 [facility] Comment on above: Performed By: #### C BC ####[facility] [address] [place], [place] [address]Dr. Joseph Obando Lymphocytes/100 WBC (Bld) 15.9 % Critically low 20.5-60.0 [facility] Comment on above: Performed By: #### C BC ####[facility] [address] [place] [address]Dr. Joseph Obando MANUAL DIFF REQ NO Normal [facility] Comment on above: Performed By: #### C BC ####[facility] [address] [place] [address]Dr. Joseph Obando MCH (RBC) [Entitic mass] 29.3 pg Normal 26.7-34.0 [facility] Comment on above: Performed By: #### C BC ####[facility] [address] [place] [address]Dr. Joseph Obando MCHC (RBC) [Mass/Vol] 30.9 g/dL Normal 29.9-35.2 [facility] Comment on above: Performed By: #### C BC ####[facility] [address] [place], [place] [address]Dr. Joseph Obando MCV (RBC) [Entitic vol] 94.8 fL Normal 81.0-99.0 [facility] Comment on above: Performed By: #### C BC ####[facility] [address] [place], [place] [address]Dr. Joseph Obando MONO # 0.6 103/ul Normal 0.3-0.8 [facility] Comment on above: Performed By: #### C BC ####[facility] [address] [place], [place] [address]Dr. Joseph Obando Monocytes/100 WBC (Bld) 6.5 % Normal 1.7-12.0 [facility] Comment on above: Performed By: #### C BC ####[facility] [address] [place], [place] [address]Dr. Joseph Obando NEUT # 6.8 103/ul Critically high 1.4-6.5 [facility] Comment on above: Performed By: #### C BC ####[facility] [address] [place], [place] [address]Dr. Joseph Obando Neutrophils/100 WBC (Bld) 73.9 % Normal 43.0-75.0 [facility] Comment on above: Performed By: #### C BC ####[facility] [address] [place] [address]Dr. Joseph Obando Platelet mean volume (Bld) [Entitic vol] 10.4 fL Normal 9.5-13.5 [facility] Comment on above: Performed By: #### C BC ####[facility] [address] [place] [address]Dr. Joseph Obando PLT 168 103/ul Normal 150-450 [facility] Comment on above: Performed By: #### C BC ####[facility] [address] [place] [address]Dr. Joseph Obando RBC 4.41 106/ul Normal 4.20-5.40 [facility] Comment on above: Performed By: #### C BC ####[facility] [address] [place] [address]Dr. Joseph Obando WBC 9.3 103/ul Normal 4.0-11.0 [facility] Comment on above: Performed By: #### C BC ####[facility] [address] [place] [address]Dr. Joseph Obando GLYCOHEMOGLOBIN A1Con 2022 ADA RECOMMENDATION SEE BELOW Normal [facility] Comment on above: Result Comment: ADA RECOMMENDED LIMIT 4.0 - 6.0 ADA THERAPEUTIC TARGET < 7.0 ACTION SUGGESTED > 7.0 Performed By: #### A 1C #### [facility] [address] [place] [address] [address] Joseph Obando Glucose [Mass/Vol] 146 mg/dL Normal [facility] Comment on above: Performed By: #### A 1C #### [facility] [address] [place] [address] [address] Joseph Obando HbA1c (Bld) [Mass fraction] 6.7 % Critically high 4.5-6.2 [facility] Comment on above: Performed By: #### A 1C #### [facility] [address] [place] [address] [address] Joseph Obando LIPID PROFILEon 02-17-2023 CHOL-HDL RATIO NORM SEE BELOW Normal [facility] Comment on above: Result Comment: 3.3 - 4.4 LOW RISK 4.4 - 7.1 AVERAGE RISK 7.1 - 11.0 MODERATE RISK >11.0 HIGH RISK Performed By: #### T SH, LIVER, LIPID, BMP #### [facility] [address] [place] [address] [address] Joseph Obando Cholesterol [Mass/Vol] 250 mg/dL Critically high <=200 [facility] Comment on above: Performed By: #### T SH, LIVER, LIPID, BMP #### [facility] [address] [place] [address] [address] Joseph Obando Cholesterol in HDL [Mass/Vol] 42 mg/dL Normal 40-60 [facility] Comment on above: Performed By: #### T SH, LIVER, LIPID, BMP #### [facility] [address] [place] [address] [address] Joseph Obando Cholesterol in LDL [Mass/Vol] 176.4 mg/dL Normal [facility] Comment on above: Performed By: #### T SH, LIVER, LIPID, BMP #### [facility] [address] [place] [address] [address] Joseph Obando Cholesterol.total/C holesterol in HDL [Mass ratio] 6.0 {ratio} Normal [facility] Comment on above: Performed By: #### T SH, LIVER, LIPID, BMP #### [facility] [address] [place] [address] [address] Joseph Obando HDL NORMAL > or = 60 mg/dl - LOW CARDIOVASCULAR RISK <40 mg/dl - HIGH CARDIOVASCULAR RISK Normal [facility] Comment on above: Performed By: #### T SH, LIVER, LIPID, BMP #### [facility] [address] [place] [address] [address] Joseph Obando LDL CALC NORMAL SEE BELOW Normal [facility] Comment on above: Result Comment: <100 mg/dl OPTIMAL 100 - 129 mg/dl NEAR OR ABOVE OPTIMAL 130 - 159 mg/dl BORDERLINE HIGH 160 - 189 mg/dl HIGH >190 mg/dl VERY HIGH Performed By: #### T SH, LIVER, LIPID, BMP #### [facility] [address] [place] [address] [address] Joseph Obando Triglyceride [Mass/Vol] 158 mg/dL Critically high <=150 [facility] Comment on above: Performed By: #### T SH, LIVER, LIPID, BMP #### [facility] [address] [place] [address] [address] Joseph Obando VLDL CALC 31.6 mg/dL Normal [facility] Comment on above: Performed By: #### T SH, LIVER, LIPID, BMP #### [facility] [address] [place] [address] [address] Joseph Obando LIVER PROFILEon 02-17-2023 Albumin [Mass/Vol] 3.0 g/dL Critically low 3.4-5.0 [facility] Comment on above: Performed By: #### T SH, LIVER, LIPID, BMP #### [facility] [address] [place] [address] Dr. Joseph Obando Albumin/Globulin [Mass ratio] 0.7 {ratio} Normal [facility] Comment on above: Performed By: #### T SH, LIVER, LIPID, BMP #### [facility] [address] [place] [address] [address] Joseph Obando ALP [Catalytic activity/Vol] 83 U/L Normal 46-116 [facility] Comment on above: Performed By: #### T SH, LIVER, LIPID, BMP #### [facility] [address] [place] [address] [address] Joseph Obando ALT [Catalytic activity/Vol] 24 U/L Normal 14-59 [facility] Comment on above: Performed By: #### T SH, LIVER, LIPID, BMP #### [facility] [address] [place] [address] [address] Joseph Obando AST [Catalytic activity/Vol] 14 U/L Critically low 15-37 [facility] Comment on above: Performed By: #### T SH, LIVER, LIPID, BMP #### [facility] [address] [place] [address] [address] Joseph Obando BILI, CONJUGATED 0.1 mg/dL Normal 0.0-0.2 [facility] [place] [facility] Comment on above: Performed By: #### T SH, LIVER, LIPID, BMP #### [facility] [address] [address] [address] Joseph Obando Bilirubin [Mass/Vol] 0.2 mg/dL Normal 0.2-1.0 [facility] Comment on above: Performed By: #### T SH, LIVER, LIPID, BMP #### [facility] [address] [place] [address] Dr. Joseph Obando Globulin (S) [Mass/Vol] 4.2 g/dL Normal [facility] Comment on above: Performed By: #### T SH, LIVER, LIPID, BMP #### [facility] [address] [place] [address] Dr. Joseph Obando Protein [Mass/Vol] 7.2 g/dL Normal 6.4-8.2 [facility] Comment on above: Performed By: #### T SH, LIVER, LIPID, BMP #### [facility] [address] [place] [address] Dr. Joseph Obando PROF CHEM 8 (BAS METB)on Anion gap [Moles/Vol] 10.3 mmol/L Normal [facility] Comment on above: Performed By: #### T SH, LIVER, LIPID, BMP #### [facility] [address] [place] [address] Dr. Joseph Obando Calcium [Mass/Vol] 9.1 mg/dL Normal 8.5-10.1 [facility] Comment on above: Performed By: #### T SH, LIVER, LIPID, BMP #### [facility] [address] [place] [address] Dr. Joseph Obando Chloride [Moles/Vol] 104 mmol/L Normal 98-107 [facility] Comment on above: Performed By: #### T SH, LIVER, LIPID, BMP #### [facility] [address] [place] [address] Dr. Joseph Obando CO2 [Moles/Vol] 30.2 mmol/L Normal 21.0-32.[address] [facility] Comment on above: Performed By: #### T SH, LIVER, LIPID, BMP #### [facility] [address] [place] [address] [address] Joseph Obando Creatinine [Mass/Vol] 0.69 mg/dL Normal 0.55-1.02 [facility] Comment on above: Performed By: #### T SH, LIVER, LIPID, BMP #### [facility] [address] [place] [address] [address] Joseph Obando EGFR-AF THAI >60 Normal >=60 [facility] [place] [facility] Comment on above: Performed By: #### T SH, LIVER, LIPID, BMP #### [facility] [address] [place] [address] [address] Joseph Obando EGFR-NON AF THAI >60 Normal >=60 [facility] Comment on above: Performed By: #### T SH, LIVER, LIPID, BMP #### [facility] [address] [place] [address] Dr. Joseph Obando Glucose [Mass/Vol] 158 mg/dL Critically high 74-106 [facility] Comment on above: Performed By: #### T SH, LIVER, LIPID, BMP #### [facility] [address] [place] [address] [address] Joseph Obando Potassium [Moles/Vol] 4.5 mmol/L Normal 3.5-5.1 [facility] Comment on above: Performed By: #### T SH, LIVER, LIPID, BMP #### [facility] [address] [place] [address] [address] Joseph Obando Sodium [Moles/Vol] 140 mmol/L Normal 136-145 [facility] Comment on above: Performed By: #### T SH, LIVER, LIPID, BMP #### [facility] [address] [place] [address] [address] Joseph Obando Urea nitrogen [Mass/Vol] 13.0 mg/dL Normal 7.0-18.0 [facility] Comment on above: Performed By: #### T SH, LIVER, LIPID, BMP #### [facility] [address] [place] [address] [address] Joseph Obando Urea nitrogen/Creatinine [Mass ratio] 18.8 mg/mg Normal [facility] Comment on above: Performed By: #### T SH, LIVER, LIPID, BMP #### [facility] [address] [place] [address] [address] Joseph Obando TSHon 02-17-2023 TSH 3.405 uIU/mL Normal 0.358-3.740 [facility] Comment on above: Performed By: #### T SH, LIVER, LIPID, BMP #### [facility] [address] [place] [address] [address] Joseph Obando POINT OF CARE GLUCOSEon 03-0 Glucose [Mass/Vol] 148 mg/dL Critically high 74-106 T [facility] Comment on above: Performed By: #### P OCGLUC #### [facility] [address] [place] [address] Dr. Joseph Obando PAP ACOG PANEL 2: 30 to 65on 10-30-2022 . . Normal [facility] Comment on above: Result Comment: Perf ormed at: WB Performed By: #### [id number] #### [facility] [address] [place] [address] Dr. Joseph Obando Age Gdln ACOG Testing - [facility] Comment on above: Performed By: #### [id number] #### [facility] [address] [place] [address] Dr. Joseph Obando DIAGNOSIS: Comment Normal [facility] Comment on above: Result Comment: NEGA TIVE FOR INTRAEPITHELIAL LESION OR MALIGNANCY. Performed at: WB Performed By: #### [id number] #### [facility] [address] [place] [address] Dr. Joseph Obando HPV Aptima Negative Normal Negative [facility] Comment on above: Result Comment: This nucleic acid amplification test detects fourteen high-risk HPV types (16,18,31,33,35,39,45,51,52,56,58,59,66,68) without differentiation. Performed at: =G Performed By: #### [id number] #### [facility] [address] [place] [address] Dr. Joseph Obando HPV Genotype Reflex Comment Normal [facility] Comment on above: Result Comment: Crit eria not met, HPV Genotype not performed. Performed at: WB Performed By: #### [id number] #### [facility] [address] [place] [address] Dr. Joseph Obando Methodology: Comment Normal [facility] Comment on above: Result Comment: This liquid based ThinPrep(R) pap test was screened with the use of an image guided system. Performed at: WB Performed By: #### [id number] #### [facility] [address] [place] [address] [address] Joseph Obando Note: Comment Normal [facility] Comment on above: Result Comment: The Pap smear is a screening test designed to aid in the detection of premalignant and malignant conditions of the uterine cervix. It is not a diagnostic procedure and should not be used as the sole means of detecting cervical cancer. Both false-positive and false-negative reports do occur. . Performed at: WB Performed By: #### [id number] #### [facility] [address] [place] [address] Dr. Joseph Obando Performed by: Comment Normal [facility] Comment on above: Result Comment: Makayla Lewis, Scooter Mechanic (ASCP) Performed at: WB Performed By: #### [id number] #### [facility] [address] [place] [address] Dr. Joseph Obando Specimen adequacy: Comment Normal [facility] Comment on above: Result Comment: Sati sfactory for evaluation. No endocervical component is identified. Performed at: WB Performed By: #### [id number] #### [facility] [address] [place] [address] Dr. Joseph Obando GLYCOHEMOGLOBIN A1Con 2021 ADA RECOMMENDATION SEE BELOW Normal [facility] Comment on above: Result Comment: ADA RECOMMENDED LIMIT 4.0 - 6.0 ADA THERAPEUTIC TARGET < 7.0 ACTION SUGGESTED > 7.0 Performed By: #### A 1C #### [facility] [address] [place] [address] Dr. Joseph Obando Glucose [Mass/Vol] 131 mg/dL Normal [facility] Comment on above: Performed By: #### A 1C #### [facility] [address] [place], [place] [address] Dr. Joseph Obando HbA1c (Bld) [Mass fraction] 6.2 % Normal 4.5-6.2 [facility] Comment on above: Performed By: #### A 1C #### [facility] [address] [place], [place] [address] Dr. Joseph Obando MRI Knee w/o Righton [...] by Uriah Kelly on 06/12/2022 1410 Normal [facility] XR Orbits for MRIon 06-12-20 22 XR Orbits for MRI HISTORY: Pre-MRI clearance, history of metal exposure FINDINGS: No metallic foreign body is identified. Visualized osseous structures are unremarkable. IMPRESSION: No metallic foreign body Report reported and signed by Arben Gonzalez on 06/12/2022 0938 Normal [facility] XR hand RT min 3V*on 021 XR hand RT min 3V* [facility] [place] [address] [place] [address] XRay Report Signed Patient: Karo Darden MR#: [id number] : 1970 Acct:[id number] Age/Sex: 50 / F ADM Date: 07/07/21 Loc: XDUCLY Room: Type: [facility] Attending Dr: Rivka AMADOR Ordering Provider: [...] Max Kasper M.D.07/07/2021 3:36 PM Dictation Location: [place] [address] Transcribed By: [facility] 07/07/21 1536 Dictated By: Max Kasper DO 07/07/21 1534 Signed By: 07/07/[address] [facility] XR hand RT min 3V* [facility] iList Other XR hand RT min 3V* [facility] iList Other XR hand RT min 3V* [address] [place] [address] iList Other XR hand RT min 3V* 91 [address] [employer] Other XR hand RT min 3V* XRay Report EVRST [facility] i[employer] Other XR hand RT min 3V* Signed [employer] Other XR hand RT min 3V* Patient: Karo Darden MR#: [id number] [employer] Other XR hand RT min 3V* 9838 EVRST [facility] [employer] Other XR hand RT min 3V* : 1970 Acct:[id number] [employer] Other XR hand RT min 3V* Age/Sex: 50 / F ADM Date: 07/07/21 [employer] Other XR hand RT min 3V* Loc: XDUCLY [facility] [employer] Other XR hand RT min 3V* Attending Dr: Rivka Romero [facility] [employer] Other XR hand RT min 3V* Ordering Provider: RIVKA ROMERO [facility] [employer] Other XR hand RT min 3V* Date of Service: 07/07/21 [employer] Other XR hand RT min 3V* XR/XR hand RT min 3V*: Injury of right hand, initial encounter [employer] Other XR hand RT min 3V* Copies to: RIVKA ROMERO [facility] [employer] Other XR hand RT min 3V* 3 viewsRIGHT hand plain film [employer] Other XR hand RT min 3V* COMPARISON:None N [employer] Other XR hand RT min 3V* HISTORY:RIGHT hand injury one month ago. Continued pain [employer] Other XR hand RT min 3V* No fracture, dislocation or focal soft tissue abnormality seen. [employer] Other XR hand RT min 3V* XR/XR hand RT min 3V* [employer] Other XR hand RT min 3V* IMPRESSION:No acute findings [employer] Other XR hand RT min 3V* Impression dictated by: Max Kasper M.D.07/07/2021 3:36 PM [employer] Other XR hand RT min 3V* Dictation Location: [facility] [address] [facility] iList Other XR hand RT min 3V* Transcribed By: JEREMY 07/07/21 1539 [facility] [employer] Other XR hand RT min 3V* Dictated By: Max Kasper DO 07/07/21 1532 [facility] [employer] Other XR hand RT min 3V* Signed By: [facility] [employer] Other XR hand RT min 3V* 07/07/21 1538 [facility] iList Other XR shoulder RT min 2V*on XR shoulder RT min 2V* [facility] Main [place] [address] [place] [address] XRay Report Signed Patient: Karo Darden MR#: [id number] 9838 : 1970 Acct:[id number] Age/Sex: 50 / F ADM Date: 02/18/21 Loc: XDUC Room: Type: [facility] Attending Dr: Rivka AMADOR Ordering Provider: RIVKA ROMERO Date of Service: 02/18/21 XR/XR humerus RT*: Injury of right shoulder, initial encounter ([id number]) XR/XR shoulder RT min 2V*: Injury of [...] Max Kasper M.D.02/18/2021 4:38 PM Dictation Location: [employer] Transcribed By: [facility] 02/18/21 1638 Dictated By: Max Kasper DO 02/18/21 1634 Signed By: 02/18/21 1638 [facility] Workers' Comp Officeon 10-08 Workers' Comp Office [id number] #1.00CD:127 [facility] Progress Note-Physicianon Progress Note-Physician Patient: KARO DARDEN Age: 50 years Sex: Female : 1970 Associated Diagnoses: None Author: Natalie Peguero Visit Information The patient was seen for evaluation of her mid back following a work related injury on 08/07/2020. [facility] claim status pending. Chief Complaint 09/24/2020 15:41 [...] Charted Heart Rate Peripheral 76 bpm (SEP 24:41) SBP 128 mmHg (SEP 24:41) DBP 88 mmHg (SEP 24:41) Additional physical exam information: No tenderness over trapezius and rhomboid muscles on the left,. No tenderness over spinous processes. Full ROM is noted in the cervical spine and bilateral upper extremities. Normal sensory motor exam. . 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 Strain of thoracic back region (GOD10-QT S29.012A, Working, Medical). Course: Improving. Orders May return to full duty. Recommend continuation of the home stretches and exercises due to natures of her work. She may follow up as needed. Call for any questions or concerns. . Counseled: Patient, Regarding diagnosis, Regarding treatment. Patient Instructions: Patient verbalizes understanding of plan of care. All questions answered satisfactorily.. [facility] Comment on above: Result Comment: Elec tronically Signed By: Natalie Peguero\.br\Date and Time Signed: 09/24/20 16:03 EST Workers' Comp Officeon 09-24 Workers' Comp Office [id number] #1.00CD:127 [facility] Progress Note-Physicianon Progress Note-Physician Patient: KARO DARDEN Age: 49 years Sex: Female : 1970 Associated Diagnoses: None Author: Natalie Peguero Visit Information The patient was seen for evaluation of her mid back following a work related injury on 08/07/2020. [facility] [place] claim status pending. Chief Complaint 09/06/2020 9:34 [...] Plan Diagnosis Strain of thoracic back region (IVR87-SB S29.012A, Working, Medical). Left shoulder strain (AQP30-SH S46.912A, Working, Medical). Course: Improving. Orders 1) [...] of care. All questions answered satisfactorily.. [facility] Comment on above: Result Comment: Elec tronically Signed By: Natalie Peguero\.br\Date and Time Signed: 09/06/20 12:53 EST Workers' Comp Officeon 09-06 Workers' Comp Office [id number] #1.00CD:127 [facility] Progress Note-Physicianon Progress Note-Physician Patient: KARO DARDEN Age: 49 years Sex: Female : 1970 Associated Diagnoses: None Author: Natalie Peguero Visit Information The patient was seen for evaluation of her mid back following a work related injury on 08/07/2020. [facility] [place] claim status pending. 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 Left shoulder strain (QLR89-GZ S46.912A, Working, Medical). Course: Improving. Orders Patient [...] of care. All questions answered satisfactorily.. [facility] Comment on above: Result Comment: Elec tronically Signed By: Natalie Peguero.juan\Date and Time Signed: 08/27/20 11:17 EST Workers' Comp Officeon 08-27 Workers' Comp Office [id number] 9#1.00CD:127 [facility] Workers' Comp Officeon 08-26 Workers' Comp Office [id number] #1.00CD:127 [facility] Workers' Comp Officeon 08-21 Workers' Comp Office [id number] 9#1.00CD:127 [facility] Workers' Comp Officeon 08-16 Workers' Comp Office Patient has an appt on 08-22-20 @ 4:00 [facility] Workers' Comp Officeon 08-14 Workers' Comp Office [id number] 6#1.00CD:127 [facility] Workers' Comp Office [id number] 5#1.00CD:127 [facility] Workers' Comp Office [id number] 2#1.00CD:127 [facility] Workers' Comp Office [id number] 6#1.00CD:127 [facility] Workers' Comp Office [id number] 6#1.00CD:127 [facility] Workers' Comp Office [id number] 7#1.00CD:127 [facility] Workers' Comp Office [id number] 9#1.00CD:127 [facility] [place] 08-13-2020 Consent [id number] 3#1.00CD:127 [facility] Progress Note-Physicianon Progress Note-Physician Patient: KARO DARDEN Age: 49 years Sex: Female : 1970 Associated Diagnoses: None Author: Natalie Peguero Visit Information The patient was seen for evaluation of her mid back following a work related injury on 08/07/2020. [facility] [place] claim status pending. Chief Complaint 08/13/2020 13:44 [...] 08/07/2020. The patient was originally seen by [facility] on 08/09/2020, but was told by her employer to follow up with our office. 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 During this time, she felt a pop in her left shoulder blade. Over the next two days the pain intensified. She was using heat and ibuprofen without any significant improvement. 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 Orders 1) I recommend [...] of care. All questions answered satisfactorily.. [facility] Comment on above: Result Comment: Elec tronically Signed By: Natalie Peguero\.juan\Date and Time Signed: 08/13/20 16:40 EST Workers' Comp Officeon 08-13 Workers' Comp Office Mailed a physician of record change form to patient. I informed her that it needs to be filled out CAITLIN and returned back to our department. [facility] Vital Signs Date Time Vital Sign Value Performing Clinician Facility 02-16-2025 09:040 Body height 160 cm Mynor Schmidt MD Work Phone: [facility] 02-16-2025 09:23-0400 Body mass index (BMI) [Ratio] 45.88 kg/m2 Mynor Schmidt MD Work Phone: [facility] 02-16-2025 09:23-040 Body temperature 97.3 [degF] Mynor Schmidt MD Work Phone: [facility] 02-16-2025 09:23-0400 Body weight 117.48 kg Mynor Schmidt MD Work Phone: [facility] 02-16-2025 09:23-0400 Diastolic blood pressure 78 mm[Hg] Mynor Schmidt MD Work Phone: [facility] 02-16-2025 09:23-0400 Heart rate 73 /min Mynor Schmidt MD Work Phone: [facility] 02-16-2025 09:23-0400 Respiratory rate 22 /min Mynor Schmidt MD Work Phone: [facility] 02-16-2025 09:23-0400 SaO2% (BldA) [Mass fraction] 93 % Mynro Schmidt MD Work Phone: [facility] 02-16-2025 09:23-0400 Systolic blood pressure 126 mm[Hg] Mynor Schmidt MD Work Phone: [facility] 11-16-2024 15:17-0500 Body height 160 cm Mynor Schmidt MD Work Phone: [facility] 11-16-2024 15:17-0500 Body mass index (BMI) [Ratio] 44.11 kg/m2 Mynor Schmidt MD Work Phone: [facility] 11-16-2024 15:17-0500 Body temperature 96.21 [degF] Mynor Schmidt MD Work Phone: [facility] 11-16-2024 15:17-0500 Body weight 112.95 kg Mynor Schmidt MD Work Phone: [facility] 11-16-2024 15:17-0500 Diastolic blood pressure 70 mm[Hg] Mynor Schmidt MD Work Phone: [facility] 11-16-2024 15:17-0500 Heart rate 82 /min Mynor Schmidt MD Work Phone: [facility] 11-16-2024 15:17-0500 Respiratory rate 22 /min Mynor Schmidt MD Work Phone: [facility] 11-16-2024 15:17-0500 SaO2% (BldA) [Mass fraction] 92 % Mynor Schmidt MD Work Phone: [facility] 11-16-2024 15:17-0500 Systolic blood pressure 120 mm[Hg] Mynor Schmidt MD Work Phone: [facility] 09-01-2024 09:26-0500 Body height 160 cm Mynor Schmidt MD Work Phone: [facility] 09-01-2024 09:26-0500 Body mass index (BMI) [Ratio] 45.53 kg/m2 Mynor Schmidt MD Work Phone: [facility] 09-01-2024 09:26-0500 Body temperature 97.11 [degF] Mynor Schmidt MD Work Phone: [facility] 09-01-2024 09:26-0500 Body weight 116.57 kg Mynor Schmidt MD Work Phone: [facility] 09-01-2024 09:26-0500 Diastolic blood pressure 62 mm[Hg] Mynor Schmidt MD Work Phone: [facility] 09-01-2024 09:26-0500 Heart rate 67 /min Mynor Schmidt MD Work Phone: [facility] 09-01-2024 09:26-0500 Respiratory rate 22 /min Mynor Schmidt MD Work Phone: [facility] 09-01-2024 09:26-0500 SaO2% (BldA) [Mass fraction] 91 % Mynor Schmidt MD Work Phone: [facility] 09-01-2024 09:26-0500 Systolic blood pressure 104 mm[Hg] Mynor Schmidt MD Work Phone: [facility] 03-13-2024 15:06-0400 Body height 160 cm Tonie CAMACHO Work Phone: [facility] 03-13-2024 15:06-0400 Body mass index (BMI) [Ratio] 44.53 kg/m2 Tonie Small APRN-TERESA Work Phone: [facility] 03-13-2024 15:06-0400 Body weight 114.03 kg Tonie Small EGG BUYER-LEGAL WRITING PROFESSOR Work Phone: [facility] 03-13-2024 15:06-0400 Diastolic blood pressure 60 mm[Hg] Tonie Small EGG BUYER-LEGAL WRITING PROFESSOR Work Phone: [facility] 03-13-2024 15:06-0400 Heart rate 71 /min Tonie Small EGG BUYER-LEGAL WRITING PROFESSOR Work Phone: [facility] 03-13-2024 15:06-0400 Systolic blood pressure 107 mm[Hg] Tonie Small EGG BUYER-LEGAL WRITING PROFESSOR Work Phone: [facility] 02-14-2024 14:47-0400 Body height 160 cm Tonie Small EGG BUYER-LEGAL WRITING PROFESSOR Work Phone: [facility] 02-14-2024 14:47-0400 Body mass index (BMI) [Ratio] 44.29 kg/m2 Tonie Small EGG BUYER-LEGAL WRITING PROFESSOR Work Phone: [facility] 02-14-2024 14:47-0400 Body weight 113.4 kg Tonie Small EGG BUYER-LEGAL WRITING PROFESSOR Work Phone: [facility] 01-19-2024 12:55-0400 Body height 160 cm Dealno Mckinney DO Work Phone: [facility] 01-19-2024 12:55-0400 Body mass index (BMI) [Ratio] 44.29 kg/m2 Delano Mckinney DO Work Phone: [facility] 01-19-2024 12:55-0400 Body weight 113.4 kg Delano Mckinney DO Work Phone: [facility] 01-19-2024 12:55-0400 Diastolic blood pressure 77 mm[Hg] Delano Mckinney DO Work Phone: [facility] 01-19-2024 12:55-0400 Systolic blood pressure 139 mm[Hg] Delano Mckinney DO Work Phone: [facility] 12-31-2023 09:03-0400 Body height 160 cm Tonie Small EGG BUYER-LEGAL WRITING PROFESSOR Work Phone: [facility] 12-31-2023 09:03-0400 Body mass index (BMI) [Ratio] 44.75 kg/m2 Tonie Small EGG BUYER-LEGAL WRITING PROFESSOR Work Phone: [facility] 12-31-2023 09:03-0400 Body weight 114.58 kg Tonie Small EGG BUYER-LEGAL WRITING PROFESSOR Work Phone: [facility] 12-31-2023 09:03-0400 Diastolic blood pressure 65 mm[Hg] Tonie Small EGG BUYER-LEGAL WRITING PROFESSOR Work Phone: [facility] 12-31-2023 09:03-0400 Heart rate 71 /min Tonie Small EGG BUYER-LEGAL WRITING PROFESSOR Work Phone: [facility] 12-31-2023 09:03-0400 Systolic blood pressure 106 mm[Hg] Tonie Small EGG BUYER-LEGAL WRITING PROFESSOR Work Phone: [facility] 11-15-2023 14:56-0500 Body height 160 cm Tonie Small EGG BUYER-LEGAL WRITING PROFESSOR Work Phone: [facility] 11-15-2023 14:56-0500 Body mass index (BMI) [Ratio] 45.14 kg/m2 Tonie Msall EGG BUYER-LEGAL WRITING PROFESSOR Work Phone: [facility] 11-15-2023 14:56-0500 Body weight 115.58 kg Tonie Small EGG BUYER-LEGAL WRITING PROFESSOR Work Phone: [facility] 11-15-2023 14:56-0500 Diastolic blood pressure 63 mm[Hg] Tonie Small EGG BUYER-LEGAL WRITING PROFESSOR Work Phone: [facility] 11-15-2023 14:56-0500 Heart rate 78 /min Tonie Small EGG BUYER-LEGAL WRITING PROFESSOR Work Phone: [facility] 11-15-2023 14:56-0500 Systolic blood pressure 123 mm[Hg] Tonie Small [employer] Work Phone: [facility] 07-07-2021 15:40-0400 Body height 161.29 cm Rivka Solitarioault Other [employer] Other 07-07-2021 15:40-0400 Body mass index (BMI) [Ratio] 44.11 kg/m2 Rivka Solitarioault Other [employer] Other 07-07-2021 15:40-0400 Body temperature 98.2 [degF] Rivka Deepak Other [employer] Other 07-07-2021 15:40-0400 Body weight 114.76 kg Rivka Solitarioault Other [employer] Other 07-07-2021 15:40-0400 Diastolic blood pressure 57 mm[Hg] Rivka Solitarioault Other [employer] Other 07-07-2021 15:40-0400 Respiratory rate 18 /min Rivka Deepak Other [employer] Other 07-07-2021 15:40-0400 SaO2% (BldA) [Mass fraction] 96 % Rivka Solitarioault Other [employer] Other 07-07-2021 15:40-0400 Systolic blood pressure 114 mm[Hg] Rivka Solitarioault Other [employer] Other Encounters Encounter Date Encounter Type Care Provider Facility Start: 02-16-2025 End: 02-16-2025 Dylan Araizaerer MD Work Phone: [facility] Start: 02-16-2025 End: 02-16-2025 Bamboo flowsheet Mynor Schmidt MD Work Phone: [facility] Start: 02-16-2025 End: 02-16-2025 Clinisync Result Encounter Mynor Schmidt MD Work Phone: [facility] External Department Unsolicited Start: 02-16-2025 End: 02-16-2025 Patient encounter procedure Mynor Schmidt MD Work Phone: [facility] Healthcare Work Phone: Start: 02-16-2025 End: 02-16-2025 Periodic preventive med est patient 40-64yrs Mynor Schmidt MD Work Phone: [facility] Comment on above: Annual physical exam (Primary Dx); Type 2 diabetes mellitus with hyperglycemia, without long-term current use of insulin (CMS/HCC); Essential hypertension (CMS/HCC); Chronic heart failure with preserved ejection fraction (HFpEF) (CMS/HCC); Localized edema; Class 3 severe obesity due to excess calories with serious comorbidity and body mass index (BMI) of 45.0 to 49.9 in adult Start: 02-16-2025 End: 02-16-2025 ambulatory MYNOR SCHMDIT Not Available Start: 02-14-2025 End: 02-14-2025 Clinisync Result Encounter Damon Sg DO Work Phone: [facility] External Department Unsolicited Start: 02-14-2025 End: 02-14-2025 Clinisync Result Encounter Damon Sg DO Work Phone: [facility] External Department Unsolicited Start: 11-16-2024 End: 11-16-2024 Transitional care manage srvc 14 day discharge Mynor Schmidt MD Work Phone: [facility] Comment on above: Pneumonia due to inf ectious organism, unspecified laterality, unspecified part of lung (Primary Dx); Type 2 diabetes mellitus with hyperglycemia, without long-term current use of insulin (CMS/HCC); Class 3 severe obesity due to excess calories with serious comorbidity and body mass index (BMI) of 40.0 to 44.9 in adult (CMS/HCC); Chronic heart failure with preserved ejection fraction (HFpEF) (CMS/HCC) Start: 11-16-2024 End: 11-16-2024 ambulatory MYNOR SCHMIDT Not Available Start: 11-16-2024 End: 11-16-2024 Bamboo flowsheet Mynor Schmidt MD Work Phone: [facility] Start: 11-16-2024 End: 11-16-2024 Bamboo flowsheet Mynor Schmidt MD Work Phone: [facility] Start: 11-07-2024 End: 11-08-2024 Clinisync Result Encounter Generic External Data Provider [facility] External Department Unsolicited Start: 11-07-2024 End: 11-08-2024 Clinisync Result Encounter Generic External Data Provider [facility] External Department Unsolicited Start: 09-01-2024 End: 09-01-2024 Bamboo flowsheet Mynor Schmidt MD Work Phone: [facility] Start: 09-01-2024 End: 09-01-2024 Bamboo flowsheet Mynor Schmidt MD Work Phone: [facility] Start: 09-01-2024 End: 09-01-2024 Clinisync Result Encounter Mynor Schmidt MD Work Phone: [facility] External Department Unsolicited Start: 09-01-2024 End: 09-01-2024 Office outpatient visit 25 minutes Mynor Schmidt MD Work Phone: [facility] Comment on above: Type 2 diabetes cruz itus with hyperglycemia, without long-term current use of insulin (CMS/HCC) (Primary Dx); Essential hypertension (CMS/HCC); Chronic heart failure with preserved ejection fraction (HFpEF) (CMS/[facility]); MDD (major depressive disorder), recurrent episode, mild (HCC) (CMS/[facility]); Class 3 severe obesity due to excess calories with serious comorbidity and body mass index (BMI) of 45.0 to 49.9 in adult ([facility]); Acute nonsuppurative otitis media of left ear; Vaginal usama Start: 09-01-2024 End: 09-01-2024 ambulatory MYNOR SCHMIDT Not Available Start: 03-13-2024 End: 03-13-2024 Postop follow up visit related to original [facility] Milana [place] EGG BUYERLEGAL WRITING PROFESSOR Work Phone: [facility] Comment on above: Chronic anal fissure (Primary Dx) Start: 03-13-2024 End: 03-13-2024 ambulatory [facility] Start: 03-03-2024 Patient encounter procedure Mynor Schmidt MD Work Phone: [facility] Start: 03-03-2024 End: 03-03-2024 ambulatory MYNOR SCHMIDT Not Available Start: 02-14-2024 End: 02-14-2024 Postop follow up visit related to original [facility] EGG BUYERLEGAL WRITING PROFESSOR Work Phone: [facility] Comment on above: Chronic anal fissure (Primary Dx); H/O rectal sphincterotomy Start: 02-14-2024 End: 02-14-2024 ambulatory [facility] Start: 02-01-2024 End: 02-01-2024 Evaluation and management of inpatient TAMRA SAUL [facility] Start: 02-01-2024 End: 02-01-2024 Evaluation and management of inpatient [facility] Start: 01-21-2024 End: 01-22-2024 ambulatory [facility] Start: 01-21-2024 Encounter for other preprocedural examination [facility] Start: 01-21-2024 End: 01-21-2024 Patient encounter procedure [facility] Pre-Admission Testing 1 [facility] - Pre Admit Comment on above: Preop examination (P rimary Dx); Hypertension, unspecified type; Type 2 diabetes mellitus without complication, without long-term current use of insulin ([facility]) Start: 01-21-2024 End: 01-21-2024 Preprocedural examination done [facility] Start: 01-19-2024 End: 01-19-2024 Office outpatient visit 25 minutes Delano Mckinney DO Work Phone: [facility] Comment on above: Chronic anal fissure (Primary Dx); Polyp of colon, unspecified part of colon, unspecified type Start: 01-19-2024 End: 01-19-2024 ambulatory [facility] Start: 01-18-2024 End: 01-18-2024 Evaluation and management of inpatient QUIN Sharath DONIS [facility] Start: 01-17-2024 End: 01-18-2024 [facility] Start: 12-31-2023 End: 12-31-2023 Office outpatient visit 15 minutes Tonie Small EGG BUYER-LEGAL WRITING PROFESSOR Work Phone: [facility] Comment on above: Rectal pain (Primary Dx); Rectal bleeding; Morbid obesity with BMI of 40.0-44.9, adult ([facility]) Start: 12-31-2023 End: 12-31-2023 ambulatory [facility] Start: 11-15-2023 End: 11-15-2023 Office outpatient visit 15 minutes Tonie Milana Small EGG BUYER-LEGAL WRITING PROFESSOR Work Phone: [facility] Comment on above: Rectal pain (Primary Dx) Start: 11-15-2023 End: 11-15-2023 ambulatory [facility] Start: 02-20-2023 Encounter for genera l adult medical examination without abnormal findings DR MYNOR SCHMIDT [facility] Start: 02-19-2023 End: 02-20-[address] [...] Date Procedure Procedure Detail Performing Clinician Start: 02-16-2025 ALL BASIC METABOLIC PANEL Mynor Schmidt MD Work Phone: Start: 02-16-2025 ALL LIPID PROFILE (FASTING) Mynor Schmidt MD Work Phone: Start: 02-16-2025 ALL THYROID STIM HORMONE Mynor Schmidt MD Work Phone: Start: 02-16-2025 HMHP LIVER PANEL Mynor Schmidt MD Work Phone: Start: 02-14-2025 MM TOMOSYNTHESIS SCREENING BI Damon Bettencourt DO Work Phone: Start: 02-14-2025 Mammography Damon Bettencourt DO Work Phone: Start: 11-07-2024 GRAM STAIN EVALUATION Generic External D polly Provider Start: 11-07-2024 LOWER RESPIRATORY CULTURE Generic External Data Provider Start: 09-01-2024 MLR HEMOGLOBIN A1C Mynor Schmidt MD Work Phone: Start: 01-17-2024 Colonoscopy Delano Mckinney DO Work Phone: Start: 12-31-2023 Follow-up visit Follow-up TONIE SMALL Start: 12-31-2023 Mammography Mynor Schmidt MD Work Phone: Start: 04-03-2021 Colonoscopy Tonie Small EGG BUYER-LEGAL WRITING PROFESSOR Work Phone: H/O: surgery H/O rectal sphincterotomy Eris Small EGG BUYER-LEGAL WRITING PROFESSOR Work Phone: Plan of Treatment Date Care Activity Detail Author Start: 01-16-2034 Screening for malign ant neoplasm of colon [facility] Start: 04-03-2031 Screening for malign ant neoplasm of colon Colonoscopy [facility] Start: 01-16-2029 Screening for malign ant neoplasm of colon Colonoscopy [facility] Start: 02-05-2027 Glaucoma screening Diabetes: R etinopathy Screening [facility] Start: 02-14-2026 Screening for malign ant neoplasm of breast Mammogram [facility] Start: 10-13-2025 Glaucoma screening Diabetes: R etinopathy Screening [facility] Start: 05-25-2025 End: 05-25-2025 Patient encounter procedure 05/25/2025 9:15 AM EDT Office Visit [facility] [address] [place] [address] Mynor Schmidt MD [address] [place] [address] [facility] Start: 03-14-2025 End: 03-14-2025 Patient encounter procedure 03/14/2025 3:30 PM EDT Office Visit [facility] [address] [place] [phone] Damon Bettencourt DO [address] [place] [address] [facility] Start: 03-14-2025 Urine screening for protein Diabetes: Urine Protein Screening [facility] Start: 03-13-2025 Adult BMI Screening Adult BMI Screen ing [facility] Start: 03-13-2025 Tobacco Screening Tobacco Screening [facility] Start: 03-01-2025 Hemoglobin A1c measurement Diabetes: Hemoglobin A1C [facility] Start: 02-16-2025 End: 02-16-2026 Basic metabolic 1998 panel - Serum or Plasma Basic metabolic panel Lab Routine Annual physical exam Expected: 02/16/2025 (Approximate), Expires: 02/16/2026 [facility] Comment on above: Expected: 02/16/2025 (Approximate), Expires: 02/16/2026 Start: 02-16-2025 End: 02-16-2026 CBC W Auto Differential panel - Blood CBC and differential Lab Routine Annual physical exam Expected: 02/16/2025 (Approximate), Expires: 02/16/2026 [facility] Comment on above: Expected: 02/16/2025 (Approximate), Expires: 02/16/2026 Start: 02-16-2025 End: 02-16-2026 Hemoglobin A1c/Hemoglobin.total in Blood Hemoglobin A1c Lab Routine Annual physical exam Expected: 02/16/2025 (Approximate), Expires: 02/16/2026 [facility] Work Phone: Comment on above: Expected: 02/16/2025 (Approximate), Expires: 02/16/2026 Start: 02-16-2025 End: 02-16-2026 Hepatic function 2000 panel - Serum or Plasma Hepatic function panel Lab Routine Annual physical exam Expected: 02/16/2025 (Approximate), Expires: 02/16/2026 [facility] Comment on above: Expected: 02/16/2025 (Approximate), Expires: 02/16/2026 Start: 02-16-2025 End: 02-16-2026 Lipid 1996 panel - Serum or Plasma Lipid panel Lab Routine Annual physical exam Expected: 02/16/2025 (Approximate), Expires: 02/16/2026 [facility] Comment on above: Expected: 02/16/2025 (Approximate), Expires: 02/16/2026 Start: 02-16-2025 End: 02-16-2026 Thyrotropin [Units/volume] in Serum or Plasma TSH Lab Routine Annual physical exam Expected: 02/16/2025 (Approximate), Expires: 02/16/2026 [facility] Comment on above: Expected: 02/16/2025 (Approximate), Expires: 02/16/2026 Start: 02-16-2025 End: 02-16-2025 Patient encounter procedure [facility] Comment on above: Arrived Start: 02-13-2025 Adult BMI Screening Adult BMI Screen ing [facility] Start: 02-13-2025 Tobacco Screening Tobacco Screening [facility] Start: 01-20-2025 Tobacco Screening Tobacco Screening [facility] Start: 01-18-2025 Adult BMI Screening Adult BMI Screen ing [facility] Start: 12-30-2024 Adult BMI Screening Adult BMI Screen ing [facility] Start: 12-30-2024 Screening for malign ant neoplasm of breast Mammogram [facility] Start: 12-30-2024 Tobacco Screening Tobacco Screening [facility] Start: 11-16-2024 End: 11-16-2024 Patient encounter procedure 11/16/2024 3:30 PM EST Office Visit [facility] [address] [place] [address] Mynor Schmidt MD [address] [place] [address] Arrived [facility] Comment on above: Arrived Start: 11-15-2024 Adult BMI Screening Adult BMI Screen ing [facility] Start: 11-15-2024 Tobacco Screening Tobacco Screening [facility] Start: 11-06-2024 End: 11-06-2024 Patient encounter procedure 11/06/2024 4:00 PM EST Office Visit [facility] [address] [place] [phone] Damon Bettencourt DO [address] [place] [address] [facility] Start: 09-13-2024 Hemoglobin A1c measurement Diabetes: Hemoglobin A1C [facility] Start: 09-01-2024 End: 09-01-2025 Hemoglobin A1c/Hemoglobin.total in Blood Hemoglobin A1c Lab Routine Type 2 diabetes mellitus with hyperglycemia, without long-term current use of insulin ([facility]) Expected: 09/01/2024 (Approximate), Expires: 09/01/2025 [facility] Work Phone: Comment on above: Expected: 09/01/2024 (Approximate), Expires: 09/01/2025 Start: 09-01-2024 End: 09-01-2024 Patient encounter procedure 09/01/2024 9:15 AM EST Office Visit [facility] [address] [place] [address] Mynor Schmidt MD [address] [place] [address] [facility] Start: 06-11-2024 Influenza vaccination [facility] Start: 03-13-2024 End: 03-13-2024 Patient encounter procedure 03/13/2024 3:15 PM EDT Office Visit [facility] [address] [place] [phone] Tonie Small, [facility] [address] [place], [place] [phone] [facility] Start: 02-14-2024 End: 02-14-2024 Patient encounter procedure 02/14/2024 2:45 PM EDT Office Visit [facility] [address] [place] [phone] Tonie Small, [facility] [address] [place], [place] [phone] [facility] Start: 02-01-2024 End: 02-01-2024 Admission to same day surgery center 02/01/2024 7:30 AM EDT - 02/01/2024 8:30 AM EDT Surgery [facility] [address] [place] [address] Delano Mckinney DO [address] [place], [place] [id number] INTERNAL LATERAL SPHINCTEROTOMY [57005 (CPT )] [facility] Comment on above: INTERNAL LATERAL SPH INCTEROTOMY [07151 (CPT )] Start: 02-01-2024 End: 02-01-2024 Fissurectomy incl sphincterotomy when performed INTERNAL LATERAL SPHINCTEROTOMY chronic anal fissure 02/01/2024 7:30 AM EDT [facility] Start: 02-01-2024 Subsequent hospital visit by physician 02/01/2024 7:30 AM EDT Hospital Encounter [facility] [address] [place] [address] [place] [address] [place] [address] [facility] Start: 01-17-2024 End: 01-17-2024 Admission to same day surgery center 01/17/2024 11:15 AM EDT - 01/17/2024 11:45 AM EDT Surgery [facility] [address] [place] [phone] Delano Mckinney, DO [address] [place] [address] COLONOSCOPY DIAGNOSTIC / SCREENING [53680 (CPT )] [facility] Comment on above: COLONOSCOPY DIAGNOST IC / SCREENING [70682 (CPT )] Start: 01-17-2024 End: 01-17-2024 Colonoscopy flx dx w/collj spec when pfrmd COLONOSCOPY DIAGNOSTIC / SCREENING rectal pain, rectal bleeding 01/17/2024 11:15 AM EDT [facility] Start: 01-17-2024 Subsequent hospital visit by physician 01/17/2024 11:15 AM EDT Hospital Encounter [facility] [address] [place] [address] Delano Mckinney, [address] [place] [id number] [facility] Start: 01-11-2024 End: 01-11-2024 ambulatory 01/11/2024 2:50 PM EDT Support Visit [facility] - Pre Admit [address] [facility] [place] [address] [facility] Start: 12-31-2023 End: 12-31-2023 Patient encounter procedure 12/31/2023 9:00 AM EDT Office Visit [facility] [address] [facility] [place] [address] Tonie Small, EGG BUYER-[employer]ITING PROFESSOR [address] [place] [address] [facility] Start: 06-11-2023 COVID-19 Vaccine ( season) COVID-19 Vaccine ( season) [facility] Start: 06-11-2023 Influenza vaccination Influenza Vacc ine [facility] Start: 2020 Administration of varicella zoster vaccine Zoster (Shingles) Vaccine (1 of 2) [facility] Start: 1989 DTaP,Tdap and Td Vaccines (1 - Tdap) DTaP,Tdap and Td Vaccines (1 - Tdap) [facility] Start: 1989 Urine screening for protein Diabetes: Urine Protein Screening [facility] Start: 1988 Adult BMI Follow Up Plan Adult BMI F ollow Up Plan [facility] Start: 1988 Diabetic foot examination Diabetic Foot Exam [facility] Start: 1982 Depression Screening Depression Scre ening [facility] Start: 1970 Glaucoma screening Diabetic Op hthalmology Exam [facility] Start: 1970 Hemoglobin A1c measurement Diabetes: Hemoglobin A1C [facility] Start: 1970 Screening for malign ant neoplasm of colon [facility] Start: 1970 Tobacco Counseling Tobacco Counselin g [facility] End: 12-30-2024 Colonoscopy Colonoscopy GI Routine Rectal pain Rectal bleeding 1 Occurrences starting 12/31/2023 until 12/30/2024 [facility] Work Phone: Comment on above: 1 Occurrences starti ng 12/31/2023 until 12/30/2024 End: 01-18-2030 Colonoscopy Colonoscopy GI Routine Polyp of colon, unspecified part of colon, unspecified type 1 Occurrences starting 01/19/2024 until 01/18/2030 [facility] Comment on above: 1 Occurrences starti ng 01/19/2024 until 01/18/2030 LOWER RESPIRATORY CULTURE LOWER RESPIRATORY CULTURE Lab Routine 11/07/2024 7:50 AM [facility] End: 01-18-2025 Unlisted Procedure / Surgery Unlisted Procedure / Surgery Procedures Routine Chronic anal fissure 1 Occurrences starting 01/19/2024 until 01/18/2025 [facility] Work Phone: Comment on above: 1 Occurrences starti ng 01/19/2024 until 01/18/2025 Immunizations Immunization Date Immunization Notes Care Provider [facility] 09-20-2015 influenza, seasonal, injectable, preservative free Mynor Schmidt MD Work Phone: [facility] 09-20-2015 influenza virus vaccine, unspecified formulation [facility]re [facility] Work Phone: [facility] 08-22-2009 novel [id number], preservative-free, injectable Mynor Schmidt MD Work Phone: [facility] Payers Date Payer Category Payer [facility] [id number] 2018 Unknown [facility] HMO/PPO/TRUST [id number] 2018-Present [phone] [place] [address] [id number] 1970 Unknown [id number] 2.16.840.1.112941.3.57 9.2.593 1970 Unknown [id number] 2.16.840.1.100953.3.57 9.2.593 1970 Unknown [id number] 2.16.840.1.949721.3.57 9.2.593 1970 Unknown [id number] 2.16.840.1.764769.3.57 9.2.593 1970 Unknown [id number] 2.16.840.1.666666.3.57 9.2.593 1970 Unknown [id number] 2.16.840.1.129427.3.57 9.2.593 1970 Unknown [id number] 2.16.840.1.618937.3.57 9.2.1286 1970 Unknown [id number] 2.16.840.1.990537.3.57 9.2.1286 1970 Unknown [id number] 2.16.840.1.330495.3.57 9.2.1286 1970 Unknown [id number] 2.16.840.1.865225.3.57 9.2.1286 1970 Unknown [id number] 2.16.840.1.819535.3.57 9.2.1286 1970 Unknown [id number] 2.16.840.1.345593.3.57 9.2.1286 1970 Unknown [id number] 2.16.840.1.412138.3.57 9.2.1286 1970 Unknown [id number] 2.16.840.1.112480.3.57 9.2.1286 1970 Unknown [id number] 2.16.840.1.183312.3.57 9.2.1286 1970 Unknown [id number] 2.16.840.1.099202.3.57 9.2.1286 1970 Unknown [id number] 2.16.840.1.594061.3.57 9.2.1286 1970 Unknown [id number] 2.16.840.1.854568.3.57 9.2.1286 1970 Unknown [id number] 2.16.840.1.091387.3.57 9.2.1286 1970 Unknown [id number] 2.16.840.1.157514.3.57 9.2.1286 1970 Unknown [id number] 2.16.840.1.998098.3.57 9.2.1286 1970 Unknown [id number] 2.16.840.1.578355.3.57 9.2.1259 1970 Unknown [id number] 2.16.840.1.445036.3.57 9.2.1259 1970 Unknown [id number] 2.16.840.1.296846.3.57 9.2.1259 1970 Unknown [id number] 2.16.840.1.658491.3.57 9.2.1259 1959 Rust [id number] 2.16.840.1.756950.19 Social History Date Type Detail Facility Unknown if ever smoked [employer] Other Start: 02-25-2024 End: 02-16-2025 Sex Assigned At [facility] Start: 10-13-2023 End: 01-19-2024 Tobacco smoking status [facility] Smokes tobacco daily [facility] Start: 01-31-1989 History of tobacco use Cigarette Smoker [facility] Start: 10-13-2023 End: 01-19-2024 Tobacco use and exposure Smokeless tobacco non-user [facility] Start: 03-03-2024 End: 02-16-2025 Alcoholic beverage intake Current drinker of alcohol (finding) [facility] Start: 02-25-2024 End: 02-16-2025 History of Social function [facility] How often do you att end zoroastrianism or roman catholic services? Patient declined [facility] Are you now , , , , [...] rent on time? No [facility] Start: 10-05-2023 End: 12-31-2023 Alcohol Comment rarely [facility] Start: 1970 Sex assigned at Female [facility] Start: 05-15-2023 Gender identity Identifies as female gender (finding) [facility] Start: 01-21-2024 End: 02-14-2024 Alcoholic beverage intake Ex-drinker (finding) [facility] Start: 05-15-2023 Sexual orientation Heterosexual (finding) [facility] Start: 03-26-2021 Alcohol Comment occasional [facility] tem Clinical Notes 07-07-2021 to 02-16-2025 Mynor Schmidt MD - 02/16/2025 10:01 AM Attila Schmidt MD - 02/16/2025 10:01 AM Attila Schmidt MD - 02/16/2025 10:01 AM Attila Schmidt MD - 02/16/2025 9:15 AM EDTPatient Instructions Note Date & Type Note Facility 02-16-2025 History of Presen t illness Narrative Associated Problem(s): Type 2 diabetes mellitus with hyperglycemia, without long-term current use of insulin ([facility]) C/o side effects from jardiance and stop. Try ozempic. Due for A1C. Stick to ADA diet and limit carbs. Associated Problem(s): Chronic heart failure with preserved ejection fraction (HFpEF) ([facility]) Edema stable and elevate legs PRN. Associated Problem(s): Annual physical exam Due for labs. Discussed proper diet and regular aerobic exercise. Need aerobic exercise 5-6 days a week for 30 minutes at a time. Smaller portions and limit total calories. Colonoscopy every 10 years. Tetanus every 10 years. Advised not to smoke. Images from the original note were not included. Subjective Patient ID: Karo Darden is a 54 y.o. female who presents for Annual Exam (Wellness/). Presents for annual PE. Weight up 10 pounds in past year. Active at work and around house but no regular exercise. Tries to watch diet and eat healthy. Increased fruits and vegetables. Smaller portions and limits snacking. Tries to limit total daily calories. Due for labs. Reports BS recently elevated around 150. Tries to eat well and stick to ADA diet. Denies signs of elevated BS such as polyuria, polyphagia or polydipsia. C/o vaginal irritation and often feels like yeast infection. Concerned of side effect from jardiance. Review of Systems Respiratory: Negative for cough, shortness of breath and wheezing. Cardiovascular: Negative for chest pain and palpitations. Gastrointestinal: Negative for abdominal pain, diarrhea, nausea and vomiting. Genitourinary: Negative for dysuria. Objective Physical Exam Constitutional: General: She is not in acute distress. Appearance: Normal appearance. HENT: Head: Normocephalic. Right Ear: Tympanic membrane normal. Left Ear: Tympanic membrane normal. Eyes: Extraocular Movements: Extraocular movements intact. Pupils: [...] There is no guarding or rebound. Musculoskeletal: General: No swelling or tenderness. Cervical back: Neck supple. Right lower leg: No edema. Left lower leg: No edema. Skin: Findings: No erythema or rash. Neurological: General: No focal deficit present. Mental Status: She is alert and oriented to person, place, and time. Cranial Nerves: No cranial nerve deficit. Motor: No weakness. Gait: Gait normal. Assessment/Plan Problem List Items Addressed This Visit Essential hypertension (CMS/HCC) Class 3 severe obesity due to excess calories with serious comorbidity and body mass index (BMI) of 45.0 to 49.9 in adult Annual physical exam - Primary Due for labs. Discussed proper diet and regular aerobic exercise. Need aerobic exercise 5-6 days a week for 30 minutes at a time. Smaller portions and limit total calories. Colonoscopy every 10 years. Tetanus every 10 years. Advised not to smoke. Relevant Orders Hemoglobin A1c Basic metabolic panel CBC and differential Hepatic function panel Lipid panel TSH Type 2 diabetes mellitus with hyperglycemia, without long-term current use of insulin (CMS/HCC) C/o side effects from jardiance and stop. Try ozempic. Due for A1C. Stick to ADA diet and limit carbs. Relevant Medications semaglutide (Ozempic, 0.25 or 0.5 MG/DOSE,) 2 MG/1.5ML solution pen-injector Chronic heart failure with preserved ejection fraction (HFpEF) (CMS/HCC) Edema stable and elevate legs PRN. Other Visit Diagnoses Localized edema Relevant Medications furosemide (Lasix) 40 MG tablet documented in this encounter [facility] 11-16-2024 History of Presen t illness Narrative Associated Problem(s): Chronic heart failure with preserved ejection fraction (HFpEF) ([facility]) Edema stable and elevate legs PRN. Associated Problem(s): Class 3 severe obesity due to excess calories with serious comorbidity and body mass index (BMI) of 40.0 to 44.9 in adult ([facility]) Weight loss indicated. Associated Problem(s): Pneumonia Improved with treatment and monitor. Use albuterol PRN. Off work 11/06-11/09 and on lay off this week. Return to work 11/20 without restrictions. Associated Problem(s): Type 2 diabetes mellitus with hyperglycemia, without long-term current use of insulin ([facility]) BS elevated from steroids but previously well controlled. Monitor. Stick to ADA diet and limit carbs. Images from the original note were not included. Subjective Patient ID: Karo Darden is a 54 y.o. female who presents for Follow-up ([facility] f/up). Hospital follow up from 11/06-11/09 for pneumonia and hypoxia. Developed cough and SOB for over a week. Frequent cough and chest tightness. Schroeder like not able to catch breath and to ER. SpO2 87% on room air. Chest x-ray with pneumonia and CT showed pneumonia and pulmonary edema. Admitted and given IV lasix. Started antibiotics and steroids. Weaned O2 to room air and discharged. Completed steroids and antibiotics. Overall improved today. Continues to have fatigue but SOB improved. Still mild cough. BS elevated with treatment and 130-230. Notice drinking more and thirsty more. Review of Systems Respiratory: Negative for cough, shortness of breath and wheezing. Cardiovascular: Negative for chest pain and palpitations. Gastrointestinal: Negative for abdominal pain, diarrhea, nausea and vomiting. Genitourinary: Negative for dysuria. Objective Physical Exam Constitutional: General: She is not in acute distress. Appearance: Normal appearance. HENT: Head: Normocephalic. Right Ear: Tympanic membrane normal. Left Ear: Tympanic membrane normal. Eyes: Extraocular Movements: Extraocular movements intact. Pupils: [...] Assessment/Plan Problem List Items Addressed This Visit Class 3 severe obesity due to excess calories with serious comorbidity and body mass index (BMI) of 40.0 to 44.9 in adult ([facility]) Weight loss indicated. Type 2 diabetes mellitus with hyperglycemia, without long-term current use of insulin ([facility]) BS elevated from steroids but previously well controlled. Monitor. Stick to ADA diet and limit carbs. Pneumonia - Primary Improved with treatment and monitor. Use albuterol PRN. Off work 11/06-11/09 and on lay off this week. Return to work 11/20 without restrictions. Relevant Medications albuterol HFA 90 mcg/act inhaler documented in this encounter [facility] 11-08-2024 Note Gram Stain Evaluation This specimen is of good quality and is acceptable for routine [facility] 11-08-2024 Note [facility] GRAM STAIN EVALUATION bacterial culture. [facility] 09-01-2024 History of Present illness Narrative Associated Problem(s): Type 2 diabetes mellitus with hyperglycemia, without long-term current use of insulin ([facility]) BS controlled and due for A1C. Stick to ADA diet and limit carbs. Associated Problem(s): MDD (major depressive disorder), recurrent episode, mild (HCC) (CMS/HCC) Symptoms stable with celexa and continue. Associated Problem(s): Essential hypertension (CMS/HCC) BP controlled and monitor PRN. Associated Problem(s): [...] heart failure with preserved ejection fraction (HFpEF) ([facility]) Edema stable and elevate legs PRN. Associated [...] List Items Addressed This Visit Essential hypertension (CMS/HCC) BP controlled and monitor PRN. Class 3 severe obesity due to excess calories with serious comorbidity and body mass index (BMI) of 45.0 to 49.9 in adult ([facility]) Discussed proper diet and regular aerobic exercise. Recommend Weight Watchers and need to limit calories and smaller portions. Need to increase activity and regular aerobic exercise several days a week for 30 minutes at a time. Type 2 diabetes mellitus with hyperglycemia, without long-term current use of insulin ([facility]) - Primary BS controlled and due for A1C. Stick to ADA diet and limit carbs. Relevant Orders Hemoglobin A1c Chronic heart failure with preserved ejection fraction (HFpEF) ([facility]) Edema stable and elevate legs PRN. MDD (major depressive disorder), recurrent episode, mild (HCC) ([facility]) Symptoms stable with celexa and continue. Acute [...] 150 MG tablet documented in this encounter [facility] 03-13-2024 History of Present illness Narrative Images from the original note were not included. Subjective Karo Emerald Darden is a 53 y.o. female status post lateral internal sphincterotomy on 02/01/2024. She is doing well and has no concerns. Bowel movements have improved. She denies rectal bleeding. She denies fever or chills. Objective Vitals: 03/13/24 1506 BP: 107/60 Pulse: 71 Physical Exam Constitutional: General: She is not in acute distress. Appearance: Normal appearance. She is not ill-appearing. Genitourinary: Comments: Few external skin tags, normal anal tone, no gross blood, no anal stenosis. Neurological: Mental Status: She is alert. Assessment Karo Darden is a 53 y.o.female postop lateral internal sphincterotomy. Plan May return to work and resume normal activities. Follow-up in office as needed. 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 While intending to generate a timely document that accurately reflects the content of the visit, no guarantee can be provided that every grammatical or spelling mistake has been or will be identified or corrected. Thank you for your understanding. DOUG Viera 03/13/24 1524 documented in this encounter [facility] 03-13-2024 Instructions Kelley Griffith [facility] - 03/13/2024 3:15 PM EDT Are You Ready To Kick The Habit? Free Tobacco Cessation Resources [facility] Services [facility] provide all employees with free tobacco cessation services that include: Counseling to understand nicotine addiction Education about medications that can help you successfully quit Assistance with developing a plan to quit Call to set up an individual appointment or find out when group classes will be held: [facility]: [phone] [facility]: [phone] [facility]: [phone] [facility]: [phone] Quit Smoking Action Plan and Resources [facility] offers an eight-week, online smoking cessation plan to all [facility] employees, regardless of whether [employer] is your medical insurance provider. Go to [email or web address] and click the Health Risk Assessment and Resources link to get started. In the [email or web address] menu, click Action Plans instead of Health Risk Assessment to access the Quit Smoking Action Plan. Additional smoking cessation resources are also available to all [facility] employees on the Vefdk2Hlslcs web page at www.[employer]/quitsm oking. [place] Tobacco Cessation Program If [place] is your medical insurance provider, there are more free resources available to you, including: No copays or deductibles on local tobacco cessation counseling services to help you quit Prescription assistance for tobacco cessation medications to help you quit For details about the tobacco cessation program available to [employer] members, go to www.[employer] (Search: Tobacco Cessation Program). [place] Tobacco Quit Line 0-405-OIVW-NOW ( ) is a toll-free, telephonic service that helps [place] residents quit smoking and using tobacco. It is staffed by experts who tailor a quit plan for you and provide you with advice. [place] Tobacco Quit Line 9-485-IJUJ-NOW ( ) is a toll-free, telephonic service that helps [place] residents quit smoking and using tobacco. It is staffed by experts who tailor a quit plan for you and provide you with advice. Two weeks of nicotine replacement therapy may be provided at no charge, if needed. Additional Resources These national organizations also offer free information and resources to help you quit tobacco: [place] Cancer Society--www.cancer.org/healthy/st ayawayfromtobacco [place] Heart Association--www.heart.org (Search: Quit Smoking) Centers for Disease Control and Prevention--www.cdc.gov/tobacco [place] Lung Association--www.lungusa.org documented in this encounter [facility] 02-14-2024 History of Present illness Narrative Images from the original note were not included. Mauro Darden is a 53 y.o. female status post lateral internal sphincterotomy on 02/01/2024. She is feeling much better. She reports her pain as 1-2/10. She denies any rectal bleeding. She reports very soft, frequent stools. She is still taking the stool softener and fiber supplement. She is asking about stopping the stool softener. She is taking Sitz baths. She denies any fevers. She has to lift 25 lb frequently at work. Objective There were no vitals filed for this visit. Physical Exam Genitourinary: Rectum: Normal anal tone. Comments: ALEX - No gross blood or stenosis. Mild tenderness which is much improved since surgery. Healing appropriately. Assessment Karo Darden is a 53 y.o.female postop lateral internal sphincterotomy. Plan No heavy lifting until cleared by physician. Continue Sitz baths and fiber supplements. May cut back on stool softener. Follow-up in 4 weeks. 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 General Surgery [place] This note was created with the assistance of a speech recognition program. While intending to generate a timely document that accurately reflects the content of the visit, no guarantee can be provided that every grammatical or spelling mistake has been or will be identified or corrected. Thank you for your understanding. DOUG Viera 02/14/24 1533 documented in this encounter [facility] 01-21-2024 Instructions Caroline Perez RN - 01/21/2024 12:45 PM EDT Preoperative Education Checklist- General Surgery date: 02/01/24 Surgery time: 730a Arrival time: 610a 1. Bring a photo ID and your insurance card with you the day of surgery. You will check in at the main lobby of the [facility]- registration desk is straight ahead as soon as you walk in. Tell them you are here for surgery. 2. If you have a Living Will/Durable Power of Printed Circuit Board Drafter for Health Care that is not on [...] after you have bathed. 5. NO nail setswana/acrylic on at least one finger. If you are having a hand, wrist or foot surgery then all nail setswana and artificial/acrylic nails must be removed from [...] please call the Preadmission Testing office at [phone], Mon.-Fri. 7 a.m.-3 p.m. Leave a voicemail [...] taking 0 days prior to procedure omega 7-lqm-ifl-fish oil 300-1,000 mg capsule Stop taking 1 [...] with your doctor. [facility] History of Present illness Narrative Images from the original note were not included. [facility] GENERAL SURGERY [address] [facility] [id number] progress NOTE Karo Darden 53 y.o. CHIEF COMPLAINT Chief Complaint Patient presents with POST-OP VISIT POST OP COLONOSCOPY DONE 01/17/[address] FAYE Beasley Emerald Darden is a 53-year-old female who presents post [...] in the morning., Disp: , Rfl: omega 3-cnu-edc-fish oil 300-1,000 mg capsule, Take 1 capsule [...] Medical History: Diagnosis Date Arthritis Diabetes mellitus ([facility]) Hypertension Obesity Rectal bleeding 2018 when she also had hysterectomy Visual impairment SURGICAL HISTORY Past Surgical History: Procedure Laterality Date ARTHROSCOPY PARTIAL MEDIAL MENISCECTOMY KNEE Right 07/22/2022 Performed by Clifford Lam DO at [facility] BLADDER SURGERY SECTION Xs 2 COLONOSCOPY 3-4 yrs ago, [facility] COLONOSCOPY N/A 04/03/2021 Performed by Delano Mckinney DO at [facility] COLONOSCOPY DIAGNOSTIC / SCREENING N/A 01/17/2024 Performed by Delano Mckinney DO at [facility] CYST REMOVAL Back of neck, Dr Montes [...] patient/family/caregiver Referring and communicating with other health spiritual care coordinator 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 While intending to generate a timely document that accurately reflects the content of the visit, no guarantee can be provided that every grammatical or spelling mistake has been or will be identified or corrected. Thank you for your understanding. documented in this encounter [facility] 12-31-2023 History of Present illness Narrative Images from the original note [...] Past Medical History: Diagnosis Date Diabetes mellitus ([facility]) Hypertension Rectal bleeding 2018 when she also had hysterectomy Visual impairment Past Surgical History: Procedure Laterality Date ARTHROSCOPY PARTIAL MEDIAL MENISCECTOMY KNEE Right 07/22/2022 Performed by Clifford Lam DO at [facility] BLADDER SURGERY SECTION Xs 2 COLONOSCOPY 3-4 yrs ago, [facility] COLONOSCOPY N/A 04/03/2021 Performed by Delano Mckinney DO at [facility] CYST REMOVAL Back of neck, Dr Montes [...] in the morning., Disp: , Rfl: omega 1-qkb-uly-fish oil 300-1,000 mg capsule, Take 1 capsule [...] Objective Physical Exam Exam conducted with a dial lathe operator present. Constitutional: General: She is not in [...] biopsy: Hyperplastic polyp. No dysplasia identified. Assessment Krao Darden is a 53 y.o.female with rectal [...] patient/family/caregiver Referring and communicating with other health spiritual care coordinator Rectal pain [K62.89] DOUG VIERA [facility] General Surgery [place] This note was created with the assistance of a speech recognition program. While intending to generate a timely document that accurately reflects the content of the visit, no guarantee can be provided that every grammatical or spelling mistake has been or will be identified or corrected. Thank you for your understanding. DOUG Viera 12/31/23 1239 documented in this encounter [facility] 12-31-2023 Instructions Kelley Griffith [facility] - 12/31/2023 9:00 AM EDT Are You Ready To Kick The Habit? Free Tobacco Cessation Resources [facility] Services [facility] provide all employees with free tobacco cessation services that include: Counseling to understand nicotine addiction Education about medications that can help you successfully quit Assistance with developing a plan to quit Call to set up an individual appointment or find out when group classes will be held: [facility]: [phone] [facility]: [phone] [facility]: [phone] [facility]: [phone] Quit Smoking Action Plan and Resources [facility] offers an eight-week, online smoking cessation plan to all [facility] employees, regardless of whether [employer] is your medical insurance provider. Go to [email or web address]/[email or web address] ss and click the Health Risk Assessment and Resources link to get started. In the Wsmah2Oyezez menu, click Action Plans instead of Health Risk Assessment to access the Quit Smoking Action Plan. Additional smoking cessation resources are also available to all [facility] employees on the Jdrcu[employer]Gycoet web page at www.[employer]/quitsm fransico. [place] Tobacco Cessation Program If [employer] is your medical insurance provider, there are more free resources available to you, including: No copays or deductibles on local tobacco cessation counseling services to help you quit Prescription assistance for tobacco cessation medications to help you quit For details about the tobacco cessation program available to [employer] members, go to www.[employer] (Search: Tobacco Cessation Program). [place] Tobacco Quit Line 5-032-AISZ-NOW ( ) is a toll-free, telephonic service that helps [place] residents quit smoking and using tobacco. It is staffed by experts who tailor a quit plan for you and provide you with advice. [place] Tobacco Quit Line 2-951-ZUHD-NOW ( ) is a toll-free, telephonic service that helps [place] residents quit smoking and using tobacco. It is staffed by experts who tailor a quit plan for you and provide you with advice. Two weeks of nicotine replacement therapy may be provided at no charge, if needed. Additional Resources These national organizations also offer free information and resources to help you quit tobacco: [place] Cancer Society--www.cancer.org/healthy/st ayawayfromtobacco [place] Heart Association--www.heart.org (Search: Quit Smoking) Centers for Disease Control and Prevention--www.cdc.gov/tobacco [place] Lung Association--www.lungusa.org documented in this encounter [facility] [employer] [facility] 11-15-2023 History of Present illness Narrative Images from the original note [...] Past Medical History: Diagnosis Date Diabetes mellitus ([facility]) Hypertension Rectal bleeding 2018 Sine August when she also had hysterectomy Visual impairment Past Surgical History: Procedure Laterality Date ARTHROSCOPY PARTIAL MEDIAL MENISCECTOMY KNEE Right 07/22/2022 Performed by Clifford Lam DO at [facility] SURGERY SECTION Xs 2 COLONOSCOPY 3-4 yrs ago, [facility] COLONOSCOPY N/A 04/03/2021 Performed by Delano Mckinney DO at [facility] CYST REMOVAL Back of neck, Dr Montes [...] in the morning., Disp: , Rfl: omega 1-njb-pgr-fish oil 300-1,000 mg capsule, Take 1 capsule [...] Hyperplastic polyp. No dysplasia identified. Assessment Karo Emerald Darden is a 53 y.o.female with rectal [...] patient/family/caregiver Referring and communicating with other health spiritual care coordinator Rectal pain [K62.89] DOUG VIERA [facility] General Surgery [place] This note was created with the assistance of a speech recognition program. While intending to generate a timely document that accurately reflects the content of the visit, no guarantee can be provided that every grammatical or spelling mistake has been or will be identified or corrected. Thank you for your understanding. DOUG Viera 11/15/232 documented in this encounter [facility] 06-01-2022 Note PROCEDURE: XR KNEE R [...] authenticated by: AUDREY GUTHRIE Date: 2022-06-01 09:07 [facility] 07-07-2021 Evaluation note Encounter Date Diagnosis [...] will help you get into a specialist. [employer] Other Evaluation note* Diagnosis Annual physical exam- Primary Routine general medical examination at a [facility] care facility Type 2 diabetes mellitus with hyperglycemia, without long-term current use of insulin ([facility]) MDD (major depressive disorder), recurrent episode, mild (HCC) ([facility]) Morbid obesity ([facility]) Morbid obesity Chronic heart failure with preserved ejection fraction (HFpEF) ([facility]) Type 2 diabetes mellitus with hyperglycemia, without long-term current use of insulin ([facility])- Primary Essential hypertension ([facility]) Unspecified essential hypertension Chronic heart failure with preserved ejection fraction (HFpEF) ([facility]) MDD (major depressive disorder), recurrent episode, mild (HCC) ([facility]) Class 3 severe obesity due to excess calories with serious comorbidity and body mass index (BMI) of 45.0 to 49.9 in adult ([facility]) Acute nonsuppurative otitis media of left ear Vaginal usama Candidiasis of vulva and vagina documented in this encounter [facility]* Diagnosis Annual physical exam- Primary Routine general medical examination at a [facility] care facility Type 2 diabetes mellitus with hyperglycemia, without long-term current use of insulin ([facility]) MDD (major depressive disorder), recurrent episode, mild (HCC) ([facility]) Morbid obesity ([facility]) Morbid obesity Chronic heart failure with preserved ejection fraction (HFpEF) ([facility]) Type 2 diabetes mellitus with hyperglycemia, without long-term current use of insulin ([facility])- Primary Essential hypertension ([facility]) Unspecified essential hypertension Chronic heart failure with preserved ejection fraction (HFpEF) ([facility]) MDD (major depressive disorder), recurrent episode, mild (HCC) ([facility]) Class 3 severe obesity due to excess calories with serious comorbidity and body mass index (BMI) of 45.0 to 49.9 in adult ([facility]) Acute nonsuppurative otitis media of left ear Vaginal usama Candidiasis of vulva and vagina Pneumonia due to infectious organism, unspecified laterality, unspecified part of lung- Primary Type 2 diabetes mellitus with hyperglycemia, without long-term current use of insulin ([facility]) Class 3 severe obesity due to excess calories with serious comorbidity and body mass index (BMI) of 40.0 to 44.9 in adult ([facility]) Chronic heart failure with preserved ejection fraction (HFpEF) ([facility]) documented in this encounter [facility]* Diagnosis Chronic anal fissure- Primary Anal fissure H/O rectal sphincterotomy [facility] Diagnosis Rectal pain- Primary Anal or rectal pain [facility] Diagnosis Chronic anal fissure- Primary Anal fissure [facility] Diagnosis Rectal pain- Primary Anal or rectal pain Rectal bleeding Hemorrhage of rectum and anus Morbid obesity with BMI of 40.0-44.9, adult ([facility]) [facility] Diagnosis Chronic anal fissure- Primary Anal fissure Polyp of colon, unspecified part of colon, unspecified type [facility]* Diagnosis Preop examination- Primary Unspecified pre-operative examination Hypertension, unspecified type Type 2 diabetes mellitus without complication, without long-term current use of insulin ([facility]) Preop examination Unspecified pre-operative examination Hypertension, unspecified type Type 2 diabetes mellitus without complication, without long-term current use of insulin ([facility]) [facility] Diagnosis Annual physical exam- Primary Routine general medical examination at a health care facility Type 2 diabetes mellitus with hyperglycemia, without long-term current use of insulin ([facility]) MDD (major depressive disorder), recurrent episode, mild (HCC) ([facility]) Morbid obesity ([facility]) Morbid obesity Chronic heart failure with preserved ejection fraction (HFpEF) ([facility]) Type 2 diabetes mellitus with hyperglycemia, without long-term current use of insulin ([facility])- Primary Essential hypertension ([facility]) Unspecified essential hypertension Chronic heart failure with preserved ejection fraction (HFpEF) ([facility]) MDD (major depressive disorder), recurrent episode, mild (HCC) ([facility]) Class 3 severe obesity due to excess calories with serious comorbidity and body mass index (BMI) of 45.0 to 49.9 in adult Acute nonsuppurative otitis media of left ear Vaginal usama Candidiasis of vulva and vagina Pneumonia due to infectious organism, unspecified laterality, unspecified part of lung- Primary Type 2 diabetes mellitus with hyperglycemia, without long-term current use of insulin ([facility]) Class 3 severe obesity due to excess calories with serious comorbidity and body mass index (BMI) of 40.0 to 44.9 in adult Chronic heart failure with preserved ejection fraction (HFpEF) ([facility]) Annual physical exam- Primary Routine general medical examination at a health care facility Type 2 diabetes mellitus with hyperglycemia, without long-term current use of insulin ([facility]) Essential hypertension ([facility]) Unspecified essential hypertension Chronic heart failure with preserved ejection fraction (HFpEF) ([facility]) Localized edema Edema Class 3 severe obesity due to excess calories with serious comorbidity and body mass index (BMI) of 45.0 to 49.9 in adult documented [facility] Narrative - Reported* Type Description Date Medical History Hypertension Medical History diabetes mallitus Medical History chronic depression Medical History anxiety Surgical History tubal ligation Surgical History C section Surgical History bladder surgery Surgical History HYSTERECTOMY Hospitalization History see above Hospitalization History cyst [employer] Other InstructionsNot on filedocumented in this encounter [facility] Attachments The following attachments cannot be sent through Care Everywhere. * Anal fissure (Swedish) [facility] Summary Purpose Family History No Family History [...] complication, without long-term current use of insulin ([facility]) Procedures ECG 12 lead Tamra Saul MD [address] [place] [address] Referral ID Status Reason Start Date Expiration Date V isits Requested Visits Authorized [id number] Pending Review 01/19/2024 01/18/2025 1 1 Specialty Diagnoses / Procedures Referred By Contac t Referred To Contact Diagnoses Polyp of colon, unspecified part of colon, unspecified type Procedures Colonoscopy Delano Mckinney, DO [address] [place] [address] Referral ID Status Reason Start Date Expiration Date V isits Requested Visits Authorized [id number] Pending Review 01/19/2024 01/18/2025 1 1 Specialty Diagnoses / Procedures Referred By Contac t Referred To Contact Diagnoses Chronic anal fissure Procedures Unlisted Procedure / Surgery Delano Mckinney, DO [address] [place] [address] Referral ID Status Reason Start Date Expiration Date V isits Requested Visits Authorized [id number] Pending Review 01/19/2024 01/18/2025 1 1 Specialty Diagnoses / Procedures Referred By Contac t Referred To Contact Diagnoses Rectal pain Rectal bleeding Tonie Small, EGG BUYER-LEGAL WRITING PROFESSOR [address] [place] [address] Referral ID Status Reason Start Date Expiration Date Visits Re quested Visits Authorized [id number] Closed 1 1 Additional Source Comments INFORMATION SOURCE (unrecogn ized section and content) DATE CREATED AUTHOR 10/09/[address] [facility] DATE CREATED AUTHOR AUTHOR'S ORGANIZ ATION 10/28/2021 [facility] DATE CREATED AUTHOR AUTHOR'S ORGANIZ ATION 06/13/2022 [facility] dical Specialist DATE CREATED AUTHOR AUTHOR'S ORGANIZ ATION 02/21/2023 [facility] DATE CREATED AUTHOR AUTHOR'S ORGANIZ ATION 02/02/2024 [facility] DATE CREATED AUTHOR AUTHOR'S ORGANIZ ATION 03/14/2024 [facility] DATE CREATED AUTHOR AUTHOR'S ORGANIZ ATION 02/18/2025 [facility] dical Specialists EPIC REASON FOR VISIT (unrecogniz ed section and content) Reason Comments Follow-up 6M Earache LEFT EAR Reason Comments Follow-up Tbh f/up Reason Comments Follow-up POST OP - SPHINCTERO MTOMY PERFORMED 02/01/24 BY FAYE Reason Comments Painful Bowel Movement Painful bowel mov ements, blood in stool, last colon 04/03/21 Reason Comments Follow-up Follow up from 4, post op sphincterotomy performed 02/01/24 at [facility] Reason Comments Follow-up 6 week follow up fro m 11/15/23, painful bowel movement, blood in stool, last colon 04/03/21 Reason Comments POST-OP VISIT POST OP COLONOSCOPY DONE 01/17/[address] MCKINNEY Reason Comments Annual Exam Wellness Care Teams (unrecognized sec tion and content) Documentation Writer Relationship Specialty Start Date End Date Mynor Schmidt MD [address] [place] [phone] PCP - General Family Medicine 03/03/24 Mynor Schmidt MD [address] [place] [phone] PCP - [facility] 04/10/24 Documentation Writer Relationship Specialty Start Date End Date Mynor Schmidt MD [address] [place] [phone] PCP - General Family Medicine 03/03/24 Mynor Schmidt MD [address] [place] [phone] PCP - [facility] 04/10/24 Documentation Writer Relationship Specialty Start Date End Date Mynor Schmidt MD [address] [place] [phone] PCP - General Family Medicine 03/03/24 Mynor Schmidt MD [address] [place] [address] PCP - [place] [employer] 04/10/24 Documentation Writer Relationship Specialty Start Date End Date Mynor Schmidt MD [address] [place] [address] PCP - General Family Medicine 03/03/24 Mynor Schmidt MD [address] [place] [address] [facility] Documentation Writer Relationship Specialty Start Date End Date Mynor Schmidt MD [address] [place] [address] PCP - General Family Medicine 03/03/24 Mynor Schmidt MD [address] [place] [address] [facility] 04/10/24 Documentation Writer Relationship Specialty Start Date End Date Mynor Schmidt MD [address] [place] [address] PCP - General Family Medicine 07/20/22 Documentation Writer Relationship Specialty Start Date End Date Mynor Schmidt MD [address] [place] [address] PCP - General Family Medicine 07/20/22 Documentation Writer Relationship Specialty Start Date End Date Mynor Schmidt MD [address] [place] [address] PCP - General Family Medicine 07/20/22 Documentation Writer Relationship Specialty Start Date End Date Mynor Schmidt MD [address] [place] [id number] PCP - General Family Medicine 07/20/22 Documentation Writer Relationship Specialty Start Date End Date Mynor Schmidt MD [address] [place] [address] PCP - General Family Medicine 07/20/22 Documentation Writer Relationship Specialty Start Date End Date Mynor Schmidt MD [address] [place] [id number] PCP - General Family Medicine 03/03/24 Mynor Schmidt MD [address] [place] [id number] PCP - [employer] 04/10/24 Documentation Writer Relationship Specialty Start Date End Date Mynor Schmidt MD [address] [place] [id number] PCP - General Family Medicine 03/03/24 Mynor Schmidt MD [address] [place] [phone] PCP - [employer] 04/10/24 Documentation Writer Relationship Specialty Start Date End Date Mynor Schmidt MD [address] [place] [phone] PCP - General Family Medicine 03/03/24 FOR RECORDS PERTAINING TO PATIENTS WHO ARE [...] BE BASED ON THE PRIMARY CLINICAL RECORDS. [facility] provides no warranty or guarantee of the accuracy or completeness of information in this document.
[2025-03-19 11:09] LABS: Age Gdln ACOG Testing Note (.); HPV Aptima Negative (Negative); IGP, Aptima HPV, rfx 16/18,45 Note (.)
== END 2025-03-14 20:13 | disposition home or self-care (01) ==
LOC: LAB 20:12
PROVIDERS: PCP Family Medicine; Visit Provider Obstetrics & Gynecology
DX: Z01.419 Encounter for gynecological examination (general) (routine) without abnormal findings (principal)
CPT/HCPCS: 36415; 88175

== ENCOUNTER 2025-06-01 11:41 | Outpatient (OUT) | payer BC, SELFPAY ==
--- OUTSIDE RECORDS SUMMARY | 2025-06-01 11:47 | XMS_ITS | CCD ---
Author Organization [facility] Care Team Providers Care Delivery Crew Member Name Role Phone Rivka Romero Unavailable ROXANA, [...] Primary Care Unavailable DELANO MCKINNEY Attending Unavailable ROAXNA, MYNOR Referring Unavailable ROXANA, MYNOR Primary Care Unavailable TONIE SMALL Attending Unavailable ROXANA, MYNOR Referring Unavailable NADJORGE, MYNOR Primary Care Unavailable TONIE SMALL Attending Unavailable ROXANA, MYNOR Referring Unavailable ROXANA, MYNOR Primary Care Unavailable TONIE SMALL Attending Unavailable ROXANA, MYNOR Referring Unavailable ROXANA, YMNOR Primary Care Unavailable Mynor Schmidt MD Primary Care Provider Mynor Schmidt MD Unavailable Mynor Schmidt MD Primary Care Provider Mynor Schmidt Primary Care Unavailable Damon Bettencourt Attending Unavailable Damon Bettencourt Admitting Unavailable MYNOR SCHMIDT Attending Unavailable ROXANA, MYNOR Attending Unavailable DAMON BETTENCOURT Attending Unavailable ROXANA, MYNOR Attending Unavailable ROXANA, MYNOR Attending Unavailable Medications Current Medications Medication Drug Class(es) Dates Sig (Normalized) Sig (Original) [id number] 200 actuat albuterol 0.09 mg/actuat metered dose inhaler (14 sources) beta2-Adrenergic Agonist Start: 11-16-2024 End: 05-25-2025 take 2 puff(s) by inhalation every four hours for wheezing albuterol HFA 90 mcg/act inhaler Indications: Pneumonia due to infectious organism, unspecified laterality, unspecified part of lung Inhale 2 puffs every 4 (four) hours if needed for shortness of breath or wheezing 18 g 2 11/16/2024 05/25/2025 Discontinued ascorbic acid 250 mg chewable tablet (20 sources) Vitamin C ascorbic acid (Vitamin C) 250 MG chewable tablet Chew 1 tablet in the morning. Active Vitamin C Active atorvastatin 40 mg oral tablet (20 sources) HMG-CoA Reductase Inhibitor Start: 09-17-2023 End: 02-17-2025 atorvastatin (Lipitor) 40 MG tablet Indications: High cholesterol TAKE 1 TABLET DAILY 90 tablet 3 [...] MDD (major depressive disorder), recurrent episode, mild TAKE 1 TABLET AT BEDTIME 90 tablet 3 07/31/2024 Active Start: 07-31-2024 citalopram (Ce Hubert) 10 MG tablet Indications: MDD (major depressive disorder), recurrent episode, mild TAKE 1 TABLET DAILY 90 tablet 3 07/31/2024 Active Start: 02-19-2021 take 3 tablets by mo uth in the morning citalopram (CeleXA) 10 mg tablet Take 3 tablets (30 mg total) by mouth in the morning. 02/19/2021 Active CeleXA Active docosahexaenoic acid 120 mg / eicosapentaenoic acid 180 mg oral capsule (20 sources) take 1 capsule by mouth in [...] (15 sources) Sodium-Glucose Cotransporter 2 Inhibitor Start: 024 End: 025 take 1 tablet by mouth once daily empagliflozin (Jardiance) 25 MG Indications: Chronic heart failure with preserved ejection fraction (HFpEF) ([facility]) Take 1 tablet (25 mg) by mouth Daily 90 tablet 3 06/30/2024 02/16/2025 Discontinued take 1 tablet by mouth in the mo rning empagliflozin (JARDIANCE) 25 mg tablet tablet Take 1 tablet (25 mg total) by mouth in the morning. Active fluconazole 150 mg oral tablet (19 sources) Azole Antifungal Start: 12-12-2024 fluconazole ( [...] oral tablet (20 sources) Loop Diuretic Start: 05-25-2025 take 1 tablet by mouth once daily furosemide (Lasix) 40 MG tablet Indications: Chronic heart failure with preserved ejection fraction (HFpEF) ([facility]) Take 1 tablet (40 mg) by mouth Daily 30 tablet 5 05/25/2025 Active Start: 05-25-2025 take 1 tablet by david th once daily furosemide (Lasix) 40 MG tablet Indications: Chronic heart failure with preserved ejection fraction (HFpEF) (HCC) Take 1 tablet (40 mg) by mouth Daily 30 tablet 5 05/25/2025 Active Start: 02-21-2025 End: 05-25-2025 take 1 tablet by mouth once daily as needed furosemide (Lasix) 40 MG tablet Indications: Localized edema TAKE 1 TABLET BY MOUTH DAILY NEEDED 30 tablet 5 02/21/2025 05/25/2025 Discontinued (Reorder) Start: 02-16-2025 take 1 tablet by david th once daily as needed furosemide (Lasix) 40 MG tablet Indications: Localized edema Take 1 tablet (40 mg) by mouth Daily as needed ([facility]) 90 tablet 3 02/16/2025 Active Start: 02-16-2025 take 1 tablet by david th once daily as needed furosemide (Lasix) 40 MG tablet Indications: Localized edema Take 1 tablet (40 mg) by mouth Daily as needed (take 1 tablet by nmout dailyt as needed) 90 tablet 3 02/16/2025 Active Start: 02-16-2025 take 1 tablet by david th once daily as needed furosemide (Lasix) 40 MG tablet Indications: Localized edema Take 1 tablet (40 mg) by mouth Daily as needed (take 1 tablet by [facility] dailyt as needed) 90 tablet 3 02/16/2025 Active Start: 08-16-2024 End: 02-16-2025 take 1 tablet by mouth once daily as needed furosemide (Lasix) 40 MG tablet Indications: Localized edema Take 1 tablet (40 mg) by mouth Daily as needed (take 1 tablet by nmout dailyt as needed) 30 tablet 5 08/16/2024 02/16/2025 Discontinued (Reorder) Start: 09-17-2023 take 1 tablet by david th once daily furosemide (LASIX) 40 mg tablet Take 1 tablet (40 mg total) by mouth daily. 09/17/2023 Active isopropyl alcohol 0.7 ml/ml medicated pad (20 sources) Start: 06-30-2024 Alcohol Swabs (Alcohol Prep) 70 % pads Indications: Type 2 diabetes mellitus with hyperglycemia, without long-term current use of insulin (HCC) APPLY 1 PAD DAILY 100 each 3 06/30/2024 Active lisinopril 10 mg oral tablet (20 sources) Angiotensin Converting Enzyme Inhibitor Start: 02-26-2025 lisinopril 10 MG tab let Indications: Essential hypertension TAKE 1 TABLET DAILY 90 tablet 3 02/26/2025 Active Start: 03-13-2021 lisinopril 10 MG tablet Indications: Essential hypertension (CMS/HCC) TAKE 1 TABLET DAILY 90 tablet 3 03/03/2024 Active Multiple Vitamins-Minerals (MULTIVITAMIN ADULT, MINERALS, PO) (20 sources) Multiple Vitamin s-Minerals (MULTIVITAMIN ADULT, MINERALS, [...] hours 30 g 10/13/2023 09/01/2024 Discontinued omega 4-vhp-fgx-fish oil 300-1,000 mg capsule (6 sources) take 300-1000 mg by mouth once daily omega 5-ccb-urx-fish oil 300-1,000 mg capsule Take 1 capsule by mouth daily. Active take 300-1000 mg by mouth once d aily omega 2-ype-hod-fish oil 300-1,000 mg capsule Take 1 capsule by mouth daily. 0 Active pioglitazone 30 mg oral tablet (20 sources) Peroxisome Proliferator Receptor alpha Agonist, Peroxisome Proliferator Receptor gamma Agonist, Thiazolidinedione Start: 04-23-2025 pioglitazone (Actos) 30 MG tablet Indications: Type 2 diabetes mellitus with hyperglycemia, without long-term current use of insulin ([facility]) TAKE 1 TABLET DAILY 90 tablet 3 04/23/2025 Active Start: 05-01-2024 pioglitazone ( Actos) 30 MG tablet Indications: Type 2 diabetes mellitus with hyperglycemia, without long-term current use of insulin ([facility]) TAKE 1 TABLET DAILY 90 tablet 3 [...] 1.5 ml semaglutide 1.34 mg/ml pen injector (12 sources) Start: 02-16-2025 End: 05-25-2025 semaglutide (Ozempic, 0.25 or 0.5 MG/DOSE,) 2 MG/1.5ML solution pen-injector Indications: Type 2 diabetes mellitus with hyperglycemia, without long-term current use of insulin ([facility]) 0.25 mg SC weekly x 4 weeks, then 0.5 mg weekly 3 each 02/16/2025 05/25/2025 Discontinued semaglutide (Ozempic, 1 MG/DOSE,) 4 MG/3ML solution pen-injector (2 sources) Start: 05-25-2025 inject 1 mg by subcutaneous injection every week semaglutide (Ozempic, 1 MG/DOSE,) 4 MG/3ML solution pen-injector Indications: Type 2 diabetes mellitus with hyperglycemia, without long-term current use of insulin ([facility]) Inject 1 mg under the skin 1 (one) time per week 1 each 3 05/25/2025 Active sod sulf-pot chloride-mag sulf 1.479-0.188- 0.225 gram tablet (1 source) Start: 12-31-2023 sod sulf-pot chloride-mag sulf 1.479-0.188- 0.225 gram tablet Indications: Rectal pain , Rectal bleeding Please see instructional sheet given by physicians office. 24 tablet 0 12/31/2023 Active spironolactone 25 mg oral tablet (2 sources) Aldosterone Antagonist Start: 05-25-2025 take 1 tablet by mouth once daily spironolactone (Aldactone) 25 MG tablet Indications: Chronic heart failure with preserved ejection fraction (HFpEF) ([facility]) Take 1 tablet (25 mg) by mouth Daily 30 tablet 3 05/25/2025 Active Start: 05-25-2025 take 1 tablet by david once daily spironolactone (Aldactone) 25 MG tablet Indications: Chronic heart failure with preserved ejection fraction (HFpEF) ([facility]) Take 1 tablet (25 mg) by mouth Daily 30 tablet 3 05/25/2025 Active vitamin b12 1 mg oral tablet [...] Da te Episodic/Chronic Congestive heart failure; nonhypertensive (20 sources) Chronic heart failure co-occurrent with normal ejection fraction; Translations: [Chronic diastolic (congestive) heart failure] Onset: 2024 Chronic Contraceptive and procreative management (1 source) [...] Onset: 4 Joint disorders and dislocations; trauma-related (20 sources) Unspecified internal derangement of right knee; Translations: [Derangement of right knee] Onset: 2 10-05-2023 Chronic Mood disorders (20 sources) Recurrent major depressive episodes, mild ; Translations: [Major depressive disorder, recurrent, mild] Onset: 4 03-03-2024 Chronic Osteoarthritis (20 sources) Osteoarthritis of right knee joint; Translations: [Unilateral primary osteoarthritis, right knee] Onset: 3 Resolved: 4 03-03-2024 Chronic Other aftercare (1 source) Other fdc (current) drug therapy; Translations: [[employer] 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 CURRENT DRUG THERAPY] Onset: 3 Episodic Other and unspecified benign neoplasm (2 sources) Polyp of colon; Translations: [Polyp of colon] Onset: 4 Episodic Other nutritional; endocrine; and metabolic disorders (1 source) Morbid obesity; Translations: [Morbid (severe) obesity due to excess calories] Onset: 3 10-05-2023 Chronic Other nutritional; endocrine; and metabolic disorders (20 sources) Severe obesity; Translations: [Class 3 severe obesity due to excess calories with serious comorbidity and body mass index (BMI) of 45.0 to 49.9 in adult ([facility])] Onset: 3 09-01-2024 Chronic Other nutritional; endocrine; and metabolic disorders (1 source) Body mass index 40+ - severely obese; Translations: [Morbid (severe) obesity due to excess calories] 12-31-2023 Chronic Other screening for suspected conditions (not mental disorders or infectious disease) (7 sources) Encounter for screening for malignant neoplasm of cervix; Translations: [Patient encounter status] Onset: 3 Episodic Residual codes; unclassified (1 source) Acquired absence of both cervix and uterus; Translations: [ACQUIRED ABSENCE BOTH CERVIX AND UTERUS] Onset: 3 Episodic Residual codes; unclassified (2 sources) Localized edema; Translations: [Localized edema] 02-16-2025 Episodic Residual codes; unclassified (2 sources) Postmenopausal state; Translations: [Asymptomatic menopausal state] 03-14-2025 Episodic Substance-related disorders (1 source) Nicotine dependence, [...] 03-03-2024 03-03-2024 Episodic Coagulation and hemorrhagic disorders (10 sources) Acquired thrombocytopenia; Translations: [Thrombocytopenia, unspecified] Onset: 02-16-2025 Resolved: 02-16-2025 02-16-2025 Chronic Immunizations and screening for infectious disease (1 source) Encounter for screening for human papillomavirus (HPV); Translations: [ENC SCREENING HUMAN PAPILLOMAVIRUS] Onset: 10-31-2022 Episodic Menstrual disorders (20 sources) Intermenstrual bleeding - irregular; Translations: [Excessive and frequent menstruation with irregular cycle] Onset: 10-05-2023 Resolved: 03-03-2024 03-03-2024 Chronic Mycoses (20 sources) Candidiasis of vagina; Translations: [Vaginal usama] [...] [PAIN IN RIGHT KNEE] Onset: 06-01-2022 Episodic Otitis media and related conditions (20 sources) Acute non-suppurative otitis media of left ear; Translations: [Other acute nonsuppurative otitis media, left ear] Onset: 09-01-2024 Resolved: 11-16-2024 09-01-2024 Episodic Pneumonia (except that caused by tuberculosis or sexually transmitted disease) (16 sources) Pneumonia; Translations: [Pneumonia, unspecified organism] Onset: 11-16-2024 Resolved: 02-16-2025 11-16-2024 Episodic Results Test Name Value Interpretation Reference Range Facility MM special view LT w/CADon 0 03-29-2025 MM special view LT w/CAD [facility] [place] [address] Ultrasound Report Signed Patient: Karo Darden MR#: [id number] : 1970 Acct:[id number] Age/Sex: 54 / F ADM Date: 03/29/25 Loc: [place] Room: Type: [facility] Attending Dr: Damon Bettencourt DO Ordering Provider: Damon Bettencourt Date of Service: 03/29/25 MM/MM special view LT w/CAD: R92.8 ([id number]) US/US breast LT limited: ABN MAMM Copies to: Damon Bettencourt LEFT Diagnostic Full Field digital mammogram with 3-D imaging. Spot compression with mediolateral view COMPARISON: 02/14/2025 HISTORY: Annual screening BREAST COMPOSITION: Scattered fibroglandular densities of the breast parenchyma identified BREAST CALCIFICATIONS: Benign calcifications present. VASCULAR CALCIFICATIONS: None ARCHITECTURAL DISTORTION: None BREAST NODULE: Left breast nodularity persists with compression imaging. AXILLARY LYMPH NODES: Normal POSTSURGICAL CHANGES: None Targeted left breast ultrasound. Mildly complex oval cyst at 12:00 position 9 cm from the nipple. This measures up to 4 mm. At the 1:00 position 7 cm from nipple there is an ill-defined hypoechoic area measuring up to 7 mm. Not well demonstrated in 2 planes. The indeterminate. US/US breast LT limited IMPRESSION: Residual nodularity with compression imaging. 4 mm mildly complex cyst. Additional region of ill-defined hypoechoic area as described above. Indeterminate. Consider six-month follow- up assessment with targeted left breast ultrasound. Also consider six-month follow-up assessment left diagnostic mammogram RESULT CODE: 3 Probably Benign Finding Short Term Follow-Up DENSITY CODE: 2 (approximately 25-50% glandular) There are scattered areas of fibroglandular density. FOLLOW UP: 6M THE FALSE-NEGATIVE RATE OF MAMMOGRAPHY IS APPROXIMATELY 10%. IMAGING OF A PALPABLE ABNORMALITY MUST BE BASED ON CLINICAL GROUNDS. PATIENT WAS ENTERED INTO A REMINDER SYSTEM WITH A TARGET DUE DATE FOR THE NEXT MAMMOGRAM. Impression dictated by: Max Kasper M.D. 03/29/2025 3:03 PM Dictation Location: [facility] Tech: Mihaela Monterroso; Leena Meeks Transcribed By: JEREMY 03/29/25 1503 Dictated By: Max Kasper DO 03/29/25 1500 Signed By: 03/29/25 1503 Normal [facility] IGP,APTIMA HPV,AGE GDLNon AGE GDLN ACOG TESTING Note . [facility] Comment on above: TESTS RESULT FLAG UN ITS REF RANGE LAB Clinician Provided Cytology Information Source.............Vagina LMP / Prev Treat...Hyst Tot No. of containers..01 ThinPrep Vial Age Algo ACOG Odette... 30-65 01 FLAG LEGEND: L-Low Normal,H-High Normal,LL-Alert Low,HH-Alert High <-Panic Low,>-Panic High,A-Abnormal,AA-Critical Abnormal Performed at: 01 =[address] [address] Marcella Carpenter MD, HPV APTIMA Negative Negative [facility] Comment on above: This nucleic acid am plification test detects fourteen high- risk HPV types (16,18,31,33,35,39,45,51,52,56,58,59,66,68) without differentiation. Performed at: =[address] [id number] Front Office Spec: Marcella Carpenter MD, Phone: [phone] Performed at: [address] [id number] Front Office Spec: Marcella Carpenter MD, Phone: [phone] IGP, APTIMA HPV, RFX 16/18,45 Note . [facility] Comment on above: TESTS RESULT FLAG UN ITS REF RANGE LAB DIAGNOSIS: 02 NEGATIVE FOR INTRAEPITHELIAL LESION OR MALIGNANCY. Specimen adequacy: 02 Satisfactory for evaluation. No endocervical cells are present. This is consistent with a history of hysterectomy. Performed by: Jina Baker Product Handler (ASC) . 02 Note: Note 02 The Pap smear is a screening test designed to aid in the detection of premalignant and malignant conditions of the uterine cervix. It is not a diagnostic procedure and should not be used as the sole means of detecting cervical cancer. Both false-positive and false-negative reports do occur. Test Methodology: Note 02 This liquid based ThinPrep(R) pap test was screened with the use of an image guided system. HPV Genotype Reflex Note 02 Criteria not met, HPV Genotype not performed. FLAG LEGEND: L-Low Normal,H-High Normal,LL-Alert Low,HH-Alert High <-Panic Low,>-Panic High,A-Abnormal,AA-Critical Abnormal Performed at: [address] [facility] [address] [phone] Marcella Carpenter MD, SPATULA-ALONE HYST-TOTAL VAGINA [facility] Health[facility] e ALL BASIC METABOLIC PANELon 02-16-2025 Anion gap [Moles/Vol] 9.6 mmol/L [facility] Calcium [Mass/Vol] 9.4 mg/dL 8.5 - 10. 1 mg/dL [facility] Healthcare Chloride [Moles/Vol] 100 mmol/L 98 - 107 mmol/L [facility] CO2 [Moles/Vol] 30.7 mmol/L 21.0 - 32.0 mmol/L [facility] Creatinine [Mass/Vol] 0.71 mg/dL 0.55 - 1.02 mg/dL [facility] GFR/1.73 sq M.predicted CKD-EPI (S/P/Bld) [Vol rate/Area] >60 >=60 mL/min/1.73m 2 [facility] Glucose [Mass/Vol] 125 mg/dL High 74 - 106 mg/dL [facility] Potassium [Moles/Vol] 4.3 mmol/L 3.5 - 5.1 mmol/L [facility] Sodium [Moles/Vol] 136 mmol/L 136 - 145 mmol/L [facility] TBH EGFR-NON AF [place] >60 >=60 mL/min/1.73m 2 [facility] Urea nitrogen [Mass/Vol] 18 mg/dL 7.0 - 18.0 mg/dL [facility] Urea nitrogen/Creatinine [Mass ratio] 25.4 mg/mg [facility] LIPID PROFILE (FASTING)o n 02-16-2025 CHOL HDL RATIO 3.4 [facility] Comment on above: 3.3 - 4.4 LOW RISK 4.4 - 7.1 AVERAGE RISK 7.1 - 11.0 MODERATE RISK >11.0 HIGH RISK Cholesterol [Mass/Vol] 178 mg/dL NINF - 200 mg/dL [facility] Cholesterol in HDL [Mass/Vol] 53 mg/dL 40 - 60 mg/dL [facility] Comment on above: > or =60 mg/dl - LOW CARDIOVASCULAR RISK <40 mg/dl - HIGH CARDIOVASCULAR RISK Magnesium [Mass/Vol] 88 mg/dL [facility] Comment on above: <100 mg/dl OPTIMAL 100-129 mg/dl NEAR OR ABOVE OPTIMAL 130-159 mg/dl BORDERLINE HIGH 160-189 mg/dl HIGH >190 mg/dl VERY HIGH Magnesium [Mass/Vol] 37.6 mg/dL [facility] Triglyceride [Mass/Vol] 188 mg/dL High NINF - 150 mg/dL [facility] THYROID STIM HORMONEon 0 02-16-2025 TSH Qn 2.288 m[IU]/L [facility] HMHP LIVER PANELon Albumin [Mass/Vol] 3.5 g/dL 3.4 - 5.0 g/dL [facility] ALBUMIN GLOBULIN RATIO 1 [facility] ALP [Catalytic activity/Vol] 97 U/L 46 - 116 U/L [facility] ALT [Catalytic activity/Vol] 25 U/L 14 - 59 U/L [facility] AST [Catalytic activity/Vol] 14 U/L Low 15 - 37 U/L [facility] Bilirubin [Mass/Vol] 0.4 mg/dL 0.2 - 1.0 mg/dL [facility] Bilirubin.indirect [Mass/Vol] 0.1 mg/dL 0.0 - 0.2 mg/dL [facility] Globulin (S) [Mass/Vol] 3.5 g/dL [facility] Protein [Mass/Vol] 7 g/dL 6.4 - 8.2 g/dL [facility] No Panel Informationon 02-16 Interpretation and review of laboratory results Abnormal [facility] MM TOMOSYNTHESIS SCREENING B Ion 02-14-2025 [place] [address] Mammography Report Signed Patient: KARO DARDEN MR#: [id number] : 1970 Acct:[id number] Age/Sex: 54 / F ADM Date: 02/14/25 Loc: MAMMO Attending Dr: Damon Bettencourt D.O. Ordering Physician: Damon Bettencourt D.O. Results: Date of Service: 02/14/25 Follow Up: Procedure(s): MM tomosynthesis screening BI Accession Number(s): [id number] cc: Damon Bettencourt D.O.; Mynor Schmidt M.D. 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 Ordering Physician: Damon Bettencourt D.O. Results: Date of Service: 02/14/25 Follow Up: Procedure(s): MM tomosynthesis screening BI Accession Number(s): [id number] cc: Damon Bettencourt D.O.; Mynor Schmidt M.D. 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[facility] [employer] Radiology Study observation (narrative) [facility] [employer] MM TOMOSYNTHESIS SCREENING B IOrdered By: Radiologist Radiology on 02-14-2025 [facility] Work Phone: GRAM STAIN EVALUATIONon 10-12 [facility] Other Machine e MLR HEMOGLOBIN A1Con 024 Glucose [Mass/Vol] 151 mg/dL [facility] HbA1c (Bld) [Mass fraction] 6.9 % High 4.5 - 6.2 % [facility] Comment on above: ADA RECOMMENDED LIMI T 4.0 - 6.0 ADA THERAPEUTIC TARGET < 7.0 ACTION SUGGESTED > 7.0 Interpretation and review of laboratory results Abnormal [facility] [employer] [facility] Other Machine e CBC without diffon Erythrocyte distribution width (RBC) [Ratio] 14.9 % 11.5 - 15.0 % [facility] Hematocrit (Bld) [Volume fraction] 40.8 % 35 - 47 % [facility] Hemoglobin (Bld) [Mass/Vol] 13.8 g/dL 11.7 - 15.5 g/dL [facility] MCH (RBC) [Entitic mass] 30.5 pg 27 - 34 pg [facility] MCHC (RBC) [Mass/Vol] 33.8 g/dL 32 - 36 g/dL [facility] MCV (RBC) [Entitic vol] 90 fL 80 - 100 fL [facility] Platelet mean volume (Bld) [Entitic vol] 9.4 fL 7 - 12 fL [facility] Platelets (Bld) [#/Vol] 158 10*3/uL [facility] RBC (Bld) [#/Vol] 4.52 10*6/uL [facility] WBC corrected for nucl RBC Auto (Bld) [#/Vol] 8.1 [facility] COMPLETE BLOOD COUNTon 01-20 Erythrocyte distribution width (RBC) [Ratio] 14.9 % Normal 11.5-15.0 [facility] Comment on above: Performed By: #### C BC, CMP #### [facility] ([id number]) [address], [address] [place] [address] Hematocrit (Bld) [Volume fraction] 40.8 % Normal 35-47 [facility] Comment on above: Performed By: #### C BC, CMP #### [facility] ([id number]) [address], [address] [place] [address] Hemoglobin (Bld) [Mass/Vol] 13.8 g/dL Normal 11.7-15.5 [facility] Comment on above: Performed By: #### C BC, CMP #### [facility] ([id number]) [address], [address] [place] [address] MCH (RBC) [Entitic mass] 30.5 pg Normal 27-34 [facility] Comment on above: Performed By: #### C BC, CMP #### [facility] ([id number]) [address], [address] [place] [address] MCHC (RBC) [Mass/Vol] 33.8 g/dL Normal 32-36 [facility] Comment on above: Performed By: #### C BC, CMP #### [facility] ([id number]) [address], [address] [place] [address] MCV (RBC) [Entitic vol] 90 fL Normal 80-100 [facility] Comment on above: Performed By: #### C BC, CMP #### [facility] ([id number]) [address], [address] [place] [address] Platelet mean volume (Bld) [Entitic vol] 9.4 fL Normal 7-12 [facility] Comment on above: Performed By: #### C BC, CMP #### [facility] ([id number]) [address] [place] [address] Platelets (Bld) [#/Vol] 158 10*3/uL Normal 150-450 [facility] Comment on above: Performed By: #### C BC, CMP #### [facility] ([id number]) [address], [address] [place] [address] RBC COUNT 4.52 X10E12/L Normal 3.80-5.20 [facility] Comment on above: Performed By: #### C BC, CMP #### [facility] ([id number]) [address], [address] [place] [address] WBC (Bld) [#/Vol] 8.1 10*3/uL Normal 4.0-11.0 [facility] Comment on above: Performed By: #### C BC, CMP #### [facility] ([id number]) [address], [address] [place] [address] COMPREHENSIVE METABOLIC PANE Vinicius 01-21-2024 Albumin [Mass/Vol] 4.0 g/dL Normal 3.2-5.3 [facility] Comment on above: Performed By: #### C BC, CMP #### [facility] ([id number]) [address], [address] [place] [address] ALP [Catalytic activity/Vol] 80 U/L Normal 39-130 [facility] Comment on above: Performed By: #### C BC, CMP #### [facility] ([id number]) [address], [address] [place] [address] ALT [Catalytic activity/Vol] 15 U/L Normal 0-31 [facility] Comment on above: Performed By: #### C BC, CMP #### [facility] ([id number]) [address] [place] [address] Anion gap [Moles/Vol] 11 mmol/L Normal 5-15 [facility] Comment on above: Performed By: #### C BC, CMP #### [facility] ([id number]) [address] [place] [address] AST [Catalytic activity/Vol] 14 U/L Normal 0-41 [facility] Comment on above: Performed By: #### C ZONIA, CMP #### [facility] ([id number]) [address] [place] [address] Bilirubin [Mass/Vol] 0.5 mg/dL Normal 0.3-1.2 [facility] Comment on above: Performed By: #### Kieran BRAR, CMP #### [facility] ([id number]) [address] [place] [address] Calcium [Mass/Vol] 9.5 mg/dL Normal 8.5-10.5 [facility] Comment on above: Performed By: #### C ZONIA, CMP #### [facility] ([id number]) [address] [place] [address] Chloride [Moles/Vol] 99 mmol/L Normal 98-109 [facility] Comment on above: Performed By: #### C ZONIA, CMP #### [facility] ([id number]) [address], [address] [place] [address] CO2 [Moles/Vol] 29 mmol/L Normal 22-32 [facility] Comment on above: Performed By: #### C BC, CMP #### [facility] ([id number]) [address] [place] [address] Creatinine [Mass/Vol] 0.80 mg/dL Normal 0.40-1.00 [facility] Comment on above: Result Comment: METH OD TRACEABLE TO IDMS STANDARD Performed By: #### C BC, CMP #### [facility] ([id number]) [address], [address] [place] [address] GFR/1.73 sq M.predicted among non-blacks MDRD (S/P/Bld) [Vol rate/Area] 88 mL/min/{1.73_m2} Normal >59 [facility] Comment on above: Result Comment: Reported eGFR is based on the CKD-EPI 2020 equation that does not use a race coefficient. Performed By: #### C BC, CMP #### [facility] ([id number]) [address], [address] [place] [address] Glucose [Mass/Vol] 173 mg/dL High 65-99 [facility] Comment on above: Performed By: #### C ZONIA, CMP #### [facility] ([id number]) [address], [address] [place] [address] Potassium [Moles/Vol] 3.7 mmol/L Normal 3.5-5.0 [facility] Comment on above: Performed By: #### C BC, CMP #### [facility] ([id number]) [address] [place] [address] Protein [Mass/Vol] 7.0 g/dL Normal 6.0-8.0 [facility] Comment on above: Performed By: #### C BC, CMP #### [facility] ([id number]) [address] [place] [address] Sodium [Moles/Vol] 139 mmol/L Normal 134-146 [facility] Comment on above: Performed By: #### C BC, CMP #### [facility] ([id number]) [address] [place] [address] Urea nitrogen [Mass/Vol] 17 mg/dL Normal 5-23 [facility] Comment on above: Performed By: #### C BC, CMP #### [facility] ([id number]) [address] [facility] [place] [address] Comprehensive metabolic pane [facility] 01-21-2024 Albumin [Mass/Vol] 4.0 g/dL 3.2 - 5.3 g/dL [facility] ALP [Catalytic activity/Vol] 80 U/L 39 - 130 U/L [facility] ALT No additional P-5'-P [Catalytic activity/Vol] 15 U/L 0 - 31 U/L [facility] Anion gap [Moles/Vol] 11 mmol/L 5 - 15 mmol/L [facility] AST [Catalytic activity/Vol] 14 U/L 0 - 41 U/L [facility] Bilirubin [Mass/Vol] 0.5 mg/dL 0.3 - 1.2 mg/dL [facility] Calcium [Mass/Vol] 9.5 mg/dL 8.5 - 10. 5 mg/dL [facility] Chloride [Moles/Vol] 99 mmol/L 98 - 109 mmol/L [facility] CO2 [Moles/Vol] 29 mmol/L 22 - 32 mmol/L [facility] Creatinine [Mass/Vol] 0.80 mg/dL 0.40 - 1.00 mg/dL [facility] Comment on above: METHOD TRACEABLE TO IDMA STANDARD eGFR (CKD-EPI)non-race dependent 88 - PINF [facility] Comment on above: Reported eGFR is based on the CKD-EPI 2020 equation that does not use a race coefficient. Glucose [Mass/Vol] 173 mg/dL High 65 - 99 mg/dL [facility] Interpretation and review of laboratory results Abnormal [facility] Potassium [Moles/Vol] 3.7 mmol/L 3.5 - 5.0 mmol/L [facility] Protein [Mass/Vol] 7.0 g/dL 6.0 - 8.0 g/dL [facility] Sodium [Moles/Vol] 139 mmol/L 134 - 146 mmol/L [facility] Urea nitrogen [Mass/Vol] 17 mg/dL 5 - 23 mg/dL [facility] ECG 12 leadon 01-21-2024 [employer] ECHOCARDIO M/2D COMPLETEon 0 02-19-2023 ECHOCARDIO M/2D COMPLETE Patient: KARO DARDEN Exam Date: 02/19/2023 : 1970 Gender:F Ordering : DR MYNOR SCHMIDT . Admission #: [id number] Family : Order #: [id number] CLICK HERE TO VIEW EXAM ECHOCARDIOGRAM REPORT [...] Left Atrium LA Volume Index (2D A2C): 84834 mm3 Left Atrium Systolic Dimension: 4.50 cm [...] M.D. on 02/19/2023 at 18:56 Normal [facility] CBC AUTO DIFFon 02-17-2023 BASO # 0.0 103/ul Normal 0.0-0.1 [facility] Comment on above: Performed By: #### C BC ####[facility] [address] [place] [id number]. Joseph Obando Basophils/100 WBC (Bld) 0.4 % Normal 0.2-2.0 [facility] Comment on above: Performed By: #### C BC ####[facility] [address] [place], [place] [address]Ci. Joseph Obando EO # 0.3 103/ul Normal 0.0-0.7 [facility] Comment on above: Performed By: #### C BC ####[facility] [address] [place] [id number]. Joseph Obando Eosinophils/100 WBC (Bld) 2.9 % Normal 0.9-7.0 [facility] Comment on above: Performed By: #### C BC ####[facility] [address] [place] [address]Dr. Joseph Obando Erythrocyte distribution width (RBC) [Ratio] 15.4 % Critically high 11.0-15.0 [facility] Comment on above: Performed By: #### C BC ####[facility] [address] [place] [address]Dr. Joseph Obando Hematocrit (Bld) [Volume fraction] 41.8 % Normal 36.0-48.0 [facility] Comment on above: Performed By: #### C BC ####[facility] [address] [place], [place] [address]Dr. Joseph Obando Hemoglobin (Bld) [Mass/Vol] 12.9 g/dL Normal 12.0-16.0 [facility] Comment on above: Performed By: #### C BC ####[facility] [address] [place], [place] [address]Dr. Joseph Obando IG # 0.04 10e3/ul Critically high 0.00-0.03 [facility] Comment on above: Performed By: #### C BC ####[facility] [address] [place], [place] [address]Dr. Joseph Obando IG % 0.4 % Normal 0.0-0.5 [facility] Comment on above: Performed By: #### C BC ####[facility] [address] [place], [place] [address]Dr. Joseph Obando LYMPH # 1.5 103/ul Normal 1.2-3.8 [facility] Comment on above: Performed By: #### C BC ####[facility] [address] [place], [place] [address]Dr. Joseph Obando Lymphocytes/100 WBC (Bld) 15.9 % Critically low 20.5-60.0 [facility] Comment on above: Performed By: #### C BC ####[facility] [address] [place] [id number]. Joseph Obando MANUAL DIFF REQ NO Normal [facility] Comment on above: Performed By: #### C BC ####[facility] [address] [place] [id number]. Joseph Obando MCH (RBC) [Entitic mass] 29.3 pg Normal 26.7-34.0 [facility] Comment on above: Performed By: #### C BC ####[facility] [address] [place], [place] [address]Dr. Joseph Obando MCHC (RBC) [Mass/Vol] 30.9 g/dL Normal 29.9-35.2 [facility] Comment on above: Performed By: #### C BC ####[facility] [address] [place], [place] [address]Dr. Lindakyree Obando MCV (RBC) [Entitic vol] 94.8 fL Normal 81.0-99.0 [facility] Comment on above: Performed By: #### C BC ####[facility] [address] [place], [place] [address]Dr. Joseph Topher MONO # 0.6 103/ul Normal 0.3-0.8 [facility] Comment on above: Performed By: #### C BC ####[facility] [address] [place], [place] [address]Dr. Joseph Obando Monocytes/100 WBC (Bld) 6.5 % Normal 1.7-12.0 [facility] Comment on above: Performed By: #### C BC ####[facility] [address] [place], [place] [address]Dr. Lindakyree Obando NEUT # 6.8 103/ul Critically high 1.4-6.5 [facility] Comment on above: Performed By: #### C BC ####[facility] [address] [place], [place] [address]Dr. Joseph Obando Neutrophils/100 WBC (Bld) 73.9 % Normal 43.0-75.0 [facility] Comment on above: Performed By: #### C BC ####[facility] [address] [place], [place] [address]Mt. Joseph Obando Platelet mean volume (Bld) [Entitic vol] 10.4 fL Normal 9.5-13.5 [facility] Comment on above: Performed By: #### C BC ####[facility] [address] [place] [id number]. Joseph Obando PLT 168 103/ul Normal 150-450 [facility] Comment on above: Performed By: #### C BC ####[facility] [address] [place] [address]Dr. Joseph Obando RBC 4.41 106/ul Normal 4.20-5.40 [facility] Comment on above: Performed By: #### C BC ####[facility] [address] [place] [address]Dr. Joseph Obando WBC 9.3 103/ul Normal 4.0-11.0 [facility] Comment on above: Performed By: #### C BC ####[facility] [address] [place] [id number]. Joseph Obando GLYCOHEMOGLOBIN A1Con 2022 ADA RECOMMENDATION SEE BELOW Normal [facility] Comment on above: Result Comment: ADA RECOMMENDED LIMIT 4.0 - 6.0 ADA THERAPEUTIC TARGET < 7.0 ACTION SUGGESTED > 7.0 Performed By: #### A 1C #### [facility] [address] [place] [address] [address] Joseph Obando Glucose [Mass/Vol] 146 mg/dL Normal [facility] Comment on above: Performed By: #### A 1C #### [facility] [address] [place] [address] [address] Joseph Obando HbA1c (Bld) [Mass fraction] 6.7 % Critically high 4.5-6.2 [facility] Comment on above: Performed By: #### A 1C #### [facility] [address] [place] [address] [address] Joseph Obando LIPID PROFILEon 02-17-2023 CHOL-HDL RATIO NORM SEE BELOW Normal [facility] Comment on above: Result Comment: 3.3 - 4.4 LOW RISK 4.4 - 7.1 AVERAGE RISK 7.1 - 11.0 MODERATE RISK >11.0 HIGH RISK Performed By: #### T SH, LIVER, LIPID, BMP #### [facility] [address] [place] [address] [address] Joseph Obando Cholesterol [Mass/Vol] 250 mg/dL Critically high <=200 [facility] Comment on above: Performed By: #### T SH, LIVER, LIPID, BMP #### [facility] [address] [place] [address] [address] Joseph Obando Cholesterol in HDL [Mass/Vol] 42 mg/dL Normal 40-60 [facility] Comment on above: Performed By: #### T SH, LIVER, LIPID, BMP #### [facility] [address] [place] [address] [address] Joseph Obando Cholesterol in LDL [Mass/Vol] 176.4 mg/dL Normal [facility] Comment on above: Performed By: #### T SH, LIVER, LIPID, BMP #### [facility] [address] [place] [address] [address] Joseph Obando Cholesterol.total/C holesterol in HDL [Mass ratio] 6.0 {ratio} Normal [facility] Comment on above: Performed By: #### T SH, LIVER, LIPID, BMP #### [facility] [address] [place] [address] [address] Joseph Obando HDL NORMAL > or = 60 mg/dl - LOW CARDIOVASCULAR RISK <40 mg/dl - HIGH CARDIOVASCULAR RISK Normal [facility] Comment on above: Performed By: #### T SH, LIVER, LIPID, BMP #### [facility] [address] [place] [address] [address] Joseph Obando LDL CALC NORMAL SEE BELOW Normal [facility] Comment on above: Result Comment: <100 mg/dl OPTIMAL 100 - 129 mg/dl NEAR OR ABOVE OPTIMAL 130 - 159 mg/dl BORDERLINE HIGH 160 - 189 mg/dl HIGH >190 mg/dl VERY HIGH Performed By: #### T SH, LIVER, LIPID, BMP #### [facility] [address] [place] [address] [address] Joseph Obando Triglyceride [Mass/Vol] 158 mg/dL Critically high <=150 [facility] Comment on above: Performed By: #### T SH, LIVER, LIPID, BMP #### [facility] [address] [place] [address] [address] Joseph Obando VLDL CALC 31.6 mg/dL Normal [facility] Comment on above: Performed By: #### T SH, LIVER, LIPID, BMP #### [facility] [address] [place] [address] [address] Joseph Obando LIVER PROFILEon 02-17-2023 Albumin [Mass/Vol] 3.0 g/dL Critically low 3.4-5.0 [facility] Comment on above: Performed By: #### T SH, LIVER, LIPID, BMP #### [facility] [address] [place] [address] [address] Joseph Obando Albumin/Globulin [Mass ratio] 0.7 {ratio} Normal [facility] Comment on above: Performed By: #### T SH, LIVER, LIPID, BMP #### [facility] [address] [place] [address] [address] Joseph Obando ALP [Catalytic activity/Vol] 83 U/L Normal 46-116 [facility] Comment on above: Performed By: #### T SH, LIVER, LIPID, BMP #### [facility] [address] [place] [address] Dr. Joseph Obando ALT [Catalytic activity/Vol] 24 U/L Normal 14-59 [facility] Comment on above: Performed By: #### T SH, LIVER, LIPID, BMP #### [facility] [address] [place] [address] [address] Joseph Obando AST [Catalytic activity/Vol] 14 U/L Critically low 15-37 [facility] Comment on above: Performed By: #### T SH, LIVER, LIPID, BMP #### [facility] [address] [place] [address] Dr. Joseph Obando BILI, CONJUGATED 0.1 mg/dL Normal 0.0-0.2 [facility] Comment on above: Performed By: #### T SH, LIVER, LIPID, BMP #### [facility] [address] [place] [address] Dr. Joseph Obando Bilirubin [Mass/Vol] 0.2 mg/dL Normal 0.2-1.0 [facility] Comment on above: Performed By: #### T SH, LIVER, LIPID, BMP #### [facility] [address] [place] [address] Dr. Joseph Obando Globulin (S) [Mass/Vol] 4.2 g/dL Normal [facility] Comment on above: Performed By: #### T SH, LIVER, LIPID, BMP #### [facility] [address] [place] [address] Dr. Joseph Obando Protein [Mass/Vol] 7.2 g/dL Normal 6.4-8.2 [facility] Comment on above: Performed By: #### T SH, LIVER, LIPID, BMP #### [facility] [address] [place] [address] Dr. Joseph Obando PROF CHEM 8 (BAS METB)on Anion gap [Moles/Vol] 10.3 mmol/L Normal [facility] Comment on above: Performed By: #### T SH, LIVER, LIPID, BMP #### [facility] [address] [place] [address] Dr. Joseph Obando Calcium [Mass/Vol] 9.1 mg/dL Normal 8.5-10.1 [facility] Comment on above: Performed By: #### T SH, LIVER, LIPID, BMP #### [facility] [address] [place] [address] Dr. Joseph Obando Chloride [Moles/Vol] 104 mmol/L Normal 98-107 [facility] Comment on above: Performed By: #### T SH, LIVER, LIPID, BMP #### [facility] [address] [place] [address] Dr. Joseph Obando CO2 [Moles/Vol] 30.2 mmol/L Normal 21.0-32.0 [facility] Comment on above: Performed By: #### T SH, LIVER, LIPID, BMP #### [facility] [address] [place] [address] [address] Joseph Obando Creatinine [Mass/Vol] 0.69 mg/dL Normal 0.55-1.02 [facility] Comment on above: Performed By: #### T SH, LIVER, LIPID, BMP #### [facility] [address] [place] [address] [address] Joseph Obando EGFR-AF [place] >60 Normal >=60 [facility] Comment on above: Performed By: #### T SH, LIVER, LIPID, BMP #### [facility] [address] [place] [address] [address] Jospeh Obando EGFR-NON AF [place] >60 Normal >=60 [facility] Comment on above: Performed By: #### T SH, LIVER, LIPID, BMP #### [facility] [address] [place] [address] [address] Joseph Obando Glucose [Mass/Vol] 158 mg/dL Critically high 74-106 [facility] Comment on above: Performed By: #### T SH, LIVER, LIPID, BMP #### [facility] [address] [place] [address] [address] Joseph Obando Potassium [Moles/Vol] 4.5 mmol/L Normal 3.5-5.1 [facility] Comment on above: Performed By: #### T SH, LIVER, LIPID, BMP #### [facility] [address] [place] [address] [address] Joseph Obando Sodium [Moles/Vol] 140 mmol/L Normal 136-145 [facility] Comment on above: Performed By: #### T SH, LIVER, LIPID, BMP #### [facility] [address] [place] [address] [address] Joseph Obando Urea nitrogen [Mass/Vol] 13.0 mg/dL Normal 7.0-18.0 [facility] Comment on above: Performed By: #### T SH, LIVER, LIPID, BMP #### [facility] [address] [place] [address] [address] Joseph Obando Urea nitrogen/Creatinine [Mass ratio] 18.8 mg/mg Normal [facility] Comment on above: Performed By: #### T SH, LIVER, LIPID, BMP #### [facility] [address] [place] [address] [address] Joseph Obando TSHon 02-17-2023 TSH 3.405 uIU/mL Normal 0.358-3.740 [facility] Comment on above: Performed By: #### T SH, LIVER, LIPID, BMP #### [facility] [address] [place] [address] [address] Joseph Obando POINT OF CARE GLUCOSEon 03-0 Glucose [Mass/Vol] 148 mg/dL Critically high 74-106 [facility] Comment on above: Performed By: #### P OCGLUC #### [facility] [address] [place] [address] [address] Joseph Obando PAP ACOG PANEL 2: 30 to 65on 10-30-2022 . . Normal [facility] Comment on above: Result Comment: Perf ormed at: WB Performed By: #### [id number] #### [facility] [address] [place] [address] Dr. Joseph Obando Age Gdln ACOG Testing 30-65 [facility] Comment on above: Performed By: #### [id number] #### [facility] [address] [place] [address] Dr. Joseph Obando DIAGNOSIS: Comment Normal [facility] Comment on above: Result Comment: NEGA TIVE FOR INTRAEPITHELIAL LESION OR MALIGNANCY. Performed at: WB Performed By: #### [id number] #### [facility] [address] [place] [address] Dr. Joseph Obando HPV Aptima Negative Normal Negative [facility] Comment on above: Result Comment: This nucleic acid amplification test detects fourteen high-risk HPV types (16,18,31,33,35,39,45,51,52,56,58,59,66,68) without differentiation. Performed at: =G Performed By: #### [id number] #### [facility] [address] [place] [address] [address] Joseph Obando HPV Genotype Reflex Comment Normal [facility] Comment on above: Result Comment: Crit eria not met, HPV Genotype not performed. Performed at: WB Performed By: #### [id number] #### [facility] [address] [place] [address] Dr. Joseph Obando Methodology: Comment Normal [facility] Comment on above: Result Comment: This liquid based ThinPrep(R) pap test was screened with the use of an image guided system. Performed at: WB Performed By: #### [id number] #### [facility] [address] [place] [address] [address] Joseph Obando Note: Comment Normal [facility] Comment on above: Result Comment: The Pap smear is a screening test designed to aid in the detection of premalignant and malignant conditions of the uterine cervix. It is not a diagnostic procedure and should not be used as the sole means of detecting cervical cancer. Both false-positive and false-negative reports do occur. . Performed at: WB Performed By: #### [id number] #### [facility] [address] [place] [address] [address] Joseph Obando Performed by: Comment Normal [facility] Comment on above: Result Comment: Makayla Lewis, Oil Paint Shader (ASCP) Performed at: WB Performed By: #### [id number] #### [facility] [address] [place] [address] Dr. Joseph Obando Specimen adequacy: Comment Normal [facility] Comment on above: Result Comment: Sati sfactory for evaluation. No endocervical component is identified. Performed at: WB Performed By: #### [id number] #### [facility] [address] [place] [address] Dr. Joseph Obando GLYCOHEMOGLOBIN A1Con 2021 ADA RECOMMENDATION SEE BELOW Normal [facility] Comment on above: Result Comment: ADA RECOMMENDED LIMIT 4.0 - 6.0 ADA THERAPEUTIC TARGET < 7.0 ACTION SUGGESTED > 7.0 Performed By: #### A 1C #### [facility] [address] [place] [address] Dr. Joseph Obando Glucose [Mass/Vol] 131 mg/dL Normal [facility] Comment on above: Performed By: #### A 1C #### [facility] [address] [place], [place] [address] Dr. Joseph Obando HbA1c (Bld) [Mass fraction] 6.2 % Normal 4.5-6.2 [facility] Comment on above: Performed By: #### A 1C #### [facility] [address] [place], [place] [address] Dr. Joseph Obando MRI Knee w/o Righton [...] by Uriah Kelly on 06/12/2022 1410 Normal [facility] [employer] XR Orbits for MRIon 06-12-20 22 XR Orbits for MRI HISTORY: Pre-MRI clearance, history of metal exposure FINDINGS: No metallic foreign body is identified. Visualized osseous structures are unremarkable. IMPRESSION: No metallic foreign body Report reported and signed by Arben Gonzalez on 06/12/2022 0938 Normal [facility] [employer] XR hand RT min 3V*on 021 XR hand RT min 3V* [facility] [employer] Other XR hand RT min 3V* [facility] [employer] Other XR hand RT min 3V* [address] [employer] Other XR hand RT min 3V* MarlenyROSAS [address] [employer] Other XR hand RT min 3V* XRay Report [employer] Other XR hand RT min 3V* Signed [employer] Other XR hand RT min 3V* Patient: Karo Darden MR#: [id number] [employer] Other XR hand RT min 3V* 9838 [employer] Other XR hand RT min 3V* : 1970 Acct:[id number] [employer] Other XR hand RT min 3V* Age/Sex: 50 / F ADM Date: 07/07/21 [employer] Other XR hand RT min 3V* Loc: XDUCLY Room: Type: [facility] [employer] Other XR hand RT min 3V* Attending Dr: Rivka Romero [employer]CR[employer]ILDINGS [employer]SEMBLER-C [employer] Other XR hand RT min 3V* Ordering Provider: RIVKA ROMERO CONCRETE BUILDINGS ASSEMBLERVisualXcript [employer] Other XR hand RT min 3V* Date of Service: 07/07/21 [employer] Other XR hand RT min 3V* XR/XR hand RT min 3V*: Injury of right hand, initial encounter [employer] Other XR hand RT min 3V* Copies to: RIVKA ROMERO [employer]E [employer]ILDINGS [employer]SEMBL[employer] Other XR hand RT min 3V* 3 viewsRIGHT hand plain film [employer] Other XR hand RT min 3V* COMPARISON:None [facility] [employer] Other XR hand RT min 3V* HISTORY:RIGHT hand injury one month ago. Continued pain [employer] Other XR hand RT min 3V* No fracture, dislocation or focal soft tissue abnormality seen. [employer] Other XR hand RT min 3V* XR/XR hand RT min 3V* [employer] Other XR hand RT min 3V* IMPRESSION:No acute findings [employer] Other XR hand RT min 3V* Impression dictated by: Max Kasper M.D.07/07/2021 3:36 PM [employer] Other XR hand RT min 3V* Dictation Location: [place] [address] [employer] Other XR hand RT min 3V* Transcribed By: PWS 07/07/21 [facility] [employer] Other XR hand RT min 3V* Dictated By: Max Kasper DO 07/07/21 [facility] [employer] Other XR hand RT min 3V* Signed By: [employer] Other XR hand RT min 3V* 07/07/[address] [place] [address] [employer] Other Workers' Comp Officeon 10-08 Workers' Comp Office [id number] #1.00CD:127 Normal [facility] Progress Note-Physicianon Progress Note-Physician Patient: KARO DARDEN Age: 50 years Sex: Female : 1970 Associated Diagnoses: None Author: Natalie Peguero Visit Information The patient was seen for evaluation of her mid back following a work related injury on 08/07/2020. [facility] claim status pending. Chief Complaint 09/24/2020 [...] Impression and Plan Diagnosis Left shoulder strain (FDT35-TF S46.912A, Working, Medical). Strain of thoracic back region (TRG11-ZB S29.012A, Working, Medical). Course: Improving. Orders May return to full duty. Recommend continuation of the home stretches and exercises due to natures of her work. She may follow up as needed. Call for any questions or concerns. . Counseled: Patient, Regarding diagnosis, Regarding treatment. Patient Instructions: Patient verbalizes understanding of plan of care. All questions answered satisfactorily.. Normal [facility] Comment on above: Result Comment: Elec tronically Signed By: Natalie Peguero\.br\Date and Time Signed: 09/24/20 16:03 EST Workers' Comp Officeon 09-24 Workers' Comp Office [id number] #1.00CD:127 Normal [facility] Progress Note-Physicianon Progress Note-Physician Patient: KARO DARDEN Age: 49 years Sex: Female : 1970 Associated Diagnoses: None Author: Natalie Peguero Visit Information The patient was seen for evaluation of her mid back following a work related injury on 08/07/2020. [facility] claim status pending. Chief Complaint 09/06/2020 [...] Plan Diagnosis Strain of thoracic back region (ALH14-BJ S29.012A, Working, Medical). Left shoulder strain (UUL28-GZ S46.912A, Working, Medical). Course: Improving. Orders 1) [...] of care. All questions answered satisfactorily.. Normal [facility] Comment on above: Result Comment: Elec tronically Signed By: Natalie Peguero\.br\Date and Time Signed: 09/06/20 12:53 EST Workers' Comp Officeon 09-06 Workers' Comp Office [id number] #1.00CD:127 Normal [facility] Progress Note-Physicianon Progress Note-Physician Patient: KARO DARDEN Age: 49 years Sex: Female : 1970 Associated Diagnoses: None Author: Natalie Peguero Visit Information The patient was seen for evaluation of her mid back following a work related injury on 08/07/2020. [facility] claim status pending. Chief Complaint 08/27/2020 [...] Plan Diagnosis Strain of thoracic back region (XNS79-FV S29.012A, Working, Medical). Left shoulder strain (OOO94-EB S46.912A, Working, Medical). Course: Improving. Orders Patient [...] of care. All questions answered satisfactorily.. Normal [facility] Comment on above: Result Comment: Elec tronically Signed By: Natalie Peguero.juan\Date and Time Signed: 08/27/20 11:17 EST Workers' Comp Officeon 08-27 Workers' Comp Office [id number] 9#1.00CD:127 Normal [facility] Workers' Comp Officeon 08-26 Workers' Comp Office [id number] #1.00CD:127 [facility] Workers' Comp Officeon 08-21 Workers' Comp Office [id number] 9#1.00CD:127 Normal [facility] Workers' Comp Officeon 08-16 Workers' Comp Office Patient has an appt on 08-22-20 @ 4:00 Normal [facility] Workers' Comp Officeon 08-14 Workers' Comp Office [id number] 6#1.00CD:127 Normal [facility] Workers' Comp Office [id number] 5#1.00CD:127 Normal [facility] Workers' Comp Office [id number] 2#1.00CD:127 Normal [facility] Workers' Comp Office [id number] 6#1.00CD:127 Normal [facility] Workers' Comp Office [id number] 6#1.00CD:127 [facility] Workers' Comp Office [id number] 7#1.00CD:127 Normal [facility] Workers' Comp Office [id number] 9#1.00CD:127 [facility] [place] 08-13-2020 Consent [id number] 3#1.00CD:127 [facility] Progress Note-Physicianon Progress Note-Physician Patient: KARO DARDEN Age: 49 years Sex: Female : 1970 Associated Diagnoses: None Author: Natalie Peguero Visit Information The patient was seen for evaluation of her mid back following a work related injury on 08/07/2020. [facility] claim status pending. Chief Complaint 08/13/2020 [...] 08/07/2020. The patient was originally seen by [facility] on 08/09/2020, but was told by her employer to follow up with our office. 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 During this time, she felt a pop in her left shoulder blade. Over the next two days the pain intensified. She was using heat and ibuprofen without any significant improvement. Following her evaluation at [place] she was prescribed Flexeril 10mg three times [...] Plan Diagnosis Strain of thoracic back region (AJI78-BP S29.012A, Working, Medical). Orders 1) I recommend [...] of care. All questions answered satisfactorily.. Normal [facility] Comment on above: Result Comment: Elec tronically Signed By: Natalie Peguero.juan\Date and Time Signed: 08/13/20 16:40 EST Workers' Comp Officeon 08-13 Workers' Comp Office Mailed a physician of record change form to patient. I informed her that it needs to be filled out [place] and returned back to our department. Normal [facility] Vital Signs Date Time Vital Sign Value Performing Clinician Facility 05-25-2025 09:270400 Body height 160 cm Mynor Schmidt MD Work Phone: [facility] 05-25-2025 09:27-0400 Body mass index (BMI) [Ratio] 46.77 kg/m2 Mynor Schmidt MD Work Phone: [facility] 05-25-2025 09:27-0400 Body temperature 97.3 [degF] Mynor Schmidt MD Work Phone: [facility] 05-25-2025 09:27-0400 Body weight 119.75 kg Mynor Schmidt MD Work Phone: [facility] 05-25-2025 09:27-0400 Diastolic blood pressure 72 mm[Hg] Mynor Schmidt MD Work Phone: [facility] 05-25-2025 09:27-0400 Heart rate 76 /min Mynor Schmidt MD Work Phone: [facility] 05-25-2025 09:27-0400 Respiratory rate 18 /min Mynor Schmidt MD Work Phone: [facility] 05-25-2025 09:27-0400 SaO2% (BldA) [Mass fraction] 92 % Mynor Schmidt MD Work Phone: [facility] 05-25-2025 09:27-0400 Systolic blood pressure 124 mm[Hg] Mynor Schmidt MD Work Phone: [facility] 03-14-2025 15:40-0400 Body mass index (BMI) [Ratio] 45.66 kg/m2 Damon Sg DO Work Phone: [facility] 03-14-2025 15:40-0400 Body weight 116.92 kg Damon Sg DO Work Phone: [facility] 03-14-2025 15:40-0400 Diastolic blood pressure 82 mm[Hg] Damon Sg DO Work Phone: [facility] 03-14-2025 15:40-0400 Systolic blood pressure 128 mm[Hg] Damon Sg DO Work Phone: [facility] 02-16-2025 09:23-0400 Body height 160 cm Mynor Schmidt MD Work Phone: [facility] 02-16-2025 09:23-0400 Body mass index (BMI) [Ratio] 45.88 kg/m2 Mynor Schmidt MD Work Phone: [facility] 02-16-2025 09:23-0400 Body temperature 97.3 [degF] Mynor Schmidt MD Work Phone: [facility] 02-16-2025 09:23-0400 Body weight 117.48 kg Mynor Schmidt MD Work Phone: [facility] 02-16-2025 09:23-0400 Diastolic blood pressure 78 mm[Hg] Mynor Schmidt MD Work Phone: [facility] 02-16-2025 09:23-0400 Heart rate 73 /min Mynor Schmidt MD Work Phone: [facility] 02-16-2025 09:23-0400 Respiratory rate 22 /min Mynor Schmidt MD Work Phone: [facility] 02-16-2025 09:23-0400 SaO2% (BldA) [Mass fraction] 93 % Mynor Schmidt MD Work Phone: [facility] 02-16-2025 09:23-0400 Systolic blood pressure 126 mm[Hg] Mynor Schmidt MD Work Phone: [facility] 11-16-2024 15:17-0500 Body height 160 cm Mynor Schmidt MD Work Phone: [facility] 11-16-2024 15:17-0500 Body mass index (BMI) [Ratio] 44.11 kg/m2 Mynor Schmidt MD Work Phone: [facility] 11-16-2024 15:17-0500 Body temperature 96.21 [degF] Mynor Schmidt MD Work Phone: [facility] 11-16-2024 15:17-0500 Body weight 112.95 kg Mynor Schmidt MD Work Phone: [facility] 11-16-2024 15:17-0500 Diastolic blood pressure 70 mm[Hg] Mynor Schmidt MD Work Phone: [facility] 11-16-2024 15:17-0500 Heart rate 82 /min Mynor Schmidt MD Work Phone: [facility] 11-16-2024 15:17-0500 Respiratory rate 22 /min Mynor Schmidt MD Work Phone: [facility] 11-16-2024 15:17-0500 SaO2% (BldA) [Mass fraction] 92 % Mynor Schmidt MD Work Phone: [facility] 11-16-2024 15:17-0500 Systolic blood pressure 120 mm[Hg] Mynor Schmidt MD Work Phone: [facility] 09-01-2024 09:26-0500 Body height 160 cm Mynor Schmidt MD Work Phone: [facility] 09-01-2024 09:26-0500 Body mass index (BMI) [Ratio] 45.53 kg/m2 Mynor Schmidt MD Work Phone: [facility] 09-01-2024 09:26-0500 Body temperature 97.11 [degF] Mynor Schmidt MD Work Phone: [facility] 09-01-2024 09:26-0500 Body weight 116.57 kg Mynor Schmidt MD Work Phone: [facility] 09-01-2024 09:26-0500 Diastolic blood pressure 62 mm[Hg] Mynor Schmidt MD Work Phone: [facility] 09-01-2024 09:26-0500 Heart rate 67 /min Mynor Schmidt MD Work Phone: [facility] 09-01-2024 09:26-0500 Respiratory rate 22 /min Mynor Schmidt MD Work Phone: [facility] 09-01-2024 09:26-0500 SaO2% (BldA) [Mass fraction] 91 % Mynor Schmidt MD Work Phone: [facility] 09-01-2024 09:26-0500 Systolic blood pressure 104 mm[Hg] Mynor Schmidt MD Work Phone: [facility] 03-13-2024 15:06-0400 Body height 160 cm Tonie Small [employer]ARD [employer]IST[employer]NERSH[employer] REPRESENTATIVE Work Phone: [facility] 03-13-2024 15:06-0400 Body mass index (BMI) [Ratio] 44.53 kg/m2 Tonie Small [employer]IST[employer]ATE[employer]NER[employer]IP REPRESENTATIVE Work Phone: [facility] 03-13-2024 15:06-0400 Body weight 114.03 kg Tonie Small [employer]ARD [employer]IST[employer]ATE[employer]NER[employer]IP REPRESENTATIVE Work Phone: [facility] 03-13-2024 15:06-0400 Diastolic blood pressure 60 mm[Hg] Tonie Small [employer]IST[employer]ATE[employer]NERSHIP REPRESENTATIVE Work Phone: [facility] 03-13-2024 15:06-0400 Heart rate 71 /min Tonie Small [employer]IST[employer]ATE[employer]NERSHIP REPRESENTATIVE Work Phone: [facility] 03-13-2024 15:06-0400 Systolic blood pressure 107 mm[Hg] Tonie Small [employer]ARD [employer]IST[employer]ATE[employer]NER[employer]IP REPRESENTATIVE Work Phone: [facility] 02-14-2024 14:47-0400 Body height 160 cm Tonie Small [employer]ARD [employer]IST[employer]ATE[employer]NERSHIP REPRESENTATIVE Work Phone: [facility] 02-14-2024 14:47-0400 Body mass index (BMI) [Ratio] 44.29 kg/m2 Tonie Small [employer]IST[employer]NER[employer] REPRESENTATIVE Work Phone: [facility] 02-14-2024 14:47-0400 Body weight 113.4 kg Tonie Small [employer]ARD [employer]IST[employer]NERSHIP REPRESENTATIVE Work Phone: [facility] 01-19-2024 12:55-0400 Body height 160 cm Delano Mckinney DO Work Phone: [facility] 01-19-2024 12:55-0400 Body mass index (BMI) [Ratio] 44.29 kg/m2 Delano Mckinney DO Work Phone: [facility] 01-19-2024 12:55-0400 Body weight 113.4 kg Delano Mckinney DO Work Phone: [facility] 01-19-2024 12:55-0400 Diastolic blood pressure 77 mm[Hg] Delano Mckinney DO Work Phone: [facility] 01-19-2024 12:55-0400 Systolic blood pressure 139 mm[Hg] Delano Mckinney DO Work Phone: [facility] 12-31-2023 09:03-0400 Body height 160 cm Tonie Small [employer]IST[employer]NERSH[employer] REPRESENTATIVE Work Phone: [facility] 12-31-2023 09:03-0400 Body mass index (BMI) [Ratio] 44.75 kg/m2 Tonie Small [employer]IST[employer]NER[employer] REPRESENTATIVE Work Phone: [facility] 12-31-2023 09:03-0400 Body weight 114.58 kg Tonie Small [employer]ARD SPECIALIST[employer]NER[employer]IP REPRESENTATIVE Work Phone: [facility] 12-31-2023 09:03-0400 Diastolic blood pressure 65 mm[Hg] Tonie Small [employer]IST[employer]NER[employer] REPRESENTATIVE Work Phone: [facility] 12-31-2023 09:03-0400 Heart rate 71 /min Tonie Small [employer]IST[employer]ATE[employer]NERSHIP REPRESENTATIVE Work Phone: [facility] 12-31-2023 09:03-0400 Systolic blood pressure 106 mm[Hg] Tonie Small [employer] SPECIALIST[employer]ATE[employer]NERSHIP REPRESENTATIVE Work Phone: [facility] 11-15-2023 14:56-0500 Body height 160 cm Tonie Small [employer]ARD SPECIALIST[employer]ATE[employer]NERSHIP REPRESENTATIVE Work Phone: [facility] 11-15-2023 14:56-0500 Body mass index (BMI) [Ratio] 45.14 kg/m2 Tonieteresa Small [employer]ARD SPECIALIST[employer]ATE[employer]NERSHIP REPRESENTATIVE Work Phone: [facility] 11-15-2023 14:56-0500 Body weight 115.58 kg Tonie Small [employer]IST[employer]NER[employer]IP REPRESENTATIVE Work Phone: [facility] 11-15-2023 14:56-0500 Diastolic blood pressure 63 mm[Hg] Tonie Small [employer]IST[employer]ATE[employer]NERSHIP REPRESENTATIVE Work Phone: [facility] 11-15-2023 14:56-0500 Heart rate 78 /min Tonie Small [employer]ARD [employer]IST[employer]ATE[employer]IC [employer]NERSHIP REPRESENTATIVE Work Phone: [facility] 11-15-2023 14:56-0500 Systolic blood pressure 123 mm[Hg] Tonie Small [employer]IST[employer]ATE[employer]NERSHIP REPRESENTATIVE Work Phone: [facility] 07-07-2021 15:40-0400 Body height 161.29 cm Rivka Romero Other [employer] Other 07-07-2021 15:40-0400 Body mass index (BMI) [Ratio] 44.11 kg/m2 Rivka Romero Other [employer] Other 07-07-2021 15:40-0400 Body temperature 98.2 [degF] Rivka Romero Other [employer] Other 07-07-2021 15:40-0400 Body weight 114.76 kg Rivka Romero Other [employer] Other 07-07-2021 15:40-0400 Diastolic blood pressure 57 mm[Hg] Rivka Romero Other [employer] Other 07-07-2021 15:40-0400 Respiratory rate 18 /min Rivka Romero Other [employer] Other 07-07-2021 15:40-0400 SaO2% (BldA) [Mass fraction] 96 % Rivka Romero Other [employer] Other 07-07-2021 15:40-0400 Systolic blood pressure 114 mm[Hg] Rivka Romero Other [employer] Other Encounters Encounter Date Encounter Type Care Provider Facility Start: 05-25-2025 End: 05-25-2025 Bamboo flowsheet Mynor Schmidt MD Work Phone: [facility] Start: 05-25-2025 End: 05-25-2025 Bamboo flowsheet Mynor Schmidt MD Work Phone: [facility] Start: 05-25-2025 End: 05-25-2025 Office outpatient visit 25 minutes Mynor Schmidt MD Work Phone: [facility] Comment on above: Type 2 diabetes cruz itus with hyperglycemia, without long-term current use of insulin (HCC) (Primary Dx); Essential hypertension ; MDD (major depressive disorder), recurrent episode, mild ; Chronic heart failure with preserved ejection fraction (HFpEF) (HCC) Start: 05-25-2025 End: 05-25-2025 ambulatory MYNOR SCHMIDT Not Available Start: 03-29-2025 End: 03-29-2025 ambulatory Mynor Schmidt Facility:[facility] Start: 03-14-2025 End: 03-14-2025 Patient encounter procedure Damon Sg DO Work Phone: [facility] Start: 03-14-2025 End: 03-14-2025 Periodic preventive med est patient 40-64yrs Damon Sg DO Work Phone: [facility] Comment on above: Well woman exam with routine gynecological exam; Encounter for screening mammogram for malignant neoplasm of breast; Postmenopausal state Start: 03-14-2025 End: 03-14-2025 ambulatory DAMON SG Not Available Start: 03-14-2025 End: 03-14-2025 Bamboo flowsheet Damno Sg DO Work Phone: [facility] Start: 03-14-2025 End: 03-19-2025 Bamboo flowsheet Damon Sg DO Work Phone: [facility] Start: 03-14-2025 End: 03-19-2025 Clinisync Result Encounter Generic External Data Provider [facility] External Department Unsolicited Start: 02-16-2025 End: 02-16-2025 Bamboo flowsheet Mynor Schmidt MD Work Phone: [facility] Start: 02-16-2025 End: 02-16-2025 Bamboo flowsheet Mynor Schmidt MD Work Phone: [facility] Start: 02-16-2025 End: 02-16-2025 Clinisync Result Encounter Mynor Schmidt MD Work Phone: [facility] Unsolicited Start: 02-16-2025 End: 02-16-2025 Patient encounter procedure Mynor Schmidt MD Work Phone: [facility] Work Phone: Start: 02-16-2025 End: 02-16-2025 Periodic preventive med est patient 40-64yrs Mynor Schmidt MD Work Phone: [facility] Comment on above: Annual physical exam (Primary Dx); Type 2 diabetes mellitus with hyperglycemia, without long-term current use of insulin ([facility]); Essential hypertension ([facility]); Chronic heart failure with preserved ejection fraction (HFpEF) ([facility]); Localized edema; Class 3 severe obesity due to excess calories with serious comorbidity and body mass index (BMI) of 45.0 to 49.9 in adult Start: 02-16-2025 End: 02-16-2025 ambulatory MYNOR SCHMIDT Not Available Start: 02-14-2025 End: 02-14-2025 Clinisync Result Encounter Damon Sg DO Work Phone: [facility] External Department Unsolicited Start: 02-14-2025 End: 02-14-2025 Clinisync Result Encounter Damon Sg DO Work Phone: [facility] External Department Unsolicited Start: 11-16-2024 End: 11-16-2024 Transitional care manage srvc 14 day discharge Mynor Schmidt MD Work Phone: [facility] Comment on above: Pneumonia due to inf ectious organism, unspecified laterality, unspecified part of lung (Primary Dx); Type 2 diabetes mellitus with hyperglycemia, without long-term current use of insulin ([facility]); Class 3 severe obesity due to excess calories with serious comorbidity and body mass index (BMI) of 40.0 to 44.9 in adult ([facility]); Chronic heart failure with preserved ejection fraction (HFpEF) ([facility]) Start: 11-16-2024 End: 11-16-2024 ambulatory MYNOR SCHMIDT Not Available Start: 11-16-2024 End: 11-16-2024 Bamboo flowsheet Mynor Schmidt MD Work Phone: [facility] Start: 11-16-2024 End: 11-16-2024 Bamboo flowsheet [...] hyperglycemia, without long-term current use of insulin ([facility]) (Primary Dx); Essential hypertension ([facility]); Chronic heart failure with preserved ejection fraction (HFpEF) ([facility]); MDD (major depressive disorder), recurrent episode, mild (HCC) ([facility]); Class 3 severe obesity due to excess calories with serious comorbidity and body mass index (BMI) of 45.0 to 49.9 in adult ([facility]); Acute nonsuppurative otitis media of left ear; Vaginal usama Start: 09-01-2024 End: 09-01-2024 ambulatory MYNOR SCHMIDT Not Available Start: 03-13-2024 End: 03-13-2024 Postop follow up visit related to original px Tonie Small [employer]NER[employer] REPRESENTATIVE Work Phone: [facility] General Surgery Comment on above: Chronic anal fissure (Primary Dx) Start: 03-13-2024 End: 03-13-2024 ambulatory [facility] Start: 03-03-2024 Patient encounter procedure Mynor Schmidt MD Work Phone: [facility] Start: 02-14-2024 End: 02-14-2024 Postop follow up visit related to original px Tonie Small [employer]NER[employer] REPRESENTATIVE Work Phone: [facility] General Surgery Comment on above: Chronic anal fissure (Primary Dx); H/O rectal sphincterotomy Start: 02-14-2024 End: 02-14-2024 ambulatory [facility] Start: 02-01-2024 End: 02-01-2024 Evaluation and management of inpatient TAMRA SAUL [facility] Start: 02-01-2024 End: 02-01-2024 Evaluation and management of inpatient [facility] Start: 01-21-2024 End: 01-22-2024 ambulatory [facility] Start: 01-21-2024 Encounter for other preprocedural examination [facility] Start: 01-21-2024 End: 01-21-2024 Patient encounter procedure [facility] Pre-Admission Testing 1 [facility] - Pre Admit Comment on above: Preop examination (P rimary Dx); Hypertension, unspecified type; Type 2 diabetes mellitus without complication, without long-term current use of insulin ([facility]) Start: 01-21-2024 End: 01-21-2024 Preprocedural examination done Pm 1 [facility] Start: 01-19-2024 End: 01-19-2024 Office outpatient visit 25 minutes Delano Mckinney DO Work Phone: [facility] General [facility] Comment on above: Chronic anal fissure (Primary Dx); Polyp of colon, unspecified part of colon, unspecified type Start: 01-19-2024 End: 01-19-2024 ambulatory [facility] Start: 01-18-2024 End: 01-18-2024 Evaluation and management of inpatient QUIN DONIS [facility] Start: 01-17-2024 End: 01-18-2024 Evaluation and management of inpatient DELANO MCKINNEY [facility] Start: 12-31-2023 End: 12-31-2023 Office outpatient visit 15 minutes Tonie Cortés Deondre [employer]NER[employer] REPRESENTATIVE Work Phone: [facility] General Surgery Comment on above: Rectal pain (Primary Dx); Rectal bleeding; Morbid obesity with BMI of 40.0-44.9, adult ([facility]) Start: 12-31-2023 End: 12-31-2023 ambulatory [facility] Start: 11-15-2023 End: 11-15-2023 Office outpatient visit 15 minutes Tonie Milana Deondre [employer]NERSH[employer] REPRESENTATIVE Work Phone: [facility] Comment on above: Rectal pain (Primary Dx) Start: 11-15-2023 End: 11-15-2023 ambulatory [facility] Start: 02-20-2023 Encounter for genera l adult medical examination without abnormal findings DR MYNOR SCHMIDT [facility] Start: 02-19-2023 End: 02-20-[address] MYNOR [...] Date Procedure Procedure Detail Performing Clinician Start: 03-29-2025 Mammography Mynor Schmidt MD Work Phone: Start: 03-14-2025 IGP,APTIMA HPV,AGE GDLN Damon Bettencourt DO Work Phone: Start: 02-16-2025 ALL BASIC METABOLIC PANEL Mynor Schmidt MD Work Phone: Start: 02-16-2025 ALL LIPID PROFILE (FASTING) Mynor Schmidt MD Work Phone: Start: 02-16-2025 ALL THYROID STIM HORMONE Mynor Schmidt MD Work Phone: Start: 02-16-2025 HMHP LIVER PANEL Mynor Schmidt MD Work Phone: Start: 02-14-2025 MM TOMOSYNTHESIS SCREENING BI Damonviolet Vargaso DO Work Phone: Start: 02-14-2025 Mammography Damon Vargaso DO Work Phone: Start: 11-07-2024 GRAM STAIN EVALUATION Generic External D polly Provider Start: 11-07-2024 LOWER RESPIRATORY CULTURE Generic External Data Provider Start: 09-01-2024 MLR HEMOGLOBIN A1C Mynor Schmidt MD Work Phone: Start: 01-17-2024 Colonoscopy Delano Jacobjerman DO Work Phone: Start: 12-31-2023 Follow-up visit Follow-up TONIE SMALL Start: 12-31-2023 Mammography Mynor Schmidt MD Work Phone: Start: 04-03-2021 Colonoscopy Tonie Smlal [employer]ARD [employer]IST-[employer]ATE[employer]NERSHIP REPRESENTATIVE Work Phone: H/O: surgery H/O rectal sphincterotomy Eris Small YARD SPECIALIST-[employer]ATE[employer]IC PARTNERSHIP REPRESENTATIVE Work Phone: Plan of Treatment Date Care Activity Detail Author Start: 01-16-2034 Screening for malign ant neoplasm of colon [facility] Start: 04-03-2031 Screening for malign ant neoplasm of colon Colonoscopy [facility] Start: 01-16-2029 Screening for malign ant neoplasm of colon Colonoscopy [facility] Start: 02-05-2027 Glaucoma screening Diabetes: R etinopathy Screening [facility] Start: 04-01-2026 End: 04-01-2026 Patient encounter procedure [facility] Start: 03-29-2026 Screening for malign ant neoplasm of breast Mammogram [facility] Start: 02-14-2026 Screening for malign ant neoplasm of breast Mammogram [facility] Start: 10-13-2025 Glaucoma screening Diabetes: R etinopathy Screening [facility] Start: 08-19-2025 Hemoglobin A1c measurement Diabetes: Hemoglobin A1C [facility] Start: 06-11-2025 Influenza vaccination Influenza Vacc ine (#1) [facility] Start: 05-25-2025 End: 05-25-2026 Hemoglobin A1c/Hemoglobin.total in Blood Hemoglobin A1c Lab Routine Type 2 diabetes mellitus with hyperglycemia, without long-term current use of insulin (HCC) Expected: 05/25/2025 (Approximate), Expires: 05/25/2026 [facility] Comment on above: Expected: 05/25/2025 (Approximate), Expires: 05/25/2026 Start: 05-25-2025 End: 05-25-2026 Microalbumin/Creatinine panel in random Urine Microalbumin / creatinine, urine ratio Lab Routine Type 2 diabetes mellitus with hyperglycemia, without long-term current use of insulin (HCC) Expected: 05/25/2025 (Approximate), Expires: 05/25/2026 [facility] Work Phone: Comment on above: Expected: 05/25/2025 (Approximate), Expires: 05/25/2026 Start: 05-25-2025 End: 05-25-2025 Patient encounter procedure [facility] Comment on above: Arrived Start: 03-14-2025 End: 03-14-2025 Patient encounter procedure [facility] Comment on above: Arrived Start: 03-14-2025 Urine screening for protein Diabetes: Urine Protein Screening [facility] Start: 03-13-2025 Adult BMI Screening Adult BMI Screen ing [facility] Start: 03-13-2025 Tobacco Screening Tobacco Screening [facility] Start: 03-01-2025 Hemoglobin A1c measurement Diabetes: Hemoglobin A1C [facility] Start: 02-16-2025 End: 02-16-2026 Basic metabolic 1998 panel - Serum or Plasma Basic metabolic panel Lab Routine Annual physical exam Expected: 02/16/2025 (Approximate), Expires: 02/16/2026 [facility] Comment on above: Expected: 02/16/2025 (Approximate), Expires: 02/16/2026 Start: 02-16-2025 End: 02-16-2026 CBC W Auto Differential panel - Blood CBC and differential Lab Routine Annual physical exam Expected: 02/16/2025 (Approximate), Expires: 02/16/2026 [facility] Comment on above: Expected: 02/16/2025 (Approximate), Expires: 02/16/2026 Start: 02-16-2025 End: 02-16-2026 Hemoglobin A1c/Hemoglobin.total in Blood Hemoglobin A1c Lab Routine Annual physical exam Expected: 02/16/2025 (Approximate), Expires: 02/16/2026 [facility] Work Phone: Comment on above: Expected: 02/16/2025 (Approximate), Expires: 02/16/2026 Start: 02-16-2025 End: 02-16-2026 Hepatic function 2000 panel - Serum or Plasma Hepatic function panel Lab Routine Annual physical exam Expected: 02/16/2025 (Approximate), Expires: 02/16/2026 [facility] Comment on above: Expected: 02/16/2025 (Approximate), Expires: 02/16/2026 Start: 02-16-2025 End: 02-16-2026 Lipid 1996 panel - Serum or Plasma Lipid panel Lab Routine Annual physical exam Expected: 02/16/2025 (Approximate), Expires: 02/16/2026 [facility] Comment on above: Expected: 02/16/2025 (Approximate), Expires: 02/16/2026 Start: 02-16-2025 End: 02-16-2026 Thyrotropin [Units/volume] in Serum or Plasma TSH Lab Routine Annual physical exam Expected: 02/16/2025 (Approximate), Expires: 02/16/2026 [facility] Comment on above: Expected: 02/16/2025 (Approximate), Expires: 02/16/2026 Start: 02-16-2025 End: 02-16-2025 Patient encounter procedure [facility] Comment on above: Arrived Start: 02-13-2025 Adult BMI Screening Adult BMI Screen [facility] Start: 02-13-2025 Tobacco Screening Tobacco Screening [facility] Start: 01-20-2025 Tobacco Screening Tobacco Screening [facility] Start: 01-18-2025 Adult BMI Screening Adult BMI Screen ing [facility] Start: 12-30-2024 Adult BMI Screening Adult BMI Screen ing [facility] Start: 12-30-2024 Screening for malign ant neoplasm of breast Mammogram [facility] Start: 12-30-2024 Tobacco Screening Tobacco Screening [facility] Start: 11-16-2024 End: 11-16-2024 Patient encounter procedure 11/16/2024 3:30 PM EST Office Visit [facility] [address] [place] [address] Mynor Schmidt MD [address] [place] [address] Arrived [facility] Comment on above: Arrived Start: 11-15-2024 Adult BMI Screening Adult BMI Screen ing [facility] Start: 11-15-2024 Tobacco Screening Tobacco Screening [facility] Start: 11-06-2024 End: 11-06-2024 Patient encounter procedure 11/06/2024 4:00 PM EST Office Visit [facility] [address] [place] [phone] Damon Bettencourt DO [address] [place] [address] [facility] Start: 09-13-2024 Hemoglobin A1c measurement Diabetes: Hemoglobin A1C [facility] Start: 09-01-2024 End: 09-01-2025 Hemoglobin A1c/Hemoglobin.total in Blood Hemoglobin A1c Lab Routine Type 2 diabetes mellitus with hyperglycemia, without long-term current use of insulin ([facility]) Expected: 09/01/2024 (Approximate), Expires: 09/01/2025 [facility] Work Phone: Comment on above: Expected: 09/01/2024 (Approximate), Expires: 09/01/2025 Start: 09-01-2024 End: 09-01-2024 Patient encounter procedure 09/01/2024 9:15 AM EST Office Visit [facility] [address] [place] [address] Mynor Schmidt MD [address] [place] [address] Arrived [facility] Comment on above: Arrived Start: 06-11-2024 Influenza vaccination [facility] Start: 03-13-2024 End: 03-13-2024 Patient encounter procedure 03/13/2024 3:15 PM EDT Office Visit [facility] General Surgery [address] [place] [id number] [facility]ie Small[facility] [address] [place], [place] [phone] [facility] General Surgery Start: 02-14-2024 End: 02-14-2024 Patient encounter procedure 02/14/2024 2:45 PM EDT Office Visit [facility] Surgery [address] [place] [phone] Tonie Small, [facility] [address] [place] [address] [facility] Surgery Start: 02-01-2024 End: 02-01-2024 Admission to same day surgery center 02/01/2024 7:30 AM EDT - 02/01/2024 8:30 AM EDT Surgery [facility] - Surgery [address] [place] [address] Delano Mckinney DO [address] [place] [address] INTERNAL LATERAL SPHINCTEROTOMY [03150 (CPT )] [facility] Comment on above: INTERNAL LATERAL SPH INCTEROTOMY [48009 (CPT )] Start: 02-01-2024 End: 02-01-2024 Fissurectomy incl sphincterotomy when performed INTERNAL LATERAL SPHINCTEROTOMY chronic anal fissure 02/01/2024 7:30 AM EDT [facility] Start: 02-01-2024 Subsequent hospital visit by physician 02/01/2024 7:30 AM EDT Hospital Encounter [facility] [address] [place] [phone] Delano Mckinney, DO [address] [place] [address] [phone] [facility] Start: 01-17-2024 End: 01-17-2024 Admission to same day surgery center 01/17/2024 11:15 AM EDT - 01/17/2024 11:45 AM EDT Surgery [facility] [address] [place] [phone] Delano Mckinney, DO [address] [place] [address] [phone] COLONOSCOPY DIAGNOSTIC / SCREENING [42528 (CPT )] [facility] Comment on above: COLONOSCOPY DIAGNOST IC / SCREENING [86267 (CPT )] Start: 01-17-2024 End: 01-17-2024 Colonoscopy flx dx w/collj spec when pfrmd COLONOSCOPY DIAGNOSTIC / SCREENING rectal pain, rectal bleeding 01/17/2024 11:15 AM EDT [facility] Start: 01-17-2024 Subsequent hospital visit by physician 01/17/2024 11:15 AM EDT Hospital Encounter [facility] [address] [place] [phone] Delano Mckinney, DO [address] [place] [address] [phone] [facility] Start: 01-11-2024 End: 01-11-2024 ambulatory 01/11/2024 2:50 PM EDT Support Visit [facility] Admit [address] [place] [phone] [facility] - Pre Admit Start: 12-31-2023 End: 12-31-2023 Patient encounter procedure 12/31/2023 9:00 AM EDT Office Visit [facility] General Surgery [address] [place] [phone] Tonie Small, YARD SPECIALIST-STRATEGIC PARTNERSHIP REPRESENTATIVE [address] [place] [address] [facility] General Surgery Start: 06-11-2023 COVID-19 Vaccine ( season) COVID-19 Vaccine ( season) [facility] Start: 06-11-2023 Influenza vaccination Influenza Vacc ine [facility] Start: 2020 Administration of varicella zoster vaccine Zoster (Shingles) Vaccine (1 of 2) [facility] Start: 1989 DTaP,Tdap and Td Vaccines (1 - Tdap) DTaP,Tdap and Td Vaccines (1 - Tdap) [facility] Start: 1989 Urine screening for protein Diabetes: Urine Protein Screening [facility] Start: 1988 Adult BMI Follow Up Plan Adult BMI F ollow Up Plan [facility] Start: 1988 Diabetic foot examination Diabetic Foot Exam [facility] Start: 1982 Depression Screening Depression Scre ening [facility] Start: 1970 Glaucoma screening Diabetic Op hthalmology Exam [facility] Start: 1970 Hemoglobin A1c measurement Diabetes: Hemoglobin A1C [facility] Start: 1970 Screening for malign ant neoplasm of colon [facility] Start: 1970 Tobacco Counseling Tobacco Counselin g [facility] End: 12-30-2024 Colonoscopy Colonoscopy GI Routine Rectal pain Rectal bleeding 1 Occurrences starting 12/31/2023 until 12/30/2024 [facility] Work Phone: Comment on above: 1 Occurrences starti ng 12/31/2023 until 12/30/2024 End: 01-18-2030 Colonoscopy Colonoscopy GI Routine Polyp of colon, unspecified part of colon, unspecified type 1 Occurrences starting 01/19/2024 until 01/18/2030 [facility] Comment on above: 1 Occurrences starti ng 01/19/2024 until 01/18/2030 LOWER RESPIRATORY CULTURE LOWER RESPIRATORY CULTURE Lab Routine 11/07/2024 7:50 AM EST [facility] THIN PREP TIS PAP AN D HR HPV DNA THIN PREP TIS PAP AND HR HPV DNA Pathology and Cytology Routine Well woman exam with routine gynecological exam Ordered: 03/14/2025 [facility] Work Phone: Comment on above: Ordered: 03/14/2025 End: 01-18-2025 Unlisted Procedure / Surgery Unlisted Procedure / Surgery Procedures Routine Chronic anal fissure 1 Occurrences starting 01/19/2024 until 01/18/2025 [facility] Work Phone: Comment on above: 1 Occurrences starti ng 01/19/2024 until 01/18/2025 Immunizations Immunization Date Immunization Notes Care Provider Fa [facility] 11-07-2024 influenza virus vaccine, unspecified formulation Mynor Schmidt MD Work Phone: [facility] 09-20-2015 influenza, seasonal, injectable, preservative free Mynor Schmidt MD Work Phone: [facility] 09-20-2015 influenza virus vaccine, unspecified formulation [facility] Work Phone: [facility] 08-22-2009 novel [id number], preservative-free, injectable Mynor Schmidt MD Work Phone: [facility] Payers Date Payer Category Payer Self-pay 2018 [facility] [id number] 2018 Unknown [place]/TRUST [id number] 2018-Present [phone] [address] [place] [address] [id number] 1970 Unknown [id number] 2.16.840.1.306501.3.57 9.2.593 1970 Unknown [id number] 2.16.840.1.114895.3.57 9.2.593 1970 Unknown [id number] 2.16.840.1.789615.3.57 9.2.593 1970 Unknown [id number] 2.16.840.1.392140.3.57 9.2.593 1970 Unknown [id number] 2.16.840.1.277798.3.57 9.2.593 1970 Unknown [id number] 2.16.840.1.051821.3.57 9.2.593 1970 Unknown [id number] 2.16.840.1.389849.3.57 9.2.1286 1970 Unknown [id number] 2.16.840.1.585036.3.57 9.2.1286 1970 Unknown [id number] 2.16.840.1.120357.3.57 9.2.1286 1970 Unknown [id number] 2.16.840.1.509287.3.57 9.2.1286 1970 Unknown [id number] 2.16.840.1.629374.3.57 9.2.1286 1970 Unknown [id number] 2.16.840.1.144019.3.57 9.2.1286 1970 Unknown [id number] 2.16.840.1.763697.3.57 9.2.1286 1970 Unknown [id number] 2.16.840.1.776037.3.57 9.2.1286 1970 Unknown [id number] 2.16.840.1.557715.3.57 9.2.1286 1970 Unknown [id number] 2.16.840.1.771630.3.57 9.2.1286 1970 Unknown [id number] 2.16.840.1.200977.3.57 9.2.1286 1970 Unknown [id number] 2.16.840.1.876270.3.57 9.2.1286 1970 Unknown [id number] 2.16.840.1.456511.3.57 9.2.1286 1970 Unknown [id number] 2.16.840.1.182386.3.57 9.2.1286 1970 Unknown [id number] 2.16.840.1.440217.3.57 9.2.1286 1970 Unknown [id number] 2.16.840.1.557634.3.57 9.2.1259 1970 Unknown [id number] 2.16.840.1.340733.3.57 9.2.1259 1970 Unknown [id number] 2.16.840.1.357784.3.57 9.2.1259 1970 Unknown [id number] 2.16.840.1.935260.3.57 9.2.1259 1970 Unknown [id number] 2.16.840.1.676865.3.57 9.2.1259 1959 Blue Cross Blue Shield [id number] 2.16.840.1.644716.19 Unknown [id number] 2.16.840.1.268964.3.57 9.2.531 Social History Date Type Detail Facility Unknown if ever smoked [employer] Other Start: 02-25-2024 End: 05-25-2025 Sex Assigned At [facility] Start: 10-13-2023 End: 01-19-2024 Tobacco smoking status NHIS Smokes tobacco daily [facility] Start: 01-31-1989 History of tobacco use Cigarette Smoker [facility] Start: 10-13-2023 End: 01-19-2024 Tobacco use and exposure Smokeless tobacco non-user [facility] Start: 03-03-2024 End: 05-25-2025 Alcoholic beverage intake Current drinker of alcohol (finding) [facility] Start: 02-25-2024 End: 05-25-2025 History of Social function [facility] How often do you att end advent or spiritism services? Patient declined [facility] Are you [...] Start: 10-05-2023 End: 12-31-2023 [email or web address] Start: [facility] at Female [facility] Start: 05-15-2023 Gender identity Identifies as female gender (finding) [facility] Start: 01-21-2024 End: 02-14-2024 Alcoholic beverage intake Ex-drinker (finding) [facility] Start: 05-15-2023 Sexual orientation Heterosexual (finding) [facility] Start: 03-26-2021 Alcohol Comment occasional [facility] Clinical Notes 07-07-2021 to 05-25-2025 Mynor Schmidt MD - 05/25/2025 10:04 AM Attila Schmidt MD - 05/25/2025 10:04 AM Attila Schmidt MD - 05/25/2025 10:04 AM Attila Schmidt MD - 05/25/2025 9:15 AM EDTPatient Instructions Note Date & Type Note Facility 05-25-2025 History of Presen t illness Narrative Associated Problem(s): Type 2 diabetes mellitus with hyperglycemia, without long-term current use of insulin (HCC) BS controlled but weight gain. Increase ozempic. Due for A1C. Stick to ADA diet and limit carbs. Associated Problem(s): MDD (major depressive disorder), recurrent episode, mild Symptoms stable with celexa and continue. Associated Problem(s): Essential hypertension BP controlled and monitor PRN. Images from the original note were not included. Subjective Patient ID: Karo Darden is a 54 y.o. female who presents for Annual Exam (Wellness/) and Edema (Swelling in ankles and feet/). Follow up DM, HTN, edema, and depression. Reports BS controlled with range of 99-120. Tries to eat well and stick to ADA diet. Denies signs of elevated BS such as polyuria, polyphagia or polydipsia. Checking BP PRN and typically controlled. BP normal today. Taking medication daily and tolerating without side effects. Edema recently worse. Increased swelling in feet and ankles. Edema much worse at end of day and if on feet a lot. Edema improved in am and with elevation. Mild SOB. Depression controlled with celexa. Still stress but feels like handling well. Not down or sad and not crying. Able to interact well with others and feels like mood tolerable. Edema Pertinent negative symptoms include no abdominal pain, no chest pain, no cough, no nausea, no palpitations and no vomiting. Review of Systems Respiratory: Negative for cough, [...] List Items Addressed This Visit Essential hypertension BP controlled and monitor PRN. Type 2 diabetes mellitus with hyperglycemia, without long-term current use of insulin (HCC) - Primary BS controlled but weight gain. Increase ozempic. Due for A1C. Stick to ADA diet and limit carbs. Relevant Medications semaglutide (Ozempic, 1 MG/DOSE,) 4 MG/3ML solution pen-injector Other Relevant Orders Microalbumin / creatinine, urine ratio Hemoglobin A1c Chronic heart failure with preserved ejection fraction (HFpEF) ([facility]) Relevant Medications spironolactone (Aldactone) 25 MG tablet furosemide (Lasix) 40 MG tablet MDD (major depressive disorder), recurrent episode, mild Symptoms stable with celexa and continue. documented in this encounter [facility] 03-14-2025 History of Presen t illness Narrative - Reason for Appointment: Patient ID: Karo Darden is a 54 y.o. female who presents for Well Women Visit Patient presents today for Annual Exam. MEDICATIONS Current Outpatient Medications Medication Instructions albuterol HFA 90 mcg/act inhaler 2 puffs, Inhalation, Every 4 hours PRN Alcohol Swabs (Alcohol Prep) 70 % pads APPLY 1 PAD DAILY ascorbic acid (Vitamin C) 250 MG chewable tablet 1 tablet, Daily RT atorvastatin (LIPITOR) 40 mg, Oral, Daily carvedilol (COREG) 12.5 mg, 2 times daily with meals citalopram (CELEXA) 10 mg, Oral, Daily citalopram (CELEXA) 20 mg, Oral, Nightly cyanocobalamin (VITAMIN B-12) 1,000 mcg, Daily RT fluconazole (Diflucan) 150 MG tablet TAKE 1 TIME DOSE, MAY REPEAT IN 72 HOURS NEEDED furosemide (LASIX) 40 mg, Oral, Daily lisinopril 10 mg, Oral, Daily Multiple Vitamins-Minerals (MULTIVITAMIN ADULT, MINERALS, PO) Multivitamin omega-3 1000 MG capsule capsule 1 capsule, Daily RT pioglitazone (ACTOS) 30 mg, Oral, Daily semaglutide (Ozempic, 0.25 or 0.5 MG/DOSE,) 2 MG/1.5ML solution pen-injector 0.25 mg SC weekly x 4 weeks, then 0.5 mg weekly ALLERGIES No Known Allergies PROBLEMS Active Ambulatory Problems Diagnosis Date Noted Essential hypertension (CMS/HCC) 10/05/2023 Internal derangement of right knee 10/05/2023 Class 3 severe obesity due to excess calories with serious comorbidity and body mass index (BMI) of 45.0 to 49.9 in adult 10/05/2023 Primary osteoarthritis of right knee 10/05/2023 Annual physical exam 03/03/2024 Type 2 diabetes mellitus with hyperglycemia, without long-term current use of insulin ([facility]) 03/03/2024 Chronic heart failure with preserved ejection fraction (HFpEF) ([facility]) 03/03/2024 Dyslipidemia ([facility]) 03/03/2024 MDD (major depressive disorder), recurrent episode, mild (HCC) ([facility]) 03/03/2024 Vaginal usama 09/01/2024 Resolved Ambulatory Problems Diagnosis Date Noted High cholesterol ([facility]) 10/05/2023 Arthritis of right knee 10/05/2023 Metrorrhagia 10/05/2023 Rectal fissure 10/05/2023 Acute nonsuppurative otitis media of left ear 09/01/2024 Pneumonia 11/16/2024 Acquired thrombocytopenia ([facility]) 02/16/2025 Past Medical History: Diagnosis Date At moderate risk for fall Benign essential HTN ([facility]) Constipation in female Diabetes ([facility]) Hemorrhoids History of tubal ligation Hypertension ([facility]) Internal hemorrhoid Left ovarian cyst Menorrhagia with irregular cycle Morbid obesity with BMI of 40.0-44.9, adult ([facility]) Obesity Osteoarthritis HISTORY PAST MEDICAL HISTORY SOCIAL HISTORY Past Medical History: Diagnosis Date At moderate risk for fall Benign essential HTN ([facility]) Chronic heart failure with preserved ejection fraction (HFpEF) ([facility]) Constipation in female Diabetes ([facility]) Dyslipidemia ([facility]) Hemorrhoids High cholesterol ([facility]) History of tubal ligation Hypertension ([facility]) Internal hemorrhoid Left ovarian cyst MDD (major depressive disorder), recurrent episode, mild (HCC) ([facility]) Menorrhagia with irregular cycle Morbid obesity with BMI of 40.0-44.9, adult ([facility]) Obesity Osteoarthritis Type 2 diabetes mellitus with hyperglycemia, without long-term current use of insulin ([facility]) Social History Tobacco Use Smoking status: Every Day Current packs/day: 1.00 Types: Cigarettes Smokeless tobacco: Never Substance Use Topics Alcohol use: Yes Comment: rarely Drug use: Never FAMILY HISTORY Family History Adopted: Yes Problem Relation Name Age of Onset Bipolar disorder Mother Diabetes Mother SURGICAL HISTORY Past Surgical History: Procedure Laterality Date ADENOIDECTOMY BLADDER SURGERY age 4 SECTION, CLASSIC x2 CYST REMOVAL excision of sebaceous cyst posterior neck DILATION AND CURETTAGE OF UTERUS 2013 HYSTERECTOMY 08/2019 KNEE SURGERY Left MENISCECTOMY Right 07/22/2022 knee arthroscopic medial meniscectomy - Dr. Lam OTHER SURGICAL HISTORY Mirena TONSILLECTOMY TUBAL LIGATION 2009 REVIEW OF SYSTEMS Review of Systems: Review of Systems Constitutional: Negative. HENT: Negative. Eyes: Negative. Respiratory: Negative. Cardiovascular: Negative. Gastrointestinal: Negative. Genitourinary: Negative. Musculoskeletal: Negative. Skin: Negative. Neurological: Negative. All other systems reviewed and are negative. Hematological: Negative. Endocrine: Negative. Allergic/Immunologic: Negative. OBJECTIVE Objective: Physical Exam Constitutional: Appearance: Normal appearance. She is well-developed. Genitourinary: Vulva normal. Vaginal cuff intact. Right Adnexa: not tender and no mass present. Left Adnexa: not tender and no mass present. Cervix is absent. No cervical discharge. Uterus is absent. Breasts: Breasts are soft. Right: Normal. Left: Normal. HENT: Head: Normocephalic. Nose: Nose normal. Mouth/Throat: Mouth: Mucous membranes are moist. Cardiovascular: Rate and Rhythm: Normal rate and regular rhythm. Pulmonary: Effort: Pulmonary effort is normal. Breath sounds: Normal breath sounds. Abdominal: General: Bowel sounds are normal. There is no distension. Palpations: Abdomen is soft. Tenderness: There is no abdominal tenderness. There is no guarding or rebound. Musculoskeletal: General: No swelling. Normal range of motion. Cervical back: Normal range of motion. Right lower leg: No edema. Left lower leg: No edema. Neurological: General: No focal deficit present. Mental Status: She is alert and oriented to person, place, and time. Skin: General: Skin is warm and dry. Psychiatric: Mood and Affect: Mood normal. Behavior: Behavior normal. Vitals and nursing note reviewed. Exam conducted with a mail superintendent present. Vitals: Estimated body mass index is 45.66 kg/m as calculated from the following: Height as of 02/16/25: 5' 3 . Weight as of this encounter: 257 lb 12 oz. BP: 128/82 No LMP recorded. Patient has had a hysterectomy. ASSESSMENT & PLAN ICD-10-CM 1. Well woman exam with routine gynecological exam Z01.419 THIN PREP TIS PAP AND HR HPV DNA 2. Encounter for screening mammogram for malignant neoplasm of breast Z12.31 3. Postmenopausal state Z78.0 Annual: Patient presents today for an annual exam. Patient states she is doing well and has no complaints. Pt diagnostic mammogram faxed to [facility] for additional imaging. Pap was obtained without difficulty and patient given mammogram order to have scheduled/obtained. No orders of the defined types were placed in this encounter. Follow Up: Patient is to return in one year for annual unless needed otherwise. Documented by Latonya Fallon LPN on behalf of: Damon Bettencourt DO documented in this encounter [facility] 02-16-2025 History of Presen t illness Narrative Associated Problem(s): Type 2 diabetes mellitus with hyperglycemia, without long-term current use of insulin ([facility]) C/o side effects from jardiance and stop. Try ozempic. Due for A1C. Stick to ADA diet and limit carbs. Associated Problem(s): Chronic heart failure with preserved ejection fraction (HFpEF) ([facility]) Edema stable and elevate legs PRN. Associated [...] heart failure with preserved ejection fraction (HFpEF) ([facility]) Edema stable and elevate legs PRN. Other Visit Diagnoses Localized edema Relevant Medications furosemide (Lasix) 40 MG tablet documented in this encounter [facility] 11-16-2024 History of Presen t illness Narrative Associated Problem(s): Chronic heart failure with preserved ejection fraction (HFpEF) ([facility]) Edema stable and elevate legs PRN. Associated Problem(s): Class 3 severe obesity due to excess calories with serious comorbidity and body mass index (BMI) of 40.0 to 44.9 in adult ([facility]) Weight loss indicated. Associated Problem(s): Pneumonia Improved with treatment and monitor. Use albuterol PRN. Off work 11/06-11/09 and on lay off this week. Return to work 11/20 without restrictions. Associated Problem(s): Type 2 diabetes mellitus with hyperglycemia, without long-term current use of insulin ([facility]) BS elevated from steroids but previously well controlled. Monitor. Stick to ADA diet and limit carbs. Images from the original note were not included. Subjective Patient ID: Karo Darden is a 54 y.o. female who presents for Follow-up ([facility] f/up). Hospital follow up from 11/06-11/09 for pneumonia and hypoxia. Developed cough and SOB for over a week. Frequent cough and chest tightness. Hasty like not able to catch breath and [...] (BMI) of 40.0 to 44.9 in adult ([facility]) Weight loss indicated. Type 2 diabetes mellitus with hyperglycemia, without long-term current use of insulin ([facility]) BS elevated from steroids but previously well controlled. Monitor. Stick to ADA diet and limit carbs. Pneumonia - Primary Improved with treatment and monitor. Use albuterol PRN. Off work 11/06-11/09 and on lay off this week. Return to work 11/20 without restrictions. Relevant Medications albuterol HFA 90 mcg/act inhaler documented in this encounter [facility] 11-08-2024 Note Gram Stain Evaluation This specimen is of good quality and is acceptable for routine [facility] 11-08-2024 Note [facility] GRAM STAIN EVALUATION bacterial culture. [facility] 09-01-2024 History of Present illness Narrative Associated Problem(s): Type 2 diabetes mellitus with hyperglycemia, without long-term current use of insulin ([facility]) BS controlled and due for A1C. Stick to ADA diet and limit carbs. Associated Problem(s): MDD (major depressive disorder), recurrent episode, mild (HCC) ([facility]) Symptoms stable with celexa and continue. Associated Problem(s): Essential hypertension ([facility]) BP controlled and monitor PRN. Associated Problem(s): Class 3 severe obesity due to excess calories with serious comorbidity and body mass index (BMI) of 45.0 to 49.9 in adult ([facility]) Discussed proper diet and regular aerobic exercise. Recommend Weight Watchers and need to limit calories and smaller portions. Need to increase activity and regular aerobic exercise several days a week for 30 minutes at a time. Associated Problem(s): Chronic heart failure with preserved ejection fraction (HFpEF) ([facility]) Edema stable and elevate legs PRN. Associated [...] List Items Addressed This Visit Essential hypertension ([facility]) BP controlled and monitor PRN. Class 3 [...] hyperglycemia, without long-term current use of insulin ([facility]) - Primary BS controlled and due for A1C. Stick to ADA diet and limit carbs. Relevant Orders Hemoglobin A1c Chronic heart failure with preserved ejection fraction (HFpEF) (CMS/HCC) Edema stable and elevate legs PRN. MDD (major depressive disorder), recurrent episode, mild (HCC) ([facility]) Symptoms stable with celexa and continue. Acute [...] 150 MG tablet documented in this encounter [facility] 03-13-2024 History of Present illness Narrative Images from the original note were not included. Subjective Karo Darden is a 53 y.o. female status [...] needed. 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 While intending to generate a timely document that accurately reflects the content of the visit, no guarantee can be provided that every grammatical or spelling mistake has been or will be identified or corrected. Thank you for your understanding. DOUG Viera 03/13/24 1524 documented in this encounter [facility] 03-13-2024 Instructions ALIDA Umana 03/13/2024 3:15 PM EDT Are You Ready To Kick The Habit? Free Tobacco Cessation Resources [facility] Centers provide all employees with free tobacco cessation services that include: Counseling to understand nicotine addiction Education about medications that can help you successfully quit Assistance with developing a plan to quit Call to set up an individual appointment or find out when group classes will be held: [facility]: [phone] [facility]: [phone] [facility]: [phone] [facility]: [phone] Quit Smoking Action Plan and Resources [facility] offers an eight-week, online smoking cessation plan to all [facility] employees, regardless of whether [employer] is your medical insurance provider. Go to [email or web address] and click the Health Risk Assessment and Resources link to get started. In the Yqnia5Lqqurw menu, click Action Plans instead of Health Risk Assessment to access the Quit Smoking Action Plan. Additional smoking cessation resources are also available to all [facility] employees on the Ogxzp0Jqbsud web page at [email or web address] [email or web address]. [employer] Tobacco Cessation Program If [employer] is your medical insurance provider, there are more free resources available to you, including: No copays or deductibles on local tobacco cessation counseling services to help you quit Prescription assistance for tobacco cessation medications to help you quit For details about the tobacco cessation program available to [employer] members, go to www.GigSky (Search: Tobacco Cessation Program). [place] Tobacco Quit Line 5-074-KAYH-NOW ( ) is a toll-free, telephonic service that helps [place] residents quit smoking and using tobacco. It is staffed by experts who tailor a quit plan for you and provide you with advice. [place] Tobacco Quit Line 8-271-UWKF-NOW ( ) is a toll-free, telephonic service that helps [place] residents quit smoking and using tobacco. It is staffed by experts who tailor a quit plan for you and provide you with advice. Two weeks of nicotine replacement therapy may be provided at no charge, if needed. Additional Resources These national organizations also offer free information and resources to help you quit tobacco: [place] Cancer Society--www.cancer.org/healthy/st ayawayfromtobacco Citizen [place] Heart Association--www.heart.org (Search: Quit Smoking) Centers for Disease Control and Prevention--www.cdc.gov/tobacco Citizen [place] Lung Association--www.lungusa.org documented in this encounter [facility] 02-14-2024 History of Present illness Narrative Images from the original note were not included. Subjective Karo Darden is a 53 y.o. female status [...] weeks. 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 While intending to generate a timely document that accurately reflects the content of the visit, no guarantee can be provided that every grammatical or spelling mistake has been or will be identified or corrected. Thank you for your understanding. DOUG Viera 02/14/24 1533 documented in this encounter [facility] 01-21-2024 Instructions Caroline Perez RN - 01/21/2024 12:45 PM EDT Preoperative Education Checklist- General Surgery date: 02/01/24 Surgery time: 730a Arrival time: 610a 1. Bring a photo ID and your insurance card with you the day of surgery. You will check in at the main lobby of the [facility]- registration desk is straight ahead as soon as you walk in. Tell them you are here for surgery. 2. If you have a Living Will/Durable Power of Tour Sales Representative for Health Care that is not on [...] after you have bathed. 5. NO nail nicaraguan/acrylic on at least one finger. If you are having a hand, wrist or foot surgery then all nail nicaraguan and artificial/acrylic nails must be removed from [...] please call the Preadmission Testing office at [phone], Mon.-Fri. 7 a.m.-3 p.m. Leave a voicemail [...] taking 0 days prior to procedure omega 6-jxn-zjs-fish oil 300-1,000 mg capsule Stop taking 1 [...] with your doctor. documented in this encounter [facility] 01-19-2024 History of Present illness Narrative Images from the original note were not included. 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 COMPLAINT Chief Complaint Patient presents with POST-OP VISIT POST OP COLONOSCOPY DONE 01/17/[address] MCKINNEY Karo Darden is a 53-year-old female who presents [...] in the morning., Disp: , Rfl: omega 8-szr-fry-fish oil 300-1,000 mg capsule, Take 1 capsule [...] Medical History: Diagnosis Date Arthritis Diabetes mellitus ([facility]) Hypertension Obesity Rectal bleeding 2018 when she also had hysterectomy Visual impairment SURGICAL HISTORY Past Surgical History: Procedure Laterality Date ARTHROSCOPY PARTIAL MEDIAL MENISCECTOMY KNEE Right 07/22/2022 Performed by Clifford Lam DO at [facility] BLADDER SURGERY SECTION Xs 2 COLONOSCOPY 3-4 yrs ago, [facility] COLONOSCOPY N/A 04/03/2021 Performed by Delano Mckinney DO at [facility] COLONOSCOPY DIAGNOSTIC / SCREENING N/A 01/17/2024 Performed by Delano Mckinney DO at [facility] CYST REMOVAL Back of neck, Dr Montes [...] patient/family/caregiver Referring and communicating with other health pet care associate 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 While intending to generate a timely document that accurately reflects the content of the visit, no guarantee can be provided that every grammatical or spelling mistake has been or will be identified or corrected. Thank you for your understanding. documented in this encounter [facility] 12-31-2023 History of Present illness Narrative [...] Past Medical History: Diagnosis Date Diabetes mellitus ([facility]) Hypertension Rectal bleeding 2018 when she also had hysterectomy Visual impairment Past Surgical History: Procedure Laterality Date ARTHROSCOPY PARTIAL MEDIAL MENISCECTOMY KNEE Right 07/22/2022 Performed by Clifford Lam DO at [facility] BLADDER SURGERY SECTION Xs 2 COLONOSCOPY 3-4 yrs ago, [facility] COLONOSCOPY N/A 04/03/2021 Performed by Delano Mckinney DO at [facility] CYST REMOVAL Back of neck, Dr Montes [...] in the morning., Disp: , Rfl: omega 6-byh-joi-fish oil 300-1,000 mg capsule, Take 1 capsule [...] Objective Physical Exam Exam conducted with a mail superintendent present. Constitutional: General: She is not in [...] patient/family/caregiver Referring and communicating with other health pet care associate Rectal pain [K62.89] DOUG VIERA [facility] [place] This note was created with the assistance of a speech recognition program. While intending to generate a timely document that accurately reflects the content of the visit, no guarantee can be provided that every grammatical or spelling mistake has been or will be identified or corrected. Thank you for your understanding. DOUG Viera 12/31/23 1239 documented in this encounter [facility] 12-31-2023 Instructions Kelley Griffith CMA - 12/31/2023 9:00 AM EDT Are You Ready To Kick The Habit? Free Tobacco Cessation Resources [facility] provide all employees with free tobacco cessation services that include: Counseling to understand nicotine addiction Education about medications that can help you successfully quit Assistance with developing a plan to quit Call to set up an individual appointment or find out when group classes will be held: Rodrick jones [facility]: [phone] [facility]: [phone] [facility]: [phone] [facility]: [phone] Quit Smoking Action Plan and Resources [facility] offers an eight-week, online smoking cessation plan to all [facility] employees, regardless of whether [employer] is your medical insurance provider. Go to [email or web address] and click the Health Risk Assessment and Resources link to get started. In the Ulmart menu, click Action Plans instead of Health Risk Assessment to access the Quit Smoking Action Plan. Additional smoking cessation resources are also available to all [facility] employees on the Nirro8Gnjkht web page at [email or web address] fransico. [employer] Tobacco Cessation Program If [employer] is your medical insurance provider, there are more free resources available to you, including: No copays or deductibles on local tobacco cessation counseling services to help you quit Prescription assistance for tobacco cessation medications to help you quit For details about the tobacco cessation program available to [employer] members, go to www.Vozeeme.Slurp.co.uk (Search: Tobacco Cessation Program). [place] Tobacco Quit Line 2-558-EVFF-NOW ( ) is a toll-free, telephonic service that helps [place] residents quit smoking and using tobacco. It is staffed by experts who tailor a quit plan for you and provide you with advice. [place] Tobacco Quit Line 3-836-QCUN-NOW ( ) is a toll-free, telephonic service that helps [place] residents quit smoking and using tobacco. It is staffed by experts who tailor a quit plan for you and provide you with advice. Two weeks of nicotine replacement therapy may be provided at no charge, if needed. Additional Resources These national organizations also offer free information and resources to help you quit tobacco: [place] Cancer Society--www.cancer.org/healthy/st ayawayfromtobacco Citizen [place] Heart Association--www.heart.org (Search: Quit Smoking) Centers for Disease Control and Prevention--www.cdc.gov/tobacco Citizen [place] Lung Association--www.lungusa.org documented in this encounter [facility] 11-15-2023 History of Present illness Narrative Images [...] Past Medical History: Diagnosis Date Diabetes mellitus ([facility]) Hypertension Rectal bleeding 2018 when she also had hysterectomy Visual impairment Past Surgical History: Procedure Laterality Date ARTHROSCOPY PARTIAL MEDIAL MENISCECTOMY KNEE Right 07/22/2022 Performed by Clifford Lam DO at [facility] BLADDER SURGERY SECTION Xs 2 COLONOSCOPY 3-4 yrs ago, [facility] COLONOSCOPY N/A 04/03/2021 Performed by Delano Mckinney DO at [facility] CYST REMOVAL Back of neck, Dr Montes [...] in the morning., Disp: , Rfl: omega 6-fxi-gwk-fish oil 300-1,000 mg capsule, Take 1 capsule [...] patient/family/caregiver Referring and communicating with other health pet care associate Rectal pain [K62.89] DOUG VIERA [facility] [place] This note was created with the assistance of a speech recognition program. While intending to generate a timely document that accurately reflects the content of the visit, no guarantee can be provided that every grammatical or spelling mistake has been or will be identified or corrected. Thank you for your understanding. DOUG Viera 11/15/23 1532 documented in this encounter [facility] 06-01-2022 Note PROCEDURE: XR KNEE R T [...] authenticated by: AUDREY GUTHRIE Date: 2022-06-01 09:07 [facility] 07-07-2021 Evaluation note Encounter Date Diagnosis Assessment [...] will help you get into a specialist. [employer] Other Evaluation note* Diagnosis Annual physical exam- Primary Routine general medical examination at a health care facility Type 2 diabetes mellitus with hyperglycemia, without long-term current use of insulin ([facility]) MDD (major depressive disorder), recurrent episode, mild (HCC) (CMS/HCC) Morbid obesity ([facility]) Morbid obesity Chronic heart failure with preserved ejection fraction (HFpEF) ([facility]) Type 2 diabetes mellitus with hyperglycemia, without long-term current use of insulin ([facility])- Primary Essential hypertension ([facility]) Unspecified essential hypertension Chronic heart failure with preserved ejection fraction (HFpEF) (CMS/HCC) MDD (major depressive disorder), recurrent episode, mild (HCC) (CMS/HCC) Class 3 severe obesity due to excess calories with serious comorbidity and body mass index (BMI) of 45.0 to 49.9 in adult (CMS/HCC) Acute nonsuppurative otitis media of left ear Vaginal usama Candidiasis of vulva and vagina documented [facility] Diagnosis Annual physical exam- Primary Routine general medical examination at a health care facility Type 2 diabetes mellitus with hyperglycemia, without long-term current use of insulin (CMS/HCC) MDD (major depressive disorder), recurrent episode, mild (HCC) ([facility]) Morbid obesity ([facility]) Morbid obesity Chronic heart failure with preserved ejection fraction (HFpEF) ([facility]) Type 2 diabetes mellitus with hyperglycemia, without long-term current use of insulin ([facility])- Primary Essential hypertension ([facility]) Unspecified essential hypertension Chronic heart failure with preserved ejection fraction (HFpEF) ([facility]) MDD (major depressive disorder), recurrent episode, mild (HCC) ([facility]) Class 3 severe obesity due to excess calories with serious comorbidity and body mass index (BMI) of 45.0 to 49.9 in adult ([facility]) Acute nonsuppurative otitis media of left ear Vaginal usama Candidiasis of vulva and vagina Pneumonia due to infectious organism, unspecified laterality, unspecified part of lung- Primary Type 2 diabetes mellitus with hyperglycemia, without long-term current use of insulin ([facility]) Class 3 severe obesity due to excess calories with serious comorbidity and body mass index (BMI) of 40.0 to 44.9 in adult ([facility]) Chronic heart failure with preserved ejection fraction (HFpEF) ([facility]) documented in this encounter [facility]* Diagnosis Chronic anal fissure- Primary Anal fissure H/O rectal sphincterotomy [facility] Diagnosis Rectal pain- Primary Anal or rectal pain [facility] Diagnosis Chronic anal fissure- Primary Anal fissure [facility] Diagnosis Rectal pain- Primary Anal or rectal pain Rectal bleeding Hemorrhage of rectum and anus Morbid obesity with BMI of 40.0-44.9, adult ([facility]) [facility]* Diagnosis Chronic anal fissure- Primary Anal fissure Polyp of colon, unspecified part of colon, unspecified type [facility]* Diagnosis Preop examination- Primary Unspecified pre-operative examination Hypertension, unspecified type Type 2 diabetes mellitus without complication, without long-term current use of insulin ([facility]) Preop examination Unspecified pre-operative examination Hypertension, unspecified type Type 2 diabetes mellitus without complication, without long-term current use of insulin ([facility]) [facility] Diagnosis Annual physical exam- Primary Routine general medical examination at a health care facility Type 2 diabetes mellitus with hyperglycemia, without long-term current use of insulin (CMS/HCC) MDD (major depressive disorder), recurrent episode, mild (HCC) (CMS/HCC) Morbid obesity (CMS/HCC) Morbid obesity Chronic heart failure with preserved ejection fraction (HFpEF) (CMS/HCC) Type 2 diabetes mellitus with hyperglycemia, without long-term current use of insulin (CMS/HCC)- Primary Essential hypertension (CMS/HCC) Unspecified essential hypertension Chronic heart failure with preserved ejection fraction (HFpEF) (CMS/HCC) MDD (major depressive disorder), recurrent episode, mild (HCC) (CMS/[facility]) Class 3 severe obesity due to excess calories with serious comorbidity and body mass index (BMI) of 45.0 to 49.9 in adult Acute nonsuppurative otitis media of left ear Vaginal usama Candidiasis of vulva and vagina Pneumonia due to infectious organism, unspecified laterality, unspecified part of lung- Primary Type 2 diabetes mellitus with hyperglycemia, without long-term current use of insulin (CMS/[facility]) Class 3 severe obesity due to excess calories with serious comorbidity and body mass index (BMI) of 40.0 to 44.9 in adult Chronic heart failure with preserved ejection fraction (HFpEF) ([facility]) Annual physical exam- Primary Routine general medical examination at a health care facility Type 2 diabetes mellitus with hyperglycemia, without long-term current use of insulin ([facility]) Essential hypertension (CMS/[facility]) Unspecified essential hypertension Chronic heart failure with preserved ejection fraction (HFpEF) (CMS/[facility]) Localized edema Edema Class 3 severe obesity due to excess calories with serious comorbidity and body mass index (BMI) of 45.0 to 49.9 in adult documented in this encounter [facility] HealthcareEvaluation note* Diagnosis Annual physical exam- Primary Routine general medical examination at a health care facility Type 2 diabetes mellitus with hyperglycemia, without long-term current use of insulin (CMS/[facility]) MDD (major depressive disorder), recurrent episode, mild (HCC) (CMS/HCC) Morbid obesity (CMS/HCC) Morbid obesity Chronic heart failure with preserved ejection fraction (HFpEF) (CMS/[facility]) Type 2 diabetes mellitus with hyperglycemia, without long-term current use of insulin (CMS/HCC)- Primary Essential hypertension (CMS/HCC) Unspecified essential hypertension Chronic heart failure with preserved ejection fraction (HFpEF) (CMS/HCC) MDD (major depressive disorder), recurrent episode, mild (HCC) ([facility]) Class 3 severe obesity due to excess calories with serious comorbidity and body mass index (BMI) of 45.0 to 49.9 in adult Acute nonsuppurative otitis media of left ear Vaginal usama Candidiasis of vulva and vagina Pneumonia due to infectious organism, unspecified laterality, unspecified part of lung- Primary Type 2 diabetes mellitus with hyperglycemia, without long-term current use of insulin ([facility]) Class 3 severe obesity due to excess calories with serious comorbidity and body mass index (BMI) of 40.0 to 44.9 in adult Chronic heart failure with preserved ejection fraction (HFpEF) ([facility]) Annual physical exam- Primary Routine general medical examination at a health care facility Type 2 diabetes mellitus with hyperglycemia, without long-term current use of insulin ([facility]) Essential hypertension ([facility]) Unspecified essential hypertension Chronic heart failure with preserved ejection fraction (HFpEF) ([facility]) Localized edema Edema Class 3 severe obesity due to excess calories with serious comorbidity and body mass index (BMI) of 45.0 to 49.9 in adult Well woman exam with routine gynecological exam Routine gynecological examination Encounter for screening mammogram for malignant neoplasm of breast Postmenopausal state Asymptomatic postmenopausal status (age-related) (natural) documented in this encounter [facility]* Diagnosis Annual physical exam- Primary Routine general medical examination at a health care facility Type 2 diabetes mellitus with hyperglycemia, without long-term current use of insulin ([facility]) MDD (major depressive disorder), recurrent episode, mild Morbid obesity ([facility]) Morbid obesity Chronic heart failure with preserved ejection fraction (HFpEF) ([facility]) Type 2 diabetes mellitus with hyperglycemia, without long-term current use of insulin ([facility])- Primary Essential hypertension Unspecified essential hypertension Chronic heart failure with preserved ejection fraction (HFpEF) ([facility]) MDD (major depressive disorder), recurrent episode, mild Class 3 severe obesity due to excess calories with serious comorbidity and body mass index (BMI) of 45.0 to 49.9 in adult ([facility]) Acute nonsuppurative otitis media of left ear Vaginal usama Candidiasis of vulva and vagina Pneumonia due to infectious organism, unspecified laterality, unspecified part of lung- Primary Type 2 diabetes mellitus with hyperglycemia, without long-term current use of insulin ([facility]) Class 3 severe obesity due to excess calories with serious comorbidity and body mass index (BMI) of 40.0 to 44.9 in adult ([facility]) Chronic heart failure with preserved ejection fraction (HFpEF) ([facility]) Annual physical exam- Primary Routine general medical examination at a health care facility Type 2 diabetes mellitus with hyperglycemia, without long-term current use of insulin ([facility]) Essential hypertension Unspecified essential hypertension Chronic heart failure with preserved ejection fraction (HFpEF) ([facility]) Localized edema Edema Class 3 severe obesity due to excess calories with serious comorbidity and body mass index (BMI) of 45.0 to 49.9 in adult ([facility]) Type 2 diabetes mellitus with hyperglycemia, without long-term current use of insulin ([facility])- Primary Essential hypertension Unspecified essential hypertension MDD (major depressive disorder), recurrent episode, mild Chronic heart failure with preserved ejection fraction (HFpEF) ([facility]) documented in this encounter [facility] Narrative - Reported* Type Description Date Medical History Hypertension Medical History diabetes mallitus Medical History chronic depression Medical History anxiety Surgical History tubal ligation Surgical History C section Surgical History bladder surgery Surgical History HYSTERECTOMY Hospitalization History see above Hospitalization History cyst [employer] Other InstructionsNot on filedocumented in this encounter [facility]ructions* Attachments The following attachments cannot be sent through Care Everywhere. * Anal fissure ([place]) [facility] Family History No Family History [...] By Beryl browning Referred To Contact Diagnoses Preop examination Hypertension, unspecified type Type 2 diabetes mellitus without complication, without long-term current use of insulin ([facility]) Procedures ECG 12 lead Tamra Saul MD [address] [place] [address] Referral ID Status Reason Start Date Expiration Date V isits Requested Visits Authorized [id number] Pending Review 01/19/2024 01/18/2025 1 1 Specialty Diagnoses / Procedures Referred By Contac t Referred To Contact Diagnoses Polyp of colon, unspecified part of colon, unspecified type Procedures Colonoscopy Delano Mckinney, DO [address] [place] [address] Referral ID Status Reason Start Date Expiration Date V isits Requested Visits Authorized [id number] Pending Review 01/19/2024 01/18/2025 1 1 Specialty Diagnoses / Procedures Referred By Contac t Referred To Contact Diagnoses Chronic anal fissure Procedures Unlisted Procedure / Surgery Delano Mckinney, DO [address] [place] [address] Referral ID Status Reason Start Date Expiration Date V isits Requested Visits Authorized [id number] Pending Review 01/19/2024 01/18/2025 1 1 Specialty Diagnoses / Procedures Referred By Contac t Referred To Contact Diagnoses Rectal pain Rectal bleeding Tonie Small, YARD SPECIALIST-[employer]ATE[employer]NER[employer] REPRESENTATIVE [address] [place] [address] Referral ID Status Reason Start Date Expiration Date Visits Re quested Visits Authorized [id number] Closed 1 1 Additional Source Comments INFORMATION SOURCE (unrecogn ized section and content) DATE CREATED AUTHOR 10/09/2020 [facility] DATE CREATED AUTHOR AUTHOR'S ORGANIZ ATION 06/13/2022 [facility] Specialist DATE CREATED AUTHOR AUTHOR'S ORGANIZ ATION 02/21/2023 [facility] DATE CREATED AUTHOR AUTHOR'S ORGANIZ ATION 02/02/2024 [facility] DATE CREATED AUTHOR AUTHOR'S ORGANIZ ATION 03/14/2024 [facility] DATE CREATED AUTHOR AUTHOR'S ORGANIZ ATION 04/23/2025 [facility] DATE CREATED AUTHOR AUTHOR'S ORGANIZ ATION 05/27/2025 [facility] dical Specialists EPIC REASON FOR VISIT [...] DR MCKINNEY Reason Comments Annual Exam Wellness Reason Comments Well Women Visit Reason Comments Annual Exam Wellness Edema Swelling in ankles a nd feet Care Teams (unrecognized sec tion and content) Delivery Crew Member Relationship Specialty Start Date End Date Mynor Schmidt MD [address] [place] [phone] PCP - General Family Medicine 03/03/24 Mynor Schmidt MD [address] [place] [phone] PCP - [place] [employer] 04/10/24 Delivery Crew Member Relationship Specialty Start Date End Date Mynor Schmidt MD [address] [place] [phone] PCP - General Family Medicine 03/03/24 Mynor Schmidt MD [address] [place] [phone] PCP - [place] [employer] 04/10/24 Delivery Crew Member Relationship Specialty Start Date End Date Mynor Schmidt MD [address] [place] [phone] PCP - General Family Medicine 03/03/24 Mynor Schmidt MD [address] [place] [phone] PCP - [place] [employer] 04/10/24 Delivery Crew Member Relationship Specialty Start Date End Date Mynor Schmidt MD [address] [place] [address] PCP - General Family Medicine 03/03/24 Mynor Schmidt MD [address] [place] [address] PCP - [place] [employer] 04/10/24 Delivery Crew Member Relationship Specialty Start Date End Date Mynor Schmidt MD [address] [place] [phone] PCP - General Family Medicine 03/03/24 Mynor Schmidt MD [address] [place] [address] PCP - [place] [employer] 04/10/24 Delivery Crew Member Relationship Specialty Start Date End Date Mynor Schmidt MD [address] [place] [address] PCP - General Family Medicine 07/20/22 Delivery Crew Member Relationship Specialty Start Date End Date Mynor Schmidt MD [address] [place] [address] PCP - General Family Medicine 07/20/22 Delivery Crew Member Relationship Specialty Start Date End Date Mynor Schmidt MD [address] [place] [address] PCP - General Family Medicine 07/20/22 Delivery Crew Member Relationship Specialty Start Date End Date Mynor Schmidt MD [address] [place] [address] PCP - General Family Medicine 07/20/22 Delivery Crew Member Relationship Specialty Start Date End Date Mynor Schmidt MD [address] [place] [address] PCP - General Family Medicine 07/20/22 Delivery Crew Member Relationship Specialty Start Date End Date Mynor Schmidt MD [address] [place] [phone] PCP - General Family Medicine 03/03/24 Mynor Schmidt MD [address] [place] [phone] PCP - [place] [employer] 04/10/24 Delivery Crew Member Relationship Specialty Start Date End Date Mynor Schmidt MD [address] [place] [phone] PCP - General Family Medicine 03/03/24 Mynor Schmidt MD [address] [place] [phone] PCP - [place] [employer] 04/10/24 Delivery Crew Member Relationship Specialty Start Date End Date Mynor Schmidt MD [address] [place] [address] PCP - General Family Medicine 03/03/24 Delivery Crew Member Relationship Specialty Start Date End Date Mynor Schmidt MD [address] [place] [address] PCP - General Family Medicine 03/03/24 Delivery Crew Member Relationship Specialty Start Date End Date Mynor Schmidt MD [address] [place] [address] PCP - [facility] 03/03/24 Delivery Crew Member Relationship Specialty Start Date End Date Mynor Schmidt MD [address] [place] [address] PCP - [facility] 03/03/24 FOR RECORDS PERTAINING TO PATIENTS WHO [...] BE BASED ON THE PRIMARY CLINICAL RECORDS. [facility] [employer] [facility]. provides no warranty or guarantee of the accuracy or completeness of information in this document.
== END 2025-06-01 11:42 | disposition home or self-care (01) ==
LOC: LAB 11:42
PROVIDERS: PCP Family Medicine; Visit Provider Family Medicine
DX: E11.65 Type 2 diabetes mellitus with hyperglycemia (principal)
CPT/HCPCS: 36415; 82043; 82570; 83036